=== PATIENT | male | born 1970 | race Caucasian/White ===

== ENCOUNTER → 2020-06-20 09:23 | Outpatient (BNVA) | payer OTHER, SELFPAY | PROVIDERS: PCP Nurse Practitioner Family; Referring Provider Nurse Practitioner Family; Visit Provider Nurse Practitioner Family | DX: G47.33 Obstructive sleep apnea (adult) (pediatric) (principal); Z79.899 Other long term (current) drug therapy ==

== ENCOUNTER 2023-12-15 12:22 | Outpatient (AMB) | payer OTHER, SELFPAY ==
--- NOTE | 2023-12-15 12:31 | MHC.PC.OV ---
Vital Signs 12/15/23 12:32 12/15/23 12:50 12/15/23 12:51 Height 5 ft 10 in Weight 271 lb 8 oz BMI 39.0 BP 202/110 H 160/90 H 160/90 H Blood Pressure Location Lt brachial Rt brachial Position Sitting Sitting Pulse 73 Pulse Source Pulse Oximeter Pulse Oximetry (%) 95 Oxygen Delivery Method Room Air Intake Visit Reasons: New pt, htn Allergies lisinopril Allergy (Unknown, Verified 12/15/23 12:53) Cough Medication List - Last Reconciled 12/15/23 by FLAKITO Winkler amlodipine 10 mg PO DAILY Tobacco use date assessed: 12/15/23 Dental Screening Dental Screen Date: 12/15/23 Did you have a dental visit in the last 12 months?: Yes Did you have a dental problem in the last 6 months where you did not have access to dental care?: No Was dental information given to patient?: Patient has dentist HPI HPI Comments History of Present Illness Details Patient is a 53-year-old male who I am meeting for the 1st time. Patient has a past medical history significant for hypertension, obstructive sleep apnea, hyperlipidemia. Patient had sleep study 4 years prior which demonstrated obstructive sleep apnea, patient had opted not to utilize CPAP machine at that time. Patient states that he has reconsidered and would now like to utilize CPAP machine, likely need new sleep study. Will refer to Sleep Medicine. Patient recently restarted amlodipine 10 mg p.o. daily for hypertension, will also start patient on losartan 50 mg p.o. daily. Patient will have follow-up in office in 2 weeks. He denies chest pain, dizziness, headache, shortness of breath, nausea, vomiting, diarrhea. Will obtain EKG in office today. Patient is due for colonoscopy will refer. Patient has surgical history of LASIK eye surgery and states he has developed floaters in his field of vision, will refer to Ophthalmology. He also states that he gets up to urinate 4 times per night. Has history of the same. Not taking any medication for this issue will draw fasting labs including PSA. Will refer to Urology. [facility] Surgical History Carpal tunnel syndrome, bilateral Family History Father HTN (hypertension) Mother No problems noted. Brother No problems noted. Brother No problems noted. Social History Housing: House Patient Tobacco Use Status: Never used Tobacco e-Cigarette/Vaping Use: Never Used service: No Current occupational status: employed Cognitive needs: No Hearing needs: No Vision needs: No Questionnaire PHQ-9 Over the last 2 weeks, how often have you been bothered by any of the following problems? 1. Little interest or pleasure in doing things: not at all 2. Feeling down, depressed, or hopeless: not at all 3. Trouble falling or staying asleep, or sleeping too much: not at all 4. Feeling tired or having little energy: not at all 5. Poor appetite or overeating: not at all 6. Feeling bad about yourself - or that you are a failure or have let yourself or your family down: not at all 7. Trouble concentrating on things, such as reading the newspaper or watching television: not at all 8. Moving or speaking so slowly that other people could have noticed. Or the opposite - being so fidgety or restless that you have been moving around a lot more than usual: not at all 9. Thoughts that you would be better off or of hurting yourself in some way: not at all Total score: 0 Depression Screening Interpretation: Negative Depression Screening Done: Yes 41901 - PHQ-9 Billing: Yes Source: Developed by Drs. Fletcher Bang, Katarina Hubbard, Pedrito Ryo and colleagues, with an educational juan pablo from [employer]. Thrive Questionnaire Date Thrive assessed: 12/15/23 I am a: Patient What is your living situation today?: I have a steady place to live Within the past 12 months, did the food you bought not last and you didn't have the money to get more?: Never true Within the past 12 months, did you worry whether your food would run out before you got money to buy more?: Never true Do you have trouble paying for medicines?: No Do you have trouble getting transportation to medical appointments?: No Do you have trouble paying your heating and electricity bill?: No Do you have trouble taking care of your child, family member or friend?: No Do you have trouble with day-to-day activities such as bathing, preparing meals, shopping, managing finances, etc.?: No Are you currently unemployed and looking for a job?: No Are you interested in more education?: No Please select the resources that you would like help with: None Currently or been in a relationship where the following occur: no concerns reported THRIVE Score: 0 AUDIT C Alcohol Use Questionnaire (AUDIT-C) 1. How often do you have a drink containing alcohol?: Monthly or less 2. How many drinks containing alcohol do you have on a typical day when you are drinking?: 1 or 2 3. How often do you have six or more drinks on one occasion?: Never Total Score: 1 Score Reviewed/Action Taken: Yes KARLA-7 AMB Questionnaire KARLA-7 Date KARLA - 7 assessed: 01/07/24 Feeling nervous, anxious, or on edge: 0 = Not at all Not being able to stop or control worryin = Not at all Worrying too much about different things: 0 = Not at all Trouble relaxin = Not at all Being so restless that it is hard to sit still: 0 = Not at all Becoming easily annoyed or irritable: 0 = Not at all Feeling afraid as if something awful might happen: 0 = Not at all Total KARLA-7 score (0-4 normal; 5-9 mild; 10-14 moderate; 15-21 severe): 0 Source: Developed by Drs. Fletcher Bang, Katarina Hubbard, Pedrito Roy and colleagues, with an educational juan pablo from [employer]. KARLA-7 Assessment Billing KARLA-7 Assessment Tool: KARLA-7 Assessment 57992 Review of Systems Const Details: Constitutional : No Weight loss, No Fever, No Chills, No Fatigue, No Malaise ENT/Mouth : Admits sore throat in morning, No Rhinorrhea. Eyes: No Eye Pain, No Swelling, No Redness, Admits some itchiness and occasional floaters. Cardiovascular : No Chest Pain, No SOB, Admits some Dyspnea on Exertion, No Orthopnea, No Edema, No Palpitations Respiratory : No Cough, Admits Sputum, No Wheezing Gastrointestinal : No Nausea, No Vomiting, No Diarrhea, No Constipation, No abdominal Pain, No Hematochezia, No Melena Genitourinary : No Dysuria, Admits nocturia, No Hematuria, Musculoskeletal : No joint pain, No Myalgias, No Joint Swelling Skin : No Skin Lesions, No rash, Admits some redness in skin fold behind knee. Neuro : No Weakness, No Numbness, No Dizziness, No Headache Psych : No Anxiety/Panic, No Depression Heme/Lymph: No Bruising, No Bleeding,No Lymphadenopathy Endocrine : No Polyuria, No Polydipsia All other systems reviewed and are negative Physical exam (Primary Care) Vital Signs: Last Vital Signs Pulse 73 12/15/23 12:32 BP 202/110 H 12/15/23 12:32 Pulse Ox 95 12/15/23 12:32 Oxygen Delivery Method Room Air 12/15/23 12:32 BMI result Body Mass Index 39.0 Tobacco/Smoking Status: Tobacco use Status Tobacco use date assessed 12/15/23 12/15/23 12:36 Patient Tobacco Use Status Never used Tobacco 12/15/23 12:36 e-Cigarette/Vaping Use Never Used 12/15/23 12:36 Depression Screening Interpretation: Negative Currently or been in a relationship where the following occur: no concerns reported Const Other: Appearance: Alert.? Oriented X3.? No acute distress.? Head: Normocephalic, atraumatic, no step-offs or deformities Eyes: Pupils equal, round and reactive to light.? ENT: Pharynx normal.?Tonsils +2. +post nasal drip. Neck: Normal inspection.? Neck supple.?Full ROM. CVS: Normal heart rate and rhythm.? Pulses normal.?+ systolic murmur. Respiratory: No respiratory distress.? Breath sounds normal.? Abdomen: Distended and nontender.? Skin: Scant erythema to left inguinal fold. ? Extremities: +2 pitting edema.? No calf ttp. 5/5 strength to bilateral upper and lower extremities Back: No midline tenderness, no C-spine tenderness, full range of motion, no CVA tenderness bilaterally Neuro: Oriented X 3.? No motor deficit.? No sensory deficit. CN 2-12 intact Assessment and Plan Assessment & Plan (1) Nocturia: Comment: Patient getting up to go the bathroom 4-5 times per night. Will draw PSA. Will draw A1c. Will refer patient to Urology Code(s): R35.1 - Nocturia (2) Floaters in visual field: Comment: Patient describes floaters and visual field, intermittent. Denies change in vision. Patient has history of LASIK surgery. Will refer to Ophthalmology Code(s): H43.399 - Other vitreous opacities, unspecified eye Qualifiers: Laterality: bilateral Qualified Code(s): H43.393 - Other vitreous opacities, bilateral (3) Essential hypertension: Comment: Patient recently started on 10 mg amlodipine. Will also start patient on losartan 50 mg/HCT 12.5 mg p.o. daily. Patient been instructed to take blood pressure measurements at home. Patient will follow-up in 2 weeks Code(s): I10 - Essential (primary) hypertension Plan: Take your medications as prescribed. If you were prescribed antibiotics today, it is important that you take your medication to their entirety, do not skip any doses, do not finish them early. Follow-up with your primary care provider this week. Return to the emergency department with new or worsening symptoms. Such as fevers, chills, chest pain, shortness of breath, nausea, vomiting, dizziness, headache, vision changes, lethargy In case of emergency call 911 (4) Obstructive sleep apnea hypopnea, severe: Comment: History of obstructive sleep apnea. Patient will need re-evaluation, will refer to Sleep Medicine. Code(s): G47.33 - Obstructive sleep apnea (adult) (pediatric) (5) Swelling of lower extremity: Comment: Plus two pitting edema. Will draw fasting labs including BNP. In office EKG obtained. Will order echocardiogram, will refer to Cardiology. Code(s): M79.89 - Other specified soft tissue disorders (6) Tinea cruris: Comment: Will give patient ketoconazole topical cream. Patient instructed to keep area clean and dry. Code(s): B35.6 - Tinea cruris (7) GERD with apnea: Comment: Patient will be started on pantoprazole sodium 20 mg p.o. daily. Patient has been advised on foods he should avoid that exacerbate gastric reflux. Patient has been instructed not to have food 2-3 hours prior to bedtime. Patient instructed to sleep with the help bed at a elevated as tolerated. Code(s): K21.9 - Gastro-esophageal reflux disease without esophagitis; R06.81 - Apnea, not elsewhere classified Plan Patient will follow-up in 2 weeks. Orders: Orders Vitamin B6 Today Z13.21 - Encounter for screening for nutritional disorder Vitamin B12 Today Z13.21 - Encounter for screening for nutritional disorder UA CC w/rflx Micro + Cult Today Z13.89 - Encounter for screening for other disorder Complete Blood Count Auto Diff Today Z13.0 - Encounter for screening for diseases of the blood and blood-forming organs and certain disorders involving the immune mechanism Lipid Panel Today Z13.220 - Encounter for screening for lipoid disorders B Type Natriuretic Peptide Today M79.89 - Other specified soft tissue disorders PSA,Total (Free>4and<10) Today Z12.5 - Encounter for screening for malignant neoplasm of prostate Vitamin D 25-OH (D2 and D3) Today Z13.21 - Encounter for screening for nutritional disorder TSH reflex Free T4 Today Z13.29 - Encounter for screening for other suspected endocrine disorder Comprehensive Met. Panel Today Z91.89 - Other specified personal risk factors, not elsewhere classified AMB EKG-In Office Today Z13.6 - Encounter for screening for cardiovascular disorders Hemoglobin A1c Today Z13.1 - Encounter for screening for diabetes mellitus Referrals Sleep Medicine Referral G47.33 - Obstructive sleep apnea (adult) (pediatric) Gastroenterology Referral Z12.11 - Encounter for screening for malignant neoplasm of colon Urology Referral R35.1 - Nocturia Ophthalmology Referral H43.399 - Other vitreous opacities, unspecified eye Medications: New fluticasone propionate 50 mcg/actuation (Allergy Relief (fluticasone)) administer into each nostril 2 sprays intranasal DAILY 16 grams 0RF ketoconazole 2% 1 appl topical DAILY 15 grams 0RF albuterol sulfate 90 mcg/actuation 2 puffs inhalation Q6H PRN 8.5 grams 0RF shortness of breath or wheezing olopatadine 0.1% separate doses by at least 6-8 hours 1 drp ophthalmic (eye) BID 5 mL 0RF pantoprazole 20 mg PO DAILY 30 tabs 0RF losartan-hydrochlorothiazide 50-12.5 mg 1 tab PO DAILY 90 tabs 0RF Coding Level of Care Code Est Pt Level 4 (24081) Diagnoses Nocturia R35.1 Vitreous floaters of both eyes H43.393 Laterality: bilateral Essential hypertension I10 Obstructive sleep apnea hypopnea, severe G47.33 Swelling of lower extremity M79.89 Tinea cruris B35.6 GERD with apnea K21.9; R06.81 Additional Codes KARLA-7 Assessment Billing - KARLA-7 Assessment Tool: KARLA-7 Assessment 51644 ([id number]) Time Spent (min) 38
[2023-12-15 12:32] VITALS: BP 202/110; PULSE 73; O2SAT 95; BMI 39.0
[2023-12-15 12:50] VITALS: BP 160/90
[2023-12-15 12:51] VITALS: BP 160/90
== END 2023-12-15 14:22 | disposition home or self-care (01) ==
PROVIDERS: PCP Nurse Practitioner Family; Visit Provider Nurse Practitioner Primary Care
DX: R35.1 Nocturia (principal); H43.393 Other vitreous opacities, bilateral; I10 Essential (primary) hypertension; G47.33 Obstructive sleep apnea (adult) (pediatric); M79.89 Other specified soft tissue disorders; B35.6 Tinea cruris; K21.9 Gastro-esophageal reflux disease without esophagitis; R06.81 Apnea, not elsewhere classified
CPT/HCPCS: 99214

== ENCOUNTER 2023-12-15 13:47 | Outpatient (REF) | payer OTHER, SELFPAY ==
[2023-12-15 15:50] LABS: MANUAL DIFF FLAG NO
[2023-12-15 15:53] LABS: Basophils Absolute Auto 0.1 X10*3/uL (0.0-0.2); Basophils Percent Auto 0.6 % (0-2); Eosinophils Absolute Auto 0.4 X10*3/uL (0.0-0.4); Eosinophils Percent Auto 4.6 % (0-4); Hematocrit 47.2 % (42.0-52.0); Hemoglobin 15.9 g/dl (14.0-18.0); Imm Gran Abs Auto 0.04 X10*3/uL (0.00-0.03); Imm Gran Pct Auto 0.5 % (0.0-0.4); Lymphocytes Absolute Auto 1.4 X10*3/uL (1.2-4.9); Lymphocytes Percent Auto 18.3 % (20-40); Mean Corpuscular HGB Conc 33.7 g/dl (31.0-36.0); Mean Corpuscular Hemoglobin 30.1 pg (27.0-33.0); Mean Corpuscular Volume 89.2 fL (80.0-98.0); Mean Platelet Volume 10.3 fL (9.4-12.4); Monocytes Absolute Auto 0.8 X10*3/uL (0.1-1.2); Monocytes Percent Auto 10.6 % (2-11); Neutrophils Absolute Auto 5.1 x10*3/uL (2.0-8.3); Neutrophils Percent Auto 65.4 % (45-73); Platelet Count 260 X10*3/uL (160-400); Red Blood Count 5.29 X10*6/uL (4.60-5.80); Red Cell Distribution Width 13.4 % (11.0-16.0); White Blood Count 7.8 X10*3/uL (4.8-10.8)
[2023-12-15 16:00] LABS: Appearance Urine Clear; Color Urine Yellow; Glucose Urine UA Negative (Negative); Leukocyte Esterase Urine Negative (Negative); Nitrite Urine Negative (Negative); Urine Blood Negative (Negative); Urine Ketones Negative (Negative); Urine Protein Negative (Neg-Trace)
[2023-12-15 16:27] LABS: B Type Natriuretic Peptide 11 pg/mL (<100)
[2023-12-15 17:52] LABS: Estimated Average Glucose 117 mg/dL; Hemoglobin A1C 148.3723 umol/L; Hemoglobin A1c % 5.7 % (<6.0)
[2023-12-15 17:56] LABS: Alanine Aminotransferase 27 U/L (0-40); Albumin Level 4.1 g/dL (3.5-5.0); Alkaline Phosphatase 72 U/L (39-117); Anion Gap 12 (12-20); Aspartate Amino Transferase 21 U/L (5-37); Bilirubin Total 0.9 mg/dL (0.0-1.0); Blood Urea Nitrogen 18 mg/dL (9-16); Calcium 9.8 mg/dL (8.4-10.2); Carbon Dioxide 28 mmol/L (22-29); Chloride 103 mmol/L (96-108); Estimated Glomerular Filt Rate > 60; Glucose Random 90 mg/dL (60-115); Potassium 3.6 mmol/L (3.3-5.1); Sodium 139 mmol/L (135-145); Total Protein 7.7 g/dL (6.5-8.0)
[2023-12-16 00:54] LABS: Vitamin B12 479 pg/mL (200-900)
[2023-12-18 14:18] LABS: Vitamin D 25-OH, D2 <4 ng/mL; Vitamin D 25-OH, D3 18 ng/mL; Vitamin D 25-OH, Total 18 ng/mL (30-100)
[2023-12-19 17:59] LABS: Vitamin B6 9.1 ng/mL (2.1-21.7)
== END 2023-12-15 13:48 | disposition home or self-care (01) ==
LOC: HO.HMGCLDS 13:47
PROVIDERS: PCP Nurse Practitioner Primary Care; Visit Provider Nurse Practitioner Primary Care
DX: Z13.21 Encounter for screening for nutritional disorder (principal); Z13.89 Encounter for screening for other disorder; Z13.0 Encounter for screening for diseases of the blood and blood-forming organs and certain disorders involving the immune mechanism; Z12.5 Encounter for screening for malignant neoplasm of prostate; Z13.29 Encounter for screening for other suspected endocrine disorder; Z13.1 Encounter for screening for diabetes mellitus; M79.89 Other specified soft tissue disorders; Z91.89 Other specified personal risk factors, not elsewhere classified
CPT/HCPCS: 36415; 80053; 81003; 82306; 82607; 83036; 83880; 84153; 84207; 84443; 85025

== ENCOUNTER 2023-12-18 11:49 | Outpatient (REF) | payer OTHER, SELFPAY ==
[2023-12-18 13:48] LABS: Cholesterol 192 mg/dL (<200); HDL Cholesterol 44 mg/dL (>40); LDL Cholesterol Calculated 113 mg/dL (<100); Triglycerides 178 mg/dL (<150)
== END 2023-12-18 11:50 | disposition home or self-care (01) ==
LOC: HO.HMGCLDS 11:49
PROVIDERS: PCP Nurse Practitioner Primary Care; Visit Provider Nurse Practitioner Primary Care
DX: Z13.220 Encounter for screening for lipoid disorders (principal); Z13.6 Encounter for screening for cardiovascular disorders
CPT/HCPCS: 36415; 80061

== ENCOUNTER 2023-12-29 11:22 | Outpatient (AMB) | payer OTHER, SELFPAY ==
[2023-12-29 11:27] VITALS: BP 140/80; PULSE 75; O2SAT 96
--- NOTE | 2023-12-29 11:27 | A.OFFPC_ITS ---
Vital Signs 12/29/23 11:27 12/29/23 12:27 Height 5 ft 10 in BP 140/80 H 136/80 Blood Pressure Location Rt brachial Rt brachial Position Sitting Pulse 75 Pulse Source Pulse Oximeter Pulse Oximetry (%) 96 Oxygen Delivery Method Room Air Intake Visit Reasons: 2WK F/U BP Check Allergies lisinopril Allergy (Unknown, Verified 12/29/23 11:56) Cough Medication List - Last Reconciled 12/29/23 by FLAKITO Winkler albuterol sulfate 90 mcg/actuation 2 puffs inhalation Q6H PRN amlodipine 10 mg PO DAILY atorvastatin 20 mg PO DAILY fluticasone propionate 50 mcg/actuation (Allergy Relief (fluticasone)) 2 sprays intranasal DAILY ketoconazole 2% 1 appl topical DAILY losartan-hydrochlorothiazide 50-12.5 mg 1 tab PO DAILY olopatadine 0.1% 1 drp ophthalmic (eye) BID pantoprazole 20 mg PO DAILY Tobacco use date assessed: 12/15/23 Dental Screening Dental Screen Date: 12/15/23 HPI HPI Comments History of Present Illness Details Patient is a 53-year-old male in today for a blood pressure recheck. Patient's blood pressure previous appointment 2 weeks ago was 160/90. He was started on Losartan 50mg- HCT 12.5 and asked to record blood pressure measurements at home. Patient denies dizziness, numbness, headache, vision changes, chest pain, shortness a breath, nausea, vomiting, diarrhea PFSH Surgical History Carpal tunnel syndrome, bilateral Family History Father HTN (hypertension) Mother No problems noted. Brother No problems noted. Brother No problems noted. Social History Housing: House Patient Tobacco Use Status: Never used Tobacco e-Cigarette/Vaping Use: Never Used service: No Current occupational status: employed Cognitive needs: No Hearing needs: No Vision needs: No Questionnaire Thrive Questionnaire Date Thrive assessed: 12/15/23 KARLA-7 AMB Questionnaire KARLA-7 Date KARLA - 7 assessed: 01/07/24 Source: Developed by Drs. Fletcher Bang, Katarina Hubbard, Pedrito Roy and colleagues, with an educational juan pablo from [employer]. Review of Systems Const All systems reviewed & are unremarkable except as noted in HPI and below Denies headache(s) ENT Denies dizziness and Denies headache(s) Card Denies chest pain and Denies dyspnea Resp Denies dyspnea GI Denies diarrhea, Denies nausea and Denies vomiting Musc Reports back pain (Left side), Reports arthralgias (right elbow) and Reports o ther Neuro Denies dizziness and Denies headache(s) Physical exam (Primary Care) Vital Signs: Last Vital Signs Pulse 75 12/29/23 11:27 BP 140/80 H 12/29/23 11:27 Pulse Ox 96 12/29/23 11:27 Oxygen Delivery Method Room Air 12/29/23 11:27 Care Plan Goal for BP management: Patient will continue take blood pressure measurements at home. Next steps: Patient will record measurements to get back to the office of the values in 2 weeks. Tobacco/Smoking Status: Tobacco use Status Tobacco use date assessed 12/15/23 12/29/23 11:41 Patient Tobacco Use Status Never used Tobacco 12/29/23 11:41 e-Cigarette/Vaping Use Never Used 12/29/23 11:41 Thrive Assessment: Date of Thrive Assessment Date Thrive assessed 12/15/23 12/29/23 11:41 Const Other: Appearance: Alert.? Oriented X3.? No acute distress.? Head: Normocephalic, atraumatic, no step-offs or deformities Eyes: Pupils equal, round and reactive to light.? ENT: Pharynx normal.?Tonsils +2. Neck: Normal inspection.? Neck supple.? CVS: Normal heart rate and rhythm.? Pulses normal.? Respiratory: No respiratory distress.? Breath sounds normal.? Skin: Skin warm and dry.? Normal skin color.? Normal skin turgor.? Extremities: +1 lower extremity edema.? +tenderness to left medial epicondyle. Back: No midline tenderness, no C-spine tenderness, full range of motion, Left CVA tenderness. Neuro: Oriented X 3.? No motor deficit.? No sensory deficit. CN 2-12 intact Assessment and Plan Assessment & Plan (1) Obstructive sleep apnea hypopnea, severe: Comment: History of obstructive sleep apnea. Patient will need re-evaluation, will refer to Sleep Medicine. Code(s): G47.33 - Obstructive sleep apnea (adult) (pediatric) (2) Costovertebral angle pain: Comment: will order renal US. Code(s): M54.9 - Dorsalgia, unspecified (3) Hypertension: Comment: Patient will continue to take BP measurements at home and take BP medications as prescribed. Code(s): I10 - Essential (primary) hypertension Qualifiers: Hypertension type: primary hypertension Qualified Code(s): I10 - Essential (primary) hypertension (4) Right elbow pain: Comment: Will order X-ray/. Code(s): M25.521 - Pain in right elbow Plan: Take your medications as prescribed. If you were prescribed antibiotics today, it is important that you take your medication to their entirety, do not skip any doses, do not finish them early. Follow-up with your primary care provider this week. Return to the emergency department with new or worsening symptoms. Such as fevers, chills, chest pain, shortness of breath, nausea, vomiting, dizziness, headache, vision changes, lethargy In case of emergency call 911 Plan Follow-up in 2 months Orders: Orders US renal BI Today N20.0 - Calculus of kidney XR elbow RT min 3V Today M25.529 - Pain in unspecified elbow Referrals Ear/Nose/Throat Referral G47.33 - Obstructive sleep apnea (adult) (pediatric) Coding Level of Care Code Est Pt Level 4 (41435) Diagnoses Obstructive sleep apnea hypopnea, severe G47.33 Costovertebral angle pain M54.9 Primary hypertension I10 Hypertension type: primary hypertension Right elbow pain M25.521 Time Spent (min) 38
[2023-12-29 12:27] VITALS: BP 136/80
== END 2023-12-29 13:34 | disposition home or self-care (01) ==
PROVIDERS: PCP Nurse Practitioner Primary Care; Visit Provider Nurse Practitioner Primary Care
DX: G47.33 Obstructive sleep apnea (adult) (pediatric) (principal); M54.9 Dorsalgia, unspecified; I10 Essential (primary) hypertension; M25.521 Pain in right elbow
CPT/HCPCS: 99214

== ENCOUNTER 2023-12-29 13:14 | Outpatient (REF) | payer OTHER, SELFPAY ==
--- NOTE | ~2023-12-29 | XR_ITS ---
EXAMINATION: XR ELBOW, RIGHT CLINICAL INFORMATION: Pain in the right elbow COMPARISON: None available. TECHNIQUE: AP, lateral, and oblique views of the right elbow. FINDINGS: The bones and soft tissues are normal. No fracture or joint effusion. Alignment is anatomic. Joint spaces are maintained. XR/XR elbow RT min 3V IMPRESSION: Normal right elbow.
== END 2023-12-29 13:15 | disposition home or self-care (01) ==
LOC: HO.HMGCX 13:14
PROVIDERS: PCP Nurse Practitioner Primary Care; Visit Provider Nurse Practitioner Primary Care
DX: M25.521 Pain in right elbow (principal)
CPT/HCPCS: 73080

== ENCOUNTER → 2024-01-02 13:51 | Outpatient (REF) | payer OTHER, SELFPAY ==
--- NOTE | 2024-01-02 14:02 | CA_ITS ---
Transthoracic Echocardiogram Patient (Last, First, Middle): Regan Lama, Gender: Male Date of : 1970 Age: 53 Procedure Date: 01/02/2024 Procedure Type: Transthoracic Echocardiogram Location: OP Height: 177.8 cm Weight: 120.2 kg BSA: 2.35 m2 Heart Rate: 60 bpm BP: 145 / 75 mmHg Employee Development Manager: CHANEL Referring MD: Aki FRAGA Symptoms: M79.89 - Other specified soft tissue disorders Study Quality: Fair ECG Rhythm: Sinus Conclusions: - The left ventricular systolic function is normal. The calculated ejection fraction is 66% by biplane method. - There is moderately increased left ventricular wall thickness. - No obvious valvular pathology seen on this study. - There is mild dilatation of the sinuses of Valsalva measuring 4.00 cm, mild dilatation of the ascending aorta measuring 4.30 cm, and mild dilatation of the aortic arch measuring 4.40 cm. Findings Left Ventricle Normal left ventricular cavity size. There is moderately increased left ventricular wall thickness. The left ventricular systolic function is normal. The calculated ejection fraction is 66% by biplane method. There is no evidence of regional wall motion abnormalities. Evidence suggests grade I (mild) diastolic dysfunction. LV peak GLS -15.6% (diminished). Right Ventricle Mildly increased right ventricular cavity size. There is normal right ventricular systolic function. Atria The left atrium is mildly dilated. The right atrium is normal in size. Aortic Valve There is a normal trileaflet aortic valve. There is mild calcification of the aortic valve. There is no aortic valve stenosis. There is no aortic valve regurgitation. Mitral Valve The mitral valve appears normal. There is no mitral valve regurgitation. There is no mitral valve stenosis. Pulmonic Valve The pulmonic valve is likely normal. Tricuspid Valve There is trace tricuspid valve regurgitation. There is no evidence of pulmonary hypertension. Great Vessels There is mild dilatation of the sinuses of Valsalva measuring 4.00 cm, mild dilatation of the ascending aorta measuring 4.30 cm, and mild dilatation of the aortic arch measuring 4.40 cm. Venous The inferior vena cava is normal in size and collapses greater than 50% with inspiration. Pericardium/Pleural There is no evidence of pericardial effusion. Prior Study Comparison No prior study available for comparison. Recommendations, Care & Conclusions No obvious valvular pathology seen on this study. Measurements 2D Linear Measurements IVSd: 1.35 0.6-0.9/0.6-1.0 cm LVIDd: 3.56 3.9-5.3/4.2-5.9 cm LVIDd Index: 1.51 2.4-3.2/2.2-3.1 cm/m2 LVIDs: 2.13 2.0-3.6 cm LVPWd: 1.47 0.7-1.1 cm LA Diam: 3.90 2.7-3.8/3.0-4.0 cm LAIDs Index: 1.66 1.5-2.3 cm/m2 LV Mass: 223.16 67-162/88-224 g LV Mass Index: 94.96 43-95/49-115 g/m2 LVOT Diam: 2.50 3.0+(-)1.3 cm 2D Systolic Function EF 4C: 61.00 >55% EF 2C: 70.70 >55% EF BiP: 65.90 >55% Mitral Valve MV Pk E: 0.62 MV PK A: 0.73 MV Decel Time: 331.00 E/A: 0.80 E'Lateral: 8.49 E'Medial: 6.53 E/E' Med: 9.40 E/E' Lat: 7.30 PHT: 97.00 MVA PHT: 2.27 Decel Carroll: 1.86 Aortic Valve AoV Pk Berry: 1.68 AoV Mn Berry: 1.18 AoV VTI: 0.34 AoV Pk Grad: 11.00 Aov Mn Grad: 6.00 KAILEE Cont.VTI: 3.93 LVOT LVOT Pk Berry: 1.32 LVOT Mn Berry: 0.90 LVOT VTI: 0.27 LVOT Pk Grad: 7.00 LVOT Mn Grad: 4.00 LVOT Diam: 2.50 LVOT Area: 4.91 Diastolic Function MV Pk E: 0.62 MV Pk A: 0.73 E/A: 0.80 E'Medial: 6.53 E/E' Med: 9.40 E' Laterial: 8.49 E/E' Lat: 7.30 Right Ventricle TAPSE (mm): 33.60 TVS' Berry: 16.90 Tricuspid Valve TR Pk Berry: 2.30 TR Pk Grad: 21.00 RA Press: 3.00 RVSP: 24.00 Great Vessels Aorta Sinus of Valsalva: 4.00 2.0-3.5 cm Ao Asc: 4.30 2.1-3.4 cm Ao Arch: 4.40 Pulmonary Valve PV Pk Berry: 1.07 Peak PV Grad: 5.00 Updated in Other Vendor System with Status of Final Joshua Manzanares MD electronically signed on 01/04/2024 11:01:49 AM with status of Final
== END ==
LOC: HO.CARD 13:51
PROVIDERS: PCP Nurse Practitioner Primary Care; Visit Provider Nurse Practitioner Primary Care
DX: R60.0 Localized edema (principal); I10 Essential (primary) hypertension
CPT/HCPCS: 93306; 93356

== ENCOUNTER → 2024-01-02 14:02 | Outpatient (BNV) | payer OTHER, SELFPAY | PROVIDERS: PCP Nurse Practitioner Primary Care; Visit Provider Internal Medicine | DX: I35.8 Other nonrheumatic aortic valve disorders (principal); I71.22 Aneurysm of the aortic arch, without rupture | CPT/HCPCS: 93306; 93356 ==

== ENCOUNTER 2024-01-05 08:26 | Outpatient (REF) | payer OTHER, SELFPAY ==
--- NOTE | ~2024-01-05 | US_ITS ---
EXAMINATION: US RETROPERITONEAL LIMITED (RENAL ONLY) CLINICAL INFORMATION: Calculus of kidney. COMPARISON: Renal ultrasound 09/14/2015 and 08/12/2014. TECHNIQUE: Real-time imaging of the kidneys. FINDINGS: RIGHT KIDNEY: 12.6 x 6.5 x 6.6 cm (SAG x AP x TRV). The kidney is normal in size, contour, and echogenicity. Renal cortical thickness is normal. No calculi or focal parenchymal lesions. No hydronephrosis. LEFT KIDNEY: 13.7 x 5.8 x 5.4 cm (SAG x AP x TRV). The kidney is normal in size, contour, and echogenicity. Renal cortical thickness is normal. No calculi or focal parenchymal lesions. No hydronephrosis. US/US renal BI IMPRESSION: Normal renal ultrasound. No visible nephrolithiasis.
== END 2024-01-05 08:27 | disposition home or self-care (01) ==
LOC: HO.HMGCX 08:26
PROVIDERS: PCP Nurse Practitioner Primary Care; Visit Provider Nurse Practitioner Primary Care
DX: N20.0 Calculus of kidney (principal)
CPT/HCPCS: 76775

== ENCOUNTER 2024-01-16 14:43 | Outpatient (AMB) | payer OTHER, SELFPAY ==
--- NOTE | 2024-01-16 15:25 | MHC.OFFVIS ---
Intake Visit Reasons: nocturia Intake Note: NEW Patient presents today to established treatment for Nocturia: Meds- None Allergies to Antibiotic- No Known Allergies Blood Thinner- None Post Void Residual: 69 mL Stereo Compiler Required: No Accompanied by: Self / Same As Patient Allergies lisinopril Allergy (Unknown, Verified 02/23/24 08:41) Cough HPI Comments Details: Regan is a pleasant male. He is a patient of Dr. Quiroz. He has seen for the following urologic conditions. - lower urinary tract symptoms - primarily nocturia Lower urinary tract symptoms Primarily developing nocturia Waking 2-3 times at night Has not tried medications Trial of medications with bladder ultrasound and 2 month follow-up [facility] Surgical History Carpal tunnel syndrome, bilateral Family History Father HTN (hypertension) Mother No problems noted. Brother No problems noted. Brother No problems noted. Social History Housing: House Patient Tobacco Use Status: Never used Tobacco e-Cigarette/Vaping Use: Never Used service: No Current occupational status: employed Cognitive needs: No Hearing needs: No Vision needs: No Review of Systems Const Denies chills and Denies fever(s) Card Reports no additional complaints and Denies syncope Resp Denies cough GI Denies abdominal pain and Denies heartburn Reports as per HPI and Denies change in libido Neuro Denies syncope Psych Denies change in libido Endo Denies change in libido Physical Exam Const General: cooperative, healthy appearing, comfortable and no acute distress Orientation/consciousness: patient oriented x3 HEENT Face and sinus: Yes normal facial exam Mouth: moist mucous membranes Neck Neck: Yes normal visual inspection, Yes full ROM and Yes trachea midline Chest Chest palpation & inspection: normal inspection of the chest Resp Effort & Inspection: normal respiratory effort, able to speak in complete sentences and no respiratory distress GI Inspection: Yes normal to inspection Back/Spine/Pelvis Cervical Spine: normal cervical lordosis Thoracic/Lumbar Spine: thoracic and lumbar spine normal to inspection Skin General skin exam: no rashes or lesions noted Neuro General: patient oriented x3, gait normal, tone normal and moves all extremities Extrem General: Yes normal to inspection and Yes capillary refill normal Results AMB Urinalysis, Automated UA Leukoctes 0 Marcella/uL Last Edit by Milton Serra Linda on 01/16/24 15:35 UA Nitrite Negative Last Edit by Milton Serra, [facility] on 01/16/24 15:35 UA Urobilinogen 0.2 mg/dL Last Edit by Milton Serra [facility] on 01/16/24 15:35 UA Protein 0 mg/dL Last Edit by Milton Serra A on 01/16/24 15:35 UA pH 6.0 Last Edit by Milton Serra A on 01/16/24 15:35 UA Blood 0 Marquise/uL Last Edit by Milton Serra [facility] on 01/16/24 15:35 UA Specific Gardners 1.015 Last Edit by Milton Serra [facility] on 01/16/24 15:35 UA Ketone Negative Last Edit by Milton Serra [facility] on 01/16/24 15:35 UA Bilirubin 5 mg/dL Last Edit by Milton Serra [facility] on 01/16/24 15:35 UA Glucose 0 mg/dL Last Edit by Milton Serra [facility] on 01/16/24 15:35 Results Reviewed Results Reviewed: Laboratory Last Values Urine pH (Auto) 6.0 01/16/24 15:34 Specific Gardners (Auto) 1.015 01/16/24 15:34 Urine Protein (Auto) 0 mg/dL 01/16/24 15:34 Glucose (UA)(Auto) 0 mg/dL 01/16/24 15:34 Urine Ketones (Auto) Negative 01/16/24 15:34 Urine Blood (Auto) 0 Marquise/uL 01/16/24 15:34 Urine Nitrite (Auto) Negative 01/16/24 15:34 Urine Bilirubin (Auto) 5 mg/dL 01/16/24 15:34 Urine Urobilinogen (Auto) 0.2 mg/dL 01/16/24 15:34 Leukocyte Esterase (Auto) 0 Marcella/uL 01/16/24 15:34 Assessment & Plan Assessment & Plan (1) Bladder outlet obstruction: Code(s): N32.0 - Bladder-neck obstruction Category: Medical Plan Trial tamsulosin Orders: Orders US bladder 01/23/24 R39.12 - Poor urinary stream, N32.0 - Bladder-neck obstruction AMB Urinalysis Automated 01/16/24 Z13.9 - Encounter for screening, unspecified AMB Post Void Residual by ultrasound 01/16/24 N39.8 - Other specified disorders of urinary system Medications: New tamsulosin 0.4 mg PO BEDTIME 30 caps 1RF 30 days N32.0 - Bladder-neck obstruction, R35.1 - Nocturia, N40.1 - Benign prostatic hyperplasia with lower urinary tract symptoms Patient Instructions: Imaging studies, laboratory and physical exam results were discussed and reviewed in detail. No major barriers to patient understanding were identified. An opportunity to ask questions regarding the treatment plan was provided. All questions were answered. The patient expressed understanding and agreement with the above treatment plan. The patient is aware they should contact our office by phone for worsening of their current condition or the appearance of new urologic symptoms. Compliance is encouraged with any medications and followup testing that is ordered. It is a privilege to participate in the urologic care of your patient. If you have any questions or concerns regarding treatment for the above conditions, or other urologic issues, please do not hesitate to contact me. The office telephone contact is [phone]. This note is constructed using voice recognition software. While every effort has been made to ensure accuracy medical microbiologist errors may have been included. Yours sincerely, Dr Tyrell Morataya MD, [facility] - Urology Providers of Expert, Compassionate Care for the Genitourinary System Coding Level of Care Code New Pt Level 4 (11312) Diagnoses Bladder outlet obstruction N32.0
== END 2024-01-16 15:42 | disposition home or self-care (01) ==
PROVIDERS: PCP Nurse Practitioner Primary Care; Visit Provider Urology
DX: N32.0 Bladder-neck obstruction (principal)
CPT/HCPCS: 99203

== ENCOUNTER → 2024-01-16 14:43 | Outpatient (BNVA) | payer OTHER, SELFPAY | PROVIDERS: PCP Nurse Practitioner Primary Care; Visit Provider Urology | DX: N40.1 Benign prostatic hyperplasia with lower urinary tract symptoms (principal); N13.8 Other obstructive and reflux uropathy; R35.1 Nocturia | CPT/HCPCS: 81003 ==

== ENCOUNTER 2024-01-20 15:47 | Outpatient (AMB) | payer OTHER, SELFPAY ==
[2024-01-20 15:50] VITALS: BP 142/82; PULSE 78; O2SAT 98
--- NOTE | 2024-01-20 15:50 | AM.OFFWIN_ITS ---
Intake Vital Signs 01/20/24 15:50 Height 5 ft 10 in BP 142/82 H Blood Pressure Location Rt brachial Position Sitting Pulse 78 Pulse Source Pulse Oximeter Pulse Oximetry (%) 98 Intake Visit Reasons: EST/left side upper theigh numb (lobby) Intake Note: pt is here for left side upper thigh feels numb Patient Tobacco Use Status: Never used Tobacco Allergies lisinopril Allergy (Unknown, Verified 01/20/24 16:11) Cough Medication List - Last Reconciled 01/20/24 by FLAKITO Winkler albuterol sulfate 90 mcg/actuation 2 puffs inhalation Q6H PRN amlodipine 10 mg PO DAILY atorvastatin 20 mg PO DAILY fluticasone propionate 50 mcg/actuation 2 sprays intranasal DAILY ketoconazole 2% 1 appl topical DAILY losartan-hydrochlorothiazide 50-12.5 mg 1 tab PO DAILY olopatadine 0.1% 1 drp ophthalmic (eye) BID pantoprazole 20 mg PO DAILY tamsulosin 0.4 mg PO BEDTIME 30 days Do you need a note to return to daycare/school/sports/work: No HPI HPI Comments History of Present Illness Details Patient is a 53-year-old male in today for a sick visit. He states that for the past week he has developed symptoms of intermittent numbness and then burning sensation on the outside of his left leg. He states that the pain starts at his left hip and radiates down to the knee. Also reports lower back discomfort. Patient works standing on his feet all day, often having to bend and squat for several minutes. Patient states that the symptoms have gotten progressively worse over the past month, with a past week being the worst. Has not utilized any medications for relief. Denies any saddle numbness or urinary incontinence. [facility] Surgical History Carpal tunnel syndrome, bilateral Family History Father HTN (hypertension) Mother No problems noted. Brother No problems noted. Brother No problems noted. Social History Housing: House Patient Tobacco Use Status: Never used Tobacco e-Cigarette/Vaping Use: Never Used service: No Current occupational status: employed Cognitive needs: No Hearing needs: No Vision needs: No Review of Systems Const All systems reviewed & are unremarkable except as noted in HPI and below Denies chills and Denies fever(s) Card Denies chest pain and Denies dyspnea Resp Denies dyspnea GI Denies diarrhea, Denies nausea and Denies vomiting Denies urinary incontinence Musc Reports radiating pain into limb (Left lower extremity) and Denies tingling Skin/Breast Denies lesions and Denies erythema Neuro Denies Sensory deficit (Neuro), Denies tingling and Denies paresthesias Physical Exam Const Other: Appearance: Alert.? Oriented X3.? No acute distress.? Head: Normocephalic, atraumatic, no step-offs or deformities Respiratory: No respiratory distress.? Back: No midline tenderness, no C-spine tenderness, full range of motion, no CVA tenderness bilaterally, + Left SI joint tenderness. Neuro: Oriented X 3.? No motor deficit.? No sensory deficit. CN 2-12 intact Neuro Sensory Exam: No Sensory deficit (Neuro) Assessment & Plan Assessment & Plan (1) Sciatica: Comment: Will order lumbar and SI joint x-ray. Will give prednisone and meloxicam. Patient will follow-up in 1 week if not better. Patient has been educated on si gns of worsening symptoms when to report to the walk-in or when to present to the ED. Code(s): M54.30 - Sciatica, unspecified side Qualifiers: Laterality: left Qualified Code(s): M54.32 - Sciatica, left side Plan: Take your medications as prescribed. If you were prescribed antibiotics today, it is important that you take your medication to their entirety, do not skip any doses, do not finish them early. Follow-up with your primary care provider this week. Return to the emergency department with new or worsening symptoms. Such as fevers, chills, chest pain, shortness of breath, nausea, vomiting, dizziness, headache, vision changes, lethargy In case of emergency call 911 Plan Follow up with pcp. Orders: Orders XR lumbar spine 2-3V Today M54.30 - Sciatica, unspecified side XR sacroiliac joint 1-2V Today M54.30 - Sciatica, unspecified side Medications: New losartan 25 mg PO DAILY 30 tabs 0RF prednisone 40 mg (2 x 20 mg) PO DAILY 10 tabs 0RF meloxicam 15 mg PO DAILY 14 tabs 0RF Coding Level of Care Code Est Pt Level 3 (27460) Diagnoses Sciatica of left side M54.32 Laterality: left
== END 2024-01-20 16:31 | disposition home or self-care (01) ==
PROVIDERS: PCP Nurse Practitioner Primary Care; Visit Provider Nurse Practitioner Primary Care
DX: M54.32 Sciatica, left side (principal)
CPT/HCPCS: 99213

== ENCOUNTER 2024-01-20 16:04 | Outpatient (REF) | payer OTHER, SELFPAY ==
--- NOTE | ~2024-01-20 | XR_ITS ---
EXAMINATION: XR LUMBOSACRAL SPINE CLINICAL INFORMATION: Sciatica COMPARISON: None available. TECHNIQUE: Three views of the lumbosacral spine. FINDINGS: There is disc space narrowing at the lumbosacral junction. No fracture or destructive process. There is sclerotic change overlying the left SI joint. XR/XR lumbar spine 2-3V IMPRESSION: Degenerative change noted.
--- NOTE | ~2024-01-20 | XR_ITS ---
EXAMINATION: XR SACROILIAC JOINTS CLINICAL INFORMATION: Pain COMPARISON: None available. TECHNIQUE: 3 views of the sacroiliac joints FINDINGS: Right and left SI joint appears symmetric. No erosive change. The pelvis and hips appear intact. No fracture or destructive process. XR/XR sacroiliac joint 1-2V IMPRESSION: Unremarkable study.
== END 2024-01-20 16:05 | disposition home or self-care (01) ==
LOC: HO.HMGCX 16:04
PROVIDERS: PCP Nurse Practitioner Primary Care; Visit Provider Nurse Practitioner Primary Care
DX: M54.30 Sciatica, unspecified side (principal)
CPT/HCPCS: 72100; 72200

== ENCOUNTER 2024-01-23 11:22 | Outpatient (REF) | payer OTHER, SELFPAY ==
--- NOTE | ~2024-01-23 | US_ITS ---
EXAMINATION: US PELVIS LIMITED (BLADDER) CLINICAL INFORMATION: Poor urinary stream. COMPARISON: Renal ultrasound 01/05/2024 and 09/14/2015. CT abdomen and pelvis 09/19/2014. TECHNIQUE: Real-time imaging of the bladder. FINDINGS: BLADDER: Well-distended. Mild diffuse thickening of the bladder wall with possible mild irregularity. Bilateral ureteral jets are demonstrated. Prevoid bladder volume is 305 mL. Postvoid bladder volume is 70 mL. ADDITIONAL FINDINGS: Enlarged prostate with volume 46 mL. US/US bladder IMPRESSION: 1. Mild diffuse thickening of the bladder wall with possible mild irregularity. 2. Enlarged prostate with volume 46 mL.
== END 2024-01-23 11:23 | disposition home or self-care (01) ==
LOC: HO.HMGCX 11:22
PROVIDERS: PCP Nurse Practitioner Primary Care; Visit Provider Urology
DX: R39.12 Poor urinary stream (principal); N32.0 Bladder-neck obstruction
CPT/HCPCS: 76857

== ENCOUNTER 2024-01-27 08:44 | Outpatient (AMB) | payer OTHER, SELFPAY ==
[2024-01-27 09:20] VITALS: BP 130/90; PULSE 65; TEMP 36.1; O2SAT 97; BMI 36.9
--- NOTE | 2024-01-27 09:20 | MHC.OFFWIV ---
Intake Vital Signs 01/27/24 09:20 Height 5 ft 10 in Weight 257 lb BMI 36.9 BP 130/90 H Blood Pressure Location Lt brachial Position Sitting Pulse 65 Pulse Source Pulse Oximeter Temp 97.0 F Temp Source Temporal Artery Scan Pulse Oximetry (%) 97 Oxygen Delivery Method Room Air Intake Visit Reasons: EP ?Fluid in llung Intake Note: pt is here today for fluid in lungs started friday Patient Tobacco Use Status: Never used Tobacco Allergies lisinopril Allergy (Unknown, Verified 01/27/24 10:05) Cough Medication List - Last Reconciled 01/27/24 by FLAKITO Winkler albuterol sulfate 90 mcg/actuation 2 puffs inhalation Q6H PRN amlodipine 10 mg PO DAILY atorvastatin 20 mg PO DAILY fluticasone propionate 50 mcg/actuation 2 sprays intranasal DAILY ketoconazole 2% 1 appl topical DAILY losartan 25 mg PO DAILY losartan-hydrochlorothiazide 50-12.5 mg 1 tab PO DAILY meloxicam 15 mg PO DAILY olopatadine 0.1% 1 drp ophthalmic (eye) BID pantoprazole 20 mg PO DAILY tamsulosin 0.4 mg PO BEDTIME 30 days Do you need a note to return to daycare/school/sports/work: No HPI HPI Comments History of Present Illness Details Patient is a 53-year-old male in today for sick visit. He reports for the past 2 days he has developed symptoms of excessive mucus production, chills, headache, cough. Has not taken any medication for relief. States that the cough is bothering him the most particularly at night. Denies chest pain or shortness of breath. Denies fever. Denies nausea vomiting or diarrhea. Reports sick contacts. On physical exam patient has bilateral wheeze of upper lobes. + rhonchi. No crackles. Will obtain chest x-ray. Will obtain URI swab. [facility] Surgical History Carpal tunnel syndrome, bilateral Family History Father HTN (hypertension) Mother No problems noted. Brother No problems noted. Brother No problems noted. Social History Housing: House Patient Tobacco Use Status: Never used Tobacco e-Cigarette/Vaping Use: Never Used service: No Current occupational status: employed Cognitive needs: No Hearing needs: No Vision needs: No Review of Systems Const All systems reviewed & are unremarkable except as noted in HPI and below Physical Exam Vital Signs: Last Vital Signs Temp 97.0 F 01/27/24 09:20 Pulse 65 01/27/24 09:20 BP 130/90 H 01/27/24 09:20 Pulse Ox 97 01/27/24 09:20 Oxygen Delivery Method Room Air 01/27/24 09:20 BMI result Body Mass Index 36.9 Const Other: Appearance: Alert.? Oriented X3.? No acute distress.? Head: Normocephalic, atraumatic, Eyes: Pupils equal, round and reactive to light.? ENT: Pharynx normal.?TM intact and pearly villa. Neck: Normal inspection.? Neck supple.? CVS: Normal heart rate and rhythm.? Pulses normal.? Respiratory: No respiratory distress.? Bilateral wheeze upper lobes. Abdomen: Soft and nontender.? Skin: Skin warm and dry.? Normal skin color.? Normal skin turgor.? Extremities: No lower extremity edema.? No calf ttp. 5/5 strength to bilateral upper and lower extremities Back: No midline tenderness, no C-spine tenderness, full range of motion, no CVA tenderness bilaterally Neuro: Oriented X 3.? No motor deficit.? No sensory deficit. CN 2-12 intact Assessment & Plan Assessment & Plan (1) Upper respiratory infection: Comment: Will give prednisone. Will also send albuterol inhaler. Patient has been educated on signs of worsening symptoms when to report to the walk-in or when to present to the ED Code(s): J06.9 - Acute upper respiratory infection, unspecified Qualifiers: URI type: unspecified URI Qualified Code(s): J06.9 - Acute upper respiratory infection, unspecified Plan: Take your medications as prescribed. If you were prescribed antibiotics today, it is important that you take your medication to their entirety, do not skip any doses, do not finish them early. Follow-up with your primary care provider this week. Return to the emergency department with new or worsening symptoms. Such as fevers, chills, chest pain, shortness of breath, nausea, vomiting, dizziness, headache, vision changes, lethargy In case of emergency call 911 Plan Will also provide Sildenafil refill. Orders: Orders SARS-CoV2/FLU/RSV 01/27/24 J06.9 - Acute upper respiratory infection, unspecified XR chest 2V 01/27/24 R07.89 - Other chest pain Medications: New sildenafil administer 30 minutes to 4 hours before activity 50 mg PO DAILY PRN 10 tabs 0RF sexual activity prednisone 10 mg orally Take 4 tablets for three days, take 3 tablets for two days, take 2 tablets for two days, take 1 tablet for two days; see taper instructions 24 tabs 0RF Coding Level of Care Code Est Pt Level 3 (57232) Diagnoses Upper respiratory tract infection, unspecified type J06.9 URI type: unspecified URI Time Spent (min) 27
== END 2024-01-27 10:56 | disposition home or self-care (01) ==
PROVIDERS: PCP Nurse Practitioner Primary Care; Visit Provider Nurse Practitioner Primary Care
DX: J06.9 Acute upper respiratory infection, unspecified (principal)
CPT/HCPCS: 99213

== ENCOUNTER 2024-01-27 09:53 | Outpatient (REF) | payer OTHER, SELFPAY ==
--- NOTE | ~2024-01-27 | XR_ITS ---
EXAMINATION: XR CHEST CLINICAL INFORMATION: Chest pain COMPARISON: None available. TECHNIQUE: 2 views of the chest were obtained. FINDINGS: Lungs grossly are clear. No pneumothorax. Heart and pulmonary vessels normal. No pleural effusion. XR/XR chest 2V IMPRESSION: No active disease.
[2024-01-27 14:53] LABS: Influenza A PCR NEGATIVE (Negative); Influenza B PCR NEGATIVE (Negative); Resp Syncy Virus RNA Qual PCR NEGATIVE (Negative); SARS COV2 PCR INHOUSE NEGATIVE (Negative)
== END 2024-01-27 09:54 | disposition home or self-care (01) ==
LOC: HO.HMGCX 09:53
PROVIDERS: PCP Nurse Practitioner Primary Care; Visit Provider Nurse Practitioner Primary Care
DX: R07.89 Other chest pain (principal); J06.9 Acute upper respiratory infection, unspecified
CPT/HCPCS: 0241U; 71046

== ENCOUNTER 2024-02-23 08:26 | Outpatient (AMB) | payer OTHER, SELFPAY ==
--- NOTE | 2024-02-23 08:27 | A.OFFPC_ITS ---
Vital Signs 02/23/24 08:29 Height 5 ft 10 in Weight 255 lb BMI 36.6 BP 136/88 Blood Pressure Location Lt brachial Position Sitting Pulse 61 Pulse Source Pulse Oximeter Pulse Oximetry (%) 97 Oxygen Delivery Method Room Air Intake Visit Reasons: 2 month follow up Intake Note: pt is here for 2 mo f/u for hypertension Allergies lisinopril Allergy (Unknown, Verified 02/23/24 08:41) Cough Medication List - Last Reconciled 02/23/24 by FLAKITO Winkler albuterol sulfate 90 mcg/actuation 2 puffs inhalation Q6H PRN amlodipine 10 mg PO DAILY atorvastatin 20 mg PO DAILY fluticasone propionate 50 mcg/actuation 2 sprays intranasal DAILY ketoconazole 2% 1 appl topical DAILY losartan-hydrochlorothiazide 100-12.5 mg 1 tab PO DAILY meloxicam 15 mg PO DAILY olopatadine 0.1% 1 drp ophthalmic (eye) BID sildenafil 50 mg PO DAILY PRN tamsulosin 0.4 mg PO BEDTIME 30 days Tobacco use date assessed: 02/23/24 Dental Screening Dental Screen Date: 12/15/23 HPI HPI Comments History of Present Illness Details This is a 53-year-old male in today for a hypertension follow-up. He is currently taking 75 mg losartan, 12.5 mg hydrochlorothiazide, and 10 mg amlodipine. Patient's blood pressure today slightly elevated at 136/88. Patient will be titrated up to 100 mg losartan/12.5 mg hydrochlorothiazide, in the morning, with 10 mg of amlodipine at night. Patient denies any symptoms of dizziness, headache, blurred vision, chest pain, shortness a breath, nausea, vomiting, diarrhea. Patient will be instructed to take blood pressure measurement over the next 2 week in reports the office what his values have been. Patient also reports that he has continued to have lumbar pain with bilateral radiculopathy. Has been seeing chiropractor with mild affect. Has utilized [id number] NSAIDs with mild effect. Has also utilize prednisone in the past with mild affect. Will try to order MRI of the lumbar spine today. Patient will be given meloxicam p.r.n. patient denies saddle numbness, or tingling. [facility] Surgical History Carpal tunnel syndrome, bilateral Family History Father HTN (hypertension) Mother No problems noted. Brother No problems noted. Brother No problems noted. Social History Housing: House Patient Tobacco Use Status: Never used Tobacco e-Cigarette/Vaping Use: Never Used service: No Current occupational status: employed Cognitive needs: No Hearing needs: No Vision needs: No Questionnaire Thrive Questionnaire Date Thrive assessed: 12/15/23 AUDIT C Alcohol Use Questionnaire (AUDIT-C) 1. How often do you have a drink containing alcohol?: Monthly or less 2. How many drinks containing alcohol do you have on a typical day when you are drinking?: 1 or 2 3. How often do you have six or more drinks on one occasion?: Never Total Score: 1 KARLA-7 AMB Questionnaire KARLA-7 Date KARLA - 7 assessed: 01/07/24 Source: Developed by Drs. Fletcher Bang, Katarina Hubbard, Pedrito Roy and colleagues, with an educational juan pablo from [employer]. Review of Systems Const All systems reviewed & are unremarkable except as noted in HPI and below Physical exam (Primary Care) Vital Signs: Last Vital Signs Pulse 61 02/23/24 08:29 BP 136/88 02/23/24 08:29 Pulse Ox 97 02/23/24 08:29 Oxygen Delivery Method Room Air 02/23/24 08:29 Care Plan Goal for BP management: Patient losartan increased to 100 mg with 12.5 mg hydrochlorothiazide Next steps: Patient will take blood pressure measurements at home and call office with records. BMI result Body Mass Index 36.6 Tobacco/Smoking Status: Tobacco use Status Tobacco use date assessed 12/15/23 02/23/24 08:27 Patient Tobacco Use Status Never used Tobacco 02/23/24 08:27 e-Cigarette/Vaping Use Never Used 02/23/24 08:27 Thrive Assessment: Date of Thrive Assessment Date Thrive assessed 12/15/23 02/23/24 08:27 Const Other: Appearance: Alert.? Oriented X3.? No acute distress.? Head: Normocephalic, atraumatic, no step-offs or deformities Eyes: Pupils equal, round and reactive to light.? Neck: Normal inspection.? Neck supple.? CVS: Normal heart rate and rhythm.? Pulses normal.? Respiratory: No respiratory distress.? Breath sounds normal.? Abdomen: Soft and nontender.? Skin: Skin warm and dry.? Normal skin color.? Normal skin turgor.? Extremities: No lower extremity edema.? No calf ttp. 5/5 strength to bilateral upper and lower extremities Back: No midline tenderness, no C-spine tenderness, full range of motion, no CVA tenderness bilaterally, +straight leg test bilaterall.y Neuro: Oriented X 3.? No motor deficit.? No sensory deficit. CN 2-12 intact Assessment and Plan Assessment & Plan (1) Lumbar back pain with radiculopathy affecting lower extremity: Comment: Will order MRI without contrast. Patient given meloxicam. Has been educated on side effects of these medications to not combine them with other NSAIDs. Code(s): M54.16 - Radiculopathy, lumbar region (2) Hypertension: Comment: Patient will continue to take BP measurements at home and take BP medications as prescribed. Patient is new medication regimen is 100 mg losartan/12.5 mg hydrochlorothiazide in the more with 10 mg amlodipine at night. Code(s): I10 - Essential (primary) hypertension Qualifiers: Hypertension type: primary hypertension Qualified Code(s): I10 - Essential (primary) hypertension Plan draw labs Orders: Orders Comprehensive Met. Panel Today Z91.89 - Other specified personal risk factors, not elsewhere classified Lipid Panel Today Z13.220 - Encounter for screening for lipoid disorders MR lumbar spine wo con Today M54.16 - Radiculopathy, lumbar region Vitamin D 25-OH (D2 and D3) Today Z13.21 - Encounter for screening for nutritional disorder Complete Blood Count Auto Diff Today Z13.0 - Encounter for screening for diseases of the blood and blood-forming organs and certain disorders involving the immune mechanism Medications: New losartan-hydrochlorothiazide 100-12.5 mg 1 tab PO DAILY 90 tabs 0RF Refilled meloxicam 15 mg PO DAILY 14 tabs 0RF ketoconazole 2% 1 appl topical DAILY 30 grams 0RF Discontinued prednisone Discontinued Reason: Doctor's Order 10 mg orally Take 4 tablets for three days, take 3 tablets for two days, take 2 tablets for two days, take 1 tablet for two days; see taper instructions 24 tabs 0RF Coding Level of Care Code Est Pt Level 3 (01588) Diagnoses Lumbar back pain with radiculopathy affecting lower extremity M54.16 Primary hypertension I10 Hypertension type: primary hypertension Time Spent (min) 25
[2024-02-23 08:29] VITALS: BP 136/88; PULSE 61; O2SAT 97; BMI 36.6
== END 2024-02-23 12:51 | disposition home or self-care (01) ==
PROVIDERS: PCP Nurse Practitioner Primary Care; Visit Provider Nurse Practitioner Primary Care
DX: M54.16 Radiculopathy, lumbar region (principal); I10 Essential (primary) hypertension
CPT/HCPCS: 99213

== ENCOUNTER 2024-02-23 08:58 | Outpatient (REF) | payer OTHER, SELFPAY ==
[2024-02-23 12:09] LABS: MANUAL DIFF FLAG NO
[2024-02-23 12:12] LABS: Basophils Percent Auto 0.7 % (0-2); Eosinophils Absolute Auto 0.5 X10*3/uL (0.0-0.4); Eosinophils Percent Auto 8.8 % (0-4); Hematocrit 44.8 % (42.0-52.0); Hemoglobin 14.8 g/dl (14.0-18.0); Imm Gran Abs Auto 0.05 X10*3/uL (0.00-0.03); Imm Gran Pct Auto 0.9 % (0.0-0.4); Lymphocytes Absolute Auto 1.2 X10*3/uL (1.2-4.9); Lymphocytes Percent Auto 21.1 % (20-40); Mean Corpuscular Hemoglobin 29.7 pg (27.0-33.0); Mean Corpuscular Volume 89.8 fL (80.0-98.0); Mean Platelet Volume 10.6 fL (9.4-12.4); Monocytes Absolute Auto 0.7 X10*3/uL (0.1-1.2); Monocytes Percent Auto 11.2 % (2-11); Neutrophils Absolute Auto 3.4 x10*3/uL (2.0-8.3); Neutrophils Percent Auto 57.3 % (45-73); Platelet Count 301 X10*3/uL (160-400); Red Blood Count 4.99 X10*6/uL (4.60-5.80); Red Cell Distribution Width 13.2 % (11.0-16.0); White Blood Count 5.9 X10*3/uL (4.8-10.8)
[2024-02-23 12:32] LABS: Alanine Aminotransferase 27 U/L (0-40); Albumin Level 4.1 g/dL (3.5-5.0); Alkaline Phosphatase 85 U/L (39-117); Anion Gap 14 (12-20); Aspartate Amino Transferase 24 U/L (5-37); Bilirubin Total 0.6 mg/dL (0.0-1.0); Blood Urea Nitrogen 16 mg/dL (9-16); Calcium 9.4 mg/dL (8.4-10.2); Carbon Dioxide 28 mmol/L (22-29); Chloride 105 mmol/L (96-108); Cholesterol 113 mg/dL (<200); Estimated Glomerular Filt Rate > 60; Glucose Random 108 mg/dL (60-115); HDL Cholesterol 42 mg/dL (>40); LDL Cholesterol Calculated 55 mg/dL (<100); Potassium 3.8 mmol/L (3.3-5.1); Sodium 143 mmol/L (135-145); Total Protein 7.4 g/dL (6.5-8.0); Triglycerides 81 mg/dL (<150)
[2024-02-26 16:48] LABS: Vitamin D 25-OH, D2 <4 ng/mL; Vitamin D 25-OH, D3 39 ng/mL; Vitamin D 25-OH, Total 39 ng/mL (30-100)
== END 2024-02-23 08:59 | disposition home or self-care (01) ==
LOC: HO.HMGCLDS 08:58
PROVIDERS: PCP Nurse Practitioner Primary Care; Visit Provider Nurse Practitioner Primary Care
DX: Z13.220 Encounter for screening for lipoid disorders (principal); Z91.89 Other specified personal risk factors, not elsewhere classified; Z13.21 Encounter for screening for nutritional disorder; Z13.0 Encounter for screening for diseases of the blood and blood-forming organs and certain disorders involving the immune mechanism
CPT/HCPCS: 36415; 80053; 80061; 82306; 85025

== ENCOUNTER 2024-03-18 11:34 | Outpatient (AMB) | payer OTHER, SELFPAY ==
--- NOTE | 2024-03-18 11:50 | MHC.OFFVIS ---
Intake Visit Reasons: 2m/US Intake Note: NEW Patient presents today for 2m f/u: Meds-tamsulosin Allergies to Antibiotic- No Known Allergies Blood Thinner- None Headrig Sawyer Required: No Accompanied by: Self / Same As Patient Allergies lisinopril Allergy (Unknown, Verified 03/18/24 11:52) Cough HPI Comments Details: Regan is a pleasant male. He is a patient of Dr. Quiroz. He has seen for the following urologic conditions. - lower urinary tract symptoms - primarily nocturia Lower urinary tract symptoms Primarily developing nocturia Waking 2-3 times at night Has not tried medications Trial of medications with bladder ultrasound and 2 month follow-up [facility] Surgical History Carpal tunnel syndrome, bilateral Family History Father HTN (hypertension) Mother No problems noted. Brother No problems noted. Brother No problems noted. Social History Housing: House Patient Tobacco Use Status: Never used Tobacco e-Cigarette/Vaping Use: Never Used service: No Current occupational status: employed Cognitive needs: No Hearing needs: No Vision needs: No Review of Systems Const Denies chills and Denies fever(s) Card Reports no additional complaints and Denies syncope Resp Denies cough GI Denies abdominal pain and Denies heartburn Reports as per HPI and Denies change in libido Neuro Denies syncope Psych Denies change in libido Endo Denies change in libido Physical Exam Const General: cooperative, healthy appearing, comfortable and no acute distress Orientation/consciousness: patient oriented x3 HEENT Face and sinus: Yes normal facial exam Mouth: moist mucous membranes Neck Neck: Yes normal visual inspection, Yes full ROM and Yes trachea midline Chest Chest palpation & inspection: normal inspection of the chest Resp Effort & Inspection: normal respiratory effort, able to speak in complete sentences and no respiratory distress GI Inspection: Yes normal to inspection Back/Spine/Pelvis Cervical Spine: normal cervical lordosis Thoracic/Lumbar Spine: thoracic and lumbar spine normal to inspection Skin General skin exam: no rashes or lesions noted Neuro General: patient oriented x3, gait normal, tone normal and moves all extremities Extrem General: Yes normal to inspection and Yes capillary refill normal Results AMB Urinalysis, Automated UA Leukoctes 0 Marcella/uL Last Edit by JOSÉ Arias on 03/18/24 12:05 UA Nitrite Negative Last Edit [facility] on 03/18/24 12:05 UA Urobilinogen 0.2 mg/dL Last Edit by Jane Leslie [facility] on 03/18/24 12:05 UA Protein 0 mg/dL Last Edit by Jane Leslie [facility] on 03/18/24 12:05 UA pH 6.0 Last Edit by Jane Leslie [facility] on 03/18/24 12:05 UA Blood 0 Marquise/uL Last Edit by Jane Leslie [facility] on 03/18/24 12:05 UA Specific [place] 1.010 Last Edit by Jane Leslie [facility] on 03/18/24 12:05 UA Ketone Negative Last Edit by Jane Leslie [facility] on 03/18/24 12:05 UA Bilirubin 0 mg/dL Last Edit by Jane Leslie [facility] on 03/18/24 12:05 UA Glucose 0 mg/dL Last Edit by Jane Leslie [facility] on 03/18/24 12:05 Results Reviewed Results Reviewed: Laboratory Last Values Urine pH (Auto) 6.0 03/18/24 12:05 Specific [place] (Auto) 1.010 03/18/24 12:05 Urine Protein (Auto) 0 mg/dL 03/18/24 12:05 Glucose (UA)(Auto) 0 mg/dL 03/18/24 12:05 Urine Ketones (Auto) Negative 03/18/24 12:05 Urine Blood (Auto) 0 Marquise/uL 03/18/24 12:05 Urine Nitrite (Auto) Negative 03/18/24 12:05 Urine Bilirubin (Auto) 0 mg/dL 03/18/24 12:05 Urine Urobilinogen (Auto) 0.2 mg/dL 03/18/24 12:05 Leukocyte Esterase (Auto) 0 Marcella/uL 03/18/24 12:05 Assessment & Plan Assessment & Plan (1) Bladder outlet obstruction: Code(s): N32.0 - Bladder-neck obstruction Category: Medical (2) Nocturia: Comment: Patient getting up to go the bathroom 4-5 times per night. Will draw PSA. Will draw A1c. Will refer patient to Urology Code(s): R35.1 - Nocturia Category: Medical Plan Trial medications Two month follow-up Orders: Orders AMB Urinalysis Automated 03/18/24 Z13.9 - Encounter for screening, unspecified Medications: New terazosin 5 mg PO BEDTIME 30 caps 1RF 30 days N32.0 - Bladder-neck obstruction, N40.1 - Benign prostatic hyperplasia with lower urinary tract symptoms, R35.0 - Frequency of micturition Discontinued tamsulosin Discontinued Reason: Patient Completed Course 0.4 mg PO BEDTIME 30 days 30 caps 1RF N32.0 - Bladder-neck obstruction, N40.1 - Benign prostatic hyperplasia with lower urinary tract symptoms, R35.1 - Nocturia Patient Instructions: Imaging studies, laboratory and physical exam results were discussed and reviewed in detail. No major barriers to patient understanding were identified. An opportunity to ask questions regarding the treatment plan was provided. All questions were answered. The patient expressed understanding and agreement with the above treatment plan. The patient is aware they should contact our office by phone for worsening of their current condition or the appearance of new urologic symptoms. Compliance is encouraged with any medications and followup testing that is ordered. It is a privilege to participate in the urologic care of your patient. If you have any questions or concerns regarding treatment for the above conditions, or other urologic issues, please do not hesitate to contact me. The office telephone contact is [phone]. This note is constructed using voice recognition software. While every effort has been made to ensure accuracy chief supply chain officer errors may have been included. Yours sincerely, Dr Tyrell Morataya MD, [facility] - Urology Providers of Expert, Compassionate Care for the Genitourinary System Coding Level of Care Code New Pt Level 4 (39243) Diagnoses Bladder outlet obstruction N32.0 Nocturia R35.1
== END 2024-03-18 12:28 | disposition home or self-care (01) ==
PROVIDERS: PCP Nurse Practitioner Primary Care; Visit Provider Urology
DX: N32.0 Bladder-neck obstruction (principal); R35.1 Nocturia
CPT/HCPCS: 99214

== ENCOUNTER → 2024-03-18 11:34 | Outpatient (BNVA) | payer OTHER, SELFPAY | PROVIDERS: PCP Nurse Practitioner Primary Care; Visit Provider Urology | DX: N40.1 Benign prostatic hyperplasia with lower urinary tract symptoms (principal); N13.8 Other obstructive and reflux uropathy; R35.1 Nocturia; R35.0 Frequency of micturition | CPT/HCPCS: 81003 ==

== ENCOUNTER 2024-04-01 12:05 | Outpatient (REF) | payer OTHER, SELFPAY ==
--- NOTE | ~2024-04-01 | XR_ITS ---
EXAMINATION: XR ORBITS CLINICAL INFORMATION: Pre-MRI screening. COMPARISON: 10/01/2018 TECHNIQUE: 3 views of the orbits were obtained. FINDINGS: There is no retained radiopaque foreign body projecting over the orbits. Imaged paranasal sinuses and mastoid air cells are well aerated. XR/XR pre mri screening IMPRESSION: No radiopaque foreign body detected.
== END 2024-04-01 12:06 | disposition home or self-care (01) ==
LOC: HO.XRAY 12:05
PROVIDERS: PCP Nurse Practitioner Primary Care; Visit Provider Internal Medicine
DX: Z13.89 Encounter for screening for other disorder (principal)

== ENCOUNTER 2024-04-02 19:27 | Outpatient (REF) | payer OTHER, SELFPAY ==
--- NOTE | ~2024-04-02 | MR_ITS ---
EXAMINATION: MR LUMBAR SPINE WITHOUT CONTRAST CLINICAL INFORMATION: Lumbar radiculopathy. COMPARISON: Lumbar spine radiograph from 01/20/2024. TECHNIQUE: MRI of the lumbar spine was obtained using routine sequences without contrast. FINDINGS: Moderate degenerative retrolistheses of L2 on L3 and L5 on S1. Otherwise, normal anatomic alignment. Advanced degenerative disc disease at L5-S1. Moderate degenerative disc disease from L1-L5. Associated mixed discogenic endplate changes including mild Modic type I discogenic edema at L1-L2 and from L4-S1. Mild marrow edema at the posterior elements of L3-S1 consistent with degenerative stress reaction. No additional suspicious marrow edema. The vertebral body heights are well-maintained. The conus medullaris terminates at the level of L1-L2. The distal spinal cord is normal in appearance. Moderate subcutaneous edema within the posterior soft tissues of the back from L1-S2. No additional significant abnormalities of the paraspinal musculature. Limited evaluation of the intra-abdominal structures without significant abnormalities. The abdominal aorta is of normal contour and caliber. AXIAL SPINAL LEVELS: T12-L1: Mild diffuse disc bulge. There is mild bilateral facet joint arthropathy. There is no neural foraminal stenosis. There is no spinal canal stenosis. L1-L2: Moderate diffuse disc bulge and superimposed central/right subarticular disc protrusion. There is moderate bilateral facet joint arthropathy. There is mild left to right neural foraminal stenosis. There is narrowing of the subarticular zones with ajvj-fi-nabwdgpz spinal canal stenosis centrally. L2-L3: Moderate diffuse disc bulge with posterior osseous ridging and superimposed central/left subarticular disc protrusion. There is mild bilateral facet joint arthropathy. There is moderate left and mild right neural foraminal stenosis. There is stenosis of the subarticular zones with moderate to severe spinal canal stenosis centrally exacerbated by prominent dorsal epidural lipomatous tissue. L3-L4: Mild diffuse disc bulge. There is mild bilateral facet joint arthropathy. There is mild to moderate bilateral neural foraminal stenosis. There is narrowing of the subarticular zones with no overt spinal canal stenosis centrally. L4-L5: Mild diffuse disc bulge. There is moderate bilateral facet joint arthropathy. There is moderate bilateral neural foraminal stenosis. There is narrowing of the subarticular zones with no overt spinal canal stenosis centrally. L5-S1: Moderate diffuse disc bulge with posterior osseous ridging. There is moderate bilateral facet joint arthropathy. There is severe bilateral neural foraminal stenosis. There is narrowing of the right worse than left subarticular zones with no overt spinal canal stenosis centrally. MR/MR lumbar spine wo con IMPRESSION: Moderate 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 Most notably, there is moderate to severe spinal canal stenosis at L2-L3. Istz-hl-xuecfviv spinal canal stenosis at L1-L2. Narrowing/stenoses of the subarticular zones from L1-S1. Moderate to severe neural foraminal stenoses from L2-S1 (worst at L5-S1). Electronically signed by: Darryl Corcoran DO 04/27/2024 03:53 PM EDT
== END 2024-04-02 19:28 | disposition home or self-care (01) ==
LOC: HO.MRI 19:27
PROVIDERS: PCP Nurse Practitioner Primary Care; Visit Provider Nurse Practitioner Primary Care
DX: M54.16 Radiculopathy, lumbar region (principal)
CPT/HCPCS: 72148

== ENCOUNTER → 2024-05-17 06:51 | Outpatient (BNVA) | payer OTHER, SELFPAY | PROVIDERS: PCP Nurse Practitioner Primary Care; Visit Provider Nurse Practitioner Family ==

== ENCOUNTER 2024-05-18 10:18 | Outpatient (AMB) | payer OTHER, SELFPAY ==
--- NOTE | 2024-05-18 10:20 | A.OFFVIS_ITS ---
Intake Visit Reasons: 2M Med Review(Terazosin) Intake Note: Patient is Present for Telephone Follow Up Med Review- Terazosin Urology Med: Terazosin Antibiotic Allergy: None Blood Thinner: None Patient states that Terazosin is ineffective for him states he discussed another option with Dr Morataya would like to discuss Greenlight Procedure Patient has failed Terazosin and Tamsulosin Recent PSA: 12/2023- 1.30 Resent A1C: 12/2023 5.7 Merchandise Worker Required: No Accompanied by: Self / Same As Patient Allergies lisinopril Allergy (Unknown, Verified 05/18/24 10:22) Cough Medication List - Last Reconciled 05/18/24 by Tyrell Morataya MD albuterol sulfate 90 mcg/actuation 2 puffs inhalation Q6H PRN amlodipine 10 mg PO DAILY atorvastatin 20 mg PO DAILY finasteride 5 mg PO DAILY 90 days fluticasone propionate 50 mcg/actuation 2 sprays intranasal DAILY ketoconazole 2% 1 appl topical DAILY losartan-hydrochlorothiazide 100-12.5 mg 1 tab PO DAILY meloxicam 15 mg PO DAILY olopatadine 0.1% 1 drp ophthalmic (eye) BID sildenafil 50 mg PO DAILY PRN HPI Comments Details: Regan is a pleasant male. He is a patient of Dr. Quiroz. He has seen for the following urologic conditions. 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 Brother No problems noted. Brother No problems noted. Social History Housing: House Patient Tobacco Use Status: Never used Tobacco e-Cigarette/Vaping Use: Never Used service: No Current occupational status: employed Cognitive needs: No Hearing needs: No Vision needs: No Review of Systems Const All systems reviewed & are unremarkable except as noted in HPI and below Reports no additional complaints Resp Reports no additional complaints GI Reports no additional complaints Reports as per HPI Musc Reports no additional complaints Physical Exam Telemedicine evaluation Appropriate responses Regular breathing rate and rhythm HEENT Head: Yes normal to inspection Ears: hearing grossly normal bilaterally Eyes General: appearance normal, both eyes and all related structures Neck Neck: Yes normal visual inspection Chest Chest palpation & inspection: normal inspection of the chest Resp Effort & Inspection: normal respiratory effort and able to speak in complete sentences Telehealth Telehealth Telehealth Platform: [employer] Location of provider rendering services: practice address Location of patient: address on file Patient Identification confirmed using: Name, : Yes Telehealth method: video Patient verbally consented to treatment: Yes Patient verbally consented to billing insurance company: Yes Patient informed of any privacy concerns related to visit: Yes Minutes spent on Phone/Video with Pt.: 15 Assessment & Plan Assessment & Plan (1) Bladder outlet obstruction: Code(s): N32.0 - Bladder-neck obstruction Category: Medical Plan We discussed the nature of the decision and reasonable options for performing a prostate intervention. Interventions include TURP, GreenLight laser enucleation of the prostate, GreenLight laser ablation of the prostate, transurethral incision of the prosta te, and I-Tend prostate procedure. Options such as medical therapy were discussed. The relative uncertainties and benefits related to each alternate procedure were adequately discussed. General surgical risks including, but not limited to, pain, bleeding, infection, myocardial infarction, pulmonary embolus, deep vein thrombosis and cerebrovascular accident which may result in further hospitaliza tion were discussed. Full disclosure of the procedure as well as all major risks, benefits and complications were discussed including but not limited to damage to the urethra or bladder neck, recurrent BPH, retrograde ejaculation, bladder infection, urge, de mike frequency, incomplete emptying, dysuria, remote chance of erectile dysfunction, epididymitis, and meatal stenosis. The success rate of the procedure was discussed. Success of the procedure in the short-term does not necessarily guarantee that long-term success will be maintained. Suitable follow up will need to be maintained. The patient showed understanding of discussion. An opportunity was provided for questions to be answered and wishes to proceed with the following procedure. - greenlight laser - prostate incision Medications: New finasteride 5 mg PO DAILY 90 days 90 tabs 1RF N13.8 - Other obstructive and reflux uropathy, N32.0 - Bladder-neck obstruction, N40.1 - Benign prostatic hyperplasia with lower urinary tract symptoms, R33.9 - Retention of urine, unspecified Patient Instructions: Imaging studies, laboratory and physical exam results were discussed and reviewed in detail. No major barriers to patient understanding were identified. An opportunity to ask questions regarding the treatment plan was provided. All questions were answered. The patient expressed understanding and agreement with the above treatment plan. The patient is aware they should contact our office by phone for worsening of their current condition or the appearance of new urologic symptoms. Compliance is encouraged with any medications and followup testing that is ordered. It is a privilege to participate in the urologic care of your patient. If you have any questions or concerns regarding treatment for the above conditions, or other urologic issues, please do not hesitate to contact me. The office telephone contact is [phone]. This note is constructed using voice recognition software. While every effort has been made to ensure accuracy organ recovery coordinator errors may have been included. Yours sincerely, Dr Tyrell Morataya MD, [facility] - Urology Providers of Expert, Compassionate Care for the Genitourinary System Coding Level of Care Code Tele Est Pt Level 4 (77430) Diagnoses Bladder outlet obstruction N32.0
== END 2024-05-18 10:47 | disposition home or self-care (01) ==
LOC: HO.HUSH 10:18
PROVIDERS: PCP Nurse Practitioner Primary Care; Visit Provider Urology
DX: N32.0 Bladder-neck obstruction (principal)
CPT/HCPCS: 99214

== ENCOUNTER → 2024-05-18 10:18 | Outpatient (BNVA) | payer OTHER, SELFPAY | PROVIDERS: PCP Nurse Practitioner Primary Care; Visit Provider Urology ==

== ENCOUNTER 2024-06-08 13:54 | Outpatient (AMB) | payer OTHER, SELFPAY ==
[2024-06-08 13:57] VITALS: BP 132/82; PULSE 62; O2SAT 98; BMI 34.9
--- NOTE | 2024-06-08 13:57 | MHC.PC.OV ---
Vital Signs 06/08/24 13:57 Height 5 ft 10 in Weight 243 lb BMI 34.9 BP 132/82 Blood Pressure Location Lt brachial Position Sitting Pulse 62 Pulse Source Pulse Oximeter Pulse Oximetry (%) 98 Intake Visit Reasons: pre op - eye surgery Intake Note: pt is here for pre op for eye surgery at [facility], no ekg or labs needed. just note faxed to office with clearance. Traffic Control Officer Required: No Accompanied by: Self / Same As Patient Allergies lisinopril Allergy (Unknown, Verified 06/08/24 13:57) Cough Tobacco use date assessed: 02/23/24 Dental Screening Dental Screen Date: 12/15/23 HPI pre op - eye surgery HPI Details Pre-op: pt is going for a eye muscle Recession/resection on . Pt denies any CP, SOB, N/V, fevers, chills. PFSH Medical History Sleep apnea Ascending aorta dilatation HTN (hypertension) GERD (gastroesophageal reflux disease) Back pain Surgical History H/O colonoscopy Hx of lithotripsy Carpal tunnel syndrome, bilateral Family History Father HTN (hypertension) Mother No problems noted. Brother No problems noted. Brother No problems noted. Social History Housing: House Patient Tobacco Use Status: Never used Tobacco e-Cigarette/Vaping Use: Never Used service: No Current occupational status: employed Cognitive needs: No Hearing needs: No Vision needs: No Questionnaire PHQ-9 Over the last 2 weeks, how often have you been bothered by any of the following problems? 76827 - PHQ-9 Billing: Patient declined-do not bill Source: Developed by Drs. Fletcher Bang, Katarina Hubbard, Pedrito Roy and colleagues, with an educational juan pablo from [employer]. Thrive Questionnaire Date Thrive assessed: 06/01/24 I am a: Patient What is your living situation today?: I choose not to answer this question Within the past 12 months, did the food you bought not last and you didn't have the money to get more?: I choose not to answer this question Within the past 12 months, did you worry whether your food would run out before you got money to buy more?: I choose not to answer this question Do you have trouble paying for medicines?: I choose not to answer this question Do you have trouble getting transportation to medical appointments?: I choose not to answer this question Do you have trouble paying your heating and electricity bill?: I choose not to answer this question Do you have trouble taking care of your child, family member or friend?: I choose not to answer this question Do you have trouble with day-to-day activities such as bathing, preparing meals, shopping, managing finances, etc.?: I choose not to answer this question Are you interested in more education?: I choose not to answer this question Please select the resources that you would like help with: None Currently or been in a relationship where the following occur: I choose not to answer THRIVE Score: 0 AUDIT C Alcohol Use Questionnaire (AUDIT-C) 1. How often do you have a drink containing alcohol?: 2-3 times a week 2. How many drinks containing alcohol do you have on a typical day when you are drinking?: 1 or 2 3. How often do you have six or more drinks on one occasion?: Never Total Score: 3 KARLA-7 AMB Questionnaire KARLA-7 Date KARLA - 7 assessed: 01/07/24 Feeling nervous, anxious, or on edge: 0 = Not at all Not being able to stop or control worryin = Not at all Worrying too much about different things: 0 = Not at all Trouble relaxin = Not at all Being so restless that it is hard to sit still: 0 = Not at all Becoming easily annoyed or irritable: 0 = Not at all Feeling afraid as if something awful might happen: 0 = Not at all Total KARLA-7 score (0-4 normal; 5-9 mild; 10-14 moderate; 15-21 severe): 0 Source: Developed by Drs. Fletcher Bang, Katarina Hubbard, Pedrito Roy and colleagues, with an educational juan pablo from [employer]. KARLA-7 Assessment Billing KARLA-7 Assessment Tool: KARLA-7 Assessment 95796 Physical exam (Primary Care) Vital Signs: Last Vital Signs Pulse 62 06/08/24 13:57 BP 132/82 06/08/24 13:57 Pulse Ox 98 06/08/24 13:57 BMI result Body Mass Index 34.9 Tobacco/Smoking Status: Tobacco use Status Tobacco use date assessed 02/23/24 06/08/24 13:58 Patient Tobacco Use Status Never used Tobacco 06/08/24 13:58 e-Cigarette/Vaping Use Never Used 06/08/24 13:58 Thrive Assessment: Date of Thrive Assessment Date Thrive assessed 06/01/24 06/08/24 13:58 Currently or been in a relationship where the following occur: I choose not to answer Const General: cooperative and healthy appearing HENMT Throat: Yes posterior oropharynx normal Neck Neck: Yes no lymphadenopathy Resp Effort & Inspection: normal respiratory effort Auscultation: clear to auscultation bilaterally Cardio Rate: regular rate Rhythm: regular rhythm Heart sounds: S1 normal heart sound present, S2 normal heart sound present and no murmurs Psych Appearance: grossly normal Mental Status: mental status grossly normal Speech and movement: Normal speech and movement present Affect: normal affect Attitude: cooperative Thought process: Normal thought process present Thought content: Normal thought content present Insight: Good insight present (Psych) Judgement: Good judgement present (Psych) Coding Level of Care Code Est Pt Prev Care 40-64y(42269) Diagnoses Pre-op evaluation Z. Additional Codes KARLA-7 Assessment Billing - KARLA-7 Assessment Tool: KARLA-7 Assessment 21824 ([id number]) Assessment & Plan Assessment & Plan (1) Pre-op evaluation: Code(s): Z.81 - Encounter for other preprocedural examination Category: Medical Plan: awaiting labs Orders: Orders Complete Blood Count Auto Diff Today Z81 - Encounter for other preprocedural examination TSH reflex Free T4 Today Z818 - Encounter for other preprocedural examination Prothrombin Time INR Today Z818 - Encounter for other preprocedural examination Partial Thromboplastin Time Today Z81 - Encounter for other preprocedural examination Comprehensive Met. Panel Today - Encounter for other preprocedural examination UA CC w/rflx Micro + Cult Today Z - Encounter for other preprocedural examination
== END 2024-06-08 15:22 | disposition home or self-care (01) ==
PROVIDERS: PCP Nurse Practitioner Primary Care; Visit Provider Nurse Practitioner Family
DX: Z01.818 Encounter for other preprocedural examination (principal)

== ENCOUNTER → 2024-06-08 13:54 | Outpatient (BNVA) | payer OTHER, SELFPAY | PROVIDERS: PCP Nurse Practitioner Primary Care; Visit Provider Nurse Practitioner Family ==

== ENCOUNTER 2024-06-08 14:43 | Outpatient (REF) | payer OTHER, SELFPAY ==
[2024-06-08 16:13] LABS: MANUAL DIFF FLAG NO
[2024-06-08 16:25] LABS: Appearance Urine Clear; Color Urine Dark Yellow; Glucose Urine UA Negative (Negative); Leukocyte Esterase Urine Negative (Negative); Nitrite Urine Negative (Negative); Specific Gravity - Urine 1.025 (1.005-1.025); Urine Blood Negative (Negative); Urine Ketones 15 mg/dL (Negative); Urine Protein Trace mg/dL (Neg-Trace)
[2024-06-08 16:32] LABS: Basophils Percent Auto 0.5 % (0-2); Eosinophils Absolute Auto 0.1 X10*3/uL (0.0-0.4); Eosinophils Percent Auto 1.3 % (0-4); Hematocrit 45.1 % (42.0-52.0); Hemoglobin 14.8 g/dl (14.0-18.0); Imm Gran Abs Auto 0.02 X10*3/uL (0.00-0.03); Imm Gran Pct Auto 0.3 % (0.0-0.4); Lymphocytes Absolute Auto 1.2 X10*3/uL (1.2-4.9); Lymphocytes Percent Auto 15.9 % (20-40); Mean Corpuscular HGB Conc 32.8 g/dl (31.0-36.0); Mean Corpuscular Hemoglobin 29.8 pg (27.0-33.0); Mean Corpuscular Volume 90.9 fL (80.0-98.0); Mean Platelet Volume 10.8 fL (9.4-12.4); Monocytes Absolute Auto 0.7 X10*3/uL (0.1-1.2); Monocytes Percent Auto 8.8 % (2-11); Neutrophils Absolute Auto 5.5 x10*3/uL (2.0-8.3); Neutrophils Percent Auto 73.2 % (45-73); Platelet Count 304 X10*3/uL (160-400); Red Blood Count 4.96 X10*6/uL (4.60-5.80); Red Cell Distribution Width 12.8 % (11.0-16.0); White Blood Count 7.5 X10*3/uL (4.8-10.8)
[2024-06-08 16:35] LABS: Prothrombin Time 11.6 SEC (10.9-12.4)
[2024-06-08 16:38] LABS: Partial Thromboplastin Time 32.7 SEC (26.0-36.8)
[2024-06-08 17:06] LABS: Alanine Aminotransferase 19 U/L (0-40); Albumin Level 4.3 g/dL (3.5-5.0); Alkaline Phosphatase 53 U/L (39-117); Anion Gap 11 (12-20); Aspartate Amino Transferase 16 U/L (5-37); Blood Urea Nitrogen 16 mg/dL (9-16); Calcium 10.2 mg/dL (8.4-10.2); Carbon Dioxide 29 mmol/L (22-29); Chloride 106 mmol/L (96-108); Estimated Glomerular Filt Rate > 60; Glucose Random 94 mg/dL (60-115); Potassium 4.2 mmol/L (3.3-5.1); Sodium 142 mmol/L (135-145); Total Protein 7.5 g/dL (6.5-8.0)
[2024-06-08 17:22] LABS: TSH reflex Free T4 1.03 uIU/mL (0.32-4.0)
== END 2024-06-08 14:44 | disposition home or self-care (01) ==
LOC: HO.HMGCLDS 14:43
PROVIDERS: PCP Nurse Practitioner Family; Visit Provider Nurse Practitioner Family
DX: Z01.812 Encounter for preprocedural laboratory examination (principal)
CPT/HCPCS: 36415; 80053; 81003; 84443; 85025; 85610; 85730

== ENCOUNTER 2024-06-16 08:45 | Day surgery (SDC) | payer OTHER, SELFPAY ==
[2024-06-08 13:38] VITALS: BMI 36.6
[2024-06-09 08:25] VITALS: BMI 34.9
[2024-06-16] VITALS (7 sets, daily range): BP systolic 110–141; BP diastolic 66–84; PULSE 54–67; RESP 14–18; TEMP 36.2–36.4; O2SAT 97–99; BMI 35.2
[2024-06-16] MEDS: Lactated Ringers 1,000 ML 100 ML IVCONT (09:22)
--- NOTE | 2024-06-16 11:10 | HO.ANESPROP2 ---
Documented by User: Reina Tamayo NP 06/11/24 14:42 HPI - Anesthesia Eval Consult details Narrative: 54yo M for Right Lateral Rectus Eye Muscle Recession/Resection PMFSH Active Problems Active Problems: All Active Problems Pre-op evaluation (Acute) Lumbar back pain with radiculopathy affecting lower extremity (Acute) Ascending aorta dilatation (Acute) Upper respiratory infection (Acute) Sciatica (Acute) Bladder outlet obstruction (Acute) Right elbow pain (Acute) Hypertension (Acute) Costovertebral angle pain (Acute) GERD with apnea (Acute) Tinea cruris (Acute) Swelling of lower extremity (Acute) Nocturia (Acute) Floaters in visual field (Acute) Essential hypertension (Acute) Cellulitis (Acute) Obstructive sleep apnea hypopnea, severe (Acute) Past Medical History Medical History Sleep apnea Ascending aorta dilatation HTN (hypertension) GERD (gastroesophageal reflux disease) Back pain Family History Family History Father HTN (hypertension) Mother No problems noted. Brother No problems noted. Brother No problems noted. Surgical History Surgical History H/O colonoscopy Hx of lithotripsy Carpal tunnel syndrome, bilateral Social History Social History Housing: House Patient Tobacco Use Status: Never used Tobacco e-Cigarette/Vaping Use: Never Used Have you been hit, kicked, punched, or otherwise hurt by someone within the past year? If so, by whom?: No Are you DNR?: No Advance Directives: No Advance Directives Information Provided: Yes service: No Current occupational status: employed Cognitive needs: No Hearing needs: No Vision needs: No Meds Allergies Allergy/AdvReac Type Severity Reaction Status Date / Time lisinopril Allergy Unknown Cough Verified 06/08/24 13:57 Home Medications ?Medication ?Instructions ?Recorded ?Confirmed ?Last Taken ?Type tamsulosin 0.4 mg capsule 0.4 mg PO BEDTIME 06/08/24 06/08/24 Unknown History Exam Height,Weight and Vital Signs: Height 5 ft 10 in Weight 110.223 kg Narrative Narrative: ECHO 12/2023 Conclusions: - The left ventricular systolic function is normal. The calculated ejection fraction is 66% by biplane method. - There is moderately increased left ventricular wall thickness. - No obvious valvular pathology seen on this study. - There is mild dilatation of the sinuses of Valsalva measuring 4.00 cm, mild dilatation of the ascending aorta measuring 4.30 cm, and mild dilatation of the aortic arch measuring 4.40 cm. Assessment and Plan Assessment Anesthesia Assessment: Chart Reviewed Documented by User: Megan Jacobsen DO 06/16/24 11:32 [facility] Past Medical History Medical History Sleep apnea Ascending aorta dilatation HTN (hypertension) GERD (gastroesophageal reflux disease) Back pain Family History Family History Father HTN (hypertension) Mother No problems noted. Brother No problems noted. Brother No problems noted. Family history of problems with anesthesia: No Surgical History Surgical History H/O colonoscopy Hx of lithotripsy Carpal tunnel syndrome, bilateral History of Problems with Anesthesia: No Social History Social History Housing: House Patient Tobacco Use Status: Never used Tobacco e-Cigarette/Vaping Use: Never Used Have you been hit, kicked, punched, or otherwise hurt by someone within the past year? If so, by whom?: No Are you DNR?: No Advance Directives: No Advance Directives Information Provided: Yes service: No Current occupational status: employed Cognitive needs: No Hearing needs: No Vision needs: No Meds Allergies Allergy/AdvReac Type Severity Reaction Status Date / Time lisinopril Allergy Unknown Cough Verified 06/08/24 13:57 Home Medications ?Medication ?Instructions ?Recorded ?Confirmed ?Last Taken ?Type tamsulosin 0.4 mg capsule 0.4 mg PO BEDTIME 06/08/24 06/08/24 Unknown History Exam Exam Date and Time: 06/16/24 1110 Height,Weight and Vital Signs: Height 5 ft 10 in Weight 110.223 kg Vital Signs Temperature 97.5 F 06/16/24 09:03 Pulse Rate 67 06/16/24 09:03 Respiratory Rate 18 06/16/24 09:03 Blood Pressure 141/84 H 06/16/24 09:03 Pulse Oximetry 97 06/16/24 09:03 Oxygen Delivery Method Room Air 06/16/24 09:03 Temperature 97.5 F 06/16/24 09:03 Pulse Rate 67 06/16/24 09:03 Respiratory Rate 18 06/16/24 09:03 Blood Pressure 141/84 H 06/16/24 09:03 Pulse Oximetry 97 06/16/24 09:03 Oxygen Delivery Method Room Air 06/16/24 09:03 Airway Mallampati Class: III TM Dist: >3cm Neck ROM: Full Loose/Missing/Broken Teeth: No (patient denies any loose or broken teeth) Heart: S1S2 Lungs: CTAB Assessment and Plan Assessment Anesthesia Assessment: Anesthesia Plan Discussed and Chart Reviewed Final Anesthetic Review Family History of Problems with Anesthesia: No History of Problems with Anesthesia: No NPO: Yes ASA Class: II Final Preanesthetic Review: No Changes in Pt Med Stat, Meds/Allgs Chart Reviewed, Consent Obtained/Reviewed and Anes Risks/Benef Reviewed Patient Risk: Low Procedure Risk: Low Anesthetic Plan Anesthetic Plan: GA and Agree w/ Assess. and Plan Disposition: Standard PACU
[2024-06-16] MEDS: Acetaminophen 325 MG TABLET 650 MG PO (12:28)
[2024-06-16] MEDS: oxyCODONE HCl Immed Release 5 MG TABLET PO (12:29)
--- NOTE | 2024-06-16 12:58 | HO.OPHTHAL ---
Ophthalmology Operative Note Date of Service: 06/16/24 Narrative: Diagnosis exotropia. Procedure recession of right lateral rectus [address] Reed. Anesthesia general. Complications none. The patient was brought to the operative room placed under general anesthesia. The right eye was prepped and draped in the usual sterile ophthalmic fashion. A peritomy was created around the lateral rectus muscle which was hooked and secured with a double-armed Vicryl suture. It was disinserted from the globe and reattached to a position 6 mm behind the original insertion. Conjunctiva was closed with interrupted Vicryl sutures. The patient was then awoken from general anesthesia and discharged to postoperative recovery in good condition.
== END 2024-06-16 13:33 | disposition home or self-care (01) ==
PROVIDERS: PCP Nurse Practitioner Primary Care; Visit Provider Ophthalmology
PROC: (CPT 67311; principal; 2024-06-16 10:30)
DX: H50.15 Alternating exotropia (principal); I10 Essential (primary) hypertension; I77.819 Aortic ectasia, unspecified site; G47.33 Obstructive sleep apnea (adult) (pediatric); K21.9 Gastro-esophageal reflux disease without esophagitis; M54.9 Dorsalgia, unspecified; Z79.899 Other long term (current) drug therapy; Z87.442 Personal history of urinary calculi; Z88.8 Allergy status to other drugs, medicaments and biological substances
CPT/HCPCS: 67311; J1100; J1596; J1885; J2003; J2250; J2405; J2704; J3010

== ENCOUNTER 2024-07-05 08:53 | Day surgery (SDC) | payer OTHER, SELFPAY ==
[2024-07-01 11:19] VITALS: BMI 34.9
[2024-07-05 09:11] VITALS: BMI 33.6
[2024-07-05 09:23] VITALS: BP 123/78; PULSE 59; RESP 16; TEMP 37.1; O2SAT 98
[2024-07-05] MEDS: Lactated Ringers 1,000 ML 80 ML IVCONT (09:29)
--- NOTE | 2024-07-05 09:53 | MHC.SHP ---
Pre-Procedural Eval Section A - 24 Hr Update-Section A only Date of Service: 07/05/24 The patient is an INPATIENT: No Changes since office visit: No Cold of Flu in the past 2 weeks, No New Medical Problems, No Changes in Medication and No Patient answered all questions The patient has been examined within 24 hours of the surgical procedure. The History & Physical has been completed within 30 days and I have reviewed it.: Yes Section B - Complete if H&P > 30 days Chief Complaint: Bladder-neck obstruction Details of Present Illness: Light laser prostate Allergies: Allergies Allergy/AdvReac Type Severity Reaction Status Date / Time lisinopril Allergy Unknown Cough Verified 06/08/24 13:57 Review of Systems Sugical H&P ROS: Negative: Constitution, Cardiovascular, Respiratory, Neurological, Psychiatric, Hem-Onc, Allergic/Immunologic, Gastrointestinal, Genitourinary, Musculoskeletal, Integumentary, Endocrine and Eyes/Ears/Nose/Throat Exam Surgical H&P Exam: Normal: HEENT, Normal: Heart, Normal: Lungs, Normal: Extremities, Normal: Abdomen, Normal: Skin and Normal: Neurological Plan Diagnosis/Plan: Unchanged I have reviewed the history and physical and performed a pertinent physical examination on my patient. No changes have occurred unless specified. Time Spent With Patient Time: Total time managing care of this patient today ____ minutes.
--- NOTE | 2024-07-05 10:48 | P.CONAN_ITS ---
[facility] Active Problems Active Problems: All Active Problems Pre-op evaluation (Acute) Lumbar back pain with radiculopathy affecting lower extremity (Acute) Ascending aorta dilatation (Acute) Upper respiratory infection (Acute) Sciatica (Acute) Bladder outlet obstruction (Acute) Right elbow pain (Acute) Hypertension (Acute) Costovertebral angle pain (Acute) GERD with apnea (Acute) Tinea cruris (Acute) Swelling of lower extremity (Acute) Nocturia (Acute) Floaters in visual field (Acute) Essential hypertension (Acute) Cellulitis (Acute) Obstructive sleep apnea hypopnea, severe (Acute) Past Medical History Medical History (Updated 06/08/24 @ 14:28 by Matthew Soriano [facility]) Sleep apnea Ascending aorta dilatation HTN (hypertension) GERD (gastroesophageal reflux disease) Back pain Family History Family History Father HTN (hypertension) Mother No problems noted. Brother No problems noted. Brother No problems noted. Family history of problems with anesthesia: No Surgical History Surgical History (Updated 07/01/24 @ 11:18 by Yuliya Benson RN) Hx of eye surgery (06/16/24) H/O colonoscopy Hx of lithotripsy Carpal tunnel syndrome, bilateral History of Problems with Anesthesia: No Social History Social History Housing: House Patient Tobacco Use Status: Never used Tobacco e-Cigarette/Vaping Use: Never Used Second Hand Smoke Exposure: No Use of substances other than those prescribed or required for medical reasons: No Have you been hit, kicked, punched, or otherwise hurt by someone within the past year? If so, by whom?: No Are you DNR?: No Advance Directives: No Advance Directives Information Provided: Yes Advance Directives on File: No service: No Current occupational status: employed Cognitive needs: No Hearing needs: No Vision needs: No Meds Allergies Allergy/AdvReac Type Severity Reaction Status Date / Time lisinopril Allergy Unknown Cough Verified 06/08/24 13:57 Active Medications: Current Medications Lactated Ringer's (Lr) 1,000 mls @ 80 mls/hr IVCONT .[id number] MITRA Last Admin: 07/05/24 09:29 Dose: 80 mls/hr Home Medications ?Medication ?Instructions ?Recorded ?Confirmed ?Last Taken ?Type tamsulosin 0.4 mg capsule 0.4 mg PO BEDTIME 06/08/24 06/08/24 Unknown History Exam Height,Weight and Vital Signs: Height 5 ft 10 in Weight 106.254 kg Last Vital Signs Temp 98.8 F 07/05/24 09:23 Pulse 59 07/05/24 09:23 Resp 16 07/05/24 09:23 BP 123/78 07/05/24 09:23 Pulse Ox 98 07/05/24 09:23 O2 Del Method Room Air 07/05/24 09:23 Airway Mallampati Class: III TM Dist: >3cm Neck ROM: Full Assessment and Plan Assessment Anesthesia Assessment: Anesthesia Plan Discussed and Chart Reviewed Final Anesthetic Review Family History of Problems with Anesthesia: No History of Problems with Anesthesia: No NPO: Yes ASA Class: III Final Preanesthetic Review: No Changes in Pt Med Stat, Meds/Allgs Chart Reviewed, Consent Obtained/Reviewed and Anes Risks/Benef Reviewed Patient Risk: Intermediate Procedure Risk: Intermediate Anesthetic Plan Anesthetic Plan: GA Disposition: Standard PACU
--- NOTE | 2024-07-05 11:02 | W.PM.OPN ---
Operative Note Operative Note Date of Service: 07/05/24 Narrative: PreOperative Diagnosis: Bladder outlet obstruction Post Operative Diagnosis: Bladder outlet obstruction Procedure: GreenLight Laser Enucleation of the prostate CPT 50943 Surgeon: Dr Tyrell Morataya Anesthesia: General History of bladder outlet obstruction. Treated with alpha-nida and other medications. Still with symptoms. On cystoscopy in office has tight bladder neck. Recommendation for prostate procedure with laser enucleation of prostate. Risks and benefits have been discussed. Focus was placed on development of retrograde ejaculation which is a normal part of this procedure. Procedure: After informed consent was verified the patient was brought to the operating room and placed in a supine position. Anesthesia was administered per protocol. Patient was placed in modified dorsal lithotomy position and prepped and draped in a sterile fashion. Safety pause time-out was confirmed. Antibiotics have been given. A Twenty-four Bangladeshi laser cystoscope was inserted per urethra. No abnormalities were found of the anterior and bulbar urethra. The prostatic urethra shows tight bladder neck. The bladder was examined and both ureteric orifices were seen in their normal positions away from the area of interest. Bladder trabeculation Grade 1. Using a GreenLight laser with settings of 80 ansari incisions were made at the 5 and 7 o'clock position. The incisions were taken down from the bladder neck down to the level of the veru. These were gradually deepened in order to define the lateral aspects of the median lobe area. Once clearly defined they will also extended in the lateral directions in order to create a deep groove. There was a surprising amount of median area tissue given he primarily had a tight bladder neck The median lobe was then ablated and enucleated tissue released into the bladder with the laser power increased to 120 W. Once the median lobe area had been cleared attention was directed to the lateral lobes. Starting with the patient's left lateral lobe. First the 05:00 o'clock groove was further developed. This was moved in the lateral direction to undermine the tissue on the lateral side running from the bladder neck to the prostate apex. The ureteric orifice was used to guide incisions. Focus was then placed on the laser at the 1 o'clock position to developing a secondary groove down to the level of bladder fibers. The creation of a second deep groove defined a segment of intervening tissue similar to a slice of orange. At the apex of the prostate the 2 grooves were linked the us releasing the intervening tissue. This tissue was then removed with a combination of enucleation and ablation working from the apex toward the bladder neck. A similar procedure was repeated on the patient's right-hand side. The only differences being the position of the lateral groove at he 7 o'clock position and the secondary groove at the 11 o'clock position, Otherwise the procedure was developed in a mirror fashion. After the majority of tissue had been debulked remnant tissue was ablated with the side fire laser and the curve of the prostate followed up each side wall clearly defining the anterior remnant strip that remained between the 11 and 1 o'clock positions. When this was had been completed debris and pieces of prostate were removed from the bladder with irrigation. Both ureteric orifices were reviewed again in shown to be patent in away from any areas of energy damage. The apical area was reviewed in any stray ooze was controlled. A 22 Bangladeshi 30 cc balloon Veloz catheter was placed over a stylet into the bladder. Clear efflux was obtained upon irrigation with a Ludwig piston syringe. 30 cc was placed in the balloon and gentle traction was placed. A snap was used to hold tension on the catheter to control bleeding during patient moved and transported. A drainage bag was placed. Once transportation is complete to the PACU the snap will be removed. The patient tolerated the procedure well, he was extubated in the operating and transferred in a stable condition to the recovery area. Total Power 78 kW Lasing time 12:21 Pathology: Prostate tissue Drains: Veloz catheter
[2024-07-05 11:13] VITALS: BP 140/85; PULSE 60; RESP 15; TEMP 36.8; O2SAT 99
[2024-07-05 11:15] VITALS: BP 143/88; PULSE 56; RESP 16; O2SAT 99
[2024-07-05 11:20] VITALS: BP 132/81; PULSE 53; RESP 16; O2SAT 99
[2024-07-05 11:25] VITALS: BP 138/82; PULSE 55; RESP 16; O2SAT 99
[2024-07-05 11:40] VITALS: BP 138/84; PULSE 53; RESP 16; TEMP 36.6; O2SAT 99
== END 2024-07-05 12:07 | disposition home or self-care (01) ==
PROVIDERS: PCP Nurse Practitioner Family; Visit Provider Urology
PROC: (CPT 52648; principal; 2024-07-05 10:30)
DX: N32.0 Bladder-neck obstruction (principal); N40.1 Benign prostatic hyperplasia with lower urinary tract symptoms; N13.8 Other obstructive and reflux uropathy; R33.8 Other retention of urine; R35.1 Nocturia; I10 Essential (primary) hypertension; G47.33 Obstructive sleep apnea (adult) (pediatric); K21.9 Gastro-esophageal reflux disease without esophagitis; Z79.899 Other long term (current) drug therapy; Z88.8 Allergy status to other drugs, medicaments and biological substances; Z87.442 Personal history of urinary calculi; Z98.890 Other specified postprocedural states
CPT/HCPCS: 52649; 88305; J1100; J1956; J2003; J2250; J2405; J2704; J3010

== ENCOUNTER → 2024-07-05 08:53 | Outpatient (BNV) | payer OTHER, SELFPAY | PROVIDERS: PCP Nurse Practitioner Family; Visit Provider Urology | DX: N32.0 Bladder-neck obstruction (principal) | CPT/HCPCS: 52649 ==

== ENCOUNTER → 2024-07-08 09:33 | Outpatient (BNVA) | payer OTHER, SELFPAY | PROVIDERS: PCP Nurse Practitioner Primary Care; Visit Provider Urology | DX: G47.33 Obstructive sleep apnea (adult) (pediatric) (principal); J31.0 Chronic rhinitis; J34.2 Deviated nasal septum; G47.19 Other hypersomnia | CPT/HCPCS: 51700; 51798 ==

== ENCOUNTER 2024-07-08 15:23 | Outpatient (AMB) | payer OTHER, SELFPAY ==
--- NOTE | 2024-07-08 15:45 | A.OFFVIS_ITS ---
Vital Signs 07/08/24 15:49 Height 5 ft 10 in BP 150/100 H Blood Pressure Location Lt brachial Position Sitting Pulse 68 Pulse Source Pulse Oximeter Pulse Oximetry (%) 97 Oxygen Delivery Method Room Air Intake Visit Reasons: INP- Obstructive sleep apnea Sap Portal Consultant Required: No Accompanied by: Self / Same As Patient Allergies lisinopril Allergy (Unknown, Verified 07/13/24 09:17) Cough Do you need a note to return to daycare/school/sports/work: No HPI Comments Details: 54 year old male presents for a sleep study consultation per his PCP to re- establish care w/ sleep medicine. In 2019, pt underwent HST which revelaed severe obstructive sleep apnea wirh AHI 45/hr and O2 cr of 75%. Ot then underwent, in-lab PAP titration study howver he did not tolerate CPAP- felt that he could not breathe while using PAP tx. At that time, pt was referred to ENT to eval for alternate tx options. Pt reports he stops breathing at night and wakes up multiple times in the night gasping for air and choking. His girlfriend says he snores very loudly and wakes up several times in the nigh t.. He notices he is dozing in front of the computer, doesn't feel well rested. He reports some swallowing and speech, mumbling issues, will f/u with ENT for allergies, he uses Azelastine and an inhaler PRN. He recently lost about 60 pounds and continues to work out and eat a healthy diet. Denies headaches, nausea, vomiting. He does have double vision just had a surgical procedure to improve his vision had a juaquindering RSteph eye, Dr. Reed at [facility] [place]. He is not a smoker and drinks socially. He has had burning, shooting pain bilateral in legs but now working with his Chiropractor and recent weight loss has helped him to manage the edema in legs and improved his back pain. [facility] Medical History Sleep apnea Ascending aorta dilatation HTN (hypertension) GERD (gastroesophageal reflux disease) Back pain Surgical History Hx of eye surgery (06/16/24) H/O colonoscopy Hx of lithotripsy Carpal tunnel syndrome, bilateral Family History Father HTN (hypertension) Mother No problems noted. Brother No problems noted. Brother No problems noted. Social History Housing: House Patient Tobacco Use Status: Never used Tobacco e-Cigarette/Vaping Use: Never Used Second Hand Smoke Exposure: No service: No Current occupational status: employed Cognitive needs: No Hearing needs: No Vision needs: No Review of Systems Const Reports as per HPI, Reports daytime sleepiness, Reports fatigue and Reports snoring Resp Reports snoring Musc Reports numbness and Reports tingling Neuro Reports numbness, Reports restless legs and Reports tingling Endo Reports fatigue Physical Exam Vital Signs: Last Vital Signs Pulse 68 07/08/24 15:49 BP 150/100 H 07/08/24 15:49 Pulse Ox 97 07/08/24 15:49 Oxygen Delivery Method Room Air 07/08/24 15:49 Const General: cooperative, comfortable and no acute distress Nutritional Appearance: obese (BMI 34) Orientation/consciousness: patient oriented x3 HEENT Other: Mallampati grade III Large tongue Face and sinus: Yes normal facial exam and Yes face symmetric Mouth: muffled voice Throat: Yes uvula midline Eyes Pupils: Equal, round and reactive pupils present, Pupils normal by confrontation and Pupil accommodation reflex normal Neck Neck: Yes full ROM and Yes supple Resp Effort & Inspection: normal respiratory effort and able to speak in complete sentences Back/Spine/Pelvis Other: Wide neck Neuro General: patient oriented x3 Cranial nerves: Yes CN's II-XII intact bilaterally, Yes Equal, round and reactive pupils present, Yes Nystagmus not present, Yes Midline tongue present, Yes Ability to bilaterally rotate head present and Yes Ability to bilaterally elevate shoulders present Cognition (Neuro): normal cognition Motor exam (neuro): 5/5 motor strength present throughout Deep tendon reflexes (DTR's): Right triceps reflex intensity grade: 2+, Left triceps reflex intensity grade: 2+, Rt Biceps (C5, C6): 2+, Left biceps reflex intensity grade: 2+, Right brachioradialis reflex intensity grade: 2+, Left brachioradialis reflex intensity grade: 2+, Right patellar reflex intensity grade: 2+ and Left patellar reflex intensity grade: 2+ Coordination: [id number] test normal Psych Appearance: grossly normal Affect: normal affect Attitude: cooperative Insight: Good insight present (Psych) Judgement: Good judgement present (Psych) Assessment & Plan Assessment & Plan (1) Obstructive sleep apnea hypopnea, severe: Comment: History of obstructive sleep apnea. Code(s): G47.33 - Obstructive sleep apnea (adult) (pediatric) Category: Medical Plan: (2) Chronic rhinitis: Code(s): J31.0 - Chronic rhinitis Category: Medical (3) Deviated nasal septum: Code(s): J34.2 - Deviated nasal septum Category: Medical (4) Excessive daytime sleepiness: Comment: ESS 10 Code(s): G47.19 - Other hypersomnia Category: Medical Plan Pt advised to undergo HST to evaluate for sleep apnea. Continue with weight management. Continue Azelastine nasal spray as ordered by ENT, we discussed not swallowing the medication and tilting the head down and looking at the floor when administering it. Will follow-up upon review of above and patient to follow-up in clinic in 3-4 months or sooner prn. Orders: Orders RT home sleep study 07/08/24 I10 - Essential (primary) hypertension, J06.9 - Acute upper respiratory infection, unspecified, G47.33 - Obstructive sleep apnea (adult) (pediatric) Coding Level of Care Code New Pt Level 4 (07411) Complex EM visit Add On G2211 Diagnoses Obstructive sleep apnea hypopnea, severe G47.33 Chronic rhinitis J31.0 Deviated nasal septum J34.2 Excessive daytime sleepiness G47.19
[2024-07-08 15:49] VITALS: BP 150/100; PULSE 68; O2SAT 97
== END 2024-07-08 16:31 | disposition home or self-care (01) ==
LOC: HO.HSMS 15:23
PROVIDERS: PCP Nurse Practitioner Primary Care; Visit Provider Nurse Practitioner Family
DX: G47.33 Obstructive sleep apnea (adult) (pediatric) (principal); J31.0 Chronic rhinitis; J34.2 Deviated nasal septum; G47.19 Other hypersomnia
CPT/HCPCS: 99204

== ENCOUNTER 2024-07-13 08:11 | Outpatient (AMB) | payer OTHER, SELFPAY ==
[2024-07-13 08:17] VITALS: BP 130/80; PULSE 65; O2SAT 97; BMI 33.6
--- NOTE | 2024-07-13 08:17 | MHC.PC.OV ---
Vital Signs 07/13/24 08:17 Height 5 ft 10 in Weight 234 lb BMI 33.6 BP 130/80 Blood Pressure Location Rt brachial Position Sitting Pulse 65 Pulse Source Pulse Oximeter Pulse Oximetry (%) 97 Intake Visit Reasons: MRI/ongoing back pain follow up Intake Note: pt is here for ongoing back pain, had MRI done Confidential Secretary Required: No Allergies lisinopril Allergy (Unknown, Verified 07/13/24 09:17) Cough Medication List - Last Reconciled 07/13/24 by ANA August albuterol sulfate 90 mcg/actuation 2 puffs inhalation Q6H PRN amlodipine 10 mg PO DAILY atorvastatin 20 mg PO DAILY finasteride 5 mg PO DAILY 90 days fluticasone propionate 50 mcg/actuation 2 sprays intranasal DAILY ketoconazole 2% 1 appl topical DAILY losartan-hydrochlorothiazide 100-12.5 mg 1 tab PO DAILY sildenafil 50 mg PO DAILY PRN tamsulosin 0.4 mg PO BEDTIME Tobacco use date assessed: 02/23/24 Dental Screening Dental Screen Date: 12/15/23 HPI MRI/ongoing back pain follow up HPI Details Lower back pain: Pt had an MRI which showed moderate 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 Most notably, there is moderate to severe spinal canal stenosis at L2-L3. Dtox-yo-vijwyosn spinal canal stenosis at L1-L2. Narrowing/stenoses of the subarticular zones from L1-S1. Moderate to severe neural foraminal stenoses from L2-S1 (worst at L5-S1). Pt reports that his pain is improving. He is losing weight. Pt is seeing a chiropractor, which has helped. Encouraged wearing good shoes, stretching, use of heat PRN. Denies any signs of cauda equina. [facility], [facility]ER [facility] Medical History Sleep apnea Ascending aorta dilatation HTN (hypertension) GERD (gastroesophageal reflux disease) Back pain Surgical History Hx of eye surgery (06/16/24) H/O colonoscopy Hx of lithotripsy Carpal tunnel syndrome, bilateral Family History Father HTN (hypertension) Mother No problems noted. Brother No problems noted. Brother No problems noted. Social History (Reviewed 07/13/24 @ 09:16 by Matthew Soriano [facility] Housing: House Patient Tobacco Use Status: Never used Tobacco e-Cigarette/Vaping Use: Never Used Second Hand Smoke Exposure: No service: No Current occupational status: employed Cognitive needs: No Hearing needs: No Vision needs: No Questionnaire Thrive Questionnaire Date Thrive assessed: 07/13/24 I am a: Patient What is your living situation today?: I choose not to answer this question Within the past 12 months, did the food you bought not last and you didn't have the money to get more?: I choose not to answer this question Within the past 12 months, did you worry whether your food would run out before you got money to buy more?: I choose not to answer this question Do you have trouble paying for medicines?: I choose not to answer this question Do you have trouble getting transportation to medical appointments?: I choose not to answer this question Do you have trouble paying your heating and electricity bill?: I choose not to answer this question Do you have trouble taking care of your child, family member or friend?: I choose not to answer this question Do you have trouble with day-to-day activities such as bathing, preparing meals, shopping, managing finances, etc.?: I choose not to answer this question Are you currently unemployed and looking for a job?: No Are you interested in more education?: I choose not to answer this question Please select the resources that you would like help with: None Currently or been in a relationship where the following occur: I choose not to answer THRIVE Score: 0 KARLA-7 AMB Questionnaire KARLA-7 Date KALRA - 7 assessed: 01/07/24 Source: Developed by Drs. Fletcher Bang, Katarina Hubbard, Pedrito Roy and colleagues, with an educational juan pablo from [employer]. Review of Systems Const Reports as per HPI Physical exam (Primary Care) Vital Signs: Last Vital Signs Pulse 65 07/13/24 08:17 BP 130/80 07/13/24 08:17 Pulse Ox 97 07/13/24 08:17 BMI result Body Mass Index 33.6 Tobacco/Smoking Status: Tobacco use Status Tobacco use date assessed 02/23/24 07/13/24 08:21 Patient Tobacco Use Status Never used Tobacco 07/13/24 08:21 e-Cigarette/Vaping Use Never Used 07/13/24 08:21 Thrive Assessment: Date of Thrive Assessment Date Thrive assessed 07/13/24 07/13/24 08:21 Currently or been in a relationship where the following occur: I choose not to answer Const General: cooperative Nutritional Appearance: obese Orientation/consciousness: patient oriented x3 Resp Effort & Inspection: normal respiratory effort Auscultation: clear to auscultation bilaterally Cardio Rate: regular rate Rhythm: regular rhythm Heart sounds: S1 normal heart sound present and S2 normal heart sound present Back/Spine/Pelvis Other: no radicular symptoms with BLE straight leg raises, able to heel and toe walk without difficulty Neuro General: patient oriented x3 Psych Appearance: grossly normal Mental Status: mental status grossly normal Speech and movement: Normal speech and movement present Affect: normal affect Attitude: cooperative Thought process: Normal thought process present Thought content: Normal thought content present Insight: Good insight present (Psych) Judgement: Good judgement present (Psych) Coding Level of Care Code Est Pt Level 3 (61650) Diagnoses Lumbar back pain with radiculopathy affecting lower extremity M54.16 Assessment & Plan Assessment & Plan (1) Lumbar back pain with radiculopathy affecting lower extremity: Comment: stable currently Code(s): M54.16 - Radiculopathy, lumbar region Category: Medical Plan: Doing well currently Plan The patient agreed to the use of a medical or surgical instrument maker for this encounter. Scribed for ANA Vega by Elizabeth Metz medical or surgical instrument maker, on 07/13/2024 at 08:25 EST.
== END 2024-07-13 09:22 | disposition home or self-care (01) ==
PROVIDERS: PCP Nurse Practitioner Primary Care; Visit Provider Nurse Practitioner Family
DX: M54.16 Radiculopathy, lumbar region (principal)

== ENCOUNTER → 2024-07-13 08:11 | Outpatient (BNVA) | payer OTHER, SELFPAY | PROVIDERS: PCP Nurse Practitioner Primary Care; Visit Provider Nurse Practitioner Family ==

== ENCOUNTER 2024-08-11 10:07 | Outpatient (AMB) | payer OTHER, SELFPAY ==
--- NOTE | 2024-08-11 10:16 | MHC.OFFVIS ---
Intake Visit Reasons: Greenlight laser- follow up Intake Note: Patient is present for Post Op Greenlight 07/05 Urology Med: Sildenafil Antibiotic Allergy: None Blood Thinner: None PVR: 34ml's Attendant Coin Operated Laundry Required: No Allergies lisinopril Allergy (Unknown, Verified 08/11/24 10:32) Cough HPI Comments Details: Regan is a pleasant male. He is a patient of Dr. Quiroz. He has seen for the following urologic conditions. - lower urinary tract symptoms - primarily nocturia - erectile dysfunction Six week follow-up Check PSA in 6 months Off finasteride Continues with sildenafil as required Lower urinary tract symptoms Primarily developing nocturia Waking 2-3 times at night Prior medications include tamsulosin and terazosin Bladder ultrasound 45 g prostate with bladder wall thickening 07/25 GreenLight laser PFSH Medical History Sleep apnea Ascending aorta dilatation HTN (hypertension) GERD (gastroesophageal reflux disease) Back pain Surgical History Hx of eye surgery (06/16/24) H/O colonoscopy Hx of lithotripsy Carpal tunnel syndrome, bilateral Family History Father HTN (hypertension) Mother No problems noted. Brother No problems noted. Brother No problems noted. Social History Housing: House Patient Tobacco Use Status: Never used Tobacco e-Cigarette/Vaping Use: Never Used Second Hand Smoke Exposure: No service: No Current occupational status: employed Cognitive needs: No Hearing needs: No Vision needs: No Office Procedures Post Void Residual Post Residual Void Post Void Residual (PVR): 34 [id number] Void Residual by ultrasound Results AMB Urinalysis, Automated UA Leukoctes 70 Marcella/uL Last Edit by Isabela Saunders CMA on 08/11/24 10:36 UA Nitrite Negative Last Edit by Isabela Saunders CMA on 08/11/24 10:36 UA Urobilinogen 0.2 mg/dL Last Edit by Isabela Saunders CMA on 08/11/24 10:36 UA Protein 15 mg/dL Last Edit by Isabela Saunders CMA on 08/11/24 10:36 UA pH 6.5 Last Edit by Isabela Saunders CMA on 08/11/24 10:36 UA Blood 80 Marquise/uL Last Edit by Isabela Saunders CMA on 08/11/24 10:36 UA Specific [place] 1.015 Last Edit by Isabela Saunders CMA on 08/11/24 10:36 UA Ketone Negative Last Edit by Isabela Saunders CMA on 08/11/24 10:36 UA Bilirubin 0 mg/dL Last Edit by Isabela Saunders CMA on 08/11/24 10:36 UA Glucose 0 mg/dL Last Edit by Isabela Saunders CMA on 08/11/24 10:36 Assessment & Plan Assessment & Plan (1) Nocturia: Comment: Patient getting up to go the bathroom 4-5 times per night. Will draw PSA. Will draw A1c. Will refer patient to Urology Code(s): R35.1 - Nocturia Category: Medical (2) Bladder outlet obstruction: Code(s): N32.0 - Bladder-neck obstruction Category: Medical Plan Six-month follow-up PSA office PVR Orders: Orders AMB Urinalysis Automated Today Z13.9 - Encounter for screening, unspecified AMB Post Void Residual by ultrasound Today N32.0 - Bladder-neck obstruction Prostate Specific Antigen 6 Months N32.0 - Bladder-neck obstruction Patient Instructions: Imaging studies, laboratory and physical exam results were discussed and reviewed in detail. No major barriers to patient understanding were identified. An opportunity to ask questions regarding the treatment plan was provided. All questions were answered. The patient expressed understanding and agreement with the above treatment plan. The patient is aware they should contact our office by phone for worsening of their current condition or the appearance of new urologic symptoms. Compliance is encouraged with any medications and followup testing that is ordered. It is a privilege to participate in the urologic care of your patient. If you have any questions or concerns regarding treatment for the above conditions, or other urologic issues, please do not hesitate to contact me. The office telephone contact is [phone]. This note is constructed using voice recognition software. While every effort has been made to ensure accuracy language pathologist errors may have been included. Yours sincerely, Dr Tyrell Morataya MD, [facility] - Urology Providers of Expert, Compassionate Care for the Genitourinary System Coding Level of Care Code Est Pt Level 3 (32326) Diagnoses Nocturia R35.1 Bladder outlet obstruction N32.0 CPT Codes Post Residual Void - PVR CPT Code: 52671-Wrxd Void Residual by ultrasound ([id number])
--- OUTSIDE RECORDS SUMMARY | 2024-08-12 00:08 | XMS_ITS | Continuity of Care Document ---
Author Organization [place] - [facility], [facility] Address [address] [place] [address] Care Team Providers Care Mold Release Worker Name Role Phone ROSS COBOS Primary Care Provider Assessment Encounter Date Assessment Date Assessment LastModified by Organization Details LastModified Time 06/29/2024 06/29/2024 Patient with history of snoring, possible sleep apnea and chronic nasal congestion with postnasal drip and sensation of something sticking in his throat. Examination shows a twisted septum with moderate turb hypertrophy and PND. Transnasal fiberoptic examination did not show any polyps or masses. There was no pooling of secretions but there was evidence of nasal discharge. I have suggested a trial of Astelin nasal spray as he has already been on fluticasone and Atrovent without relief. Will arrange for allergy skin testing and consider a CT of the sinuses if that is not revealing. He will also forward me a copy of his sleep study after it is performed. I do not think surgical intervention would be helpful as he has small tonsils and a large tongue bernard Not available 06/29/2024 09:55:53 Plan of Treatment Reminders Order Date Submit Date Provider Last Modified By Organization Details Last Modified Time Details Appointments Test Results 15 2024 08:30A M JOSE MIGUEL CLAIRE MD Not available Not available Not available Lab None recorded. Referral None recorded. Procedures allergy testing, skin prick (PROC) 2023 024 [email or web address] Not available 07/23/2024 12:56:22 intraderm al allergy skin testing (PROC) 2023 024 [email or web address] Not available 07/23/2024 12:56:28 pulmonary function test procedure (PROC) 2023 [email or web address] Not available 07/23/2024 12:56:34 pulse oximetry (PROC) 2023 [email or web address] Not available 07/23/2024 12:56:38 Surgeries None recorded. Imaging None recorded. Medication Orders azelastin e 137 mcg (0.1 %) nasal spray 2023 [id number], [address], [place], [address], 06/29/2024 09:56:19 Patient TargetsNo targets recorded. Patient InstructionsNo instructions recorded. Reason for Referral None Reported. Results Created Date Observation Date Name Description Value Unit Range Abnormal Flag Note LastModifiedBy Organization Detail LastModifiedTime 07/23/20 24 violet metry testi ng* No observ ation record ed. [email or web address] Not Available 13:27:19 Result Notes None recorded. Problems Name Problem SNOMED Code Status Onset Date Resolution Date Notes Provider Name and Address Organization Details Recorded Time Obstructi ve sleep apnea syndrome 07085094 Active 2019 Obstructiv e sleep apnea (adult) (pediatric ); Note: Date Diagnosed: 07/03/2020 11:19 AM (G47.33) Not Available [facility] 4 02:54:36 Posterior rhinorrhe a 18172956 Active 2019 Postnasal drip; Note: Date Diagnosed: 07/03/2020 11:19 AM (R09.82) Not Available [facility] 4 02:54:35 Snoring 47960076 Active 2023 JOSE MIGUEL SOTOMAYOR MD [address] [facility] [address], [place], [address] , [facility] - [facility] 4 09:47:17 Chronic rhinitis 56025861 Active 2023 JOSE MIGUEL SOTOMAYOR MD [address] [facility] [address], [address] , [facility] - [facility] 4 09:47:22 Deviated nasal septum 373013787 Active 2023 JOSE MIGUEL SOTOMAYOR MD [address] [facility] [place] [address], [place], [address] , [facility] - [facility] 4 09:47:26 Feeling of lump in throat 320804095 Active 2023 JOSE MIGUEL SOTOMAYOR MD [address] [facility] [place] [address], [place], [place], [address] , [facility] - [facility] 4 09:47:30 Allergic rhinitis 07872602 Active 2023 JOSE MIGUEL SOTOMAYOR MD [address] [facility] [place] [address], [place], [place], [address] , [facility] - [facility] 4 09:56:43 Problem Notes None recorded. Procedures Surgical History Date Name Laterality Status Provider Name and Address Organization Details Recorded Time 07/23/20 Allergy Testing-Full completed RADHA CASTRO Linda [address] [facility] [place] [address], [place], [address], [facility] 07/23/2024 15:31:38 06/29/20 24 Fiberoptic Laryngoscopy (Comprehensive) completed JOSE MIGUEL SCHMIDT MD [address] [facility] [place] [address], [place], [address], [facility] 06/29/2024 09:54:45 06/16/20 24 Revise eye muscle completed JOSE MIGUEL SCHMIDT MD [address] [facility] [place] [address], [place], [address], [facility] 06/29/2024 09:42:26 Imaging Results None recorded. Procedure Notes None recorded. Medical Equipment None Reported. Allergies No known drug allergies Medications Name Sig Start Date Stop Date Status Note LastModified by Organization Details LastModified Time terazosin 5 mg capsule TAKE 1 TABLET ORALLY BEDTIME FOR 30 DAYS 07/23 completed Not Available Not Available Not Available prednison e 10 mg tablet TAKE 4 TABS FOR 3 DAYS 3 TABS FOR 2 DAYS 2 TABS FOR 2 DAYS 1 TAB FOR 2 DAYS SEE TAPER INSTRUCT ION 06/29 completed Not Available Not Available Not Available atorvasta tin 20 mg tablet TAKE 1 TABLET BY MOUTH EVERY DAY active Not Available Not Available No t Available sildenafi l 50 mg tablet TAKE 1 TABLET DAILY NEEDED FOR SEXUAL ACTIVITY TAKE 30 MINUTES TO 4 HOURS BEFORE ACTIVITY 07/23 completed Not Available Not Available Not Available ibuprofen 800 mg tablet TAKE 1 TABLET (ORAL) 2 TIMES PER DAY ( NEEDED FOR PAIN) FOR 3 DAYS 06/29 completed Not Available Not Available Not Available meloxicam 15 mg tablet TAKE 1 TABLET BY MOUTH EVERY DAY 07/23 completed Not Available Not Available Not Available prednison e 20 mg tablet TAKE 2 TABS (40MG) ORALLY DAILY 06/29 completed Not Available Not Available Not Available pantopraz ole 20 mg tablet,de layed release TAKE 1 TABLET BY MOUTH EVERY DAY active Not Available Not Available No t Available tamsulosi n 0.4 mg capsule TAKE 1 CAPSULE BY MOUTH EVERYDAY AT BEDTIME 07/23 completed Not Available Not Available Not Available amlodipin e 10 mg tablet TAKE 1 TABLET BY MOUTH EVERY DAY active Not Available Not Available No t Available losartan 25 mg tablet TAKE 1 TABLET BY MOUTH DAILY 06/29 completed Not Available Not Available Not Available metoprolo l succinate ER 25 mg tablet,ex tended release 24 hr 06/29 completed Medicati on ID: [id number] rand Name: metoprol ol succinat e Send Method: E-Prescr ibed Sub s Allowed: subs OK Speci al Instruct ion: TAKE 1 TABLET BY MOUTH EVERY DAY Medi cationGe nericNam e: metoprol ol succinat e Not Available Not Available Not Available azelastin e 137 mcg (0.1 %) nasal spray SPRAY 2 SPRAYS BY INTRANAS AL ROUTE TWICE A DAY FOR 30 DAYS active Not Available Not Available No t Available albuterol sulfate HFA 90 mcg/actua tion aerosol inhaler INHALE 2 PUFFS EVERY 6 HOURS NEEDED FOR SHORTNES S OF BREATH OR WHEEZING 06/29 completed Not Available Not Available Not Available losartan 50 mg-hydroc hlorothia zide 12.5 mg tablet TAKE 1 TABLET BY MOUTH EVERY DAY 06/29 completed Not Available Not Available Not Available ketoconaz ole 2 % topical cream APPLY TO AFFECTED AREA ONCE DAILY active Not Available Not Available No t Available fluticaso ne propionat e 50 mcg/actua tion nasal spray,melissa pension INSTILL 2 SPRAYS INTO EACH NOSTRIL ONCE DAILY active Not Available Not Available No t Available ipratropi um bromide 21 mcg (0.03 %) nasal spray Inhale 2 spray three times a day as directed 06/29 completed Medicati on ID: [id number] [place] By Name: Kim Da Silva nd Name: ipratrop ium bromide Send Method: E-Prescr ibed Sub s Allowed: subs OK Medic ationGen ericName : ipratrop ium bromide Not Available Not Available Not Available finasteri de 5 mg tablet TAKE 1 TABLET BY MOUTH EVERY DAY 07/23 completed Not Available Not Available Not Available amoxicill in 875 mg-potass ium clavulana te 125 mg tablet TAKE 1 TABLET BY MOUTH TWICE A DAY FOR 10 DAYS 06/29 completed Not Available Not Available Not Available losartan 100 mg-hydroc hlorothia zide 12.5 mg tablet TAKE 1 TABLET BY MOUTH EVERY DAY active Not Available Not Available No t Available Vitals Date Recorded Body height Body mass index (BMI) Body weight Provider Name and Address Organization Details Last Updated DateTime 06/29/2024 177.8 cm 33 kg/m2 001433.25 g Queta Hicks [facility] 06/29/2024 09:34:11 Date Recorded Systolic blood pressure Diastolic blood pressure Provider Name and Address Organization Details Last Updated DateTime 06/29/2024 122 mm[Hg] 80 mm[Hg] JOSE MIGUEL SCHMIDT MD [address] [place] [address], [phone], [place] - [facility] 06/29/2024 09:52:01 Social History None recorded. Functional Status None recorded. Mental Status None recorded. Family History Nothing Reported. Medical History Condition Response Hyperlipidemia Y Hypertension Y Sleep Disorder Y GERD/Reflux Y Past Encounters Encounter ID Performer Location Encounter Start Date Encounter Closed Date Diagnosis/Indication Diagnosis SNOMED-CT Code Diagnosis ICD10 Code [id number] JOSE MIGUEL SOTOMAYOR MD [facility] [address] [place] [address] 06/29/2024 09:21:20 06/29/2024 10:00:34 Snoring 59147619 R06.83 Chronic rhinitis 0579886 6 J31.0 Deviated nasal septum 12 9540944 J34.2 Feeling of lump in throat 290838049 R09.89 Allergic rhinitis 959464 04 J30.9 Health Concerns Section Related Observation LastModified by Organization Detai ls LastModified Time None Recorded Concern Status LastModified by Organization Details LastModified Time None Recorded Payers Encounter Date Sequence Insurance Name Policy Number Policy Dacosta Covered Member ID Dacosta Member ID Guarantor Name 06/29/[address] [place] [address] [id number] Regan Lama [id number] Regan Daina Notes Date Note Type Note Provider Name and Address Organization Details Recorded Time 06/29/2024 text/html Patient seen for an opinion regarding snoring, possible apnea and chronic nasal obstruction. He was last seen in 2019 and was supposed to obtain old records for our review. He kind of stopped getting care during the pandemic. He is scheduled for a sleep study next month. Has PND and phlegm in throat. Tried Atrovent and FP in the past. Nothing recentlyAlways feels something in throat. Some fatigueLost 30 pounds and that may have helped his snoringNOSE=40SNOT-2 2=20 JOSE MIGUEL SCHMIDT MD [address] [place] [address], [phone], [place] - [facility] 06/29/2024 09:58:30
--- OUTSIDE RECORDS SUMMARY | 2024-08-12 00:08 | XMS_ITS | Continuity of Care Document ---
Author Organization [place] - [facility], Allergy Address [address] [place] [address] Care Team Providers Care Neon Pumper Name Role Phone ROSS COBOS Primary Care Provider Assessment No assessment recorded. Plan of Treatment Reminders Order Date Submit Date Provider Last Modified By Organization Details Last Modified Time Details Appointments Test Results 15 2024 08:30A M JOSE MIGUEL CLAIRE MD Not available Not available Not available Lab None recorded . Referral None recorded . Procedures None recorded . Surgeries None recorded . Imaging None recorded . Medication Orders None recorded . Patient TargetsNo targets recorded. Patient Instructions Encounter Date Encounter Id Patient Instructions Last Modified By Organization Details Last Modified Time 07/23/2024 [id number] Nursing Documentation for Allergy Testing: Ordering Provider {{Dr. Jacqueline Schmidt*}} Weight:225lbs:??kg : ?? PFT {{Yes* no}} With Bronchodilator {{Yes no*}} Dr. edouard needed to proceed with allergy testing? {{Yes No*}} {{Dr. Jacqueline Schmidt}} ok'd testing {{Yes No Pulmonary Clearance PCP Clearance RAST}}Hi story of Asthma:{{Yes No*}} Asthma Meds: ??Last used:?? Asthma exacerbated by: ?? Chance that : {{Yes No Not Sure N/A*}} Fear of needles: {{Yes No*}} Regular medications reviewed in Computer: {{Yes* No}} Medication allergies: {{Reviewed NKDA*}} Antihistamine use: {{Yes* No}} Medications used:azelastine ?? Food Allergies: azelastine ?? Any foods make your mouth feeling itchy: {{Yes No*}} If yes: ?? History of severe reaction where had to go to ER? {{Yes No*}} If yes details: ?? Type of heat in home: {{Baseboard Forced Air* Radiator othe r}} Pets: {{Yes* No}} If yes:cat Smoker: {{Yes Current Never* For chin}} If former smoker-how much ?? / day for how long ?? When quit ?? years ago Smoking now-how much ?? /day for how long ?? 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 Frequency {{Seasonally Year Round*}} Spirometry Contraindications: Heart attack in the last 3 months: {{Yes No*}} Major surgery in last 3 months: {{Yes No*}} Detached retina(serious eye issues) in last 2 months: {{Yes No*}} Hospitilization in last month: {{Yes No*}} Proceed with PFT {{Yes* No}} . approval needed: {{Yes No*}} Nursing Notes: Pt tolerated test well {{Yes* No}} Benadryl cream to test sites {{Yes No*}} Patient became syncopal-placed in supine position {{Yes No*}} Large reactions to MQT, reschedule IDT for a different date {{Yes No*}} Other: ?? Written by: {{RACH Mancini, RMLinda* Erica Connell}} jon Not available 07/23/2024 15:36:30 Reason for Referral None Reported. Results Created [...] Recorded Time Obstructi ve sleep apnea syndrome 97649915 Active 2019 Obstructiv e sleep apnea (adult) (pediatric ); Note: Date Diagnosed: 07/03/2020 11:19 AM (G47.33) Not Available [facility] 4 02:54:36 Posterior rhinorrhe a 10714101 Active 2019 Postnasal drip; Note: Date Diagnosed: 07/03/2020 11:19 AM (R09.82) Not Available [facility] 4 02:54:35 Snoring 05240224 Active 2023 JOSE MIGUEL SOTOMAYOR MD [address] [facility],[place] [address], [place], [address] , [facility] 4 09:47:17 Chronic rhinitis 21762817 Active 2023 JOSE MIGUEL SOTOMAYOR MD [address] [place] [address],[place] [address], [place], [address] , [facility] 4 09:47:22 Deviated nasal septum 073225951 Active 2023 JOSE MIGUEL SOTOMAYOR MD [address] [place] [address],[place] [address], [place], [address] , [facility] 4 09:47:26 Feeling of lump in throat 642385492 Active 2023 JOSE MIGUEL SOTOMAYOR MD [address] [place] [address],[place] [address], [place], [address] , [facility] 4 09:47:30 Allergic rhinitis 80608677 Active 2023 JOSE MIGUEL SOTOMAYOR MD [address] [place] [address],[place] [address], [place], [address] , [facility] 4 09:56:43 Problem Notes None recorded. Procedures Surgical History Date Name Laterality Status Provider Name and Address Organization Details Recorded Time 07/23/20 24 Allergy Testing-Full completed MICHAEL SANCHEZ [address] [facility],[place] [address], [place], [address], [facility] - [facility] 07/23/2024 15:31:38 06/29/20 24 Fiberoptic Laryngoscopy (Comprehensive) completed JOSE MIGUEL SCHMIDT MD [address] [facility],[place] [address], [place], [address], [facility] - [facility] 06/29/2024 09:54:45 06/16/20 24 Revise eye muscle completed JOSE MIGUEL SCHMIDT MD [address] [facility],[address], [address], [facility] - [facility] 06/29/2024 09:42:26 Imaging Results None recorded. [...] 24 hr 06/29 completed Medicati on ID: [id number] Osbaldo tirado Name: metoprol ol succinat e Send Method: [...] as directed 06/29 completed Medicati on ID: [id number] [place] By Name: Kim Da Silva nd [...] height Body mass index (BMI) Body weight Oxygen saturation Oxygen saturation in Arterial blood by Pulse oximetry Heart rate Systolic blood pressure Diastolic blood pressure Provider Name and Address Organization Details Last Updated DateTime 4 177.8 cm 32.3 kg/m2 616624. 28 g 98 % 98 % 61 /min 136 mm[Hg] 86 mm[Hg] [facility] DEVIN, A [address] [facility], [address] [place], [place] [address], [phone], [place] - [facility] 4 12:59:44 Social History None recorded. Functional Status None recorded. Mental Status None recorded. Family History Nothing Reported. Medical History Condition Response Hyperlipidemia Y Sleep Disorder Y GERD/Reflux Y Hypertension Y Past Encounters Encounter ID Performer Location Encounter Start Date Encounter Closed Date Diagnosis/Indication Diagnosis SNOMED-CT Code Diagnosis ICD10 Code [id number] JOSE MIGUEL SOTOMAYOR MD [facility] [address] [place] [id number] 06/29/2024 09:21:20 06/29/2024 10:00:34 Snoring 35742598 R06.83 Chronic rhinitis 7533529 6 J31.0 Deviated nasal septum 12 1621617 J34.2 Feeling of lump in throat 832775777 R09.89 Allergic rhinitis 904146 04 J30.9 [id number] RADHA BELTRAN, A Allergy [address] [facility],[place] [address] [place] [id number] 07/23/2024 12:39:42 07/23/2024 15:37:35 Allergic rhinitis 50576048 J30.9 Health Concerns Section Related Observation LastModified by Organization Detai ls LastModified Time None Recorded Concern Status LastModified by Organization Details LastModified Time None Recorded Payers Encounter Date Sequence Insurance Name Policy Number Policy Dacosta Covered Member ID Dacosta Member ID Guarantor Name 07/23/2024 1 [facility] [id number] Regan Lama [id number] eRgan Lama
--- OUTSIDE RECORDS SUMMARY | 2024-08-12 00:08 | XMS_ITS | Data Portability ---
Author Organization [place] - [facility], Allergy Address [address] [place] [address] Care Team Providers Care Manufacturing Supervisor Name Role Phone ROSS COBOS Primary Care [...] 12:56:28 pulmonary function test procedure (PROC) 2023 024 [email or web address] Not available 07/23/2024 12:56:34 pulse oximetry (PROC) 2023 024 [email or web address] Not available 07/23/2024 12:56:38 Surgeries None recorded. Imaging None recorded. Medication Orders azelastin e 137 mcg (0.1 %) nasal spray 2023 [id number], [address] [facility], [place], [address], 06/29/2024 09:56:19 Patient TargetsNo targets recorded. Patient Instructions Encounter Date Encounter Id Patient Instructions Last Modified By Organization Details Last Modified Time 07/23/2024 [id number] Nursing Documentation for Allergy Testing: Ordering Provider [...] /day for how long ?? 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 Frequency {{Seasonally Year Round*}} Spirometry Contraindications: Heart attack in the last 3 months: {{Yes No*}} Major surgery in last 3 months: {{Yes No*}} Detached retina(serious eye issues) in last 2 months: {{Yes No*}} Hospitilization in last month: {{Yes No*}} Proceed with PFT {{Yes* No}} approval needed: {{Yes No*}} Nursing Notes: Pt tolerated test well {{Yes* No}} Benadryl cream to test sites {{Yes No*}} Patient became syncopal-placed in supine position {{Yes No*}} Large reactions to MQT, reschedule IDT for a different date {{Yes No*}} Other: ?? Written by: {{RACH Mancini, Linda* Erica Connell}} jon Not available 07/23/2024 15:36:30 [...] Recorded Time Obstructi ve sleep apnea syndrome 01232338 Active 2019 Obstructiv e sleep apnea (adult) (pediatric ); Note: Date Diagnosed: 07/03/2020 11:19 AM (G47.33) Not Available [facility] 4 02:54:36 Posterior rhinorrhe a 95478068 Active 2019 Postnasal drip; Note: Date Diagnosed: 07/03/2020 11:19 AM (R09.82) Not Available [facility] 4 02:54:35 Snoring 95082315 Active 2023 JOSE MIGUEL SOTOMAYOR MD [address], [place], [place], [address] , [facility] - [facility] 4 09:47:17 Chronic rhinitis 30763235 Active 2023 JOSE MIGUEL SOTOMAYOR MD [address], [place], [place], [address] , [facility] - [facility] 4 09:47:22 Deviated nasal septum 159372676 Active 2023 JOSE MIGUEL SOTOMAYOR MD [address], [place], [place], [address] , [facility] - [facility] 4 09:47:26 Feeling of lump in throat 527356189 Active 2023 JOSE MIGUEL SOTOMAYOR MD [address] [facility] [place],[address], [place], [place], [address] , [facility] - [facility] 4 09:47:30 Allergic rhinitis 84599012 Active 2023 JOSE MIGUEL SOTOMAYOR MD [address] [facility] [place],[address], [place], [place], [address] , [facility] - [facility] 4 09:56:43 Problem Notes None recorded. Procedures Surgical History Date Name Laterality Status Provider Name and Address Organization Details Recorded Time 07/23/20 Allergy Testing-Full completed MICHAEL SANCHEZ [address], [place], [address], [facility] - [facility] 07/23/2024 15:31:38 06/29/20 Fiberoptic Laryngoscopy (Comprehensive) completed JOSE MIGUEL SCHMIDT MD [address], [place], [address], [facility] - [facility] 06/29/2024 09:54:45 06/16/20 24 Revise eye muscle completed JOSE MIGUEL SCHMIDT MD [address] [facility],[place] [address], [place], [address], [facility] - [facility] 06/29/2024 09:42:26 Imaging Results Imaging Date Name Status LastModified by Organiz [facility] Details LastModified Time 07/23/2024 spirometry testing* completed bernard Information not available 07/23/2024 13:27:19 Procedure Notes None recorded. Medical Equipment None [...] 24 hr 06/29 completed Medicati on ID: [id number] B rand Name: metoprol ol succinat e [...] as directed 06/29 completed Medicati on ID: [id number] [place] By Name: Kim Da Silva [...] Updated DateTime 06/29/2024 177.8 cm 33 kg/m2 543056.25 g Queta Hicks [place] - [facility] 06/29/2024 09:34:11 Date Recorded Systolic blood pressure Diastolic blood pressure Provider Name and Address Organization Details Last Updated DateTime 06/29/2024 122 mm[Hg] 80 mm[Hg] JOSE MIGUEL SCHMIDT MD [address] [place] [address], [address], [facility] 06/29/2024 09:52:01 Date Recorded Body height Body mass index (BMI) Body weight Oxygen saturation Oxygen saturation in Arterial blood by Pulse oximetry Heart rate Systolic blood pressure Diastolic blood pressure Provider Name and Address Organization Details Last Updated DateTime 177.8 cm 32.3 kg/m2 425849. 28 g 98 % 98 % 61 /min 136 mm[Hg] 86 mm[Hg] RADHA CASTRO [address], [address], [facility] 12:59:44 Social History None recorded. Functional Status None recorded. Mental Status None recorded. Family History Nothing Reported. Medical History Condition Response Hyperlipidemia Y Hypertension Y Sleep Disorder Y GERD/Reflux Y Past Encounters Encounter ID Performer Location Encounter Start Date Encounter Closed Date Diagnosis/Indication Diagnosis SNOMED-CT Code Diagnosis ICD10 Code [id number] JOSE MIGUEL SOTOMAYOR MD [facility] [address] [id number] 06/29/2024 09:21:20 06/29/2024 10:00:34 Snoring 58311435 R06.83 Chronic rhinitis 9531045 6 J31.0 Deviated nasal septum 12 9049197 J34.2 Feeling of lump in throat 693932303 R09.89 Allergic rhinitis 211897 04 J30.9 [id number] RADHA BELTRAN [facility] Allergy [address] [place] [id number] 07/23/2024 12:39:42 07/23/2024 15:37:35 Allergic rhinitis 69127250 J30.9 Health Concerns Section Related Observation LastModified by Organization Detai ls LastModified Time None Recorded Concern Status LastModified by Organization Details LastModified Time None Recorded Advance Directives Directive None Recorded Payers Encounter Date Sequence Insurance Name Policy Number Policy Dacosta Covered Member ID Dacosta Member ID Guarantor Name 06/29/2024 1 [facility] [id number] Regan Lama [id number] Regan Lama 07/23/2024 1 [facility] [id number] eRgan Lama [id number] Regan Lama Notes Date Note Type Note Provider Name [...] his snoringNOSE=40SNOT-2 2=20 JOSE MIGUEL SCHMIDT MD [address] [place] [address], [place], [address], [facility] - [facility] 06/29/2024 09:58:30
== END 2024-08-11 10:44 | disposition home or self-care (01) ==
PROVIDERS: PCP Nurse Practitioner Primary Care; Visit Provider Urology
DX: R35.1 Nocturia (principal); N32.0 Bladder-neck obstruction; Z13.9 Encounter for screening, unspecified
CPT/HCPCS: 99024

== ENCOUNTER → 2024-08-11 10:07 | Outpatient (BNVA) | payer OTHER, SELFPAY | PROVIDERS: PCP Nurse Practitioner Primary Care; Visit Provider Urology | DX: R35.1 Nocturia (principal); N32.0 Bladder-neck obstruction; N52.9 Male erectile dysfunction, unspecified | CPT/HCPCS: 51798; 81003 ==

== ENCOUNTER → 2024-08-23 10:51 | Outpatient (REF) | payer OTHER, SELFPAY ==
--- OUTSIDE RECORDS SUMMARY | 2024-08-23 10:53 | XMS_ITS | Continuity of Care Document ---
Author Organization [place] - [facility], Allergy Address [address] [place] [address] Care Team Providers Care Residential Property Consultant Name Role Phone ROSS COBOS Primary Care [...] By Organization Details Last Modified Time 07/23/2024 [id number] Nursing Documentation for Allergy Testing: Ordering Provider [...] /day for how long ?? 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: {{Congestion Post Nasal Drip* [...] Recorded Time Obstructi ve sleep apnea syndrome 05548402 Active 2019 Obstructiv e sleep apnea (adult) (pediatric ); Note: Date Diagnosed: 07/03/2020 11:19 AM (G47.33) Not Available [facility] 4 02:54:36 Posterior rhinorrhe a 37463711 Active 2019 Postnasal drip; Note: Date Diagnosed: 07/03/2020 11:19 AM (R09.82) Not Available [facility] 4 02:54:35 Snoring 53396417 Active 2023 JOSE MIGUEL SOTOMAYOR MD [address] [facility],[place] [address], [place], [address] , [facility] 4 09:47:17 Chronic rhinitis 31786203 Active 2023 JOSE MIGUEL SOTOMAYOR MD [address] [place] [address],[place] [address], [place], [address] , [facility] 4 09:47:22 Deviated nasal septum 782121377 Active 2023 JOSE MIGUEL SOTOMAYOR MD [address] [place] [address],[place] [address], [place], [address] , [facility] 4 09:47:26 Feeling of lump in throat 304823066 Active 2023 JOSE MIGUEL SOTOMAYOR MD [address] [place] [address],[place] [address], [place], [address] , [facility] 4 09:47:30 Allergic rhinitis 28802116 Active 2023 JOSE MIGUEL SOTOMAYOR MD [address] [place] [address],[place] [address], [place], [address] , [facility] 4 09:56:43 Problem Notes None recorded. Procedures Surgical History Date Name Laterality Status Provider Name and Address Organization Details Recorded Time 07/23/20 24 Allergy Testing-Full completed MICHAEL SANCHEZ [address] [facility],[place] [address], [place], [address], [facility] - [facility] 07/23/2024 15:31:38 06/29/20 24 Fiberoptic Laryngoscopy (Comprehensive) completed JOSE MIGUEL SCHMIDT MD [address] [facility],[place] [address], [place], [address], [facility] - [facility] 06/29/2024 09:54:45 06/16/20 24 Revise eye muscle completed JOSE MIGUEL SCHMIDT MD [address] [facility],[address], [address], [facility] - [facility] 06/29/2024 09:42:26 Imaging Results None recorded. Procedure [...] 24 hr 06/29 completed Medicati on ID: [id number] Osbaldo tirado Name: metoprol ol succinat e [...] as directed 06/29 completed Medicati on ID: [id number] [place] By Name: Kim Da Silva [...] Updated DateTime 4 177.8 cm 32.3 kg/m2 005104. 28 g 98 % 98 % 61 /min 136 mm[Hg] 86 mm[Hg] [facility] DEVIN, A [address] [facility], [address] [place], [place] [address], [id number], [place] - [facility] 4 12:59:44 Social History None recorded. Functional Status None recorded. Mental Status None recorded. Family History Nothing Reported. Medical History Condition Response Hyperlipidemia Y Sleep Disorder Y GERD/Reflux Y Hypertension Y Past Encounters Encounter ID Performer Location Encounter Start Date Encounter Closed Date Diagnosis/Indication Diagnosis SNOMED-CT Code Diagnosis ICD10 Code [id number] JOSE MIGUEL SOTOMAYOR MD [facility] [address] [place] [id number] 06/29/2024 09:21:20 06/29/2024 10:00:34 Snoring 31220897 R06.83 Chronic rhinitis 3333036 6 J31.0 Deviated nasal septum 12 5995783 J34.2 Feeling of lump in throat 581032970 R09.89 Allergic rhinitis 202908 04 J30.9 [id number] RADHA BELTRAN, A Allergy [address] [facility],[place] [address] [place] [id number] 07/23/2024 12:39:42 07/23/2024 15:37:35 Allergic rhinitis 35319740 J30.9 Health Concerns Section Related Observation LastModified by Organization Detai ls LastModified Time None Recorded Concern Status LastModified by Organization Details LastModified Time None Recorded Payers Encounter Date Sequence Insurance Name Policy Number Policy Dacosta Covered Member ID Dacosta Member ID Guarantor Name 07/23/2024 1 [facility] [id number] Regan Lama [id number] Regan Lama
--- OUTSIDE RECORDS SUMMARY | 2024-08-23 10:53 | XMS_ITS | Continuity of Care Document ---
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 Patient [...] Recorded Time Obstructi ve sleep apnea syndrome 47140312 Active 2019 Obstructiv e sleep apnea (adult) (pediatric ); Note: Date Diagnosed: 07/03/2020 11:19 AM (G47.33) Not Available [facility] 4 02:54:36 Posterior rhinorrhe a 60558227 Active 2019 Postnasal drip; Note: Date Diagnosed: 07/03/2020 11:19 AM (R09.82) Not Available [facility] 4 02:54:35 Snoring 60768422 Active 2023 JOSE MIGUEL SOTOMAYOR MD [address] [facility] [address], [place], [address] , [facility] - [facility] 4 09:47:17 Chronic rhinitis 53502540 Active 2023 JOSE MIGUEL SOTOMAYOR MD [address] [facility] [address], [address] , [facility] - [facility] 4 09:47:22 Deviated nasal septum 081409413 Active 2023 JOSE MIGUEL SOTOMAYOR MD [address] [facility] [address] [address], [place], [address] , [facility] - [facility] 4 09:47:26 Feeling of lump in throat 345955702 Active 2023 JOSE MIGUEL SOTOMAYOR MD [address] [facility] [address] [address], [place], [place], [address] , [facility] - [facility] 4 09:47:30 Allergic rhinitis 75556538 Active 2023 JOSE MIGUEL SOTOMAYOR MD [address] [facility] [address] [address], [place], [place], [address] , [facility] - [facility] 4 09:56:43 Problem Notes None recorded. Procedures Surgical History Date Name Laterality Status Provider Name and Address Organization Details Recorded Time 07/23/20 Allergy Testing-Full completed RADHA CASTRO Linda [address] [facility] [address] [address], [place], [address], [facility] 07/23/2024 15:31:38 06/29/20 24 Fiberoptic Laryngoscopy (Comprehensive) completed JOSE MIGUEL SCHMIDT MD [address] [facility] [address] [address], [place], [address], [facility] 06/29/2024 09:54:45 06/16/20 24 Revise eye muscle completed JOSE MIGUEL SCHMIDT MD [address] [facility] [address] [address], [place], [address], [facility] 06/29/2024 09:42:26 Imaging Results None recorded. [...] 24 hr 06/29 completed Medicati on ID: [id number] B rand Name: metoprol ol succinat e [...] as directed 06/29 completed Medicati on ID: [id number] [place] By Name: Kim Da [...] Updated DateTime 06/29/2024 177.8 cm 33 kg/m2 247528.25 g Queta Hicks [facility] 06/29/2024 09:34:11 Date Recorded Systolic blood pressure Diastolic blood pressure Provider Name and Address Organization Details Last Updated DateTime 06/29/2024 122 mm[Hg] 80 mm[Hg] JOSE MIGUEL SCHMIDT MD [address] [place] [address], [address], [place] - [facility] 06/29/2024 09:52:01 Social History None recorded. Functional Status None recorded. Mental Status None recorded. Family History Nothing Reported. Medical History Condition Response Sleep Disorder Y GERD/Reflux Y Hyperlipidemia Y Hypertension Y Past Encounters Encounter ID Performer Location Encounter Start Date Encounter Closed Date Diagnosis/Indication Diagnosis SNOMED-CT Code Diagnosis ICD10 Code [id number] JOSE MIGUEL SOTOMAYOR MD [facility] [address] [place] [address] 06/29/2024 09:21:20 06/29/2024 10:00:34 Snoring 27584838 R06.83 Chronic rhinitis 2404692 6 J31.0 Deviated nasal septum 12 3592793 J34.2 Feeling of lump in throat 334318967 R09.89 Allergic rhinitis 472998 04 J30.9 Health Concerns Section Related Observation LastModified by Organization Detai ls LastModified Time None Recorded Concern Status LastModified by Organization Details LastModified Time None Recorded Payers Encounter Date Sequence Insurance Name Policy Number Policy Dacosta Covered Member ID Dacosta Member ID Guarantor Name 06/29/[address] [place] [address] [id number] Regan Lama [id number] Regan Daina Notes Date Note Type Note [...] snoringNOSE=40SNOT-2 2=20 JOSE MIGUEL SCHMIDT MD [address] [place] [address], [address], [place] - [facility] 06/29/2024 09:58:30
--- OUTSIDE RECORDS SUMMARY | 2024-08-23 10:53 | XMS_ITS | Data Portability ---
Author Organization [place] - [facility], Allergy Address [address] [place] [address] Care Team Providers Care Rn Correctional Name Role Phone RSOS COBOS Primary Care Provider [phone] Assessment Encounter Date Assessment Date Assessment LastModified [...] 137 mcg (0.1 %) nasal spray 2023 [facility]/Pharmacy #[id number], [address] [facility], [place], [address], 06/29/2024 09:56:19 Patient TargetsNo targets recorded. Patient Instructions Encounter Date Encounter Id Patient Instructions Last Modified By Organization Details Last Modified Time 07/23/2024 [id number] Nursing Documentation for Allergy Testing: Ordering Provider [...] /day for how long ?? 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: {{Congestion Post Nasal Drip* Headache [...] Recorded Time Obstructi ve sleep apnea syndrome 64889320 Active 2019 Obstructiv e sleep apnea (adult) (pediatric ); Note: Date Diagnosed: 07/03/2020 11:19 AM (G47.33) Not Available [facility] 4 02:54:36 Posterior rhinorrhe a 42188670 Active 2019 Postnasal drip; Note: Date Diagnosed: 07/03/2020 11:19 AM (R09.82) Not Available [facility] 4 02:54:35 Snoring 77173634 Active 2023 JOSE MIGUEL SOTOMAYOR MD [address], [place], [place], [address] , [facility] - [facility] 4 09:47:17 Chronic rhinitis 73552762 Active 2023 JOSE MIGUEL SOTOMAYOR MD [address], [place], [place], [address] , [facility] - [facility] 4 09:47:22 Deviated nasal septum 975518498 Active 2023 JOSE MIGUEL SOTOMAYOR MD [address], [place], [place], [address] , [facility] - [facility] 4 09:47:26 Feeling of lump in throat 610073782 Active 2023 JOSE MIGUEL SOTOMAYOR MD [address] [facility] [place], [place], [address] , [facility] - [facility] 4 09:47:30 Allergic rhinitis 54441219 Active 2023 JOSE MIGUEL SOTOMAYOR MD [address] [facility] [place], [place], [place], [address] , [facility] - [facility] 4 09:56:43 Problem Notes None recorded. Procedures Surgical History Date Name Laterality Status Provider Name and Address Organization Details Recorded Time 07/23/20 Allergy Testing-Full completed MICHAEL SANCHEZ [address], [place], [address], [facility] - [facility] 07/23/2024 15:31:38 06/29/20 Fiberoptic Laryngoscopy (Comprehensive) completed JOSE MIGUEL SCHMIDT MD [address], [place], [address], [facility] - [facility] 06/29/2024 09:54:45 06/16/20 24 Revise eye muscle completed JOSE MIGUEL SCHMIDT MD [address] [facility],[place] [address], [place], [address], [facility] - [facility] 06/29/2024 09:42:26 Imaging Results Imaging Date Name Status LastModified by Organiz [facility] Details LastModified Time 07/23/2024 spirometry testing* completed [...] 24 hr 06/29 completed Medicati on ID: [id number] B rand Name: metoprol ol succinat e [...] as directed 06/29 completed Medicati on ID: [id number] [place] By Name: Kim Da Silva [...] Updated DateTime 06/29/2024 177.8 cm 33 kg/m2 992566.25 g Queta Hicks [place] - [facility] 06/29/2024 09:34:11 Date Recorded Systolic blood pressure Diastolic blood pressure Provider Name and Address Organization Details Last Updated DateTime 06/29/2024 122 mm[Hg] 80 mm[Hg] JOSE MIGUEL SCHMIDT MD [address] [place] [address], [address], [facility] 06/29/2024 09:52:01 Date Recorded Body height Body mass index (BMI) Body weight Oxygen saturation Oxygen saturation in Arterial blood by Pulse oximetry Heart rate Systolic blood pressure Diastolic blood pressure Provider Name and Address Organization Details Last Updated DateTime 177.8 cm 32.3 kg/m2 440735. 28 g 98 % 98 % 61 /min 136 mm[Hg] 86 mm[Hg] RADHA CASTRO [address], [address], [facility] 12:59:44 Social History None recorded. Functional Status None recorded. Mental Status None recorded. Family History Nothing Reported. Medical History Condition Response Hyperlipidemia Y Hypertension Y Sleep Disorder Y GERD/Reflux Y Past Encounters Encounter ID Performer Location Encounter Start Date Encounter Closed Date Diagnosis/Indication Diagnosis SNOMED-CT Code Diagnosis ICD10 Code [id number] JOSE MIGUEL SOTOMAYOR MD [facility] [address] [address] 06/29/2024 09:21:20 06/29/2024 10:00:34 Snoring 25709695 R06.83 Chronic rhinitis 8018285 6 J31.0 Deviated nasal septum 12 1339420 J34.2 Feeling of lump in throat 959876411 R09.89 Allergic rhinitis 053699 04 J30.9 [id number] RADHA BELTRAN [facility] Allergy [address] [place] [address] 07/23/2024 12:39:42 07/23/2024 15:37:35 Allergic rhinitis 99051672 J30.9 Health Concerns Section Related Observation LastModified by Organization Detai ls LastModified Time None Recorded Concern Status LastModified by Organization Details LastModified Time None Recorded Advance Directives Directive None Recorded Payers Encounter Date Sequence Insurance Name Policy Number Policy Dacosta Covered Member ID Dacosta Member ID Guarantor Name 06/29/2024 1 [facility] [id number] Regan Lama [id number] Regan Lama 07/23/2024 1 [facility] [id number] Regan Lama [id number] Regan Lama Notes Date Note Type Note [...] snoringNOSE=40SNOT-2 2=20 JOSE MIGUEL SCHMIDT MD [address] [place] [address], [place], [address], [facility] - [facility] 06/29/2024 09:58:30
== END ==
LOC: HO.SL 10:51
PROVIDERS: PCP Nurse Practitioner Family; Visit Provider Physician Assistant Medical
DX: I10 Essential (primary) hypertension (principal); G47.33 Obstructive sleep apnea (adult) (pediatric); G47.19 Other hypersomnia
CPT/HCPCS: 95806

== ENCOUNTER → 2024-08-23 11:02 | Outpatient (BNV) | payer OTHER, SELFPAY | PROVIDERS: PCP Nurse Practitioner Family; Visit Provider Internal Medicine | DX: G47.33 Obstructive sleep apnea (adult) (pediatric) (principal) | CPT/HCPCS: 95806 ==

== ENCOUNTER 2024-10-19 12:50 | Outpatient (AMB) | payer OTHER, SELFPAY ==
--- NOTE | 2024-10-19 13:04 | A.OFFVIS_ITS ---
Vital Signs 10/19/24 13:05 Height 5 ft 10 in Weight 231 lb 7.766 oz BMI 33.2 BP 164/98 H Blood Pressure Location Lt brachial Position Sitting Pulse 54 Intake Visit Reasons: colo screening Intake Note: Regan presents in the office as a colonoscopy screening. CC: States that he is just here due for a colonoscopy - no GI concerns. 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 male with past medical history of RAF, recently diagnosed, lumbar back pain, ascending aorta dilatation, sciatica, hypertension, hyperlipidemia, GERD is here today for pre colonoscopy screening.? Patient was sent to us by his PCP.? Last colonoscopy with Dr. Douglas in 2002, normal. Patient just diagnosed with sleep apnea no CPAP yet. Patient denies any gastrointestinal symptoms in the past or at present.? However patient does report occasional acid reflux. Several times a week that sometimes Tums does not even help. Patient reports dyspepsia without dysphagia or odynophagia. Currently not on any PPI or H2 nida. Denies any personal or family history of gastrointestinal disease, colon polyps, or CRC.? Denies history of difficulty with sedation or anesthesia in the past.?? Denies any history of cardiac, renal, pulmonary, or hepatic disease.?? No history of infectious? diseases like hepatitis A, B, C, HIV or tuberculosis.? Patient is not on any anticoagulation [facility] Medical History (Updated 10/19/24 @ 13:41 by Marissa Ruelas, [facility]) GERD with apnea Sleep apnea Ascending aorta dilatation HTN (hypertension) GERD (gastroesophageal reflux disease) Back pain Surgical History Hx of eye surgery (06/16/24) H/O colonoscopy Hx of lithotripsy Carpal tunnel syndrome, bilateral Family History Father HTN (hypertension) Mother No problems noted. Brother No problems noted. Brother No problems noted. Social History Housing: House Patient Tobacco Use Status: Never used Tobacco e-Cigarette/Vaping Use: Never Used Second Hand Smoke Exposure: No service: No Current occupational status: employed Cognitive needs: No Hearing needs: No Vision needs: No Review of Systems Const Denies weight gain and Denies weight loss ENT Reports no additional complaints, Denies dysphagia and Denies odynophagia Card Reports no additional complaints Resp Reports no additional complaints GI Denies abdominal pain, Denies belching, Denies melena, Denies bloating, Denies change in bowel habits, Denies dysphagia, Denies excessive flatus, Denies dyspepsia, Denies heartburn, Denies diarrhea, Denies loose stools, Denies nausea, Denies odynophagia and Denies vomiting Reports no additional complaints Musc Reports no additional complaints Neuro Reports no additional complaints Psych Reports no additional complaints Endo Reports no additional complaints Physical Exam Vital Signs: BMI result Body Mass Index 33.2 Const General: healthy appearing and no acute distress Nutritional Appearance: obese Orientation/consciousness: patient oriented x3 Resp Effort & Inspection: normal respiratory effort, able to speak in complete sentences, no tracheal deviation and symmetric chest movement Auscultation: clear to auscultation bilaterally Cardio Rate: regular rate GI Inspection: Yes normal to inspection, No distended and Yes obesity Palpation (GI): Soft to palpation, not firm, nontender and No hepatosplenomegaly present Auscultation: normal bowel sounds General: Yes no CVA tenderness Back/Spine/Pelvis Back: no CVA tenderness Skin General skin exam: elasticity normal and turgor normal Neuro General: patient oriented x3 Psych Appearance: grossly normal Mental Status: mental status grossly normal Assessment & Plan Assessment & Plan (1) Screen for colon cancer: Code(s): Z12.11 - Encounter for screening for malignant neoplasm of colon (2) GERD (gastroesophageal reflux disease): Code(s): K21.9 - Gastro-esophageal reflux disease without esophagitis Qualifiers: Esophagitis presence: esophagitis presence not specified Qualified Code(s): K21.9 - Gastro-esophageal reflux disease without esophagitis Plan Patient denies any GI, cardiac or respiratory symptoms.? However patient does report acid reflux. He has been dealing with this for very long time. Was given PPI in the past, however he is not taking anything at this point. Will send him for upper endoscopy to rule out esophagitis, duodenitis, gastritis, Barretts, gastric or peptic ulcers, H pylori. Denies any issues with anesthesia in the past.? Patient had 2 surgeries last year and did well with anesthesia. Just recently diagnosed with sleep apnea, does not have CPAP machine yet. No history infectious diseases in the past or present.? Not on any anticoagulation therapy.? No family or personal history of colon cancer or polyps.? Patient denies melena, hematochezia, unintentional weight loss or ribbon like stools.? Discussed at length the pre-procedure,? prep, diet & medications as well as what to expect prior, during and after the procedure.?? Stressed the importance of good bowel prep.? Recommended the use of Vaseline or Calmoseptine OTC & baby wipes with bowel movements to promote comfort.? ?Patient verbalizes understanding and agrees to plan of care.? He was given the opportunity to ask questions and all questions answered.? We will see him after the procedure.? Medications: New bisacodyl (Dulcolax (bisacodyl)) take 4 tabs at noon the day before your colonoscopy 20 mg (4 x 5 mg) PO ONCE 1 day 4 tabs 0RF Z12.11 - Encounter for screening for malignant neoplasm of colon polyethylene glycol 3350 (Miralax) As directed by gastro[facility]ology department at [facility] 238 grams PO ONCE 238 grams 0RF Z12.11 - Encounter for screening for malignant neoplasm of colon pantoprazole take one tablet half an hour before breakfast 40 mg PO DAILY 30 tabs 2RF K21.9 - Gastro-esophageal reflux disease without esophagitis Coding Level of Care Code New Pt Level 3 (68453) Diagnoses Screen for colon cancer Z12.11 Gastroesophageal reflux disease, unspecified whether esophagitis present K21.9 Esophagitis presence: esophagitis presence not specified Time Spent (min) 40 Comment 30 minutes spent with patient and additional 10 minutes spent reviewing his records
[2024-10-19 13:05] VITALS: BP 164/98; PULSE 54; BMI 33.2
--- OUTSIDE RECORDS SUMMARY | 2024-10-19 13:43 | XMS_ITS | Continuity of Care Document ---
Author Organization [place] - [facility], Allergy Address [address] [address] Care Team Providers Care Apparel Sales Associate Name Role Phone ROSS COBOS Primary Care Provider Assessment Encounter Date Assessment Date Assessment LastModified by Organization Details LastModified Time 10/15/2024 10/15/2024 Visit With: Erica Connell Use of Antihistamine s: No If yes: Vial Test Change in medications: No If yes ? ? ? Increase in asthma symptoms If yes, inhaler use: Reaction to last injections: No If yes: ? ? ? Allergy Symptoms: Other: ? ? ? Missed: Dose Aware of Vial Test Notes:? ? ? [email or web address] Not available 10/15/2024 12:53:10 Plan of Treatment Reminders Order Date Submit Date Provider Last Modified By Organization Details Last Modified Time Details Appointments Establish ed- Allergy f-up 6mon 2024 03:30P M JOSE MIGUEL CLAIRE MD Not available Not available Not available Establish ed 30 2024 09:00A M JOSE MIGUEL CLAIRE MD Not available Not available Not available Lab None recorded. Referral None recorded. Procedures None recorded. Surgeries None recorded. Imaging None recorded. Medication Orders None recorded. Patient TargetsNo targets recorded. Patient InstructionsNo instructions recorded. Reason for Referral None Reported. Results Created Date Observation Date Name Description Value Unit Range Abnormal Flag Note LastModifiedBy Organization Detail LastModifiedTime 09/14/19 25 09/08/2024 CT, sinus es, w/o contr ast No observ ation record ed. [facility], [place], [address], 09/14/2024 11:54:08 Result Notes None recorded. Problems Name Problem SNOMED Code Status Onset Date Resolution Date Notes Provider Name and Address Organization Details Recorded Time Obstructi ve sleep apnea syndrome 59627348 Active 2019 Obstructiv e sleep apnea (adult) (pediatric ); Note: Date Diagnosed: 07/03/2020 11:19 AM (G47.33) Not Available [facility] 4 02:54:36 Posterior rhinorrhe a 76241812 Active 2019 Postnasal drip; Note: Date Diagnosed: 07/03/2020 11:19 AM (R09.82) Not Available [facility], [facility] 4 02:54:35 Snoring 88889495 Active 2023 JOSE MIGUEL SOTOMAYOR MD [address] [place] [address],[place] [address], [place], [address] , [facility] - [facility] 4 09:47:17 Chronic rhinitis 57880344 Active 2023 JOSE MIGUEL SOTOMAYOR MD [address] [place] [address],[place] [address], [place], [address] , [facility] - [facility] 4 09:47:22 Deviated nasal septum 377618793 Active 2023 JOSE MIGUEL SOTOMAYOR MD [address] [place] [address],[place] [address], [place], [address] , [facility] - [facility] 4 09:47:26 Feeling of lump in throat 311508537 Active 2023 JOSE MIGUEL SOTOMAYOR MD 100 [facility],[place] [address], [place], [address] , [facility] - [facility] 4 09:47:30 Allergic rhinitis 40192483 Active 2023 JOSE MIGUEL SOTOMAYOR MD [address] [place] [address],[place] [address], [place], [address] , [facility] - [facility] 4 09:56:43 Nasal congestio n 02541950 Active 2024 JOSE MIGUEL SOTOMAYOR MD [address],[place] [facility], [facility] [place], [address] , [facility] - [facility] [place] 5 09:10:23 Chronic sinusitis 19900291 Active 2024 JOSE MIGUEL SOTOMAYOR MD [address],[place] [facility], [place], [address] , [facility] - [facility] [place] 5 09:10:35 Perennial allergic rhinitis 317478826 Active 2024 KATHY TORREZ RN [address] [facility] [place] [address], [facility] [place], [address] , [facility] - [facility] [place] 5 09:24:16 Problem Notes None recorded. Procedures Surgical History Date Name Laterality Status Provider Name and Address Organization Details Recorded Time 10/15/19 25 Allergy Immunotherapy Injections completed MICHAEL ROMO [address] [facility] [place] [facility], [place], [address], [facility] - [facility] [place] 10/15/2024 12:52:52 10/08/19 25 Allergy Immunotherapy Injections completed MICHAEL SANCHEZ [address],[place] [facility], [place], [address], [facility] - [facility] [place] 10/08/2024 12:06:57 10/01/19 25 Allergy Immunotherapy Injections completed MICHAEL ROMO [address] [facility] [place] [address], [place], [address], [facility] - [facility] [place] 10/01/2024 11:50:19 09/20/19 25 Allergy Immunotherapy Injections completed KATHY TORREZ RN [address] [facility] [place] [address] [place] [address], [address], [facility] - [facility] [place] 09/20/2024 10:01:22 07/23/20 24 Allergy Testing-Full completed MICHAEL SANCHEZ [address],[place] [facility], [place], [address], [facility] - [facility] [place] 07/23/2024 15:31:38 06/29/20 24 Fiberoptic Laryngoscopy (Comprehensive) completed JOSE MIGUEL SCHMIDT MD 100 [facility] 100, [place], [address], [facility] 06/29/2024 09:54:45 06/16/20 Revise eye muscle completed JOSE MIGUEL SCHMIDT MD [address],[place] [address], [place], [address], [facility] 06/29/2024 09:42:26 Imaging Results None recorded. [...] 24 hr 06/29 completed Medicati on ID: [id number] B rand Name: metoprol ol succinat e [...] Not Available Not Available No t Available epinephri ne 0.3 mg/0.3 mL injection , auto-inje ctor Take 1 auto by injectio n route for 180 days, for anaphyla xis. 2024 active Not Available Not Available Not Avai lable albuterol sulfate HFA 90 mcg/actua tion aerosol [...] Not Available Not Available No t Available doxycycli ne hyclate 100 mg tablet Take 1 tablet twice a day by oral route for 10 days. 09/20 completed Not Available Not Available Not Available ipratropi um bromide 21 mcg (0.03 %) nasal spray Inhale 2 spray three times a day as directed 06/29 completed Medicati on ID: [id number] [place] By Name: Kim Da Silva [...] Available Not Available No t Available Vitals None Recorded Social History None recorded. Functional Status None recorded. Mental Status None recorded. Family History Nothing Reported. Medical History Condition Response Hyperlipidemia Y Hypertension Y Sleep Disorder Y GERD/Reflux Y Past Encounters Encounter ID Performer Location Encounter Start Date Encounter Closed Date Diagnosis/Indication Diagnosis SNOMED-CT Code Diagnosis ICD10 Code Diagnosis Note [id number] KATHY TORREZ RN Allergy [address] [place] [address] [address] [place] [address] 09/20/2024 09:20:22 09/20/2024 10:13:08 Perennial allergic rhinitis 620848115 J30.89 [id number] ERICA CONNELL [facility] Allergy [address] [place] [address] 10/01/2024 11:20:43 10/01/2024 11:50:36 Perennial allergic rhinitis 110391861 J30.89 [id number] [facility] Allergy [address] [place] [address] 10/08/2024 11:30:58 10/08/2024 12:07:20 Perennial allergic rhinitis [id number] J30.89 [id number] ERICA CONNELL [facility] Allergy [address] [place] [address] 100 [place] [address] 10/15/2024 11:31:35 10/15/2024 12:54:02 Perennial allergic rhinitis 048541786 J30.89 Health Concerns Section Related Observation LastModified by Organization Detai ls LastModified Time None Recorded Concern Status LastModified by Organization Details LastModified Time None Recorded Payers Encounter Date Sequence Insurance Name Policy Number Policy Dacosta Covered Member ID Dacosta Member ID Guarantor Name 10/15/2024 1 [facility] [id number] Regan Lama [id number] eRgan Lama
--- OUTSIDE RECORDS SUMMARY | 2024-10-19 13:43 | XMS_ITS | Continuity of Care Document ---
Author Organization [place] - [facility], Allergy Address [address] [place] [address] Care Team Providers Care Hand Tire Trimmer Name Role Phone ROSS COBOS Primary Care Provider Assessment Encounter Date Assessment Date Assessment LastModified by Organization Details LastModified Time 10/08/2024 10/08/2024 Visit With: MICHAEL Byrnes Use of Antihistamine s: No If yes: Vial Test Change in medications: No If yes ? ? ? Increase in asthma symptoms If yes, inhaler use: Reaction to last injections: No If yes: ? ? ? Allergy Symptoms: Other: ? ? ? Missed: Dose Aware of Vial Test Notes:? ? ? jon Not available 10/08/2024 12:07:02 Plan of Treatment Reminders Order Date Submit [...] Abnormal Flag Note LastModifiedBy Organization Detail LastModifiedTime 09/08/[address], sinus es, w/o contr ast No observ ation record ed. bernard Ents [address], [address], 09/08/2024 09:12:13 09/14/19 25 09/08/2024 CT, sinus es, w/o contr ast No observ ation [email or web address] [address], [place], [address], 09/14/2024 11:54:08 Result Notes None recorded. Problems Name Problem SNOMED Code Status Onset Date Resolution Date Notes Provider Name and Address Organization Details Recorded Time Obstructi ve sleep apnea syndrome 30093417 Active 2019 Obstructiv e sleep apnea (adult) (pediatric ); Note: Date Diagnosed: 07/03/2020 11:19 AM (G47.33) Not Available [facility] 4 02:54:36 Posterior rhinorrhe a 82670600 Active 2019 Postnasal drip; Note: Date Diagnosed: 07/03/2020 11:19 AM (R09.82) Not Available [facility] 4 02:54:35 Snoring 25680710 Active 2023 JOSE MIGUEL SOTOMAYOR MD [address] [place] [address],[place] [address], [place], [address] , [facility] - [facility] 4 09:47:17 Chronic rhinitis 25560274 Active 2023 JOSE MIGUEL SOTOMAYOR MD [address] [place] [address],[place] [address], [place], [address] , [facility] - [facility] [place] 4 09:47:22 Deviated nasal septum 001946999 Active 2023 JOSE MIGUEL SOTOMAYOR MD 100 [facility],[place] [address], [place], [address] , [place] - [facility] [place] [facility] 4 09:47:26 Feeling of lump in throat 747196078 Active 2023 JOSE MIGUEL SOTOMAYOR MD 100 [facility],[place] [address], [place], [address] , [facility] - [facility] [place] 4 09:47:30 Allergic rhinitis 49052124 Active 2023 JOSE MIGUEL SOTOMAYOR MD [address] [facility] [place] [address], [place], [address] , [facility] - [facility] [place] [facility] 4 09:56:43 Nasal congestio n 42705259 Active 2024 JOSE MIGUEL SOTOMAYOR MD [address] [facility] [place] [address], [place], [address] , [facility] - [facility] 5 09:10:23 Chronic sinusitis 01857830 Active 2024 JOSE MIGUEL SOTOMAYOR MD [address] [facility] [place] [address], [place], [address] , [facility] - [facility] [place] [facility] 5 09:10:35 Perennial allergic rhinitis 305131138 Active 2024 KATHY TORREZ RN 100 [facility],[place] [address], [place], [address] , [facility] - [facility] [place] 5 09:24:16 Problem Notes None recorded. Procedures Surgical History Date Name Laterality Status Provider Name and Address Organization Details Recorded Time 10/15/19 25 Allergy Immunotherapy Injections completed MICHAEL ROMO [facility] [place],[address], [address], [facility] - [facility] [place] 10/15/2024 12:52:52 10/08/19 25 Allergy Immunotherapy Injections completed RADHA CASTRO Linda [address], [address], [facility] - [facility] [place] [facility] 10/08/2024 12:06:57 10/01/19 25 Allergy Immunotherapy Injections completed MICHAEL ROMO [address] [place], [place] [address]on [place],[address], [address], [facility] - [facility] [place] [facility] 10/01/2024 11:50:19 09/20/19 25 Allergy Immunotherapy Injections completed KATHY TORREZ RN 100 [facility],[address], [address], [facility] - [facility] [place] [facility] 09/20/2024 10:01:22 07/23/20 24 Allergy Testing-Full completed RADHA CASTRO LOGANLinda 100 [facility],DAMIAN [facility], [place], [address], [facility] - [facility] 07/23/2024 15:31:38 06/29/20 24 Fiberoptic Laryngoscopy (Comprehensive) completed JOSE MIGUEL SCHMIDT MD [address] [facility] [place] [address], [place], [address], [facility] - [facility] 06/29/2024 09:54:45 06/16/20 24 Revise eye muscle completed JOSE MIGUEL SCHMIDT MD [address] [facility] [place],[facility] 100, [place], [address], [facility] 06/29/2024 09:42:26 Imaging Results None recorded. [...] 24 hr 06/29 completed Medicati on ID: [id number] rand Name: metoprol ol succinat e [...] as directed 06/29 completed Medicati on ID: [id number] [place] By Name: Kim Da Silva nd Name: ipratrop ium bromide Send Method: E-Prescr ibed Sub s Allowed: subs OK Medic atjuanGen ericName : ipratrop ium bromide Not Available [...] SNOMED-CT Code Diagnosis ICD10 Code Diagnosis Note [id number] JOSE MIGUEL SOTOMAYOR MD [facility] [address] [address] 09/08/2024 08:35:14 09/08/2024 10:43:33 Allergic rhinitis 74300648 J30.9 We reviewed testing results and medical management of allergy. We discussed options of allergy immunother apy including sublingual and injections . We also discussed the role of immunother apy. I explained that this is instituted for the most significan t of allergies and involves the introducti on of increasing ly graduated dosages of the appropriat e allergens by subcutaneo us injection to facilitate tolerance. I explained about the likelihood of some improvemen t usually within a three to six month time period provided that the patient is compliant with therapy. It may take substantia lly longer for patients with severe allergy. We spoke about the duration of therapy, which typically lasts from three to five years though at times can be indefinite . We also discussed the risk of anaphylaxi s with therapy. Use of an Epipen discussed. We discussed the role of immunother apy. I explained that this involves the introducti on of increasing ly graduated dosages of the appropriat e allergens by sublingual immunother apy to facilitate tolerance. I explained about the likelihood of improvemen t usually within a three to six month time period provided that the patient is compliant with therapy. We spoke about the duration of therapy, which typically lasts from three to five years though at times can be indefinite . We also discussed the risk of anaphylaxi s, throat tightness, stomach upset and eosinophil ic esophagiti s with sublingual immunother apy. Epipen use discussed Deviated nasal septum 12 6698284 J34.2 Chronic sinusitis 773626 00 J32.9 There is evidence of diffuse maxillary and ethmoid sinus thickening predominan tly on the right side. Septal deviation to the right and turbinate hypertroph y. Suggest adding fluticason e to his Astelin, a course of doxycyclin e and proceeding with immunother apy [id number] KATHY TORREZ RN Allergy 100 [facility] 100 [place] [address] 09/20/2024 09:20:22 09/20/2024 10:13:08 Perennial allergic rhinitis 183775969 J30.89 [id number] [place] JENSEN, [facility] Allergy [address] [place] [address],[facility] 100 [place] [address] 10/01/2024 11:20:43 10/01/2024 11:50:36 Perennial allergic rhinitis 581321554 J30.89 [id number] RADHA CASTRO, [facility] Allergy [address] [place] [address],[facility] 100 [place] [address] 10/08/2024 11:30:58 10/08/2024 12:07:20 Perennial allergic rhinitis 168311069 J30.89 Health Concerns Section Related Observation LastModified by Organization Detai ls LastModified Time None Recorded Concern Status LastModified by Organization Details LastModified Time None Recorded Payers Encounter Date Sequence Insurance Name Policy Number Policy Dacosta Covered Member ID Dacosta Member ID Guarantor Name 10/08/2024 1 [facility] [id number] Regan Lama [id number] Regan Lama
--- OUTSIDE RECORDS SUMMARY | 2024-10-19 13:43 | XMS_ITS | Data Portability ---
Author Organization [place] - [facility], Allergy Address [address] [place] [address] Care Team Providers Care Bonbon Dipper Name Role Phone EVAROSS BARKLEY Primary Care Provider Assessment Encounter Date Assessment Date Assessment LastModified by Organization Details LastModified Time 09/20/2024 09/20/2024 Visit With: Kathy Torrez RN Use of Antihistamine s: No If yes: Vial Test Yes Change in medications: No If yes ?? Increase in asthma symptoms No Asthma Hx If yes, inhaler use: Reaction to last injections: If yes: ?? Allergy Symptoms: Congestion Other: ??PND Missed: Dose Aware of Vial Test Notes:?? jada Not available 09/20/2024 10:01:49 10/01/2024 10/01/2024 Visit With: Erica Connell Use of Antihistamine s: No If yes: Vial Test Change in medications: No If yes ?? Increase in asthma symptoms If yes, inhaler use: Reaction to last injections: No If yes: ?? Allergy Symptoms: Other: ?? Missed: Dose Aware of Vial Test Notes:?? [email or web address] Not available 10/01/2024 11:50:24 10/08/2024 10/08/2024 Visit With: MICHAEL Byrnes Use of Antihistamine s: No If yes: Vial Test Change in medications: No If yes ?? Increase in asthma symptoms If yes, inhaler use: Reaction to last injections: No If yes: ?? Allergy Symptoms: Other: ?? Missed: Dose Aware of Vial Test Notes:?? jon Not available 10/08/2024 12:07:02 10/15/2024 10/15/2024 Visit With: Erica Connell Use of Antihistamine s: No If yes: Vial Test Change in medications: No If yes ?? Increase in asthma symptoms If yes, inhaler use: Reaction to last injections: No If yes: ?? Allergy Symptoms: Other: ?? Missed: Dose Aware of Vial Test Notes:?? [email or web address] Not available 10/15/2024 12:53:10 Plan of Treatment Reminders Order Date Submit Date Provider Last Modified By Organization Details Last Modified Time Details [facility]ments [facility] 6mon 2024 03:30P M JOSE MIGUEL CLAIRE MD Not available Not available Not available Establi shed 30 2024 09:00A M JOSE MIGUEL CLAIRE MD Not available Not available Not available Lab None recorde d. Referral None recorde d. Procedures allerge n immunot herapy; multipl e injecti ons (PROC) 2024 025 [email or web address] Not available 09/21/2024 09:37:41 Surgeries None recorde d. Imaging CT, sinuses , w/o contras t 2024 025 [facility], [address] [place] [address], [address], 09/08/2024 10:43:33 Medication Orders epineph rine 0.3 mg/0.3 mL injecti on, auto-in jector 2024 025 [facility][id number], [address] [place] [address], [address], 09/08/2024 09:12:09 doxycyc line hyclate 100 mg tablet 2024 025 [facility][id number], [address] [place], [address], 09/20/2024 09:34:22 Patient TargetsNo targets recorded. Patient Instructions Encounter Date Encounter Id Patient Instructions Last Modified By Organization Details Last Modified Time 09/20/2024 [id number] allergy shots: care instructions [email or web address] Not available 09/20/2024 10:02:45 Reason for Referral None Reported. Results Created Date Observation Date Name Description Value Unit Range Abnormal Flag Note LastModifiedBy Organization Detail LastModifiedTime 09/08/19 CT, sinus es, w/o contr ast No observ ation record ed. [facility]ts [address], [address], 09/08/2024 09:12:13 09/14/19 25 09/08/2024 CT, sinus es, w/o contr ast No observ ation record ed. [facility] [address], [address], 09/14/2024 11:54:08 Result Notes None recorded. Problems Name Problem SNOMED Code Status Onset Date Resolution Date Notes Provider Name and Address Organization Details Recorded Time Obstructi ve sleep apnea syndrome 52544220 Active 2019 Obstructiv e sleep apnea (adult) (pediatric ); Note: Date Diagnosed: 07/03/2020 11:19 AM (G47.33) Not Available [facility] 4 02:54:36 Posterior rhinorrhe a 35933791 Active 2019 Postnasal drip; Note: Date Diagnosed: 07/03/2020 11:19 AM (R09.82) Not Available [facility] 4 02:54:35 Snoring 24777161 Active 2023 JOSE MIGUEL SOTOMAYOR MD [address] [place] [address], [place], [address] , [facility] - [facility] 4 09:47:17 Chronic rhinitis 27693971 Active 2023 JOSE MIGUEL SOTOMAYOR MD [address] [place] [address],[place] [address], [place], [address] , [facility] - [facility] 4 09:47:22 Deviated nasal septum 457170541 Active 2023 JOSE MIGUEL SOTOMAYOR MD [address], [place], [address] , [place] - [facility] 4 09:47:26 Feeling of lump in throat 140024830 Active 2023 JOSE MIGUEL SOTOMAYOR MD [address], [place], [address] , [place] [facility] 4 09:47:30 Allergic rhinitis 15994899 Active 2023 JOSE MIGUEL SOTOMAYOR MD [address] [facility] [place],[address], [place], [address] , [place] [facility] 4 09:56:43 Nasal congestio n 63783484 Active 2024 JOSE MIGUEL SOTOMAYOR MD [address] [facility] [place],[address], [place], [place], [address] , [place] - [facility] 5 09:10:23 Chronic sinusitis 40738242 Active 2024 JOSE MIGUEL SOTOMAYOR MD [address] [facility] [place],[facility], [place], [place], [address] , [place] [facility] 5 09:10:35 Perennial allergic rhinitis 223427329 Active 2024 KATHY TORREZ RN [address] [facility] [place],[facility], [place], [place], [address] , [facility] - [facility] 5 09:24:16 Problem Notes None recorded. Procedures Surgical History Date Name Laterality Status Provider Name and Address Organization Details Recorded Time 10/15/19 25 Allergy Immunotherapy Injections completed ERICA CONNELL [facility] [address] [facility] [place], [place], [address], [facility] - [facility] 10/15/2024 12:52:52 10/08/19 25 Allergy Immunotherapy Injections completed RADHA CASTRO Linda [address], [place], [address], [facility] - [facility] 10/08/2024 12:06:57 10/01/19 25 Allergy Immunotherapy Injections completed ERICA CONNELL, A 100 [facility],[address], [address], [facility] - [facility] 10/01/2024 11:50:19 09/20/19 25 Allergy Immunotherapy Injections completed KATHY TORREZ RN 100 [facility],[address], [address], [facility] - [facility] 09/20/2024 10:01:22 07/23/20 24 Allergy Testing-Full completed RADHA CASTRO, [facility] 100 [facility],[address], [address], [facility] - [facility] 07/23/2024 15:31:38 06/29/20 24 Fiberoptic Laryngoscopy (Comprehensive) completed JOSE MIGUEL SCHMIDT MD 100 [facility],[address], [address], [facility] - [facility] 06/29/2024 09:54:45 06/16/20 24 Revise eye muscle completed JOSE MIGUEL SCHMIDT MD 100 [facility],[address], [address], [facility] - [facility] 06/29/2024 09:42:26 Imaging Results Imaging Date Name Status LastModified by Organiz ation Details LastModified Time 09/08/2024 CT, sinuses, w/o contrast completed [facility] [address], [address], 09/08/2024 09:12:13 09/08/2024 CT, sinuses, w/o contrast completed [facility] [address] [facility], [address], 09/14/2024 11:54:08 Procedure Notes None recorded. Medical Equipment None [...] 24 hr 06/29 completed Medicati on ID: [id number] B rand Name: metoprol ol succinat e [...] as directed 06/29 completed Medicati on ID: [id number] [place] By Name: Kim Da Silva [...] Available Vitals Date Recorded Body height Body weight Provider Name and Address Organization Details Last Updated DateTime 09/08/2024 177.8 cm 119563.28 g Jaqcue Willis [place] - [facility] 09/08/2024 08:37:32 Date Recorded Body height Body mass index (BMI) Body weight Heart rate Heart rate Systolic blood pressure Diastolic blood pressure Systolic blood pressure Diastolic blood pressure Provider Name and Address Organization Details Last Updated DateTime 177.8 cm 33 kg/m2 000734. 25 g 63 /min 60 /min 176 mm[Hg] 98 mm[Hg] 157 mm[Hg] 92 mm[Hg] KATHY TORREZ RN 100 [address] [place], [address], [place] [facility] 09:37:37 Social History None recorded. Functional Status None recorded. Mental Status None recorded. Family History Nothing Reported. Medical History Condition Response Hyperlipidemia Y Hypertension Y Sleep Disorder Y GERD/Reflux Y Past Encounters Encounter ID Performer Location Encounter Start Date Encounter Closed Date Diagnosis/Indication Diagnosis SNOMED-CT Code Diagnosis ICD10 Code Diagnosis Note [id number] JOSE MIGUEL SOTOMAYOR MD [facility] [address] [address] 06/29/2024 09:21:20 06/29/2024 10:00:34 Snoring 72753133 R06.83 Chronic rhinitis 7226228 6 J31.0 Deviated nasal septum 12 6784985 J34.2 Feeling of lump in throat 296675610 R09.89 Allergic rhinitis 395066 04 J30.9 [id number] 100 [facility] [address] [place] [address] 07/23/2024 12:39:42 07/23/2024 15:37:35 Allergic rhinitis 04418586 J30.9 [id number] JOSE MIGUEL SOTOMAYOR MD [facility] [address] [address] 09/08/2024 08:35:14 09/08/2024 10:43:33 Allergic rhinitis 40392943 J30.9 We reviewed testing results and medical [...] Epipen use discussed Deviated nasal septum 12 8861567 J34.2 Chronic sinusitis 138277 00 J32.9 There is evidence of diffuse maxillary and ethmoid sinus thickening predominan tly on the right side. Septal deviation to the right and turbinate hypertroph y. Suggest adding fluticason e to his Astelin, a course of doxycyclin e and proceeding with immunother apy [id number] KATHY TORREZ RN Allergy [address] [place] [address] [place] [address] 09/20/2024 09:20:22 09/20/2024 10:13:08 Perennial allergic rhinitis 029697543 J30.89 [id number] ERICA CONNELL [facility] Allergy [address] [place] [address] [place] [address] 10/01/2024 11:20:43 10/01/2024 11:50:36 Perennial allergic rhinitis 447525414 J30.89 [id number] RADHA CASTRO [facility] Allergy [address] [place] [address] 100 [place] [address] 10/08/2024 11:30:58 10/08/2024 12:07:20 Perennial allergic rhinitis 058002722 J30.89 [id number] ERICA CONNELL [facility] Allergy [address] [place] [address] 100 [place] [address] 10/15/2024 11:31:35 10/15/2024 12:54:02 Perennial allergic rhinitis 900852002 J30.89 Health Concerns Section Related Observation LastModified by Organization Detai ls LastModified Time None Recorded Concern Status LastModified by Organization Details LastModified Time None Recorded Advance Directives Directive None Recorded Payers Encounter Date Sequence Insurance Name Policy Number Policy Dacosta Covered Member ID Dacosta Member ID Guarantor Name 09/08/2024 1 [facility] [id number] Regan Cervonayco [id number] Regan Cervonayco 09/20/2024 1 [facility] [id number] Regan Cervonayco [id number] Regan Cervonayco 10/01/2024 1 [facility] [id number] Regan Cervonayco [id number] Regan Cervonayco 10/08/2024 1 [facility] [id number] Regan Cervonayco [id number] Regan Cervonayco 10/15/2024 1 [facility] [id number] Regan Cervonayco [id number] Regan Cervonayco Notes Date Note Type Note Provider Name and Address Organization Details Recorded Time 09/08/2024 text/html Allergy to dust, mold, cockroach, cat and weeds. Has 6 cats at home. Feels more congested in winter despite Astelin. No using with FP nasal. Still having a little bit double vision especially when driving at night following his eye muscle surgery JOSE MIGUEL SCHMIDT MD [address] [place] [address], [address], [place] - [facility] 09/08/2024 09:12:32
== END 2024-10-19 14:12 | disposition home or self-care (01) ==
PROVIDERS: PCP Nurse Practitioner Family; Visit Provider Nurse Practitioner Family
DX: Z01.818 Encounter for other preprocedural examination (principal); Z12.11 Encounter for screening for malignant neoplasm of colon; K21.9 Gastro-esophageal reflux disease without esophagitis
CPT/HCPCS: 99202

== ENCOUNTER → 2024-10-19 12:50 | Outpatient (BNVA) | payer OTHER, SELFPAY | PROVIDERS: PCP Nurse Practitioner Family; Visit Provider Nurse Practitioner Family ==

== ENCOUNTER 2024-12-02 07:37 | Outpatient (AMB) | payer OTHER, SELFPAY ==
--- OUTSIDE RECORDS SUMMARY | 2024-12-02 07:40 | XMS_ITS | Data Portability ---
Author Organization [place] - [facility], Allergy Address [address] [place] [address] Care Team Providers Care Therapeutic Consultant Name Role Phone ROSS COBOS Primary Care Provider [phone] Assessment Encounter Date Assessment Date Assessment LastModified [...] ? ? jon Not available 10/08/2024 12:07:02 10/15/2024 10/15/2024 Visit With: Erica Connell Use of Antihistamine s: No If yes: Vial Test Change in medications: No If yes ? ? ? Increase in asthma symptoms If yes, inhaler use: Reaction to last injections: No If yes: ? ? ? Allergy Symptoms: Other: ? ? ? Missed: Dose Aware of Vial Test Notes:? ? ? [email or web address] Not available 10/15/2024 12:53:10 11/05/2024 11/05/2024 Visit With: MICHAEL Byrnes Use of Antihistamine s: No If yes: Vial Test Change in medications: No If yes ? ? ? Increase in asthma symptoms If yes, inhaler use: Reaction to last injections: No If yes: ? ? ? Allergy Symptoms: Other: ? ? ? Missed: 2 weeks Dose Aware of Vial Test Notes:? ? ? Not available 11/05/2024 12:11:37 11/19/2024 11/19/2024 Visit With: MICHAEL Byrnes Use of Antihistamine s: No If yes: Vial Test Change in medications: No If yes ? ? ? Increase in asthma symptoms If yes, inhaler use: Reaction to last injections: No If yes: ? ? ? Allergy Symptoms: Other: ? ? ? Missed: 1 week Dose Repeated Aware of Vial Test Notes:? ? ? jon Not available 11/19/2024 11:28:25 11/26/2024 11/26/2024 Visit With: Erica Connell Use of Antihistamine s: No If yes: Vial Test Change in medications: No If yes ? ? ? Increase in asthma symptoms If yes, inhaler use: Reaction to last injections: No If yes: ? ? ? Allergy Symptoms: Other: ? ? ? Missed: Dose Aware of Vial Test Notes:? ? ? [email or web address] Not available 11/26/2024 11:41:13 Plan of Treatment Reminders Order Date Submit [...] contr ast No observ ation record ed. [email or web address] Ents Of [address], [address], 09/08/2024 09:12:13 09/14/19 25 09/08/2024 CT, sinus es, w/o contr ast No observ ation [facility] [place] [facility] Of [address], [address], 09/14/2024 11:54:08 Result Notes None recorded. Problems Name Problem SNOMED Code Status Onset Date Resolution Date Notes Provider Name and Address Organization Details Recorded Time Obstructi ve sleep apnea syndrome 95751845 Active 2019 Obstructiv e sleep apnea (adult) (pediatric ); Note: Date Diagnosed: 07/03/2020 11:19 AM (G47.33) Not Available [facility] 4 02:54:36 Posterior rhinorrhe a 38594658 Active 2019 Postnasal drip; Note: Date Diagnosed: 07/03/2020 11:19 AM (R09.82) Not Available [facility] 4 02:54:35 Snoring 89053340 Active 2023 JOSE MIGUEL SOTOMAYOR MD [address] [place] [address],[place] [address], [place], [address] , [facility] - [facility] 4 09:47:17 Chronic rhinitis 71903441 Active 2023 JOSE MIGUEL SOTOMAYOR MD [address] [place] [address],[place] [address], [place], [address] , [facility] - [facility] 4 09:47:22 Deviated nasal septum 831324272 Active 2023 JOSE MIGUEL SOTOMAYOR MD [address] [place] [address],[place] [address], [place], [address] , [facility] - [facility] 4 09:47:26 Feeling of lump in throat 030111138 Active 2023 JOSE MIGUEL SOTOMAYOR MD [address] [place] [address],[place] [address], [place], [address] , [facility] - [facility] 4 09:47:30 Allergic rhinitis 90252723 Active 2023 JOSE MIGUEL SOTOMAYOR MD [address] [facility],[place] [address], [place], [address] , [facility] - [facility] 4 09:56:43 Nasal congestio n 65630205 Active 2024 JOSE MIGUEL SOTOMAYOR MD [address], [place], [address] , [place] [facility] [place] 5 09:10:23 Chronic sinusitis 67381121 Active 2024 JOSE MIGUEL SOTOMAYOR MD [address], [place], [address] , [place] [facility] [place] 5 09:10:35 Perennial allergic rhinitis 804389648 Active 2024 KATHY TORREZ RN [address], [place], [address] , [place] [facility] [place] 09:24:16 Problem Notes None recorded. Procedures Surgical History Date Name Laterality Status Provider Name and Address Organization Details Recorded Time 11/27/19 25 Allergy Immunotherapy Injections completed MICHAEL ROMO [address],[place] [facility], [place], [address], [facility] - [facility] [place] 11/26/2024 11:41:01 11/20/19 25 Allergy Immunotherapy Injections completed RADHA CASTRO RMLinda [address],[place] [address] [place] [address], [address], [facility] - [facility] [place] 11/19/2024 11:28:16 11/06/19 25 Allergy Immunotherapy Injections completed MICHAEL ROMO [address],[place] [facility], [place], [address], [facility] - [facility] [place] 11/05/2024 12:11:25 10/15/19 25 Allergy Immunotherapy Injections completed MICHAEL ROMO [address],[place] [address] [place] [address], [address], [place] [facility] [place] 10/15/2024 12:52:52 10/08/19 25 Allergy Immunotherapy Injections completed MICHAEL BYRNES [address], [place], [address], [place] [facility] [place] 10/08/2024 12:06:57 10/01/19 25 Allergy Immunotherapy Injections completed ERICA CONNELL [facility] [address] [facility],[address], [address], [facility] - [facility] 10/01/2024 11:50:19 09/20/19 25 Allergy Immunotherapy Injections completed KATHY TORREZ RN [address] [facility],[address], [address], [facility] - [facility] 09/20/2024 10:01:22 07/23/20 24 Allergy Testing-Full completed RADHA CASTRO, [facility] [address] [facility],[address], [address], [facility] - [facility] 07/23/2024 15:31:38 06/29/20 24 Fiberoptic Laryngoscopy (Comprehensive) completed JOSE MIGUEL SCHMIDT MD [address] [place] [address],[address], [address], [facility] - [facility] 06/29/2024 09:54:45 06/16/20 24 Revise eye muscle completed JOSE MIGUEL SCHMIDT MD [address] [facility],[address], [address], [facility] 06/29/2024 09:42:26 Imaging Results Imaging Date Name Status LastModified by Organiz ation Details LastModified Time 09/08/2024 CT, sinuses, w/o contrast completed bernard Ents [address], [address], 09/08/2024 09:12:13 09/08/2024 CT, sinuses, w/o contrast completed bernard [facility] [address], [address], 09/14/2024 11:54:08 Procedure Notes None recorded. Medical [...] 24 hr 06/29 completed Medicati on ID: [id number] B rand Name: metoprol ol succinat e [...] as directed 06/29 completed Medicati on ID: [id number] P last d By Name: Kim Da Silva nd Name: [...] SNOMED-CT Code Diagnosis ICD10 Code Diagnosis Note [id number] JOSE MIGUEL SOTOMAYOR MD [facility] [address] [place] [address] 06/29/2024 09:21:20 06/29/2024 10:00:34 Snoring 30281414 R06.83 Chronic rhinitis 5605139 6 J31.0 Deviated nasal septum 12 0637257 J34.2 Feeling of lump in throat 845103038 R09.89 Allergic rhinitis 460431 04 J30.9 [id number] RADHA BELTRAN, [facility] Allergy [address] [facility], [address] [facility] [address] 07/23/2024 12:39:42 07/23/2024 15:37:35 Allergic rhinitis 11927394 J30.9 [id number] JOSE MIGUEL SOTOMAYOR MD [facility] [address] [place] [address] 09/08/2024 08:35:14 09/08/2024 10:43:33 Allergic rhinitis 03947679 J30.9 We reviewed testing results and medical [...] Epipen use discussed Deviated nasal septum 12 0128118 J34.2 Chronic sinusitis 223404 00 J32.9 There is evidence of diffuse maxillary and ethmoid sinus thickening predominan tly on the right side. Septal deviation to the right and turbinate hypertroph y. Suggest adding fluticason e to his Astelin, a course of doxycyclin e and proceeding with immunother apy [id number] KATHY TORREZ RN Allergy [address] [facility],[place] [address] [place] [address] 09/20/2024 09:20:22 09/20/2024 10:13:08 Perennial allergic rhinitis 670616828 J30.89 [id number] ERICA CONNELL [facility] Allergy [address] [place] [address],[place] [address] [place] [address] 10/01/2024 11:20:43 10/01/2024 11:50:36 Perennial allergic rhinitis 626370168 J30.89 18468 [facility] Allergy [address] [place] [address],[place] [address] [facility] [address] 10/08/2024 11:30:58 10/08/2024 12:07:20 Perennial allergic rhinitis 515354393 J30.89 22149 ERICA CONNELL [facility] Allergy [address] [place] [address],[place] [address] [facility] [place] [address] 10/15/2024 11:31:35 10/15/2024 12:54:02 Perennial allergic rhinitis 135020218 J30.89 87103 [facility] Allergy [address] [place] [address],[place] [address] [place] [address] 11/05/2024 11:22:09 11/05/2024 12:12:21 Perennial allergic rhinitis 309139100 J30.89 48883 [facility], [facility] Allergy [address] [facility],[place] [address] [facility] [place] [address] 11/19/2024 11:24:02 11/19/2024 11:28:42 Perennial allergic rhinitis 031123998 J30.89 13994 ERICA CONNELL [facility] Allergy [address] [place] [address],[place] [address] [place] [address] 11/26/2024 11:14:13 11/26/2024 11:41:34 Perennial allergic rhinitis 453377785 J30.89 Health Concerns Section Related Observation LastModified by Organization Detai ls LastModified Time None Recorded Concern Status LastModified by Organization Details LastModified Time None Recorded Advance Directives Directive None Recorded Payers Encounter Date Sequence Insurance Name Policy Number Policy Dacosta Covered Member ID Dacosta Member ID Guarantor Name 10/08/2024 1 [facility] [id number] Regan Cervonayco [id number] Regan C[employer]onayco 10/15/2024 1 [facility] [id number] Regan Cervonayco [id number] Regan Cervonayco 11/05/2024 1 [facility] [id number] Regan Cervonayco [id number] Regan Cervonayco 11/19/2024 1 [facility] [id number] Regan Cervonayco [id number] Regan Cervonayco 11/26/2024 1 [facility] [id number] Regan Cervonayco [id number] Regan Cervonayco
--- NOTE | 2024-12-02 07:48 | MHC.PC.OV ---
Intake Visit Reasons: Eye muscle surgery/12/08/24 Allergies lisinopril Allergy (Unknown, Verified 12/02/24 07:48) Cough Medication List - Last Reconciled 12/02/24 by SIMON AugustP- albuterol sulfate 90 mcg/actuation 2 puffs inhalation Q6H PRN amlodipine 10 mg PO DAILY atorvastatin 20 mg PO DAILY bisacodyl (Dulcolax (bisacodyl)) 20 mg (4 x 5 mg) PO ONCE 1 day finasteride 5 mg PO DAILY 90 days fluticasone propionate 50 mcg/actuation 2 sprays intranasal DAILY ketoconazole 2% 1 appl topical DAILY losartan-hydrochlorothiazide 100-12.5 mg 1 tab PO DAILY pantoprazole 40 mg PO DAILY polyethylene glycol 3350 (Miralax) 238 grams PO ONCE sildenafil 50 mg PO DAILY PRN tamsulosin 0.4 mg PO BEDTIME Tobacco use date assessed: 02/23/24 Dental Screening Dental Screen Date: 12/15/23 HPI Eye muscle surgery/12/08/24 HPI Details History of Present Illness The patient is a 54-year-old male presenting with the need for a preoperative assessment for eye surgery (eye muscle surg). He reports blurred vision as an indication for a repeat surgical procedure, following an initial eye surgery conducted in the fall of 2023. During the previous preoperative evaluation, no EKG or laboratory tests were deemed necessary. He currently experiences recurrent blurred vision without any associated systemic symptoms such as fever, chills, or lymphadenopathy. The patient denies recent infections and presents no cardiovascular complaints like chest pain or shortness of breath. Review of Systems - General: Denies fevers, chills - Lymphatic: Denies lymphadenopathy - Cardiovascular: Denies chest pain, shortness of breath - Infectious: Denies recent infections Plan The emphasis is on providing preoperative clearance for the patient?s eye surgery to address blurred vision. No EKG or additional lab work is warranted based on his history and current symptomatology, given his denial of new systemic symptoms. I advised the patient to continue monitoring for any new symptoms in the days leading to the surgery. Discussion Notes During our discussion, I provided the patient with reassurance regarding the upcoming eye surgery, with expectations based on his stable clinical presentation. I emphasized the importance of surveillance for any new symptoms, highlighting that his denial of systemic symptoms supports proceeding with the preoperative clearance. We reviewed the absence of necessity for an EKG or laboratory tests, echoing the approach taken during his previous eye surgical procedure. The patient expressed an understanding of the need to remain vigilant of new symptoms prior to surgery. Patient Instructions - Monitor for any new symptoms and report them promptly. - Attend the scheduled eye surgery on the . - Follow all preoperative guidelines provided by the surgical team. - Seek immediate care if experiencing sudden changes like chest pain or difficulty breathing. [facility] Medical History (Updated 10/19/24 @ 13:41 by Marissa Ruelas [facility]) GERD with apnea Sleep apnea Ascending aorta dilatation HTN (hypertension) GERD (gastroesophageal reflux disease) Back pain Surgical History Hx of eye surgery (06/16/24) H/O colonoscopy Hx of lithotripsy Carpal tunnel syndrome, bilateral Family History Father HTN (hypertension) Mother No problems noted. Brother No problems noted. Brother No problems noted. Social History Housing: House Patient Tobacco Use Status: Never used Tobacco e-Cigarette/Vaping Use: Never Used Second Hand Smoke Exposure: No service: No Current occupational status: employed Cognitive needs: No Hearing needs: No Vision needs: No Questionnaire Thrive Questionnaire Date Thrive assessed: 06/01/24 I am a: Patient What is your living situation today?: I choose not to answer this question Within the past 12 months, did the food you bought not last and you didn't have the money to get more?: I choose not to answer this question Within the past 12 months, did you worry whether your food would run out before you got money to buy more?: I choose not to answer this question Do you have trouble paying for medicines?: I choose not to answer this question Do you have trouble getting transportation to medical appointments?: I choose not to answer this question Do you have trouble paying your heating and electricity bill?: I choose not to answer this question Do you have trouble taking care of your child, family member or friend?: I choose not to answer this question Do you have trouble with day-to-day activities such as bathing, preparing meals, shopping, managing finances, etc.?: I choose not to answer this question Are you currently unemployed and looking for a job?: No Are you interested in more education?: I choose not to answer this question Please select the resources that you would like help with: None Currently or been in a relationship where the following occur: I choose not to answer THRIVE Score: 0 AUDIT C Alcohol Use Questionnaire (AUDIT-C) 2. How many drinks containing alcohol do you have on a typical day when you are drinking?: 1 or 2 3. How often do you have six or more drinks on one occasion?: Monthly Total Score: 2 KARLA-7 AMB Questionnaire KARLA-7 Date KARLA - 7 assessed: 01/07/24 Source: Developed by Drs. Fletcher Bang, Katarina Hubbard, Pedrito Roy and colleagues, with an educational juan pablo from [employer]. Physical exam (Primary Care) Tobacco/Smoking Status: Tobacco use Status Tobacco use date assessed 02/23/24 07/13/24 08:21 Patient Tobacco Use Status Never used Tobacco 07/13/24 08:21 e-Cigarette/Vaping Use Never Used 07/13/24 08:21 Thrive Assessment: Date of Thrive Assessment Date Thrive assessed 06/01/24 08/04/24 11:42 Currently or been in a relationship where the following occur: I choose not to answer Telehealth Telehealth Telehealth Platform: [facility] Location of provider rendering services: practice address Location of patient: address on file Patient Identification confirmed using: Name, : Yes Telehealth method: video Patient verbally consented to treatment: Yes Patient verbally consented to billing insurance company: Yes Patient informed of any privacy concerns related to visit: Yes Minutes spent on Phone/Video with Pt.: 10 Coding Level of Care Code Tele Est Pt Level 3 (07673) Diagnoses Pre-op evaluation Z01.818 Assessment & Plan Assessment & Plan (1) Pre-op evaluation: Code(s): Z01.818 - Encounter for other preprocedural examination Category: Medical Plan .
== END 2024-12-02 08:24 | disposition home or self-care (01) ==
LOC: HO.HMCC 07:37
PROVIDERS: PCP Nurse Practitioner Family; Visit Provider Nurse Practitioner Family
DX: Z01.818 Encounter for other preprocedural examination (principal)

== ENCOUNTER 2024-12-08 10:04 | Day surgery (SDC) | payer OTHER, SELFPAY ==
--- OUTSIDE RECORDS SUMMARY | 2024-11-09 15:56 | XMS_ITS | Continuity of Care Document ---
Author Organization [place] - [facility], Allergy Address [address] [place] [address] Care Team Providers Care Weaving Loom Operator Name Role Phone ROSS COBOS Primary Care Provider Assessment Encounter Date Assessment Date Assessment LastModified by Organization Details LastModified Time 11/05/2024 11/05/2024 Visit With: MICHAEL Byrnes Use of Antihistamine s: No If yes: Vial Test Change in medications: No If yes ?? Increase in asthma symptoms If yes, inhaler use: Reaction to last injections: No If yes: ?? Allergy Symptoms: Other: ?? Missed: 2 weeks Dose Aware of Vial Test Notes:?? [email or web address] Not available 11/05/2024 12:11:37 Plan of Treatment Reminders Order Date Submit [...] instructions recorded. Reason for Referral None Reported. Problems Name Problem SNOMED Code Status Onset Date Resolution Date Notes Provider Name and Address Organization Details Recorded Time Obstructi ve sleep apnea syndrome 52645777 Active 2019 Obstructiv e sleep apnea (adult) (pediatric ); Note: Date Diagnosed: 07/03/2020 11:19 AM (G47.33) Not Available [facility] 4 02:54:36 Posterior rhinorrhe a 61131772 Active 2019 Postnasal drip; Note: Date Diagnosed: 07/03/2020 11:19 AM (R09.82) Not Available [facility] 4 02:54:35 Snoring 25537955 Active 2023 JOSE MIGUEL SOTOMAYOR MD 100 [facility],[place] [address], [place], [address] , [facility] - [facility] 4 09:47:17 Chronic rhinitis 93760579 Active 2023 JOSE MIGUEL SOTOMAYOR MD 100 [facility],[place] [address], [place], [address] , [facility] - [facility] 4 09:47:22 Deviated nasal septum 143207386 Active 2023 JOSE MIGUEL SOTOMAYOR MD [address] [place] [address],[place] [address], [place], [address] , [facility] - [facility] [place] 4 09:47:26 Feeling of lump in throat 886253525 Active 2023 JOSE MIGUEL SOTOMAYOR MD [address] [place] [address],[place] [address], [place], [address] , [facility] - [facility] [place] 4 09:47:30 Allergic rhinitis 09798621 Active 2023 MD Tai IZQUIERDO [facility],[place] [address], [place], [address] , [facility] - [facility] [place] 4 09:56:43 Nasal congestio n 81546421 Active 2024 MD Tai IZQUIERDO [facility],[place] [address] [place], [address] , [facility] - [facility] [place] 5 09:10:23 Chronic sinusitis 94166311 Active 2024 MD Tai IZQUIERDO [facility],[place] [address] [place], [address] , [facility] - [facility] [place] 09:10:35 Perennial allergic rhinitis 778281875 Active 2024 KATHY TORREZ RN [facility] [place] [address], [place], [address] , [facility] - [facility] 09:24:16 Problem Notes None recorded. Procedures Surgical History Date Name Laterality Status Provider Name and Address Organization Details Recorded Time 11/06/19 25 Allergy Immunotherapy Injections completed MICHAEL ROMO [facility] [place],[address], [address], [facility] - [facility] [place] 11/05/2024 12:11:25 10/15/19 25 Allergy Immunotherapy Injections completed MICHAEL ROMO [facility] [place],[address], [address], [facility] - [facility] 10/15/2024 12:52:52 10/08/19 25 Allergy Immunotherapy Injections completed MICHAEL BYRNES [address] [facility], [place], [address], [facility] - [facility] 10/08/2024 12:06:57 10/01/19 25 Allergy Immunotherapy Injections completed MICHAEL ROMO [facility] [place],[address], [address], [facility] - [facility] [place] 10/01/2024 11:50:19 09/20/19 25 Allergy Immunotherapy Injections completed KATHY TORREZ RN 100 [facility],[address], [address], [facility] - [facility] [place] 09/20/2024 10:01:22 07/23/20 24 Allergy Testing-Full completed RADHA CASTRO RMA [address] [facility] [place],[address] [place] [address], [address], [facility] - [facility] 07/23/2024 15:31:38 06/29/20 24 Fiberoptic Laryngoscopy (Comprehensive) completed JOSE MIGUEL SCHMIDT MD [address] [facility] [place],[address], [address], [facility] - [facility] 06/29/2024 09:54:45 06/16/20 24 Revise eye muscle completed JOSE MIGUEL SCHMIDT MD 100 [facility],[place] [address], [place], [address], [place] [facility] 06/29/2024 09:42:26 Imaging Results None recorded. [...] 24 hr 06/29 completed Medicati on ID: [id number] B rand Name: metoprol ol succinat e [...] as directed 06/29 completed Medicati on ID: [id number] [place] By Name: Kim Da Silva [...] SNOMED-CT Code Diagnosis ICD10 Code Diagnosis Note [id number] RADHA CASTRO COUNT INCLUDES THE [facility] Allergy 100 [facility] 100 [place] [address] 10/08/2024 11:30:58 10/08/2024 12:07:20 Perennial allergic rhinitis 302222826 J30.89 [id number] SALVADOR JENSEN COUNT INCLUDES THE [facility] Allergy [address] [place] [address], ite 100 [place] [address] 10/15/2024 11:31:35 10/15/2024 12:54:02 Perennial allergic rhinitis 125292716 J30.89 [id number] RADHA CASTRO COUNT INCLUDES THE [facility] Allergy [address] [place] [address], it [address] [place] [address] 11/05/2024 11:22:09 11/05/2024 12:12:21 Perennial allergic rhinitis 097701212 J30.89 Health Concerns Section Related Observation LastModified by Organization Detai ls LastModified Time None Recorded Concern Status LastModified by Organization Details LastModified Time None Recorded Payers Encounter Date Sequence Insurance Name Policy Number Policy Dacosta Covered Member ID Dacosta Member ID Guarantor Name 11/05/2024 1 [facility] [id number] Regan Lama [id number] Regan Lama
[2024-12-08 11:01] VITALS: BMI 34.1
[2024-12-08 11:14] VITALS: BP 139/84; PULSE 58; RESP 15; TEMP 36.8; O2SAT 98
[2024-12-08] MEDS: Lactated Ringers 1,000 ML 100 ML IVCONT (11:23)
--- NOTE | 2024-12-08 13:00 | HO.ANESPROP2 ---
Documented by User: Reina Tamayo NP 12/07/24 11:43 HPI - Anesthesia Eval Consult details Narrative: 54yo M for Right Lateral Rectus Eye Muscle Recession PMFSH Active Problems Active Problems: All Active Problems Deviated nasal septum (Acute) Chronic rhinitis (Acute) Snoring (Acute) Excessive daytime sleepiness (Acute) Sleep apnea (Acute) Pre-op evaluation (Acute) Lumbar back pain with radiculopathy affecting lower extremity (Acute) Ascending aorta dilatation (Acute) Upper respiratory infection (Acute) Sciatica (Acute) Bladder outlet obstruction (Acute) Right elbow pain (Acute) Hypertension (Acute) Costovertebral angle pain (Acute) Tinea cruris (Acute) Swelling of lower extremity (Acute) Nocturia (Acute) Floaters in visual field (Acute) Essential hypertension (Acute) Cellulitis (Acute) Obstructive sleep apnea hypopnea, severe (Acute) Past Medical History Medical History Diverticulosis Sleep apnea Ascending aorta dilatation HTN (hypertension) GERD (gastroesophageal reflux disease) Back pain GERD with apnea Family History Family History Father HTN (hypertension) Mother No problems noted. Brother No problems noted. Brother No problems noted. Family history of problems with anesthesia: No Surgical History Surgical History History of prostate surgery Hx of eye surgery (06/16/24) H/O colonoscopy Hx of lithotripsy Carpal tunnel syndrome, bilateral History of Problems with Anesthesia: No Social History Social History Housing: House Patient Tobacco Use Status: Never used Tobacco e-Cigarette/Vaping Use: Never Used Second Hand Smoke Exposure: No Use of substances other than those prescribed or required for medical reasons: No Are you DNR?: No Advance Directives: No Advance Directives Information Provided: Yes service: No Current occupational status: employed Cognitive needs: No Hearing needs: No Vision needs: No Meds Allergies Allergy/AdvReac Type Severity Reaction Status Date / Time lisinopril Allergy Unknown Cough Verified 12/08/24 10:59 Exam Pertinent Lab Results Pertinent Lab Results: Laboratory Tests 06/08/24 14:47 WBC 7.5 Hgb 14.8 Hct 45.1 Plt Count 304 Sodium 142 Potassium 4.2 Chloride 106 Carbon Dioxide 29 BUN 16 Creatinine 1.04 Narrative Narrative: ECHO 2023 Conclusions: - The left ventricular systolic function is normal. The calculated ejection fraction is 66% by biplane method. - There is moderately increased left ventricular wall thickness. - No obvious valvular pathology seen on this study. - There is mild dilatation of the sinuses of Valsalva measuring 4.00 cm, mild dilatation of the ascending aorta measuring 4.30 cm, and mild dilatation of the aortic arch measuring 4.40 cm. Assessment and Plan Assessment Anesthesia Assessment: Chart Reviewed Final Anesthetic Review Family History of Problems with Anesthesia: No History of Problems with Anesthesia: No Documented by User: eMgan Jacobsen DO 12/08/24 13:29 [facility] Past Medical History Medical History Diverticulosis Sleep apnea Ascending aorta dilatation HTN (hypertension) GERD (gastroesophageal reflux disease) Back pain GERD with apnea Family History Family History Father HTN (hypertension) Mother No problems noted. Brother No problems noted. Brother No problems noted. Family history of problems with anesthesia: No Surgical History Surgical History History of prostate surgery Hx of eye surgery (06/16/24) H/O colonoscopy Hx of lithotripsy Carpal tunnel syndrome, bilateral History of Problems with Anesthesia: No Social History Social History Housing: House Patient Tobacco Use Status: Never used Tobacco e-Cigarette/Vaping Use: Never Used Second Hand Smoke Exposure: No Use of substances other than those prescribed or required for medical reasons: No Are you DNR?: No Advance Directives: No Advance Directives Information Provided: Yes service: No Current occupational status: employed Cognitive needs: No Hearing needs: No Vision needs: No Meds Allergies Allergy/AdvReac Type Severity Reaction Status Date / Time lisinopril Allergy Unknown Cough Verified 12/08/24 10:59 Exam Exam Date and Time: 09/09/24 1300 Height,Weight and Vital Signs: Height 5 ft 10 in Weight 107.955 kg Vital Signs Temperature 98.2 F 12/08/24 11:14 Pulse Rate 58 12/08/24 11:14 Respiratory Rate 15 12/08/24 11:14 Blood Pressure 139/84 12/08/24 11:14 Pulse Oximetry 98 12/08/24 11:14 Oxygen Delivery Method Room Air 12/08/24 11:14 Temperature 98.2 F 12/08/24 11:14 Pulse Rate 58 12/08/24 11:14 Respiratory Rate 15 12/08/24 11:14 Blood Pressure 139/84 12/08/24 11:14 Pulse Oximetry 98 12/08/24 11:14 Oxygen Delivery Method Room Air 12/08/24 11:14 Airway Mallampati Class: III TM Dist: >3cm Neck ROM: Full Loose/Missing/Broken Teeth: No (patient denies any loose or broken teeth) Heart: S1S2 Lungs: CTAB Assessment and Plan Assessment Anesthesia Assessment: Anesthesia Plan Discussed and Chart Reviewed Final Anesthetic Review Family History of Problems with Anesthesia: No History of Problems with Anesthesia: No NPO: Yes ASA Class: II Final Preanesthetic Review: No Changes in Pt Med Stat, Meds/Allgs Chart Reviewed, Consent Obtained/Reviewed and Anes Risks/Benef Reviewed Patient Risk: Low Procedure Risk: Low Anesthetic Plan Anesthetic Plan: GA and Agree w/ Assess. and Plan Disposition: Standard PACU
[2024-12-08 13:57] VITALS: BP 121/72; PULSE 58; RESP 16; TEMP 36.3; O2SAT 99
[2024-12-08 14:02] VITALS: BP 125/76; PULSE 56; RESP 16; O2SAT 99
[2024-12-08 14:07] VITALS: BP 118/76; PULSE 56; RESP 16; O2SAT 99
--- NOTE | 2024-12-08 14:07 | P.OPHTHAL_ITS ---
Ophthalmology Operative Note Date of Service: 12/08/24 Narrative: Diagnosis esotropia. Postoperative diagnosis same. Procedure advancement of right lateral rectus from a position 14 to a position 11 mm behind the surgical limbus. Surgeon Dr. Reed. Anesthesia general. Complications none. The patient was brought the operating room placed under general anesthesia. The right eye was prepped and draped in the usual sterile ophthalmic fashion. A lid speculum was placed in the eye and an incision made at bare sclera in the inferotemporal fornix. The lateral rectus was hooked and dissected free of its surrounding scar tissue. It was measured to be 14 mm behind the surgical ricks bus. The muscle was then secured with a double-armed Vicryl suture and disinserted from the globe. It was reattached to a position 11 mm behind the surgical limbus. Conjunctiva was closed with interrupted Vicryl sutures. The patient was then awoken from general anesthesia and discharged to postoperative recovery in good condition.
[2024-12-08 14:12] VITALS: BP 131/84; PULSE 61; RESP 16; O2SAT 98
[2024-12-08] MEDS: Acetaminophen 325 MG TABLET 650 MG PO (14:20)
[2024-12-08 14:27] VITALS: BP 144/87; PULSE 69; RESP 16; TEMP 36.3; O2SAT 98
== END 2024-12-08 15:19 | disposition home or self-care (01) ==
PROVIDERS: PCP Nurse Practitioner Family; Visit Provider Ophthalmology
PROC: (CPT 67311; principal; 2024-12-08 13:40)
DX: H50.00 Unspecified esotropia (principal); H53.2 Diplopia; K21.9 Gastro-esophageal reflux disease without esophagitis; G47.30 Sleep apnea, unspecified; I10 Essential (primary) hypertension; I71.21 Aneurysm of the ascending aorta, without rupture; Z88.8 Allergy status to other drugs, medicaments and biological substances; Z79.899 Other long term (current) drug therapy; Z98.890 Other specified postprocedural states
CPT/HCPCS: 67311; J1100; J1596; J1885; J2003; J2250; J2405; J2704; J3010

== ENCOUNTER 2025-02-08 11:56 | Outpatient (REF) | payer OTHER, SELFPAY ==
[2025-02-08 14:10] LABS: Prostate Specific Antigen 1.49 ng/mL (<0.05-4.0)
--- OUTSIDE RECORDS SUMMARY | 2025-02-08 14:14 | XMS_ITS | Data Portability ---
Author Organization [place] - [facility], Allergy Address [address] [address] Care Team Providers Care Bench Chemist Name Role Phone ROSS COBOS Primary Care Provider Assessment Encounter Date Assessment Date Assessment LastModified by Organization Details LastModified Time 12/03/2024 12/03/2024 Visit With: MICHAEL Byrnes Use of Antihistamine s: No If yes: Vial Test Change in medications: No If yes Increase in asthma symptoms If yes, inhaler use: Reaction to last injections: No If yes: Allergy Symptoms: Other: Missed: Dose Aware of Vial Test Notes: jon Not available 12/03/2024 11:47:26 12/17/2024 12/17/2024 Visit With: Erica Connell Use of Antihistamine s: No If yes: Vial Test Change in medications: No If yes Increase in asthma symptoms No Asthma Hx If yes, inhaler use: Reaction to last injections: No If yes: Allergy Symptoms: Other: Missed: Dose Aware of Vial Test Yes Notes: [email or web address] Not available 12/17/2024 09:52:40 12/31/2024 12/31/2024 Visit With: Kathy Torrez RN Use of Antihistamine s: No If yes: Vial Test Yes Change in medications: No If yes Increase in asthma symptoms No Asthma Hx If yes, inhaler use: Reaction to last injections: No If yes: Allergy Symptoms: Other: Missed: Dose Aware of Vial Test Notes: [email or web address] Not available 12/31/2024 12:13:04 01/07/2025 01/07/2025 Visit With: Erica Connell Use of Antihistamine s: No If yes: Vial Test Change in medications: No If yes Increase in asthma symptoms If yes, inhaler use: Reaction to last injections: No If yes: Allergy Symptoms: Other: Missed: Dose Aware of Vial Test Notes: jon Not available 01/07/2025 11:40:15 01/28/2025 01/28/2025 Visit With: MICHAEL Byrnes Use of Antihistamine s: No If yes: Vial Test Change in medications: No If yes Increase in asthma symptoms No Asthma Hx If yes, inhaler use: Reaction to last injections: No If yes: Allergy Symptoms: Other: Missed: 2 weeks Dose Decreased Aware of Vial Test Notes: [email or web address] Not available 01/28/2025 10:37:21 Plan of Treatment Reminders Order Date Submit [...] Recorded Time Obstructi ve sleep apnea syndrome 62376491 Active 2019 Obstructiv e sleep apnea (adult) (pediatric ); Note: Date Diagnosed: 07/03/2020 11:19 AM (G47.33) Not Available [facility] 4 02:54:36 Posterior rhinorrhe a 75904339 Active 2019 Postnasal drip; Note: Date Diagnosed: 07/03/2020 11:19 AM (R09.82) Not Available [facility] 4 02:54:35 Snoring 30302745 Active 2023 JOSE MIGUEL SOTOMAYOR MD [address] [place] [address], [place], [address] , [facility] - [facility] 4 09:47:17 Chronic rhinitis 05586103 Active 2023 JOSE MIGUEL SOTOMAYOR MD 100 [facility],[place] [address], [place], [address] , [facility] - [facility] 4 09:47:22 Deviated nasal septum 088477122 Active 2023 JOSE MIGUEL SOTOMAYOR MD 100 [facility],[place] [address], [place], [address] , [facility] - [facility] 4 09:47:26 Feeling of lump in throat 205197259 Active 2023 MD Tai IZQUIERDO [facility],[place] [address], [place], [address] , [facility] - [facility] 4 09:47:30 Allergic rhinitis 62996494 Active 2023 JOSE MIGUEL SOTOMAYOR MD [address] [place] [address],[place] [address], [place], [address] , [facility] - [facility] 4 09:56:43 Nasal congestio n 62513306 Active 2024 JOSE MIGUEL SOTOMAYOR MD [address] [place] [address],[place] [address], [place], [address] , [facility] - [facility] 5 09:10:23 Chronic sinusitis 23171389 Active 2024 JOSE MIGUEL SOTOMAYOR MD 100 [facility],[place] [address], [place], [address] , [facility] - [facility] 5 09:10:35 Perennial allergic rhinitis 314345775 Active 2024 KATHY TORREZ RN [address] [place] [address],[place] [address], [place], [address] , [facility] - [facility] 5 09:24:16 Problem Notes None recorded. Procedures Surgical History Date Name Laterality Status Provider Name and Address Organization Details Recorded Time 01/29/20 25 Allergy Immunotherapy Injections completed KATHY TORREZ RN [address],[place] [address], [place], [address], [place] [facility] 01/28/2025 10:37:12 01/08/20 25 Allergy Immunotherapy Injections completed RADHA CASTRO, RMA [address], [place], [address], [place] [facility] 01/07/2025 11:39:55 01/01/20 25 Allergy Immunotherapy Injections completed KATHY TORREZ RN [address],[place] [address], [place], [address], [place] [facility] 12/31/2024 12:12:52 12/18/19 25 Allergy Immunotherapy Injections completed KATHY TORREZ RN [address],[place] [address], [place], [address], [place] [facility] 12/17/2024 09:51:57 12/04/19 25 Allergy Immunotherapy Injections completed RADHA CASTRO RMA [address],[place] [address] [place] [address], [address], [place] [facility] 12/03/2024 11:47:21 11/27/19 25 Allergy Immunotherapy Injections completed MICHAEL ROMO [address],[place] [address], [place], [address], [place] [facility] 11/26/2024 11:41:01 11/20/19 25 Allergy Immunotherapy Injections completed RADHA CASTRO RMA [address],[place] [address], [place], [address], [place] [facility] 11/19/2024 11:28:16 11/06/19 25 Allergy Immunotherapy Injections completed MICHAEL ROMO [address],[place] [address], [place], [address], [place] [facility] 11/05/2024 12:11:25 10/15/19 25 Allergy Immunotherapy Injections completed ERICA CONNELL RMA [address],[place] [address], [place], [address], [place] [facility] 10/15/2024 12:52:52 10/08/19 25 Allergy Immunotherapy Injections completed RADHA CASTRO, RMA [address], [place], [address], [facility] - [facility] 10/08/2024 12:06:57 10/01/19 25 Allergy Immunotherapy Injections completed ERICA CONNELL, [facility] [address] [place],[address], [address], [facility] - [facility] 10/01/2024 11:50:19 09/20/19 25 Allergy Immunotherapy Injections completed KATHY TORREZ RN 100 [facility],[address], [address], [facility] - [facility] 09/20/2024 10:01:22 07/23/20 24 Allergy Testing-Full completed RADHA CASTRO, [facility] 100 [facility],[address], [address], [facility] - [facility] 07/23/2024 15:31:38 06/29/20 24 Fiberoptic Laryngoscopy (Comprehensive) completed JOSE MIGUEL SCHMIDT MD 100 [facility],[address], [address], [facility] 06/29/2024 09:54:45 06/16/20 24 Revise eye muscle completed JOSE MIGUEL SCHMIDT MD 100 [facility],[address], [address], [facility] 06/29/2024 09:42:26 Imaging Results None recorded. Procedure [...] 24 hr 06/29 completed Medicati on ID: [id number] B rand Name: metoprol ol succinat e [...] as directed 06/29 completed Medicati on ID: [id number] P ryanribe d By Name: Kim Da [...] SNOMED-CT Code Diagnosis ICD10 Code Diagnosis Note [id number] JOSE MIGUEL SOTOMAYOR MD [facility] [address] [address] 06/29/2024 09:21:20 06/29/2024 10:00:34 Snoring 73034677 R06.83 Chronic rhinitis 4707010 6 J31.0 Deviated nasal septum 12 9273353 J34.2 Feeling of lump in throat 935194977 R09.89 Allergic rhinitis 972030 04 J30.9 [id number] [facility], [facility] Allergy [address] [place] [address] [place] [address] 07/23/2024 12:39:42 07/23/2024 15:37:35 Allergic rhinitis 90514090 J30.9 [id number] JOSE MIGUEL SOTOMAYOR MD [facility] 100 [facility], [place] [address] 09/08/2024 08:35:14 09/08/2024 10:43:33 Allergic rhinitis 31621048 J30.9 We reviewed testing results and medical [...] Epipen use discussed Deviated nasal septum 12 8919747 J34.2 Chronic sinusitis 320451 00 J32.9 There is evidence of diffuse maxillary and ethmoid sinus thickening predominan tly on the right side. Septal deviation to the right and turbinate hypertroph y. Suggest adding fluticason e to his Astelin, a course of doxycyclin e and proceeding with immunother apy [id number] KATHY TORREZ RN Allergy [address] [place] [address] it[address] [place] [address] 09/20/2024 09:20:22 09/20/2024 10:13:08 Perennial allergic rhinitis 670380050 J30.89 [id number] ERICA CONNELL, A Allergy 100 [facility],[place] [address] [place] [address] 10/01/2024 11:20:43 10/01/2024 11:50:36 Perennial allergic rhinitis 659710139 J30.89 [id number] [facility], RMA Allergy 100 [facility],[place] [address] [place] [address] 10/08/2024 11:30:58 10/08/2024 12:07:20 Perennial allergic rhinitis 510190050 J30.89 [id number] ERICA CONNELL, A Allergy [address] [place] [address],[place] [address] [place] [address] 10/15/2024 11:31:35 10/15/2024 12:54:02 Perennial allergic rhinitis 232877048 J30.89 [id number] [facility], A Allergy [address] [place] [address],[place] [address] [place] [address] 11/05/2024 11:22:09 11/05/2024 12:12:21 Perennial allergic rhinitis 753787848 J30.89 [id number] [facility], A Allergy [address] [place] [address],[place] [address] [place] [address] 11/19/2024 11:24:02 11/19/2024 11:28:42 Perennial allergic rhinitis 585554181 J30.89 [id number] ERICA CONNELL A Allergy [address] [place] [address],[place] [address] [place] [address] 11/26/2024 11:14:13 11/26/2024 11:41:34 Perennial allergic rhinitis 561667522 J30.89 [id number] [facility], R[facility] Allergy 100 [facility],[place] [address] [address] [place] [address] 12/03/2024 11:05:14 12/03/2024 11:47:44 Perennial allergic rhinitis 264562865 J30.89 [id number] ERICA CONNELL A Allergy [address] [place] [address],[place] [address] [address] [place] [address] 12/17/2024 09:37:24 12/17/2024 09:52:55 Perennial allergic rhinitis 295069176 J30.89 [id number] KATHY TORREZ RN Allergy [address] [place] [address],[facility] 100 [place] [address] 12/31/2024 11:14:56 12/31/2024 12:13:39 Perennial allergic rhinitis 896466036 J30.89 [id number] ERICA CONNELL, [facility] Allergy [address] [place] [address],[facility] 100 [place] [address] 01/07/2025 11:21:24 01/07/2025 11:40:28 Perennial allergic rhinitis 041807189 J30.89 [id number] RADHA CASTRO, [facility] Allergy [address] [place] [address],[facility] 100 [place] [address] 01/28/2025 10:36:04 01/28/2025 10:37:35 Perennial allergic rhinitis 297435919 J30.89 Health Concerns Section Related Observation LastModified by Organization Detai ls LastModified Time None Recorded Concern Status LastModified by Organization Details LastModified Time None Recorded Advance Directives Directive None Recorded Payers Insurance Date Sequence Insurance Name Policy Number Policy Dacosta Covered Member ID Dacosta Member ID Guarantor Name 01/28/2025 1 [facility] [id number] Regan Lama [id number] Regan Lama
== END 2025-02-08 11:57 | disposition home or self-care (01) ==
LOC: HO.HMGCLDS 11:56
PROVIDERS: PCP Nurse Practitioner Family; Visit Provider Urology
DX: N32.0 Bladder-neck obstruction (principal); Z12.5 Encounter for screening for malignant neoplasm of prostate
CPT/HCPCS: 36415; 84153

== ENCOUNTER 2025-02-10 09:20 | Outpatient (AMB) | payer OTHER, SELFPAY ==
--- NOTE | 2025-02-10 09:27 | A.OFFVIS_ITS ---
Intake Visit Reasons: 6m/PSA(psa?) Intake Note: Patient is present for 6M/PSA Urology Medication:SILDENAFIL Antibiotic Allergy:NONE Blood Thinner:NONE Head Swamper Required: No Allergies lisinopril Allergy (Unknown, Verified 02/10/25 09:32) Cough HPI Comments Details: Regan is a pleasant male. He is a patient of Dr. Quiroz. He has seen for the following urologic conditions. - lower urinary tract symptoms - primarily nocturia - erectile dysfunction Six-month follow-up Off finasteride PSA low Effective urination does have some nocturia and a little instability We will trial daily tadalafil Lower urinary tract symptoms Primarily developing nocturia Waking 2-3 times at night Prior medications include tamsulosin and terazosin Bladder ultrasound 45 g prostate with bladder wall thickening 07/25 [facility] laser PSA 02/23 1.5 PFSH Medical History Diverticulosis Sleep apnea Ascending aorta dilatation HTN (hypertension) GERD (gastroesophageal reflux disease) Back pain GERD with apnea Surgical History History of prostate surgery Hx of eye surgery (06/16/24) H/O colonoscopy Hx of lithotripsy Carpal tunnel syndrome, bilateral Family History Father HTN (hypertension) Mother No problems noted. Brother No problems noted. Brother No problems noted. Social History Housing: House Patient Tobacco Use Status: Never used Tobacco e-Cigarette/Vaping Use: Never Used Second Hand Smoke Exposure: No service: No Current occupational status: employed Cognitive needs: No Hearing needs: No Vision needs: No Review of Systems Const Denies chills and Denies fever(s) Card Reports no additional complaints and Denies syncope Resp Denies cough GI Denies abdominal pain and Denies heartburn Reports as per HPI and Denies change in libido Neuro Denies syncope Psych Denies change in libido Endo Denies change in libido Physical Exam Const General: cooperative, healthy appearing, comfortable and no acute distress Orientation/consciousness: patient oriented x3 HEENT Face and sinus: Yes normal facial exam Mouth: moist mucous membranes Neck Neck: Yes normal visual inspection, Yes full ROM and Yes trachea midline Chest Chest palpation & inspection: normal inspection of the chest Resp Effort & Inspection: normal respiratory effort, able to speak in complete sentences and no respiratory distress GI Inspection: Yes normal to inspection Back/Spine/Pelvis Cervical Spine: normal cervical lordosis Thoracic/Lumbar Spine: thoracic and lumbar spine normal to inspection Skin General skin exam: no rashes or lesions noted Neuro General: patient oriented x3, gait normal, tone normal and moves all extremities Extrem General: Yes normal to inspection and Yes capillary refill normal Assessment & Plan Assessment & Plan (1) Bladder outlet obstruction: Code(s): N32.0 - Bladder-neck obstruction Category: Medical (2) Nocturia: Comment: Patient getting up to go the bathroom 4-5 times per night. Will draw PSA. Will draw A1c. Will refer patient to Urology Code(s): R35.1 - Nocturia Category: Medical Plan Three-month follow-up tele Trial tadalafil Orders: Orders AMB Urinalysis Automated Today Z13.9 - Encounter for screening, unspecified Medications: New tadalafil [id number] [facility] [id number] Member [id number] 5 mg PO DAILY 90 days 90 tabs 0RF Bladder stability N32.0 - Bladder-neck obstruction Patient Instructions: This note is constructed using voice recognition software. While every effort has been made to ensure accuracy heater room helper errors may have been included. Imaging studies, laboratory and physical exam results were discussed and reviewed in detail. No major barriers to patient understanding were identified. An opportunity to ask questions regarding the treatment plan was provided. All questions were answered. The patient expressed understanding and agreement with the above treatment plan. The patient is aware they should contact our office by phone for worsening of their current condition or the appearance of new urologic symptoms. Compliance is encouraged with any medications and followup testing that is ordered. It is a privilege to participate in the urologic care of your patient. If you have any questions or concerns regarding treatment for the above conditions, or other urologic issues, please do not hesitate to contact me. The office telephone contact is [phone]. Sincerely, Dr Tyrell Morataya MD, [facility] - Urology Compassionate Specialist Care for the Genitourinary System Coding Level of Care Code Est Pt Level 4 (83389) Diagnoses Bladder outlet obstruction N32.0 Nocturia R35.1
--- OUTSIDE RECORDS SUMMARY | 2025-02-10 10:08 | XMS_ITS | Data Portability ---
Author Organization [place] - [facility], Allergy Address [address] [address] Care Team Providers Care Button Breaker Operator Name Role Phone ROSS COBOS Primary [...] 01/07/2025 11:40:15 01/28/2025 01/28/2025 Visit With: MICHAEL Brynes Use of Antihistamine s: No If yes: [...] Recorded Time Obstructi ve sleep apnea syndrome 59095115 Active 2019 Obstructiv e sleep apnea (adult) (pediatric ); Note: Date Diagnosed: 07/03/2020 11:19 AM (G47.33) Not Available Formerly [facility] 4 02:54:36 Posterior rhinorrhe a 55772683 Active 2019 Postnasal drip; Note: Date Diagnosed: 07/03/2020 11:19 AM (R09.82) Not Available Former[facility] 4 02:54:35 Snoring 57005803 Active 2023 JOSE MIGUEL SOTOMAYOR MD [address] [place] [address], [place], [address] , [facility] - [facility] 4 09:47:17 Chronic rhinitis 86573489 Active 2023 JOSE MIGUEL SOTOMAYOR MD [address] [facility],[place] [address], [place], [address] , [facility] 4 09:47:22 Deviated nasal septum 377509786 Active 2023 JOSE MIGUEL SOTOMAYOR MD [address] [facility],[place] [address], [place], [address] , [facility] - [facility] 4 09:47:26 Feeling of lump in throat 248469225 Active [address] [facility],[place] [address], [place], [address] , [facility] - [facility] 4 09:47:30 Allergic rhinitis 24119185 Active 2023 JOSE MIGUEL SOTOMAYOR MD [address] [place] [address],[place] [address], [place], [address] , [facility] - [facility] 4 09:56:43 Nasal congestio n 15144607 Active 2024 JOSE MIGUEL SOTOMAYOR MD [address] [place] [address],[place] [address], [place], [address] , [facility] - [facility] 5 09:10:23 Chronic sinusitis 96458965 Active 2024 JOSE MIGUEL SOTOMAYOR MD [address] [facility],[place] [address], [place], [address] , [facility] 5 09:10:35 Perennial allergic rhinitis 603027134 Active 2024 KATHY TORREZ RN [address] [place] [address],[place] [address], [place], [address] , [facility] - [facility] 5 09:24:16 Problem Notes None recorded. Procedures Surgical History Date Name Laterality Status Provider Name and Address Organization Details Recorded Time 01/29/20 25 Allergy Immunotherapy Injections completed KATHY TORREZ RN [address],[place] [address], [place], [address], [place] [facility] 01/28/2025 10:37:12 01/08/20 25 Allergy Immunotherapy Injections completed RADHA CASTRO, RMA [address], [place], [address], [place] [facility] 01/07/2025 11:39:55 01/01/20 25 Allergy Immunotherapy Injections completed KATHY TORREZ RN [address],[place] [address], [place], [address], [place] [facility] 12/31/2024 12:12:52 12/18/19 25 Allergy Immunotherapy Injections completed KATHY TORREZ RN [address] [facility] [address] [address],[place] [address], [place], [address], [place] [facility] 12/17/2024 09:51:57 12/04/19 25 Allergy Immunotherapy Injections completed RADHA CASTRO RMA [address],[place] [address] [place] [address], [address], [place] [facility] 12/03/2024 11:47:21 11/27/19 25 Allergy Immunotherapy Injections completed MICHAEL ROMO [address],[place] [address], [place], [address], [place] [facility] 11/26/2024 11:41:01 11/20/19 25 Allergy Immunotherapy Injections completed RADHA CASTRO RMA [address],[place] [address], [place], [address], [place] [facility] 11/19/2024 11:28:16 11/06/19 25 Allergy Immunotherapy Injections completed MICHAEL ROMO [address],[place] [address], [place], [address], [place] [facility] 11/05/2024 12:11:25 10/15/19 25 Allergy Immunotherapy Injections completed ERICA CONNELL RMA [address],[place] [address], [place], [address], [place] [facility] 10/15/2024 12:52:52 10/08/19 25 Allergy Immunotherapy Injections completed RADHA CASTRO, RMA [address], [place], [address], [facility] 10/08/2024 12:06:57 10/01/19 25 Allergy Immunotherapy Injections completed ERICA CONNELL, [facility], [facility] 100 [facility],[address], [address], [facility] - [facility] 10/01/2024 11:50:19 09/20/19 25 Allergy Immunotherapy Injections completed KATHY TORREZ RN 100 [facility],[address], [address], [facility] - [facility] 09/20/2024 10:01:22 07/23/20 24 Allergy Testing-Full completed RADHA CASTRO, [facility], [facility] [facility],[address], [address], [facility] 07/23/2024 15:31:38 06/29/20 24 Fiberoptic Laryngoscopy (Comprehensive) completed JOSE MIGUEL SCHMIDT MD 100 [facility],[address], [address], [facility] 06/29/2024 09:54:45 06/16/20 24 Revise eye muscle completed JOSE MIGUEL SCHMIDT MD 100 [facility],[address], [address], [facility] 06/29/2024 09:42:26 Imaging Results None recorded. [...] 24 hr 06/29 completed Medicati on ID: [id number] B rand Name: metoprol ol succinat e [...] as directed 06/29 completed Medicati on ID: [id number] P ryanribe d By Name: Kim Da [...] SNOMED-CT Code Diagnosis ICD10 Code Diagnosis Note [id number] JOSE MIGUEL SOTOMAYOR MD [facility] [address] [address] 06/29/2024 09:21:20 06/29/2024 10:00:34 Snoring 26971428 R06.83 Chronic rhinitis 0661419 6 J31.0 Deviated nasal septum 12 2026357 J34.2 Feeling of lump in throat 578837070 R09.89 Allergic rhinitis 789399 04 J30.9 [id number] [facility], [facility], [facility] [place] [address] [place] [address] 07/23/2024 12:39:42 07/23/2024 15:37:35 Allergic rhinitis 04629522 J30.9 [id number] JOSE MIGUEL SOTOMAYOR MD [facility] 100 [facility], [place] [address] 09/08/2024 08:35:14 09/08/2024 10:43:33 Allergic rhinitis 75180440 J30.9 We reviewed testing results and medical [...] Epipen use discussed Deviated nasal septum 12 9072859 J34.2 Chronic sinusitis 363363 00 J32.9 There is evidence of diffuse maxillary and ethmoid sinus thickening predominan tly on the right side. Septal deviation to the right and turbinate hypertroph y. Suggest adding fluticason e to his Astelin, a course of doxycyclin e and proceeding with immunother apy [id number] KATHY TORREZ RN Allergy [address] [place] [address] ite [address] [place] [address] 09/20/2024 09:20:22 09/20/2024 10:13:08 Perennial allergic rhinitis 873558259 J30.89 [id number] ERICA CONNELL, A Allergy 100 [facility],[place] [address] [place] [address] 10/01/2024 11:20:43 10/01/2024 11:50:36 Perennial allergic rhinitis 696856748 J30.89 [id number] [facility], RMA Allergy 100 [facility],[place] [address] [place] [address] 10/08/2024 11:30:58 10/08/2024 12:07:20 Perennial allergic rhinitis 383753553 J30.89 [id number] ERICA CONNELL, A Allergy [address] [place] [address],[place] [place] [address] 10/15/2024 11:31:35 10/15/2024 12:54:02 Perennial allergic rhinitis 420089689 J30.89 [id number] [facility], A Allergy [address] [place] [address],[place] [address] [place] [address] 11/05/2024 11:22:09 11/05/2024 12:12:21 Perennial allergic rhinitis 168598068 J30.89 [id number] [facility], A Allergy [address] [place] [address],[place] [address] [place] [address] 11/19/2024 11:24:02 11/19/2024 11:28:42 Perennial allergic rhinitis 562644194 J30.89 [id number] ERICA CONNELL A Allergy [address] [place] [address],[place] [address] [place] [address] 11/26/2024 11:14:13 11/26/2024 11:41:34 Perennial allergic rhinitis 412034553 J30.89 [id number] [facility], RMA Allergy 100 [facility],[place] [address] [address] [place] [address] 12/03/2024 11:05:14 12/03/2024 11:47:44 Perennial allergic rhinitis 669091106 J30.89 [id number] ERICA CONNELL A Allergy [address] [place] [address],[place] [address] [place] [address] 12/17/2024 09:37:24 12/17/2024 09:52:55 Perennial allergic rhinitis 638923539 J30.89 [id number] KATHY TORREZ RN Allergy [address] [place] [address],[facility] 100 [facility] [place] [address] 12/31/2024 11:14:56 12/31/2024 12:13:39 Perennial allergic rhinitis 139087602 J30.89 [id number] ERICA CONNELL, [facility]LY [facility], [facility] [place] [address],[facility] 100 [facility] [place] [address] 01/07/2025 11:21:24 01/07/2025 11:40:28 Perennial allergic rhinitis 154114991 J30.89 [id number] RADHA CASTRO, [facility]LY [facility], [facility] [place] [address],[facility] 100 [facility] [place] [address] 01/28/2025 10:36:04 01/28/2025 10:37:35 Perennial allergic rhinitis 941487873 J30.89 Health Concerns Section Related Observation LastModified by Organization Detai ls LastModified Time None Recorded Concern Status LastModified by Organization Details LastModified Time None Recorded Advance Directives Directive None Recorded Payers Insurance Date Sequence Insurance Name Policy Number Policy Dacosta Covered Member ID Dacosta Member ID Guarantor Name 01/28/2025 1 [facility] [id number] Regan Lama [id number] Regan Lama
== END 2025-02-10 09:49 | disposition home or self-care (01) ==
LOC: HO.HUSH 09:21
PROVIDERS: Visit Provider Urology
DX: N32.0 Bladder-neck obstruction (principal); R35.1 Nocturia; Z13.9 Encounter for screening, unspecified
CPT/HCPCS: 99214

== ENCOUNTER → 2025-02-10 09:20 | Outpatient (BNVA) | payer OTHER, SELFPAY | PROVIDERS: Visit Provider Urology | DX: N32.0 Bladder-neck obstruction (principal) | CPT/HCPCS: 81003 ==

== ENCOUNTER 2025-02-18 09:59 | Day surgery (SDC) | payer OTHER, SELFPAY ==
--- OUTSIDE RECORDS SUMMARY | 2025-01-03 07:50 | XMS_ITS | Data Portability ---
Author Organization [place] - [facility], Allergy Address [address] [place] [address] Care Team Providers Care Ip Counsel Name Role Phone ROSS COBOS Primary Care Provider Assessment Encounter Date Assessment Date Assessment LastModified by Organization Details LastModified Time 11/19/2024 11/19/2024 Visit With: MICHAEL Byrnes Use [...] Aware of Vial Test Notes:? ? ? [email or web address] Not available 11/26/2024 11:41:13 12/03/2024 12/03/2024 Visit With: MICHAEL Byrnes Use of Antihistamine s: No If yes: Vial Test Change in medications: No If yes ? ? ? Increase in asthma symptoms If yes, inhaler use: Reaction to last injections: No If yes: ? ? ? Allergy Symptoms: Other: ? ? ? Missed: Dose Aware of Vial Test Notes:? ? ? [email or web address] Not available 12/03/2024 11:47:26 12/17/2024 12/17/2024 Visit With: Erica Connell Use of Antihistamine s: No If yes: Vial Test Change in medications: No If yes ? ? ? Increase in asthma symptoms No Asthma Hx If yes, inhaler use: Reaction to last injections: No If yes: ? ? ? Allergy Symptoms: Other: ? ? ? Missed: Dose Aware of Vial Test Yes Notes:? ? ? [email or web address] Not available 12/17/2024 09:52:40 12/31/2024 12/31/2024 Visit With: Kathy Torrez RN Use of Antihistamine s: No If yes: Vial Test Yes Change in medications: No If yes ? ? ? Increase in asthma symptoms No Asthma Hx If yes, inhaler use: Reaction to last injections: No If yes: ? ? ? Allergy Symptoms: Other: ? ? ? Missed: Dose Aware of Vial Test Notes:? ? ? [email or web address] Not available 12/31/2024 12:13:04 Plan of Treatment Reminders Order Date Submit [...] Recorded Time Obstructi ve sleep apnea syndrome 42612819 Active 2019 Obstructiv e sleep apnea (adult) (pediatric ); Note: Date Diagnosed: 07/03/2020 11:19 AM (G47.33) Not Available [facility] 4 02:54:36 Posterior rhinorrhe a 72120538 Active 2019 Postnasal drip; Note: Date Diagnosed: 07/03/2020 11:19 AM (R09.82) Not Available [facility] 4 02:54:35 Snoring 56186884 Active 2023 JOSE MIGUEL SOTOMAYOR MD [address], [place], [address] , [facility] - [facility] 4 09:47:17 Chronic rhinitis 58312544 Active 2023 JOSE MIGUEL SOTOMAYOR MD [address] [facility], [place], [address] , [facility] [place] 4 09:47:22 Deviated nasal septum 498262096 Active 2023 JOSE MIGUEL SOTOMAYOR MD [address] [facility],[address], [place], [address] , [facility] - [facility] [place] 4 09:47:26 Feeling of lump in throat 006659907 Active 2023 JOSE MIGUEL SOTOMAYOR MD [address] [facility],[address], [place], [place], [address] , [facility] - [facility] [place] 4 09:47:30 Allergic rhinitis 92654563 Active 2023 JOSE MIGUEL SOTOMAYOR MD [address] [facility],[address], [place], [place], [address] , [facility] - [facility] 4 09:56:43 Nasal congestio n 07741729 Active 2024 JOSE MIGUEL SOTOMAYOR MD [address] [facility],[address], [place], [place], [address] , [facility] - [facility] 5 09:10:23 Chronic sinusitis 22127436 Active 2024 JOSE MIGUEL SOTOMAYOR MD [address] [facility],[address], [place], [address] , [facility] - [facility] [place] 5 09:10:35 Perennial allergic rhinitis 022905223 Active 2024 KATHY TORREZ RN [address] [facility],[address], [place], [address] , [facility] - [facility] [place] 09:24:16 Problem Notes None recorded. Procedures Surgical History Date Name Laterality Status Provider Name and Address Organization Details Recorded Time 01/01/20 25 Allergy Immunotherapy Injections completed KATHY TORREZ RN [address], [place], [address], [facility] - [facility] [place] 12/31/2024 12:12:52 12/18/19 25 Allergy Immunotherapy Injections completed KATHY TORREZ RN [address], [place], [address], [place] [facility] 12/17/2024 09:51:57 12/04/19 25 Allergy Immunotherapy Injections completed RADHA CASTRO RMA [address], [place], [address], [place] [facility] 12/03/2024 11:47:21 11/27/19 25 Allergy Immunotherapy Injections completed MICHAEL ROMO [address] [place] [address], [address], [place] [facility] 11/26/2024 11:41:01 11/20/19 25 Allergy Immunotherapy Injections completed RADHA CASTRO RMA [address], [place], [address], [place] [facility] 11/19/2024 11:28:16 11/06/19 25 Allergy Immunotherapy Injections completed ERICA CONNELL RMA [address], [place], [address], [place] [facility] 11/05/2024 12:11:25 10/15/19 25 Allergy Immunotherapy Injections completed MICHAEL ROMO [address], [place], [address], [place] [facility] 10/15/2024 12:52:52 10/08/19 25 Allergy Immunotherapy Injections completed RADHA CASTRO RMA [address], [place], [address], [place] [facility] 10/08/2024 12:06:57 10/01/19 25 Allergy Immunotherapy Injections completed ERICA CONNELL RMA [address], [place], [address], [facility] - [facility] 10/01/2024 11:50:19 09/20/19 25 Allergy Immunotherapy Injections completed KATHY TORREZ RN [address] [facility],[place] [address], [place], [address], [facility] - [facility] 09/20/2024 10:01:22 07/23/20 24 Allergy Testing-Full completed RADHA CASTRO, [facility] [address] [facility],[address], [place], [address], [facility] 07/23/2024 15:31:38 06/29/20 24 Fiberoptic Laryngoscopy (Comprehensive) completed JOSE MIGUEL SCHMIDT MD 100 [facility],[address], [address], [facility] - [facility] 06/29/2024 09:54:45 06/16/20 24 Revise eye muscle completed JOSE MIGUEL SCHMIDT MD 100 [facility],[place] [address], [place], [address], [facility] 06/29/2024 09:42:26 Imaging Results None recorded. Procedure [...] 24 hr 06/29 completed Medicati on ID: [id number] B rand Name: metoprol ol succinat e [...] as directed 06/29 completed Medicati on ID: [id number] P ryanribe d By Name: Kim Da Silva nd [...] SNOMED-CT Code Diagnosis ICD10 Code Diagnosis Note [id number] JOSE MIGUEL SOTOMAYOR MD [facility] [address] [place] [address] 06/29/2024 09:21:20 06/29/2024 10:00:34 Snoring 62900887 R06.83 Chronic rhinitis 5938652 6 J31.0 Deviated nasal septum 12 6242521 J34.2 Feeling of lump in throat 528536508 R09.89 Allergic rhinitis 542051 04 J30.9 [id number] RADHA BELTRAN [facility] [address] [place] [address] [place] [address] 07/23/2024 12:39:42 07/23/2024 15:37:35 Allergic rhinitis 77425713 J30.9 [id number] JOSE MIGUEL SOTOMAYOR MD [facility] [address] [place] [address] 09/08/2024 08:35:14 09/08/2024 10:43:33 Allergic rhinitis 12245363 J30.9 We reviewed testing results and medical [...] Epipen use discussed Deviated nasal septum 12 4818525 J34.2 Chronic sinusitis 976061 00 J32.9 There is evidence of diffuse maxillary and ethmoid sinus thickening predominan tly on the right side. Septal deviation to the right and turbinate hypertroph y. Suggest adding fluticason e to his Astelin, a course of doxycyclin e and proceeding with immunother apy [id number] KATHY TORREZ RN Allergy [address] [place] [address] 100 [place] [address] 09/20/2024 09:20:22 09/20/2024 10:13:08 Perennial allergic rhinitis 245937151 J30.89 [id number] MICHAEL ROMO All[facility] [address] [place] [address] 10/01/2024 11:20:43 10/01/2024 11:50:36 Perennial allergic rhinitis 233032628 J30.89 [id number] [facility], [facility] Allergy [address] [place] [address],[address] [place] [address] 10/08/2024 11:30:58 10/08/2024 12:07:20 Perennial allergic rhinitis 453196817 J30.89 [id number] ERICA CONNELL, [facility] Allergy [address] [place] [address],[address] [place] [address] 10/15/2024 11:31:35 10/15/2024 12:54:02 Perennial allergic rhinitis 224584929 J30.89 [id number] [facility] Allergy [address] [place] [address], [address] [place] [address] 11/05/2024 11:22:09 11/05/2024 12:12:21 Perennial allergic rhinitis 809642750 J30.89 [id number] [facility] Allergy [address] [place] [address],[address] [place] [address] 11/19/2024 11:24:02 11/19/2024 11:28:42 Perennial allergic rhinitis 159774847 J30.89 [id number] ERICA CONNELL, [facility] Allergy [address] [place] [address],[address] [place] [address] 11/26/2024 11:14:13 11/26/2024 11:41:34 Perennial allergic rhinitis 297806032 J30.89 [id number] [facility], [facility] Allergy [address] [place] [address],[address] [place] [address] 12/03/2024 11:05:14 12/03/2024 11:47:44 Perennial allergic rhinitis 627141793 J30.89 [id number] ERICA CONNELL, [facility] Allergy [address] [place] [address],[address] [place] [address] 12/17/2024 09:37:24 12/17/2024 09:52:55 Perennial allergic rhinitis 759973369 J30.89 [id number] KATHY TORREZ RN Allergy [address] [place] [address] 100 [facility] [place], [place] [address] 12/31/2024 11:14:56 12/31/2024 12:13:39 Perennial allergic rhinitis 351158898 J30.89 Health Concerns Section Related Observation LastModified by Organization Detai ls LastModified Time None Recorded Concern Status LastModified by Organization Details LastModified Time None Recorded Advance Directives Directive None Recorded Payers Encounter Date Sequence Insurance Name Policy Number Policy Dacosta Covered Member ID Dacosta Member ID Guarantor Name 11/19/2024 1 [facility] [id number] Regan Cervonayco [id number] Regan Cervonayco 11/26/2024 1 [facility] [id number] Regan Cervonayco [id number] Regan Cervonayco 12/03/2024 1 [facility] [id number] Regan Cervonayco [id number] Regan Cervonayco 12/17/2024 1 [facility] [id number] Regan Cervonayco [id number] Regan Cervonayco 12/31/2024 1 [facility] [id number] Regan Cervonayco [id number] Regan Cervonayco
--- OUTSIDE RECORDS SUMMARY | 2025-01-03 07:50 | XMS_ITS | Continuity of Care Document ---
Author Organization [place] - [facility], Allergy Address [address] [place] [address] Care Team Providers Care Performance Improvement Manager Name Role Phone ROSS COBOS Primary Care Provider [phone] Assessment Encounter Date Assessment Date Assessment LastModified by Organization Details LastModified Time 12/31/2024 12/31/2024 Visit With: Kathy Torrez RN [...] Recorded Time Obstructi ve sleep apnea syndrome 91563153 Active 2019 Obstructiv e sleep apnea (adult) (pediatric ); Note: Date Diagnosed: 07/03/2020 11:19 AM (G47.33) Not Available [facility] 4 02:54:36 Posterior rhinorrhe a 00886753 Active 2019 Postnasal drip; Note: Date Diagnosed: 07/03/2020 11:19 AM (R09.82) Not Available [facility] 4 02:54:35 Snoring 07861532 Active 2023 JOSE MIGUEL SOTOMAYOR MD 100 [facility],[place] [address], [place], [address] , [facility] - [facility] 4 09:47:17 Chronic rhinitis 50876163 Active 2023 JOSE MIGUEL SOTOMAYOR MD [address] [place] [address],[place] [address], [place], [address] , [facility] - [facility] 4 09:47:22 Deviated nasal septum 161676743 Active 2023 MD Tai IZQUIERDO [facility],[place] [address], [place], [address] , [facility] - [facility] [place] 4 09:47:26 Feeling of lump in throat 793969042 Active 2023 JOSE MIGUEL SOTOMAYOR MD 100 [facility],[place] [address], [place], [address] , [facility] - [facility] [place] 4 09:47:30 Allergic rhinitis 41207563 Active 2023 MD Tai IZQUIERDO [facility],[place] [address], [address] , [facility] - [facility] [place] 4 09:56:43 Nasal congestio n 44726314 Active 2024 MD Tai IZQUIERDO [facility],[address], [place], [address] , [facility] - [facility] [place] 5 09:10:23 Chronic sinusitis 49875810 Active 2024 MD Tai IZQUIERDO [facility],[place] [address], [place], [address] , [place] [facility] 09:10:35 Perennial allergic rhinitis 985633650 Active 2024 KATHY TORREZ RN [address] [facility], [place], [address] , [place] [facility] [place] 09:24:16 Problem Notes None recorded. Procedures Surgical History Date Name Laterality Status Provider Name and Address Organization Details Recorded Time 01/01/20 25 Allergy Immunotherapy Injections completed KATHY TORREZ RN [address] [facility],[address], [place], [address], [place] [facility] 12/31/2024 12:12:52 12/18/19 25 Allergy Immunotherapy Injections completed KATHY TORREZ RN [address] [facility],[address] [place] [address], [address], [place] [facility] 12/17/2024 09:51:57 12/04/19 25 Allergy Immunotherapy Injections completed MICHAEL SANCHEZ [address] [facility], [place], [address], [place] [facility] [place] 12/03/2024 11:47:21 11/27/19 25 Allergy Immunotherapy Injections completed MICHAEL ROMO [address] [facility] [place] [address], [address], [facility] - [facility] [place] 11/26/2024 11:41:01 11/20/19 25 Allergy Immunotherapy Injections completed MICHAEL SANCHEZ [address] [facility], [place], [address], [place] [facility] [place] 11/19/2024 11:28:16 11/06/19 25 Allergy Immunotherapy Injections completed MICHAEL ROMO [address] [place] [address], [address], [place] [facility] 11/05/2024 12:11:25 10/15/19 25 Allergy Immunotherapy Injections completed MICHAEL ROMO [address], [place], [address], [place] [facility] 10/15/2024 12:52:52 10/08/19 25 Allergy Immunotherapy Injections completed RADHA CASTRO, [facility] [address] [facility],[address] [place] [address], [address], [facility] - [facility] 10/08/2024 12:06:57 10/01/19 25 Allergy Immunotherapy Injections completed SALVADOR JENSEN, [facility] [address] [facility],[address], [address], [facility] - [facility] 10/01/2024 11:50:19 09/20/19 25 Allergy Immunotherapy Injections completed KATHY TORREZ RN [address] [facility],[place] [address], [place], [address], [facility] - [facility] 09/20/2024 10:01:22 07/23/20 24 Allergy Testing-Full completed RADHA CASTRO, [facility] [address] [facility],[place] [address], [place], [address], [facility] - [facility] 07/23/2024 15:31:38 06/29/20 24 Fiberoptic Laryngoscopy (Comprehensive) completed JOSE MIGUEL SCHMIDT MD 100 [facility],[address], [address], [facility] 06/29/2024 09:54:45 06/16/20 24 Revise eye muscle completed JOSE MIGUEL SCHMIDT MD [address] [facility],[address], [address], [facility] 06/29/2024 09:42:26 Imaging Results None recorded. [...] 24 hr 06/29 completed Medicati on ID: [id number] B rand Name: metoprol ol succinat e [...] as directed 06/29 completed Medicati on ID: [id number] P rescribe d By Name: Kim Da Silva nd [...] SNOMED-CT Code Diagnosis ICD10 Code Diagnosis Note [id number] RADHA CASTRO A Allergy 100 [facility] 100 [place] [address] 12/03/2024 11:05:14 12/03/2024 11:47:44 Perennial allergic rhinitis 248459220 J30.89 [id number] SALVADOR JENSEN A Allergy 100 [facility], [address] [place] [address] 12/17/2024 09:37:24 12/17/2024 09:52:55 Perennial allergic rhinitis 986100672 J30.89 [id number] KATHY TORREZ, [employer] [address] [place] [address] 100 [place] [address] 12/31/2024 11:14:56 12/31/2024 12:13:39 Perennial allergic rhinitis 410588688 J30.89 Health Concerns Section Related Observation LastModified by Organization Detai ls LastModified Time None Recorded Concern Status LastModified by Organization Details LastModified Time None Recorded Payers Encounter Date Sequence Insurance Name Policy Number Policy Dacosta Covered Member ID Dacosta Member ID Guarantor Name 12/31/[address] [place] [address] [id number] Regan Lama [id number] Regan Lama
--- NOTE | 2025-02-17 10:22 | P.CONAN_ITS ---
Documented by User: Reina Tamayo NP 02/17/25 10:25 HPI - Anesthesia Eval Consult details Narrative: 54yo M for Upper Endoscopy and Colonoscopy [facility] Active Problems Active Problems: All Active Problems Deviated nasal septum (Acute) Chronic rhinitis (Acute) Snoring (Acute) Excessive daytime sleepiness (Acute) Pre-op evaluation (Acute) Lumbar back pain with radiculopathy affecting lower extremity (Acute) Ascending aorta dilatation (Acute) Upper respiratory infection (Acute) Sciatica (Acute) Bladder outlet obstruction (Acute) Right elbow pain (Acute) Hypertension (Acute) Costovertebral angle pain (Acute) Tinea cruris (Acute) Swelling of lower extremity (Acute) Nocturia (Acute) Floaters in visual field (Acute) Essential hypertension (Acute) Cellulitis (Acute) Obstructive sleep apnea hypopnea, severe (Acute) Sleep apnea (Acute) Past Medical History Medical History (Updated 02/17/25 @ 10:23 by Reina Tamayo NP) Diverticulosis Sleep apnea Ascending aorta dilatation HTN (hypertension) GERD (gastroesophageal reflux disease) Back pain GERD with apnea Family History Family History Father HTN (hypertension) Mother No problems noted. Brother No problems noted. Brother No problems noted. Family history of problems with anesthesia: No Surgical History Surgical History History of prostate surgery Hx of eye surgery (06/16/24) H/O colonoscopy Hx of lithotripsy Carpal tunnel syndrome, bilateral History of Problems with Anesthesia: No Social History Social History Housing: House Patient Tobacco Use Status: Never used Tobacco e-Cigarette/Vaping Use: Never Used Second Hand Smoke Exposure: No Use of substances other than those prescribed or required for medical reasons: No Advance Directives: No Advance Directives Information Provided: Yes service: No Current occupational status: employed Cognitive needs: No Hearing needs: No Vision needs: No Meds Allergies Allergy/AdvReac Type Severity Reaction Status Date / Time lisinopril Allergy Unknown Cough Verified 02/10/25 09:32 Exam Narrative Narrative: ECHO 2023 Conclusions: - The left ventricular systolic function is normal. The calculated ejection fraction is 66% by biplane method. - There is moderately increased left ventricular wall thickness. - No obvious valvular pathology seen on this study. - There is mild dilatation of the sinuses of Valsalva measuring 4.00 cm, mild dilatation of the ascending aorta measuring 4.30 cm, and mild dilatation of the aortic arch measuring 4.40 cm. Assessment and Plan Assessment Anesthesia Assessment: Chart Reviewed Final Anesthetic Review Family History of Problems with Anesthesia: No History of Problems with Anesthesia: No Documented by User: Emily Odell MD 02/18/25 10:59 [facility] Past Medical History Medical History (Updated 02/17/25 @ 10:23 by Reina Tamayo NP) Diverticulosis Sleep apnea Ascending aorta dilatation HTN (hypertension) GERD (gastroesophageal reflux disease) Back pain GERD with apnea Family History Family History Father HTN (hypertension) Mother No problems noted. Brother No problems noted. Brother No problems noted. Surgical History Surgical History History of prostate surgery Hx of eye surgery (06/16/24) H/O colonoscopy Hx of lithotripsy Carpal tunnel syndrome, bilateral Social History Social History Housing: House Patient Tobacco Use Status: Never used Tobacco e-Cigarette/Vaping Use: Never Used Second Hand Smoke Exposure: No Use of substances other than those prescribed or required for medical reasons: No Advance Directives: No Advance Directives Information Provided: Yes service: No Current occupational status: employed Cognitive needs: No Hearing needs: No Vision needs: No Meds Allergies Allergy/AdvReac Type Severity Reaction Status Date / Time lisinopril Allergy Unknown Cough Verified 02/10/25 09:32 Exam Airway Mallampati Class: II TM Dist: >3cm Neck ROM: Full Heart: rrr Lungs: cta Assessment and Plan Assessment Anesthesia Assessment: Anesthesia Plan Discussed Final Anesthetic Review NPO: Yes ASA Class: III Final Preanesthetic Review: No Changes in Pt Med Stat, Meds/Allgs Chart Reviewed and Consent Obtained/Reviewed Patient Risk: Intermediate Procedure Risk: Intermediate Anesthetic Plan Anesthetic Plan: MAC: Disposition: Standard PACU
--- NOTE | 2025-02-18 09:29 | MHC.SHP ---
Pre-Procedural Eval Section A - 24 Hr Update-Section A only Date of Service: 02/18/25 The patient is an INPATIENT: No The patient has been examined within 24 hours of the surgical procedure. The History & Physical has been completed within 30 days and I have reviewed it.: No Section B - Complete if H&P > 30 days Chief Complaint: Colon cancer screening, GERD Relevant Family History (Specify if Yes): No Relevant Social History: None Present Medications: see Short Stay Collaborative assessment Medical History: Significant History (GERD with apnea Sleep apnea Ascending aorta dilatation HTN (hypertension) GERD (gastroesophageal reflux disease) Back pain) History of Previous Operations: Relevant previous surgery/procedure and date(s) (Hx of eye surgery (06/16/24) H/O colonoscopy Hx of lithotripsy Carpal tunnel syndrome, bilateral) Allergies: Allergies Allergy/AdvReac Type Severity Reaction Status Date / Time lisinopril Allergy Unknown Cough Verified 02/10/25 09:32 Review of Systems Sugical H&P ROS: Negative: Constitution, Cardiovascular, Respiratory and Gastrointestinal Exam Surgical H&P Exam: Normal: Heart, Normal: Lungs, Normal: Extremities and Normal: Abdomen Plan Diagnosis/Plan: Unchanged I have reviewed the history and physical and performed a pertinent physical examination on my patient. No changes have occurred unless specified. Time Spent With Patient Time: Total time managing care of this patient today ____ minutes.
[2025-02-18 10:07] VITALS: BMI 35.4
[2025-02-18 10:15] VITALS: BP 166/97; PULSE 60; RESP 16; TEMP 36.9; O2SAT 96
[2025-02-18] MEDS: Lactated Ringers 1,000 ML 100 ML IVCONT (10:18)
--- NOTE | 2025-02-18 11:21 | P.OPN-COLO_ITS ---
Colonoscopy Operative Note Operative Note Date of Service: 02/18/25 Narrative: FLEXIBLE TRANSORAL UPPER GASTROINTESTINAL ENDOSCOPY WITH BIOPSIES AND COLONOSCOPY TILL CECUM WITH BIOPSIES AND SNARE POLYPECTOMY Pre-op diagnosis: Colon cancer screening, GERD Post-op diagnosis: Esophagitis, Gastritis, gastric polyps, Colon Polyps, Diverticulosis, hemorrhoids Endoscopist:Estella Uribe MD Anesthesia:?MAC UPPER ENDOSCOPY Consent: Indications for the procedure and potential complications of bleeding, perforation, reaction to medications and missed diagnosis were discussed with the patient and informed consent was obtained. Instrument: Olympus GIF H 190 mid size upper endoscope Monitoring: Vital signs and clinical assessment, continuous EKG monitoring, Pulse oximetry, Carbon Dioxide monitoring and blood pressure monitoring were done throughout the procedure. Procedure: The patient was placed in the left lateral decubitis position and pre-procedure medications were administered and a bite block was placed. The endoscope was inserted into the mouth and advanced under direct vision to the third part of duodenum. A careful inspection was made as the upper endoscope was withdrawn including a retroflexed examination of the proximal stomach; Findings and interventions are described below. Findings: Larynx: Normal Esophagus: GE junction at 40 cms. Mild esophagitis with two 1 cms erosions at the GE junction. Irregular Z line - biopsied to check for Ray's. Stomach: Two 2-3 mm benign appearing polyps in the gastric fundus - one polyp was biopsied. Moderate diffuse gastric erythema with nodular appearing gastric mucosa- biopsies were obtained from the gastric body and antrum. Grade 2 flap valve on retroflexed examination of the cardia. Duodenum: Normal bulb and descending duodenum Intervention: Biopsies as noted above COLONOSCOPY PROCEDURE NOTE Instrument: Olympus CF H 190 L variable stiffness adult colonoscope Monitoring: Vital signs and clinical assessment, intermittent blood pressure monitoring, continuous EKG monitoring, Pulse oximetry and Carbon Dioxide monitoring were done throughout the procedure. Please see anesthesia flowsheet. Colon withdrawl time was 25 minutes. Procedure: The patient was placed in the left lateral decubitis position and pre-procedure medications were administered. After a digital rectal examination of the ano-rectum, the video colonoscope was inserted into the rectum and advanced through the colon to the cecum. The colonoscope was slowly withdrawn in a retrograde panoramic fashion and the colon mucosa was carefully examined including a retroflexed view of the rectum. Findings and interventions are described below. Procedure Difficulty: without difficulty Findings: Terminal Ileum: Not evaluated Cecum: Prominent ileocecal valve - biopsies were obtained Ascending Colon: A 10 - 12 mm sessile polyp in the prox AC - removed with a hot snare Transverse Colon: Normal Descending Colon: Moderate diverticulosis Sigmoid Colon: Moderate diverticulosis Rectum: A 3-4 mm sessile polyp - removed with a cold biopsy Ano-rectum: Moderate internal hemorrhoids and hypertrophied anal papilla Colon preparation: Good after 2 irrigation. [place] Bowel Preparation Scale Right colon; 2 Transverse colon: 2 Left colon; 2 (0 = Unprepared colon segment with mucosa not seen due to solid stool that cannot be cleared. 1 = Portion of mucosa of the colon segment seen, but other areas of the colon segment not well seen due to staining, residual stool and/or opaque liquid. 2 = Minor amount of residual staining, small fragments of stool and/or opaque liquid, but mucosa of colon segment seen well. 3 = Entire mucosa of colon segment seen well with no residual staining, small fragments of stool or opaque liquid) Impression and Post Procedure Diagnosis: Endoscopy Findings: ESOPHAGUS: Mild esophagitis with two 1 cms erosions at the GE junction. Irregular Z line - biopsied to check for Ray's. STOMACH: Gastritis and benign-appearing gastric polyps DUODENUM: Normal Colonoscopy Findings: Two small to medium polyps were removed Moderate diverticulosis seen in the left colon Moderate hemorrhoids on retroflexed exam. Plan: I will send a letter with biopsy results Repeat Colonoscopy in 3-5 years if polyps are adenomatous and 10 year if polyps are hyperplastic. A summary of above findings and relevant handouts were given to the patient. BIOPSIES SHOWED: A. Stomach, antrum, biopsy: Gastric antral mucosa with mild reactive gastropathy; negative for Helicobacter pylori, intestinal metaplasia and dysplasia. B. Stomach, body, biopsy: Gastric body mucosa within normal limits; negative for Helicobacter pylori, intestinal metaplasia and dysplasia. C. Stomach, polyp, biopsy: Fundic gland polyp. D. Esophagus, distal, biopsy: Squamocolumnar junctional mucosa with moderate chronic active inflammation; negative for intestinal metaplasia and dysplasia. E. Colon, ascending, polypectomy: Sessile serrated polyp/lesion without dysplasia. F. Ileocecal valve, biopsy: Mildly active ileocolitis (non-specific). G. Rectum, polypectomy: Polypoid colonic mucosa with lamina propria edema otherwise within normal limits; negative for dysplasia Letter sent with biopsy results. Patient placed on the recall list for repeat colonoscopy in 3 years
[2025-02-18 11:56] VITALS: BP 146/93; PULSE 75; RESP 16; TEMP 36.3; O2SAT 97
[2025-02-18 12:12] VITALS: BP 160/96; PULSE 61; RESP 18; TEMP 36.3; O2SAT 98
== END 2025-02-18 12:40 | disposition home or self-care (01) ==
PROVIDERS: PCP Nurse Practitioner Family; Visit Provider Internal Medicine Gastroenterology
PROC: (CPT 45385; principal; 2025-02-18 11:30)
DX: Z12.11 Encounter for screening for malignant neoplasm of colon (principal); D12.2 Benign neoplasm of ascending colon; K63.5 Polyp of colon; K57.30 Diverticulosis of large intestine without perforation or abscess without bleeding; K64.8 Other hemorrhoids; K52.9 Noninfective gastroenteritis and colitis, unspecified; K62.89 Other specified diseases of anus and rectum; K21.9 Gastro-esophageal reflux disease without esophagitis; K31.7 Polyp of stomach and duodenum; K22.10 Ulcer of esophagus without bleeding; K29.60 Other gastritis without bleeding; K22.9 Disease of esophagus, unspecified; K31.89 Other diseases of stomach and duodenum; I10 Essential (primary) hypertension; E78.5 Hyperlipidemia, unspecified; G47.33 Obstructive sleep apnea (adult) (pediatric); Z79.899 Other long term (current) drug therapy; Z79.02 Long term (current) use of antithrombotics/antiplatelets
CPT/HCPCS: 45385; 45380; 43239; 88305; 88313; 88342; J2003; J2704

== ENCOUNTER → 2025-02-18 09:59 | Outpatient (BNV) | payer OTHER, SELFPAY | PROVIDERS: PCP Nurse Practitioner Family; Visit Provider Internal Medicine Gastroenterology | DX: Z12.11 Encounter for screening for malignant neoplasm of colon (principal); D12.2 Benign neoplasm of ascending colon; D12.8 Benign neoplasm of rectum; K57.90 Diverticulosis of intestine, part unspecified, without perforation or abscess without bleeding; K64.8 Other hemorrhoids; K21.00 Gastro-esophageal reflux disease with esophagitis, without bleeding; K29.70 Gastritis, unspecified, without bleeding; K31.7 Polyp of stomach and duodenum | CPT/HCPCS: 43239; 45380; 45385 ==

== ENCOUNTER 2025-03-18 12:46 | Outpatient (AMB) | payer OTHER, SELFPAY ==
--- OUTSIDE RECORDS SUMMARY | 2025-03-18 12:50 | XMS_ITS | Patient Health Record ---
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 Primary Care Provider Yanet vailable Carmelo Douglas [phone] Reason For Referral No Information Medications Medication SIG (Take, Route, Frequency, Duration) Notes Start Date End Date Status Omeprazole 20 MG 1 capsule Orally Onc e a day Active amLODIPine Besylate 2.5 MG 1 tablet Oral ly Once a day Active hydroCHLOROthiazide 25 MG 1 tablet Orall y Once a day Active Prazosin HCl 1 MG 1 capsule Orally Twi ce a day Active Losartan Potassium 100 MG 1 Orally QD Active Problems Problem Type SNOMED Code ICD Code Onset Dates Problem Status W/U Status Risk Notes Problem [id number] Gastroesophageal reflux disease, esophagitis presence not specified (K21.9) Active confirmed Plan Of Treatment Pending Test Test Name Order Date CELIAC PANEL #10 01/11/2015 Future Test Test Name Order Date COLONOSCOPY 05/19/2013 Insurance Providers Payer Name Payer Address Payer Phone Subscriber Number Group Number Insured Name Patient Relationship to Insured Coverage Start Date Coverage End Date [facility] [address] [facility] [place] [phone] [id number] MELBA RINCON Self - patient is the insured Medical (General) History Medical History History ICD Code Denies [place],DM,CVA,Lung disease,renal dise ase Diverticulosis IBS HTN Colonoscopy in July was negative other than some mild sigmoid diverticulosis and internal hemorrhoids Surgical History Surgery Date(Month/Year) Carpal tunnel bilaterally
--- OUTSIDE RECORDS SUMMARY | 2025-03-18 12:50 | XMS_ITS | Data Portability ---
Author Organization [place] - [facility], Allergy Address [address] [place] [address] Care Team Providers Care Shopping Centre Manager Name Role Phone ROSS COBOS Primary Care Provider Assessment Encounter Date Assessment Date Assessment LastModified by Organization Details LastModified Time 01/28/2025 01/28/2025 Visit With: MICHAEL Byrnes Use of Antihistamines: No If yes: Vial Test Change in medications: No If yes Increase in asthma symptoms No Asthma Hx If yes, inhaler use: Reaction to last injections: No If yes: Allergy Symptoms: Other: Missed: 2 weeks Dose Decreased Aware of Vial Test Notes: [email or web address] Not available 01/28/2025 10:37:21 02/25/2025 02/25/2025 Visit With: MICHAEL Byrnes Use of Antihistamines: No If yes: Vial Test Change in medications: No If yes Increase in asthma symptoms If yes, inhaler use: Reaction to last injections: No If yes: Allergy Symptoms: Other: Missed: 3 weeks Dose Decreased Aware of Vial Test Aware: Notes: Not available 02/25/2025 12:08:45 03/09/2025 03/09/2025 1. Allergic Rhinitis The patient will continue with Astelin and Flonase nasal sprays, emphasizing consistent usage with an additional saline rinse before sleep to manage symptoms effectively. Regularity in allergy shot administration should be prioritized to improve therapeutic outcomes. 2. Sinusitis To mitigate sinusitis symptoms, a comprehensive nasal regimen with sprays and saline rinses should be adhered to. Monitoring for symptom changes will guide future management decisions. We can reassess the need for surgery at the next visit. 3. Sleep Apnea The dryness associated with CPAP use can potentially be managed with humidification. Further assessment of symptoms related to CPAP therapy is warranted to optimize device compliance and comfort. [email or web address] Not available 03/09/2025 15:57:46 03/09/2025 03/09/2025 Visit With: Erica Jensen Use of Antihistamines: No If yes: Vial Test Change in medications: No If yes Increase in asthma symptoms If yes, inhaler use: Reaction to last injections: No If yes: Allergy Symptoms: Other: Missed: 1 week Dose Repeated Aware of Vial Test Aware: Notes: [email or web address] Not available 03/09/2025 15:27:30 03/18/2025 03/18/2025 Visit With: Erica Jensen Use of Antihistamines: No If yes: Vial Test Change in medications: No If yes Increase in asthma symptoms If yes, inhaler use: Reaction to last injections: No If yes: Allergy Symptoms: Other: Missed: Dose Aware of Vial Test Yes Aware: Notes: Not available 03/18/2025 12:09:44 Plan of Treatment Reminders Order Date Submit Date Provider Last Modified By Organization Details Last Modified Time Details Appointments Allergy Shot 2024 10:40A M [facility] Not available Not available Not available Establish ed- Allergy f-up 6mon 2025 11:00A M JOSE MIGUEL CLAIRE MD Not available Not available Not available Lab None recorded. Referral None recorded. Procedures None recorded. Surgeries None recorded. Imaging None recorded. Medication Orders azelastin e 137 mcg (0.1 %) nasal spray 2024 025 [facility]acy #[id number], [address] [facility] [facility], [place], [address], 03/09/2025 15:58:34 [email or web address] ne propionat e 50 mcg/actua tion nasal spray,melissa pension 2024 025 [facility] #[id number], [address] [facility], [place], [address], 03/09/2025 15:58:35 Patient TargetsNo targets recorded. Patient Instructions Encounter Date Encounter Id Patient Instructions Last Modified By Organization Details Last Modified Time 03/09/2025 [id number] Please note: Parts of this encounter note have been generated by AI based on audio conversation. Patient consent was required prior to utilizing this technology. Content review was required prior to finalizing the note. [email or web address] Not available 03/09/2025 15:56:12 Reason for Referral None Reported. Problems Name Problem SNOMED Code Status Onset Date Resolution Date Notes Provider Name and Address Organization Details Recorded Time Obstructi ve sleep apnea syndrome 14693719 Active 2019 Obstructiv e sleep apnea (adult) (pediatric ); Note: Date Diagnosed: 07/03/2020 11:19 AM (G47.33) JOSE MIGUEL SOTOMAYOR MD [address] [place] [address], [place], [address] , [place] [facility] 5 15:57:50 Posterior rhinorrhe a 55378232 Active 2019 Postnasal drip; Note: Date Diagnosed: 07/03/2020 11:19 AM (R09.82) Not Available [facility] 4 02:54:35 Snoring 02529377 Active 2023 JOSE MIGUEL SOTOMAYOR MD [address] [place] [address], [place], [address] , [facility] - [facility] 4 09:47:17 Chronic rhinitis 79954789 Active 2023 JOSE MIGUEL SOTOMAYOR MD [address] [place] [address], [place], [address] , [facility] - [facility] 4 09:47:22 Deviated nasal septum 803923128 Active 2023 JOSE MIGUEL SOTOMAYOR MD [address] [place], [place] [address] [place], [address] , [facility] - [facility] 4 09:47:26 Feeling of lump in throat 996718497 Active 2023 JOSE MIGUEL SOTOMAYOR MD [address] [place], [place] [address] [place], [address] , [facility] - [facility] 4 09:47:30 Allergic rhinitis 18160245 Active 2023 JOSE MIGUEL SOTOMAYOR MD [address] [facility], [place], [address] , [place] [facility] 4 09:56:43 Nasal congestio n 11393827 Active 2024 JOSE MIGUEL SOTOMAYOR MD [address], [place], [address] , [facility] - [facility] 5 09:10:23 Chronic sinusitis 31533501 Active 2024 JOSE MIGUEL SOTOMAYOR MD [address] [facility],[place] [address], [place], [address] , [place] [facility] 5 15:55:02 Perennial allergic rhinitis 919439023 Active 2024 KATHY TORREZ RN [address] [facility],[place] [address], [place], [place], [address] , [facility] - [facility] 5 09:24:16 Seasonal allergic rhinitis 100828562 Active 2024 JOSE MIGUEL SOTOMAYOR MD [address] [facility] [address],[facility] [address], [place], [address] , [facility] - [facility] 5 15:54:25 Problem Notes None recorded. Procedures Surgical History Date Name Laterality Status Provider Name and Address Organization Details Recorded Time 03/18/20 25 Allergy Immunotherapy Injections completed MICHAEL ROMO [address] [facility],[place] [facility], [place], [address], [facility] - [facility] 03/18/2025 12:09:33 03/09/20 25 Allergy Immunotherapy Injections completed MICHAEL ROMO [address] [facility], [place], [address], [place] [facility] 03/09/2025 15:27:04 02/26/20 25 Allergy Immunotherapy Injections completed MICHAEL ROMO [address],[place] [address], [address], [place] [facility] 02/25/2025 12:08:34 01/29/20 25 Allergy Immunotherapy Injections completed KATHY TORREZ RN [address],[place] [address], [address], [place] [facility] 01/28/2025 10:37:12 01/08/20 25 Allergy Immunotherapy Injections completed MICHAEL BYRNES [address],[place] [address], [address], [place] [facility] 01/07/2025 11:39:55 01/01/20 25 Allergy Immunotherapy Injections completed KATHY TORREZ RN [address],[place] [address], [address], [place] [facility] 12/31/2024 12:12:52 12/18/19 25 Allergy Immunotherapy Injections completed KATHY TORREZ RN [address] [facility],[place] [address] [place] [address], [address], [place] [facility] 12/17/2024 09:51:57 12/04/19 25 Allergy Immunotherapy Injections completed MICHAEL BYRNES [address],[place] [address], [address], [place] [facility] 12/03/2024 11:47:21 11/27/19 25 Allergy Immunotherapy Injections completed MICHAEL ROMO [address],[place] [address] [place] [address], [address], [place] [facility] 11/26/2024 11:41:01 11/20/19 25 Allergy Immunotherapy Injections completed RADHA CASTRO RMLinda [address],[place] [address], [address], [place] [facility] 11/19/2024 11:28:16 11/06/19 25 Allergy Immunotherapy Injections completed MICHAEL ROMO [address],[place] [address], [address], [place] [facility] 11/05/2024 12:11:25 10/15/19 25 Allergy Immunotherapy Injections completed MICHAEL ROMO [facility],[place] [address] [place] [address], [address], [facility] - [facility] 10/15/2024 12:52:52 10/08/19 25 Allergy Immunotherapy Injections completed RADHA COWANZEKE, A [address] [facility],[place], [address], [facility] - [facility] 10/08/2024 12:06:57 10/01/19 25 Allergy Immunotherapy Injections completed ERICA JENSEN [facility] [address] [facility],[address], [address], [facility] - [facility] 10/01/2024 11:50:19 09/20/19 25 Allergy Immunotherapy Injections completed KATHY TORREZ RN [address] [facility],[address], [address], [facility] - [facility] 09/20/2024 10:01:22 07/23/20 24 Allergy Testing-Full completed RADHA BELTRAN, [facility] [address] [facility],[address], [address], [facility] 07/23/2024 15:31:38 06/29/20 24 Fiberoptic Laryngoscopy (Comprehensive) completed JOSE MIGUEL SCHMIDT MD [address] [facility],[address], [address], [facility] 06/29/2024 09:54:45 06/16/20 24 Revise eye muscle completed JOSE MIGUEL SCHMIDT MD [address] [facility],[address], [address], [facility] 06/29/2024 09:42:26 Imaging Results None recorded. [...] TAKE 1 TABLET BY MOUTH EVERY DAY 03/09 completed Not Available Not Available Not Available sildenafi l 50 mg tablet TAKE 1 TABLET ORALLY DAILY NEEDED 30 MINUTES TO 4 HOURS BEFORE SEXUAL ACTIVITY 03/09 completed Not Available Not Available Not Available [...] TAKE 1 TABLET BY MOUTH EVERY DAY 03/09 completed Not Available Not Available Not Available tamsulosi n 0.4 mg capsule TAKE 1 CAPSULE BY MOUTH EVERYDAY AT BEDTIME 07/23 completed Not Available Not Available Not Available amlodipin e 10 mg tablet TAKE 1 TABLET BY MOUTH DAILY active Not Available Not Available No t Available pantopraz ole 40 mg tablet,de layed release TAKE 1 TABLET BY MOUTH EVERY MORNING active Not Available Not Available No t Available losartan 25 mg tablet TAKE 1 TABLET BY MOUTH DAILY 06/29 completed Not Available Not Available Not Available metoprolo l succinate ER 25 mg tablet,ex tended release 24 hr 06/29 completed Medicati on ID: [id number] rand Name: metoprol ol succinat e Send Method: E-Prescr ibed Sub s Allowed: subs OK Speci al Instruct ion: TAKE 1 TABLET BY MOUTH EVERY DAY Medi cationGe nericNam e: metoprol ol succinat e Not Available Not Available Not Available azelastin e 137 mcg (0.1 %) nasal spray [place] 2 sprays twice a day by intranas al route. 2024 active Not Available Not Available Not Avai lable epinephri ne 0.3 mg/0.3 mL injection , [...] e 50 mcg/actua tion nasal spray,melissa pension [place] 1 spray every day by intranas al route. 2024 active Not Available Not Available Not Avai lable doxycycli ne hyclate 100 mg tablet Take 1 tablet twice a day by oral route for 10 days. 09/20 completed Not Available Not Available Not Available ipratropi um bromide 21 mcg (0.03 %) nasal spray Inhale 2 spray three times a day as directed 06/29 completed Medicati on ID: [id number] Venu [place] By Name: Kim Da [place] [...] completed Not Available Not Available Not Available Laxative (bisacody l) 5 mg tablet,de layed release TAKE 4 TABLETS AT NOON FOR THE DAY BEFORE YOUR COLONOSC OPY. 02/18 completed Not Available Not Available Not Available tadalafil 5 mg tablet TAKE 1 TABLET ORALLY DAILY FOR BLADDER STABILIT Y FOR 90 DAYS active Not Available Not Available No t Available losartan 100 mg-hydroc hlorothia zide 12.5 mg tablet TAKE 1 TABLET BY MOUTH EVERY DAY active Not Available Not Available No t Available Gavilax 17 gram/dose oral powder 238 G ORALLY ONCE DIRECTED BY GASTROEN TEROLOGY DEPARTME NT AT [facility] 02/18 completed Not Available Not Available Not Available Vitals None Recorded Social History Question Answer Notes LastModified by Organizat ion Details LastModified Time Tobacco Smoking Status Never Smoker Jacque escobar [place] - [facility] 03/09/2025 15:17:16 What Type Of Applications Programmer Analyst Do You Use? None [email or web address] Information not available 03/09/2025 Do You Have Any Pets? Yes Information not available 03/09/2025 Are You Passively Exposed To Smoke? No Information not available 03/09/2025 Are There Any Smokers In Your House? No [email or web address] Information not available 03/09/2025 Sex: Unknown Functional Status Question Answer Note LastModified by Organizat ion Details LastModified Time How many times per week do you consume alcohol? 1-2 times per week [email or web address] Information not available 03/09/2025 Do you use any illicit or recreational drugs? No [email or web address] Information not available 03/09/2025 Do you or have you ever used any other forms of tobacco or nicotine? No [email or web address] Information not available 03/09/2025 What is your level of alcohol consumption? Occasional [email or web address] Information not available 03/09/2025 What type of noise exposure are you exposed to? Industrial [email or web address] Information not available 03/09/2025 Mental Status None recorded. Family History Nothing Reported. Medical History Condition Response Hyperlipidemia Y Hypertension Y Sleep Disorder Y GERD/Reflux Y Past Encounters Encounter ID Performer Location Encounter Start Date Encounter Closed Date Diagnosis/Indication Diagnosis SNOMED-CT Code Diagnosis ICD10 Code Diagnosis Note [id number] JOSE MIGUEL SOTOMAYOR MD [facility] [address] [address] 06/29/2024 09:21:20 06/29/2024 10:00:34 Snoring 73412513 R06.83 Chronic rhinitis 3040616 6 J31.0 Deviated nasal septum 12 6063093 J34.2 Feeling of lump in throat 481983635 R09.89 Allergic rhinitis 040907 04 J30.9 [id number] RADHA CASTRO [facility] [address] [place] [address] [address] 07/23/2024 12:39:42 07/23/2024 15:37:35 Allergic rhinitis 79624626 J30.9 [id number] JOSE MIGUEL SOTOMAYOR MD [facility] [address] [place] [address] 09/08/2024 08:35:14 09/08/2024 10:43:33 Allergic rhinitis 96574034 J30.9 We reviewed testing results and medical [...] Epipen use discussed Deviated nasal septum 12 2223550 J34.2 Chronic sinusitis 767462 00 J32.9 There is evidence of diffuse maxillary and ethmoid sinus thickening predominan tly on the right side. Septal deviation to the right and turbinate hypertroph y. Suggest adding fluticason e to his Astelin, a course of doxycyclin e and proceeding with immunother apy [id number] KATHY TORREZ RN Allergy [address],[place] [address] [place] [address] 09/20/2024 09:20:22 09/20/2024 10:13:08 Perennial allergic rhinitis 546770958 J30.89 [id number] ERICA JENSEN A [facility] [address] [place] [address],[place] [address] [place] [address] 10/01/2024 11:20:43 10/01/2024 11:50:36 Perennial allergic rhinitis 121797986 J30.89 [id number] [facility] All[facility] [address] [place] [address],[place] [address] [place] [address] 10/08/2024 11:30:58 10/08/2024 12:07:20 Perennial allergic rhinitis 586656340 J30.89 [id number] ERICA JENSEN A All[facility] [address] [place] [address],[place] [address] [place] [address] 10/15/2024 11:31:35 10/15/2024 12:54:02 Perennial allergic rhinitis 024832605 J30.89 [id number] [facility], A Allergy [address] [place] [address],[place] [address] [place] [address] 11/05/2024 11:22:09 11/05/2024 12:12:21 Perennial allergic rhinitis 582429414 J30.89 [id number] [facility], A Allergy [address] [place] [address],[place] [address] [place] [address] 11/19/2024 11:24:02 11/19/2024 11:28:42 Perennial allergic rhinitis 324099304 J30.89 [id number] ERICA JENSEN A [facility] [address] [place] [address],[place] [address] [place] [address] 11/26/2024 11:14:13 11/26/2024 11:41:34 Perennial allergic rhinitis 292824221 J30.89 [id number] [facility], A Allergy [address] [facility],[place] [address] [place] [address] 12/03/2024 11:05:14 12/03/2024 11:47:44 Perennial allergic rhinitis 916403583 J30.89 [id number] ERICA JENSEN A [facility] [address] [place] [address] 100 [place] [address] 12/17/2024 09:37:24 12/17/2024 09:52:55 Perennial allergic rhinitis 928155227 J30.89 [id number] KATHY TORREZ RN Allergy [address] [place] [address], [place] [address] 12/31/2024 11:14:56 12/31/2024 12:13:39 Perennial allergic rhinitis 290061942 J30.89 [id number] ERICA JENSEN [facility] Allergy [address] [place] [address], [place] [address] 01/07/2025 11:21:24 01/07/2025 11:40:28 Perennial allergic rhinitis 804763405 J30.89 [id number] [facility] All[facility] [address] [place] [address], [place] [address] 01/28/2025 10:36:04 01/28/2025 10:37:35 Perennial allergic rhinitis 409968646 J30.89 [id number] [facility] Allergy [address] [place] [address], [place] [address] 02/25/2025 11:47:16 02/25/2025 12:09:24 Perennial allergic rhinitis 190747361 J30.89 [id number] JOSE MIGUEL SOTOMAYOR MD [facility] [address] [place] [address] 03/09/2025 15:12:54 03/09/2025 16:00:27 Deviated nasal septum 200141804 J34.2 Allergic rhinitis 628152 04 J30.9 Chronic sinusitis 754551 00 J32.8 Continue irrigation s and nasal sprays with allergy management before surgery Obstructiv e sleep apnea syndrome 20985444 G47.33 [id number] ERICA JENSEN [facility] Allergy [address] [place] [address] 100 [place] [address] 03/09/2025 15:15:06 03/09/2025 15:39:50 Perennial allergic rhinitis 117101295 J30.89 [id number] ERICA JENSEN [facility] Allergy [address] [place] [address] [address] [place] [address] 03/18/2025 12:08:22 03/18/2025 12:10:00 Perennial allergic rhinitis 362069774 J30.89 Health Concerns Section Related Observation LastModified by Organization Detai ls LastModified Time None Recorded Concern Status LastModified by Organization Details LastModified Time None Recorded Advance Directives Directive None Recorded Payers Insurance Date Sequence Insurance Name Policy Number Policy Dacosta Covered Member ID Dacosta Member ID Guarantor Name 03/15/[address] [place] [address] [id number] Regan Lama [id number] Regan Lama Notes Date Note Type Note Provider Name and Address Organization Details Recorded Time 03/09/2025 text/html The patient is a 54-year-old male presenting with allergies. Management initiated with allergy shots since September has been erratic. The use of Astelin and Flonase nasal sprays provides mild symptom relief. Sinus thickening was confirmed via CT, Reported sleep apnea raises nasal dryness concerns, possibly linked to CPAP usage. Symptoms disrupt sleep and cause airway constriction when lying down. Previous treatments include nasal sprays and inconsistent allergy shots JOSE MIGUEL SCHMIDT MD [address] [facility] [address], [place], [address], [facility] - [facility] 03/09/2025 15:58:33
--- OUTSIDE RECORDS SUMMARY | 2025-03-18 12:50 | XMS_ITS | Patient Health Record ---
Author Organization [facility] Sadieyenni antonio Mora Address [address] [facility] [address] Care Team Providers Care Heavy Equipment Sales Associate Name Role Phone Robert WHITING, [phone] [facility] Pro vider Unavailable Black, Lori Unavailable [phone] Reason For Referral No Information Medications Medication SIG (Take, Route, Frequency, Duration) Notes Start Date End Date Status Prazosin HCl 1 MG TAKE 1 CAPSULE BY MOUTH 2 TIMES A DAY Oral; Duration: 30 Active hydroCHLOROthiazide 25 MG 1 tablet Orall y Once a day Active Feldene 20 MG 1 capsule with food Orally Once a day; Duration: 30 day(s) 01/06/2014 Not-Taking Physical Therapy . . . 2-3x/week; Duration: 3-4 weeks 04/25/2014 Active Losartan Potassium 100 MG 1 tablet Orall y Once a day Active Night Splint AFO - L1930 as directed 01/10/2014 Active Problems Problem Type SNOMED Code ICD Code Onset Dates Problem Status W/U Status Risk Notes Problem Bursitis (38928069) Bursitis (727.3) Active confirmed Problem Achilles bursitis (240356473) Achilles Tendonitis Bursitis (726.71) Active confirmed Problem Myositis (57746683) Myositis (729.1) Active confirmed Problem Pain in limb (64909298) Pain in Limb (729.5) Active confirmed Problem Plantar fasciitis (851575206) Plantar Fasciitis (728.71) Active confirmed Problem Calcaneal spur (26168541) Calcaneal spur (726.73) Active confirmed Plan Of Treatment No Information Insurance Providers Payer Name Payer Address Payer Phone Subscriber Number Group Number Insured Name Patient Relationship to Insured Coverage Start Date Coverage End Date Blue Benefits [address] [address] [place] [id number] Rosa Pino Spouse - patient is the spouse of the insured Medical (General) History Medical History History ICD Code High blood pressure Surgical History Surgery Date(Month/Year) kidney stones 08/03/2014
--- NOTE | 2025-03-18 13:02 | A.OFFVIS_ITS ---
Vital Signs 03/18/25 13:03 Height 5 ft 10 in Weight 248 lb BMI 35.6 Pulse 70 Pulse Source Pulse Oximeter Pulse Oximetry (%) 95 Oxygen Delivery Method Room Air Intake Visit Reasons: 4mon follow up Intake Note: Patient presents follow up RAF. HST in chart(AHI-29, ROSEANNA 67%. APAP 6- 20cm)Compliance in chart(50/90days, >=4hrs-23%, average usages 2hr 11min, Med pressure- 11.0, Med leaks-15.2, AHI-11.7). Accompanied by: Self / Same As Patient Allergies lisinopril Allergy (Unknown, Verified 03/18/25 13:04) Cough HPI Comments Details: 54 year old male presents for a f/u of RAF and Lumbar back pain. HST 2019 c/w Raf AHI was 45/hr and O2 Roseanna to 75%. In lab titration was completed and could not tolerate cpap. ENT referral for surgical procedure and evaluation of alternative treatments (inspire therapy). PSG 09/2024 AHI was 29 and Oxygen Roseanna to 67%, titration was recommended, patient declines today, he had lost 25lbs. RAF Compliance Report 11/2024 to 03/2025 Total average use is 50/90 days and >4 hours use is 2 hours 11min Pressures are [id number] Leaks vary 11.7 to 79 AHI is 12/hr He reports he wakes up multiple times in the night because he can not get enough air into his mouth, the pressures are too strong for him and he starts to choke due to his constant rhinorrhea f/u with ENT for allergies, he uses Azelastine and an inhaler PRN. He has a consult with Dr Lui [facility] E[facility] Aug 2025. His girlfriend says he snores loudly and it diminishes when he uses his cpap but the machine is loud. He lost 25lbs and gained it all back. He is being followed by GI for diverticulitis and suspicious polyps. He does not notice a significan change with cpap use, however is not meeting the 4 hour criteria at the time and discussed improving compliance. He denies headaches. He has had burning, shooting pain bilateral in legs but now working with his Chiropractor who has helped him to manage pain. He is not a smoker and drinks socially. PFSH Medical History Diverticulosis Sleep apnea Ascending aorta dilatation HTN (hypertension) GERD (gastroesophageal reflux disease) Back pain GERD with apnea Surgical History History of prostate surgery Hx of eye surgery (06/16/24) H/O colonoscopy Hx of lithotripsy Carpal tunnel syndrome, bilateral Family History Father HTN (hypertension) Mother No problems noted. Brother No problems noted. Brother No problems noted. Social History Housing: House Patient Tobacco Use Status: Never used Tobacco e-Cigarette/Vaping Use: Never Used Second Hand Smoke Exposure: No service: No Current occupational status: employed Cognitive needs: No Hearing needs: No Vision needs: No Physical Exam Vital Signs: Last Vital Signs Pulse 70 03/18/25 13:03 Pulse Ox 95 03/18/25 13:03 Oxygen Delivery Method Room Air 03/18/25 13:03 BMI result Body Mass Index 35.6 Const General: cooperative, comfortable and no acute distress Nutritional Appearance: obese (BMI 34) Orientation/consciousness: patient oriented x3 HEENT Other: Mallampati grade III Large tongue Face and sinus: Yes normal facial exam and Yes face symmetric Mouth: muffled voice Throat: Yes uvula midline Eyes Pupils: Equal, round and reactive pupils present, Pupils normal by confrontation and Pupil accommodation reflex normal Neck Neck: Yes full ROM and Yes supple Resp Effort & Inspection: normal respiratory effort and able to speak in complete sentences Back/Spine/Pelvis Other: Wide neck Neuro General: patient oriented x3 Cranial nerves: Yes CN's II-XII intact bilaterally, Yes Equal, round and reactive pupils present, Yes Nystagmus not present, Yes Midline tongue present, Yes Ability to bilaterally rotate head present and Yes Ability to bilaterally elevate shoulders present Cognition (Neuro): normal cognition Motor exam (neuro): 5/5 motor strength present throughout Deep tendon reflexes (DTR's): Right triceps reflex intensity grade: 2+, Left triceps reflex intensity grade: 2+, Rt Biceps (C5, C6): 2+, Left biceps reflex intensity grade: 2+, Right brachioradialis reflex intensity grade: 2+, Left brachioradialis reflex intensity grade: 2+, Right patellar reflex intensity grade: 2+ and Left patellar reflex intensity grade: 2+ Coordination: [id number] test normal Psych Mental Status: mental status grossly normal Affect: normal affect Thought process: Normal thought process present Thought content: Normal thought content present Results Reviewed Results Reviewed: RAF Compliance report 11/2024 - 03/2025 total uses is 2 hours and 11min and avg > 4 hours is Press Median are [id number] Leaks 11 to 79 and AHI is 11.7 Labs reviewed with patient today. Assessment & Plan Assessment & Plan (1) Obstructive sleep apnea hypopnea, severe: Comment: History of obstructive sleep apnea. Code(s): G47.33 - Obstructive sleep apnea (adult) (pediatric) Category: Medical Plan: (2) Chronic rhinitis: Comment: ENT f/u for surgical reduction Code(s): J31.0 - Chronic rhinitis Category: Medical (3) Deviated nasal septum: Code(s): J34.2 - Deviated nasal septum Category: Medical (4) Excessive daytime sleepiness: Comment: ESS 10 Code(s): G47.19 - Other hypersomnia Category: Medical (5) Posterior rhinorrhea: Comment: azelastine per ent Code(s): J34.89 - Other specified disorders of nose and nasal sinuses Category: Medical Plan RAF cpap compliance reviewed today, >4 hours and every night. Mask fitting due to mask discomfort at night and pressures of cpap [id number] blowing on his face strongly. BMI is elevated discussed Mediterannean Diet and or Dash diet and continue to exercise 3-5 times per week as tolerable. Rhinorrhea ENT f/u for surgery, continue Azelastine nasal spray as ordered by ENT, we discussed not swallowing the medication and tilting the head down and looking at the floor when administering it. . Patient Instructions: Sleep Hygiene provided: set a scheduled bedtime and wake time to help regulate the circadian rhythm and balance the release of pituitary hormones. Sleep in a dark room, temperatures below 68 degrees, and no devices n bed. Limit caffeinated products 6 hours prior to bed, and limit fluids 2-4 hours prior to bed. Gentle night yoga, diffusing essential oils, and playing soft music can be relaxing. Coding Level of Care Code Est Pt Level 4 (28645) Diagnoses Obstructive sleep apnea hypopnea, severe G47.33 Chronic rhinitis J31.0 Deviated nasal septum J34.2 Excessive daytime sleepiness G47.19 Posterior rhinorrhea J34.89 Time Spent (min) 30 Comment compliance monitoring
[2025-03-18 13:03] VITALS: PULSE 70; O2SAT 95; BMI 35.6
== END 2025-03-18 14:00 | disposition home or self-care (01) ==
LOC: HO.HSMS 12:47
PROVIDERS: Visit Provider Physician Assistant Medical
DX: G47.33 Obstructive sleep apnea (adult) (pediatric) (principal); J31.0 Chronic rhinitis; J34.2 Deviated nasal septum; G47.19 Other hypersomnia; J34.89 Other specified disorders of nose and nasal sinuses
CPT/HCPCS: 99214

== ENCOUNTER 2025-05-13 09:02 | Outpatient (AMB) | payer OTHER, SELFPAY ==
--- NOTE | 2025-05-13 09:02 | A.OFFVIS_ITS ---
Intake Visit Reasons: 3m follow up Intake Note: Patient is present for 3M/Telehealth Urology Medication:SILDENAFIL, TADALAFIL Antibiotic Allergy:NONE Blood Thinner:NONE Aquatics Instructor Required: No Accompanied by: Self / Same As Patient Allergies lisinopril Allergy (Unknown, Verified 05/13/25 09:03) Cough HPI Comments Details: Regan is a pleasant male. He is a patient of Dr. Quiroz. He has seen for the following urologic conditions. - lower urinary tract symptoms - primarily nocturia - erectile dysfunction Telemedicine Evaluation 15 min Consultation Jaree Rik Video Three-month follow-up daily tadalafil Has reduced nocturia to 1-2 times Improved consistency with erections Refill provided Six-month follow-up Lower urinary tract symptoms Primarily developing nocturia - background obstructive sleep apnea Waking 2-3 times at night Prior medications include tamsulosin and terazosin Bladder ultrasound 45 g prostate with bladder wall thickening 07/25 GreenLight laser PSA 02/23 1.5 PFSH Medical History Diverticulosis Sleep apnea Ascending aorta dilatation HTN (hypertension) GERD (gastroesophageal reflux disease) Back pain GERD with apnea Surgical History History of prostate surgery Hx of eye surgery (06/16/24) H/O colonoscopy Hx of lithotripsy Carpal tunnel syndrome, bilateral Family History Father HTN (hypertension) Mother No problems noted. Brother No problems noted. Brother No problems noted. Social History Housing: House Patient Tobacco Use Status: Never used Tobacco e-Cigarette/Vaping Use: Never Used Second Hand Smoke Exposure: No service: No Current occupational status: employed Cognitive needs: No Hearing needs: No Vision needs: No Review of Systems Const All systems reviewed & are unremarkable except as noted in HPI and below Reports no additional complaints Resp Reports no additional complaints GI Reports no additional complaints Reports as per HPI Musc Reports no additional complaints Physical Exam Telemedicine evaluation Appropriate responses Regular breathing rate and rhythm HEENT Head: Yes normal to inspection Ears: hearing grossly normal bilaterally Eyes General: appearance normal, both eyes and all related structures Neck Neck: Yes normal visual inspection Chest Chest palpation & inspection: normal inspection of the chest Resp Effort & Inspection: normal respiratory effort and able to speak in complete sentences Telehealth Telehealth Telehealth Platform: Jaree Location of provider rendering services: practice address Location of patient: address on file Patient Identification confirmed using: Name, : Yes Telehealth method: video Patient verbally consented to treatment: Yes Patient verbally consented to billing insurance company: Yes Patient informed of any privacy concerns related to visit: Yes Assessment & Plan Assessment & Plan (1) Nocturia: Comment: Patient getting up to go the bathroom 4-5 times per night. Will draw PSA. Will draw A1c. Will refer patient to Urology Code(s): R35.1 - Nocturia Category: Medical (2) Bladder outlet obstruction: Code(s): N32.0 - Bladder-neck obstruction Category: Medical Plan Six-month follow-up office Patient Instructions: This note is constructed using voice recognition software. While every effort has been made to ensure accuracy food preparation supervisor errors may have been included. Imaging studies, laboratory and physical exam results were discussed and reviewed in detail. No major barriers to patient understanding were identified. An opportunity to ask questions regarding the treatment plan was provided. All questions were answered. The patient expressed understanding and agreement with the above treatment plan. The patient is aware they should contact our office by phone for worsening of their current condition or the appearance of new urologic symptoms. Compliance is encouraged with any medications and followup testing that is ordered. It is a privilege to participate in the urologic care of your patient. If you have any questions or concerns regarding treatment for the above conditions, or other urologic issues, please do not hesitate to contact me. The office telephone contact is [phone]. Sincerely, Dr Tyrell Morataya MD, [facility] - Urology Compassionate Specialist Care for the Genitourinary System Coding Level of Care Code Tele Est Pt Level 3 (23427) Diagnoses Nocturia R35.1 Bladder outlet obstruction N32.0
--- OUTSIDE RECORDS SUMMARY | 2025-05-13 09:52 | XMS_ITS | Patient Health Record ---
Author Organization [facility] Sadieyenni antonio [place] Address [address] [place] [address] Care Team Providers Care Manager Trade Name Role Phone Robert WHITING, [phone] [facility] Pro vider Unavailable Black, Lori Unavailable [phone] Reason For Referral No Information Medications Medication [...] Status W/U Status Risk Notes Problem Bursitis (08237636) Bursitis (727.3) Active confirmed Problem Achilles bursitis (862942651) Achilles Tendonitis Bursitis (726.71) Active confirmed Problem Myositis (24782029) Myositis (729.1) Active confirmed Problem Pain in limb (52781694) Pain in Limb (729.5) Active confirmed Problem Plantar fasciitis (620527045) Plantar Fasciitis (728.71) Active confirmed Problem Calcaneal spur (89754885) Calcaneal spur (726.73) Active confirmed Plan Of Treatment No Information Insurance Providers Payer Name Payer Address Payer Phone Subscriber Number Group Number Insured Name Patient Relationship to Insured Coverage Start Date Coverage End Date Blue Benefits [address] [address] [place] [id number] Rosa Pino Spouse - patient is the spouse of the insured Medical (General) History Medical History History ICD Code High blood pressure Surgical History Surgery Date(Month/Year) kidney stones 08/03/2014
--- OUTSIDE RECORDS SUMMARY | 2025-05-13 09:52 | XMS_ITS | Patient Health Record ---
Author Organization [facility] Address [address] [place] [address] Care Team Providers Care Basketball Commentator Name Role Phone Faisal Jones M.D. Primary Care Provider Yanet vailable Carmelo Douglas [phone] Reason For Referral No Information Medications Medication [...] Problem Status W/U Status Risk Notes Problem [id number] Gastroesophageal reflux disease, esophagitis presence not specified (K21.9) Active confirmed Plan Of Treatment Pending Test Test Name Order Date CELIAC PANEL #10 01/11/2015 Future Test Test Name Order Date COLONOSCOPY 05/19/2013 Insurance Providers Payer Name Payer Address Payer Phone Subscriber Number Group Number Insured Name Patient Relationship to Insured Coverage Start Date Coverage End Date [facility] [address] [facility] [place] [phone] [id number] MELBA RINCON Self - patient is the insured Medical (General) History Medical History History ICD Code Denies AK,DM,CVA,Lung disease,renal dise ase Diverticulosis IBS HTN Colonoscopy in July was negative other than some mild sigmoid diverticulosis and internal hemorrhoids Surgical History Surgery Date(Month/Year) Carpal tunnel bilaterally
== END 2025-05-13 09:30 | disposition home or self-care (01) ==
LOC: HO.HUSH 09:02
PROVIDERS: PCP Nurse Practitioner Family; Visit Provider Urology
DX: R35.1 Nocturia (principal); N32.0 Bladder-neck obstruction
CPT/HCPCS: 99213

== ENCOUNTER 2025-06-16 08:30 | Outpatient (AMB) | payer OTHER, SELFPAY ==
--- NOTE | 2025-06-16 08:34 | A.OFFVIS_ITS ---
Vital Signs 06/16/25 08:39 Height 5 ft 10 in Weight 250 lb BMI 35.9 BP 138/74 Blood Pressure Location Lt brachial Position Sitting Pulse 56 Pulse Oximetry (%) 96 Oxygen Delivery Method Room Air Intake Visit Reasons: follow up after colonoscopy and endoscopy Intake Note: Patient follow up for EGD/Colonoscopy results./Desiree pt he s/c his follow up on the patient portal ?? Patient denies any GI issues. Public Information Coordinator Required: No Accompanied by: Self / Same As Patient Allergies lisinopril Allergy (Unknown, Verified 06/16/25 08:34) Cough Medication List - Last Reconciled 06/16/25 by Abraham Uribe MD albuterol sulfate 90 mcg/actuation 2 puffs inhalation Q6H PRN amlodipine 10 mg PO DAILY atorvastatin 20 mg PO DAILY fluticasone propionate 50 mcg/actuation 2 sprays intranasal DAILY ketoconazole 2% 1 appl topical DAILY losartan-hydrochlorothiazide 100-12.5 mg 1 tab PO DAILY pantoprazole 40 mg PO QAM sildenafil 50 mg PO DAILY PRN tadalafil 5 mg PO DAILY 90 days HPI HPI follow up after colonoscopy and endoscopy: Details: GI clinic visit for this 55 YM with history of RAF, recently diagnosed, lumbar back pain, ascending aorta dilatation, sciatica, hypertension, hyperlipidemia, GERD is here today to discuss EGD and colonoscopy results.? TODAY'S VISIT: Note intermittent GERD symptoms - taking pantoprazole 40 mg daily. Patient complains of intermittent left lower quadrant pain specially after eating pizza and spicy food Pain improves after he has a BM. - advised to take a fiber supplement. PAST VISITS: Patient was sent to us by his PCP.? Last colonoscopy with Dr. Douglas in 2002, normal. Patient just diagnosed with sleep apnea no CPAP yet. Patient denies any gastrointestinal symptoms in the past or at present.? However patient does report occasional acid reflux. Several times a week that sometimes Tums does not even help. Patient reports dyspepsia without dysphagia or odynophagia. Cu rrently not on any PPI or H2 nida. Patient just diagnosed with sleep apnea no CPAP yet. Patient denies any gastrointestinal symptoms in the past or at present.? However patient does report occasional acid reflux. Several times a week that sometimes Tums does not even help. Patient reports dyspepsia without dysphagia or odynophagia. Currently not on any PPI or H2 nida. Patient denies symptoms of heartburn, dysphagia, nausea, vomiting, change in appetite or weight. Denies recent change in bowel habits, constipation, diarrhea, black stools or rectal bleeding. Patient denies major cardiac or pulmonary problems, loud snoring or sleep apnea Denies problems with anesthesia in the past. Denies being on chronic anticoagulation. SOCIAL HISTORY: - Alcohol/Tobacco/Drug Use: Denies history of smoking.? FAMILY HISTORY: Patient denies known family history of colon polyps, colon cancer or other GI malignancies. LABS IN Connected : Reviewed IMAGING STUDIES: Reviewed ENDOSCOPIC STUDIES: Colonoscopy with Dr. Douglas in 2002, normal. 02/18/25 EGD AND COLONOSCOPY SHOWED: Endoscopy Findings: ESOPHAGUS: Mild esophagitis with two 1 cms erosions at the GE junction. Irregular Z line - biopsied to check for Ray's. STOMACH: Gastritis and benign-appearing gastric polyps Colonoscopy Findings: Two small to medium polyps were removed Moderate diverticulosis seen in the left colon Moderate hemorrhoids on retroflexed exam. Plan: Repeat Colonoscopy in 3-5 years if polyps are adenomatous and 10 year if polyps are hyperplastic. A summary of above findings and relevant handouts were given to the patient. BIOPSIES SHOWED: A. Stomach, antrum, biopsy: Gastric antral mucosa with mild reactive gastropathy; negative for Helicobacter pylori, intestinal metaplasia and dysplasia. B. Stomach, body, biopsy: Gastric body mucosa within normal limits; negative for Helicobacter pylori, intestinal metaplasia and dysplasia. C. Stomach, polyp, biopsy: Fundic gland polyp. D. Esophagus, distal, biopsy: Squamocolumnar junctional mucosa with moderate chronic active inflammation; negative for intestinal metaplasia and dysplasia. E. Colon, ascending, polypectomy: Sessile serrated polyp/lesion without dysplasia. F. Ileocecal valve, biopsy: Mildly active ileocolitis (non-specific). G. Rectum, polypectomy: Polypoid colonic mucosa with lamina propria edema otherwise within normal limits; negative for dysplasia Letter sent with biopsy results. Patient placed on the recall list for repeat colonoscopy in 3 years [facility] Medical History (Updated 06/16/25 @ 09:26 by Abraham Uribe MD) Sleep apnea Ascending aorta dilatation HTN (hypertension) GERD (gastroesophageal reflux disease) Back pain GERD with apnea Surgical History History of esophagogastroduodenoscopy (EGD) History of prostate surgery Hx of eye surgery (06/16/24) H/O colonoscopy Hx of lithotripsy Carpal tunnel syndrome, bilateral Family History Father HTN (hypertension) Mother No problems noted. Brother No problems noted. Brother No problems noted. Social History Housing: House Patient Tobacco Use Status: Never used Tobacco e-Cigarette/Vaping Use: Never Used Second Hand Smoke Exposure: No service: No Current occupational status: employed Cognitive needs: No Hearing needs: No Vision needs: No Review of Systems Const All systems reviewed & are unremarkable except as noted in HPI and below Physical Exam Vital Signs: Last Vital Signs Pulse 56 06/16/25 08:39 BP 138/74 06/16/25 08:39 Pulse Ox 96 06/16/25 08:39 Oxygen Delivery Method Room Air 06/16/25 08:39 BMI result Body Mass Index 35.9 Const General: healthy appearing and no acute distress Nutritional Appearance: obese Orientation/consciousness: patient oriented x3 Limitations: no limitations HEENT Head: Yes normal to inspection Ears: hearing grossly normal bilaterally Eyes Sclerae: sclerae normal Pupils: Equal, round and reactive pupils present Neck Neck: Yes normal visual inspection Chest Chest palpation & inspection: normal inspection of the chest Resp Effort & Inspection: normal respiratory effort Auscultation: clear to auscultation bilaterally Cardio Palpation: normal PMI Rate: regular rate Rhythm: regular rhythm Heart sounds: S1 normal heart sound present, S2 normal heart sound present and no murmurs GI Palpation (GI): Soft to palpation, nontender and No hepatosplenomegaly present Auscultation: normal bowel sounds Rectal Exam - Male: Yes deferred Skin General skin exam: no rashes or lesions noted Neuro General: patient oriented x3, gait normal and moves all extremities Cranial nerves: Yes Equal, round and reactive pupils present Psych Appearance: grossly normal Mental Status: mental status grossly normal Assessment & Plan Assessment & Plan (1) Diverticulosis of colon: Code(s): K57.30 - Diverticulosis of large intestine without perforation or abscess without bleeding Category: Medical (2) History of colon polyps: Code(s): Z86.0100 - Personal history of colon polyps, unspecified Category: Medical Plan 55 YM with history of RAF, recently diagnosed, lumbar back pain, ascending aorta dilatation, sciatica, hypertension, hyperlipidemia, GERD is here today to discuss EGD and colonoscopy results.? EGD and colonoscopy results were reviewed. Note intermittent GERD symptoms - taking pantoprazole 40 mg daily. Patient complains of intermittent left lower quadrant pain specially after eating pizza and spicy food Pain improves after he has a BM. - Patient was advised to continue taking pantoprazole and take a fiber supplement daily and work on wt reduction FU in 6 months. Medications: New psyllium husk mix into at least 8 oz of water or juice before administering 1 tbsp PO DAILY 480 grams 3RF 60 days Coding Level of Care Code Est Pt Level 4 (29696) Diagnoses Diverticulosis of colon K57.30 History of colon polyps Z86.0100 Time Spent (min) 21
[2025-06-16 08:39] VITALS: BP 138/74; PULSE 56; O2SAT 96; BMI 35.9
--- OUTSIDE RECORDS SUMMARY | 2025-06-16 08:55 | XMS_ITS | Patient Health Record ---
Author Organization [facility] Sadeiyenni antonio [place] Address [address] [address] Care Team Providers Care Dehairing Machine Tender Name Role Phone Robert WHITING, [phone] [facility] Pro vider Unavailable Black, Lori Unavailable [phone] Reason For Referral No Information Medications Medication [...] Status W/U Status Risk Notes Problem Bursitis (73957848) Bursitis (727.3) Active confirmed Problem Achilles bursitis (013992542) Achilles Tendonitis Bursitis (726.71) Active confirmed Problem Myositis (27088785) Myositis (729.1) Active confirmed Problem Pain in limb (58632545) Pain in Limb (729.5) Active confirmed Problem Plantar fasciitis (949036470) Plantar Fasciitis (728.71) Active confirmed Problem Calcaneal spur (60112780) Calcaneal spur (726.73) Active confirmed Plan Of Treatment No Information Insurance Providers Payer Name Payer Address Payer Phone Subscriber Number Group Number Insured Name Patient Relationship to Insured Coverage Start Date Coverage End Date Blue Benefits [address] [address] [place] [id number] Rosa Pino Spouse - patient is the spouse of the insured Medical (General) History Medical History History ICD Code High blood pressure Surgical History Surgery Date(Month/Year) kidney stones 08/03/2014
--- OUTSIDE RECORDS SUMMARY | 2025-06-16 08:56 | XMS_ITS | Patient Health Record ---
Author Organization [facility] Address [address] [place] [address] Care Team Providers Care Hand Tire Trimmer Name Role Phone Faisal Jones M.D. Primary Care Provider Yanet vailable Carmelo Douglas [phone] Reason For Referral No Information Medications Medication [...] Problem Status W/U Status Risk Notes Problem Gastroesophageal reflux disease ([id number]) Gastroesophageal reflux disease, esophagitis presence not specified (K21.9) Active confirmed Plan Of Treatment Pending Test Test Name Order Date CELIAC PANEL #10 01/11/2015 Future Test Test Name Order Date COLONOSCOPY 05/19/2013 Insurance Providers Payer Name Payer Address Payer Phone Subscriber Number Group Number Insured Name Patient Relationship to Insured Coverage Start Date Coverage End Date [facility] [address] [facility] [place] [phone] [id number] MELBA RINCON Self - patient is the insured Medical (General) History Medical History History ICD Code Denies [place],DM,CVA,Lung disease,renal dise ase Diverticulosis IBS HTN Colonoscopy in July was negative other than some mild sigmoid diverticulosis and internal hemorrhoids Surgical History Surgery Date(Month/Year) Carpal tunnel bilaterally
== END 2025-06-16 09:15 | disposition home or self-care (01) ==
LOC: HO.HGI 08:31
PROVIDERS: PCP Nurse Practitioner Family; Visit Provider Internal Medicine Gastroenterology
DX: K57.30 Diverticulosis of large intestine without perforation or abscess without bleeding (principal); Z86.0100 Personal history of colon polyps, unspecified
CPT/HCPCS: 99214

== ENCOUNTER 2025-06-28 15:27 | Outpatient (AMB) | payer OTHER, SELFPAY ==
--- NOTE | 2025-06-28 15:29 | A.OFFVIS_ITS ---
Vital Signs 06/28/25 15:30 Height 5 ft 10 in Weight 256 lb 8 oz BMI 36.8 BP 148/92 H Blood Pressure Location Rt brachial Position Sitting Pulse 63 Pulse Source Pulse Oximeter Pulse Oximetry (%) 95 Oxygen Delivery Method Room Air Intake Visit Reasons: 3mnth Intake Note: Patient presents follow up RAF. Compliance in chart(50/90days, >=4hrs-44%, Average Usage-3hr 8min, Med Pressure-10.6, Med Leaks- 6.4, AHI-7.3) Accompanied by: Self / Same As Patient Allergies lisinopril Allergy (Unknown, Verified 06/28/25 15:35) Cough HPI Comments Details: 55 year old male with a h/o deviated septum presents for a f/u of severe RAF. RAF Compliance Report March 2025 to Jun 2025 reviewed rosa oliver. Total avg use is 50/90 days and 44%, daily avg use is 3 hours and 8min Press are 10.6cmH20 and Leaks 6.3cmH20 AHI is 7.3/hr He washes his mask, rinses hoses, changes filters and fills his machine with water. HST c/w severe RAF AHI was 45/hr and O2 Edil to 67%, and <88% for over 2min and nocturnal hypoxemia. ENT referral for surgical procedure and evaluation of alternative treatments (inspire therapy), [place] Dr. [place] He reports the nasal pillow mask is much nicer than the one he had previously and he is trying to get acclimated with his machine, however still has anxiety with multiple night time arousals because he can not get enough air into his mouth. The pressures are too strong for him and he starts to choke due to chronich rhinorrhea and post nasal drip. His blood pressure is once again elevated today 148/92 and pt education is provided re benefits of daily use of his cpap. His girlfriend says he snores loudly when he does not use his cpap machine. He says the machine makes continuous hissing noise and it upsets him we discussed using ear plugs or turning on the music to help him relax and fall asleep. He has GERD is on pantoprazole and being followed by GI for diverticulosis. He does not notice a significant change with cpap use, however we discussed the benefits may not be evident at this time since he is not consistent with use, and his labs would provide evidence of improvement along with in lab titration study to correct the nocturnal hypoxemia. He denies headaches. He has RLS symptoms with burning, shooting pain bilateral in legs and now he is working with his Chiropractor who has helped him to manage pain. He wakes up in the middle of the night due to the pain and paces back and forth. [facility] Medical History Sleep apnea Ascending aorta dilatation HTN (hypertension) GERD (gastroesophageal reflux disease) Back pain GERD with apnea Surgical History History of esophagogastroduodenoscopy (EGD) History of prostate surgery Hx of eye surgery (06/16/24) H/O colonoscopy Hx of lithotripsy Carpal tunnel syndrome, bilateral Family History Father HTN (hypertension) Mother No problems noted. Brother No problems noted. Brother No problems noted. Social History Housing: House Patient Tobacco Use Status: Never used Tobacco e-Cigarette/Vaping Use: Never Used Second Hand Smoke Exposure: No service: No Current occupational status: employed Cognitive needs: No Hearing needs: No Vision needs: No Physical Exam Vital Signs: Last Vital Signs Pulse 63 06/28/25 15:30 BP 148/92 H 06/28/25 15:30 Pulse Ox 95 06/28/25 15:30 Oxygen Delivery Method Room Air 06/28/25 15:30 BMI result Body Mass Index 36.8 Const General: cooperative, comfortable and no acute distress Nutritional Appearance: obese (BMI 34) Orientation/consciousness: patient oriented x3 HEENT Other: Mallampati grade III Large tongue Face and sinus: Yes normal facial exam and Yes face symmetric Mouth: muffled voice Throat: Yes uvula midline Eyes Pupils: Equal, round and reactive pupils present, Pupils normal by confrontation and Pupil accommodation reflex normal Neck Neck: Yes full ROM and Yes supple Resp Effort & Inspection: normal respiratory effort and able to speak in complete sentences Back/Spine/Pelvis Other: Wide neck Neuro General: patient oriented x3 Cranial nerves: Yes CN's II-XII intact bilaterally, Yes Equal, round and reactive pupils present, Yes Nystagmus not present, Yes Midline tongue present, Yes Ability to bilaterally rotate head present and Yes Ability to bilaterally elevate shoulders present Cognition (Neuro): normal cognition Motor exam (neuro): 5/5 motor strength present throughout Deep tendon reflexes (DTR's): Right triceps reflex intensity grade: 2+, Left triceps reflex intensity grade: 2+, Rt Biceps (C5, C6): 2+, Left biceps reflex intensity grade: 2+, Right brachioradialis reflex intensity grade: 2+, Left brachioradialis reflex intensity grade: 2+, Right patellar reflex intensity grade: 2+ and Left patellar reflex intensity grade: 2+ Coordination: [id number] test normal Psych Mental Status: mental status grossly normal Affect: normal affect Thought process: Normal thought process present Thought content: Normal thought content present Results Reviewed Results Reviewed: RAF Compliance Report March 2025 to Jun 2025 reviewed rosa oliver. Total avg use is 50/90 days and 44%, daily avg use is 3 hours and 8min Press are 10.6cmH20 and Leaks 6.3cmH20 AHI is 7.3/hr He washes his mask, rinses hoses, changes filters and fills his machine with water. HST c/w severe RAF AHI was 45/hr and O2 Edil to 67%, and <88% for over 2min. Nocturnal hypoxemia. Assessment & Plan Assessment & Plan (1) RAF on CPAP: Code(s): G47.33 - Obstructive sleep apnea (adult) (pediatric); Z99.89 - Dependence on other enabling machines and devices Category: Medical (2) Nocturnal hypoxemia: Code(s): G47.34 - Idiopathic sleep related nonobstructive alveolar hypoventilation Category: Medical (3) Deviated nasal septum: Code(s): J34.2 - Deviated nasal septum Category: Medical (4) Obstructive sleep apnea hypopnea, severe: Comment: History of obstructive sleep apnea. Code(s): G47.33 - Obstructive sleep apnea (adult) (pediatric) Category: Medical Plan: (5) Chronic rhinitis: Comment: ENT f/u for surgical reduction Code(s): J31.0 - Chronic rhinitis Category: Medical (6) Excessive daytime sleepiness: Comment: ESS 10 Code(s): G47.19 - Other hypersomnia Category: Medical (7) Posterior rhinorrhea: Comment: azelastine per ent Code(s): J34.89 - Other specified disorders of nose and nasal sinuses Category: Medical (8) Chronic fatigue: Code(s): R53.82 - Chronic fatigue, unspecified Category: Medical Plan RAF cpap compliance reviewed with pt today, and his AHI is still elevated, he has nocurnal hypoxemia on HST, will send him for a titrtaion study in lab. Mask fitting due to mask discomfort at night and pressures are cpap [id number] forcefully blow on his face, may need adjustment of his temperatures and pressures in lab PSG titration. ENT evaluation for Insp[facility] therapy [place]. Dr. Villa. Congestion and Rhinorrhea ENT f/u for surgery, continue Azelastine nasal spray as ordered by ENT, we discussed not swallowing the medication and tilting the head down and looking at the floor when administering it. Labs to r/o anemia and deficiencies. Pt reminded I will send him medications such as lorazepam or ambien for sleep onset during the inlab titration study if needed. F/U in 3 months . Orders: Orders Comprehensive Met. Panel Today G47.19 - Other hypersomnia, R53.82 - Chronic fatigue, unspecified Ferritin Today G47.19 - Other hypersomnia, R53.82 - Chronic fatigue, unspecified Hemoglobin A1c Today G47.19 - Other hypersomnia, R53.82 - Chronic fatigue, unspecified Methylmalonic Acid Today G47.19 - Other hypersomnia, G47.9 - Sleep disorder, unspecified, R53.82 - Chronic fatigue, unspecified, R53.83 - Other fatigue Homocysteine Today G47.19 - Other hypersomnia, G47.9 - Sleep disorder, unspecified, R53.82 - Chronic fatigue, unspecified, R53.83 - Other fatigue Vitamin B6 Today G47.19 - Other hypersomnia, R53.82 - Chronic fatigue, unspecified RT PSG in-lab sleep titration Today G47.33 - Obstructive sleep apnea (adult) (pediatric), G47.34 - Idiopathic sleep related nonobstructive alveolar hypoventilation Complete Blood Count no Diff Today G47.19 - Other hypersomnia, R53.82 - Chronic fatigue, unspecified IRON PROFILE Today G47.19 - Other hypersomnia, G47.9 - Sleep disorder, unspecified, R53.82 - Chronic fatigue, unspecified, R53.83 - Other fatigue Vitamin D 25-OH Total Today G47.19 - Other hypersomnia, R53.82 - Chronic fatigue, unspecified Vitamin B12 and Folate Today G47.19 - Other hypersomnia, R53.82 - Chronic fatigue, unspecified TSH reflex Free T4 Today G47.19 - Other hypersomnia, R53.82 - Chronic fatigue, unspecified Referrals Ear/Nose/Throat Referral G47.30 - Sleep apnea, unspecified, J34.2 - Deviated nasal septum Coding Level of Care Code Est Pt Level 4 (21368) Complex EM visit Add On G2211 Diagnoses RAF on CPAP G47.33; Z99.89 Nocturnal hypoxemia G47.34 Deviated nasal septum J34.2 Obstructive sleep apnea hypopnea, severe G47.33 Chronic rhinitis J31.0 Excessive daytime sleepiness G47.19 Posterior rhinorrhea J34.89 Chronic fatigue R53.82
[2025-06-28 15:30] VITALS: BP 148/92; PULSE 63; O2SAT 95; BMI 36.8
--- OUTSIDE RECORDS SUMMARY | 2025-06-28 19:51 | XMS_ITS | Data Portability ---
Author Organization [place] - [facility], Allergy Address [address] [place] [address] Care Team Providers Care Agricultural Research Technologist Name Role Phone ROSS COBOS Primary Care Provider Assessment Encounter Date Assessment Date Assessment LastModified by Organization Details LastModified Time 04/22/2025 04/22/2025 Visit With: Erica Jensen Use of Antihistamine s: No If yes: Vial Test Change in medications: No If yes Increase in asthma symptoms No Asthma Hx If yes, inhaler use: Reaction to last injections: No If yes: Allergy Symptoms: Other: Missed: 1 week Dose Repeated Aware of Vial Test Aware: Notes: [email or web address] Not available 04/22/2025 11:44:08 04/29/2025 04/29/2025 Visit With: Kathy Torrez RN Use of Antihistamine s: No If yes: Vial Test Change in medications: No If yes Increase in asthma symptoms If yes, inhaler use: Reaction to last injections: No If yes: Allergy Symptoms: Other: Missed: Dose Aware of Vial Test Aware: Notes: [email or web address] Not available 04/29/2025 12:10:15 05/13/2025 05/13/2025 Visit With: MICHAEL Byrnes Use of Antihistamine s: No If yes: Vial Test Change in medications: No If yes Increase in asthma symptoms If yes, inhaler use: Reaction to last injections: No If yes: Allergy Symptoms: Other: Missed: Dose Aware of Vial Test Aware: Notes: [email or web address] Not available 05/13/2025 10:16:58 05/27/2025 05/27/2025 Visit With: Verónica Nix [place] Use of Antihistamine s: No If yes: Vial Test Change in medications: No If yes Increase in asthma symptoms No Asthma Hx If yes, inhaler use: Reaction to last injections: No If yes: Allergy Symptoms: Other: Missed: Dose Aware of Vial Test Aware: Notes: [email or web address] Not available 05/27/2025 12:13:09 06/03/2025 06/03/2025 Visit With: Erica Jensen Use of Antihistamine s: No If yes: Vial Test Change in medications: No If yes Increase in asthma symptoms If yes, inhaler use: Reaction to last injections: No If yes: Allergy Symptoms: Other: Missed: Dose Aware of Vial Test Aware: Notes: [email or web address] Not available 06/03/2025 11:49:53 Plan of Treatment Reminders Order Date Submit Date Provider Last Modified By Organization Details Last Modified Time Details Appointments [facility]- Allergy f-up 6mon 2025 11:00A M JOSE MIGUEL CLAIRE MD Not available Not available Not available Lab None recorded . Referral None recorded . Procedures None recorded . Surgeries None recorded . Imaging None recorded . Medication Orders None recorded . Patient TargetsNo targets recorded. Patient InstructionsNo instructions recorded. Reason for Referral None Reported. Problems Name Problem SNOMED Code Status Onset Date Resolution Date Notes Provider Name and Address Organization Details Recorded Time Obstructi ve sleep apnea syndrome 15544554 Active 2019 Obstructiv e sleep apnea (adult) (pediatric ); Note: Date Diagnosed: 07/03/2020 11:19 AM (G47.33) JOSE MIGUEL SOTOMAYOR MD [address] [place] [address],[place] [address], [address] , [facility] - [facility] 5 15:57:50 Posterior rhinorrhe a 20177561 Active 2019 Postnasal drip; Note: Date Diagnosed: 07/03/2020 11:19 AM (R09.82) Not Available [facility] 4 02:54:35 Snoring 02619420 Active 2023 JOSE MIGUEL SOTOMAYOR MD [address] [place] [address],[place] [address], [place], [address] , [place] [facility] 4 09:47:17 Chronic rhinitis 51506177 Active 2023 JOSE MIGUEL SOTOMAYOR MD [address] [facility] [address], [place], [address] , [place] [facility] 4 09:47:22 Deviated nasal septum 155326472 Active 2023 JOSE MIGUEL SOTOMAYOR MD [address] [facility] [address], [place], [address] , [place] [facility] 4 09:47:26 Feeling of lump in throat 384781044 Active 2023 JOSE MIGUEL SOTOMAYOR MD [address] [facility] [address], [place], [address] , [place] [facility] 4 09:47:30 Allergic rhinitis 68750986 Active 2023 JOSE MIGUEL SOTOMAYOR MD [address] [facility] [address], [place], [address] , [place] [facility] 4 09:56:43 Nasal congestio n 69246531 Active 2024 JOSE MIGUEL SOTOMAYOR MD [address] [facility] [address], [place], [address] , [place] [facility] 5 09:10:23 Chronic sinusitis 77358976 Active 2024 JOSE MIGUEL SOTOMAYOR MD [address] [facility] [address], [place], [address] , [place] [facility] 5 15:55:02 Perennial allergic rhinitis 412664520 Active 2024 MICHAEL ROMO [address], [place], [address] , [place] [facility] 5 11:48:04 Seasonal allergic rhinitis 869385528 Active 2024 JOSE MIGUEL SOTOMAYOR MD [address], [place], [address] , [place] [facility] 15:54:25 Problem Notes None recorded. Procedures Surgical History Date Name Laterality Status Provider Name and Address Organization Details Recorded Time 06/03/20 25 Allergy Immunotherapy Injections completed MICHAEL ROMO [address], [place], [address], [place] [facility] 06/03/2025 11:49:46 05/27/20 25 Allergy Immunotherapy Injections completed Verónica Nix [address], [place], [address], [place] [facility] 05/27/2025 12:12:59 05/13/20 25 Allergy Immunotherapy Injections completed MICHAEL ROMO [address], [place], [address], [place] [facility] 05/13/2025 10:16:47 04/29/20 25 Allergy Immunotherapy Injections completed MICHAEL ROMO [address], [place], [address], [place] [facility] 04/29/2025 12:10:02 04/22/20 25 Allergy Immunotherapy Injections completed Verónica Nix [address], [place], [address], [place] [facility] 04/22/2025 11:43:53 04/08/20 25 Allergy Immunotherapy Injections completed MICHAEL BYRNES [address], [place], [address], [place] [facility] 04/08/2025 11:52:29 04/01/20 25 Allergy Immunotherapy Injections completed ERICA JENSEN RMA [address], [place], [address], [place] [facility] 04/01/2025 11:46:12 03/25/20 25 Allergy Immunotherapy Injections completed RADHA CASTRO RMA [address], [place], [address], [place] [facility] 03/25/2025 11:14:09 03/18/20 25 Allergy Immunotherapy Injections completed LOGAN ROMOA [address], [place], [address], [place] [facility] 03/18/2025 12:09:33 03/09/20 25 Allergy Immunotherapy Injections completed ERICA JENSEN RMA [address], [place], [address], [place] [facility] 03/09/2025 15:27:04 02/26/20 25 Allergy Immunotherapy Injections completed MICHAEL ROMO [address], [place], [address], [place] [facility] 02/25/2025 12:08:34 01/29/20 25 Allergy Immunotherapy Injections completed KATHY TORREZ RN [address] [place] [address], [address], [place] [facility] 01/28/2025 10:37:12 01/08/20 25 Allergy Immunotherapy Injections completed MICHAEL BYRNES [address], [place], [address], [place] [facility] 01/07/2025 11:39:55 01/01/20 25 Allergy Immunotherapy Injections completed KATHY TORREZ RN [address] [place] [address], [address], [place] [facility] 12/31/2024 12:12:52 12/18/19 25 Allergy Immunotherapy Injections completed KATHY TORREZ RN [address] [place] [address], [address], [place] [facility] 12/17/2024 09:51:57 12/04/19 25 Allergy Immunotherapy Injections completed MICHAEL BYRNES [address], [place], [address], [place] [facility] 12/03/2024 11:47:21 11/27/19 25 Allergy Immunotherapy Injections completed MICHAEL ROMO [address], [place], [address], [place] [facility] 11/26/2024 11:41:01 11/20/19 25 Allergy Immunotherapy Injections completed RADHA DEVIN, RMA [address] [facility], [place], [address], [facility] - [facility] 11/19/2024 11:28:16 11/06/19 25 Allergy Immunotherapy Injections completed ERICA JENSEN RMA [address], [place], [address], [facility] - [facility] 11/05/2024 12:11:25 10/15/19 25 Allergy Immunotherapy Injections completed ERICA JENSEN RMA [address] [facility] [address], [place], [address], [place] [facility] 10/15/2024 12:52:52 10/08/19 25 Allergy Immunotherapy Injections completed RADHA CASTRO, RMA [address] [place] [address], [address], [facility] - [facility] 10/08/2024 12:06:57 10/01/19 25 Allergy Immunotherapy Injections completed ERICA JENSEN A [address] [facility] [address] [place] [address], [address], [facility] - [facility] 10/01/2024 11:50:19 09/20/19 25 Allergy Immunotherapy Injections completed KATHY TORREZ RN [address] [facility] [address],[address], [address], [facility] - [facility] 09/20/2024 10:01:22 07/23/20 24 Allergy Testing-Full completed RADHA CASTRO, RMA [address] [facility] [address] [place] [address], [address], [facility] - [facility] 07/23/2024 15:31:38 06/29/20 24 Fiberoptic Laryngoscopy (Comprehensive) completed JOSE MIGUEL SCHMIDT MD [address] [facility] [address] [place] [address], [address], [facility] - [facility] 06/29/2024 09:54:45 06/16/20 24 Revise eye muscle completed JOSE MIGUEL SCHMIDT MD [address] [facility] [address] [place] [address], [phone], [facility] 06/29/2024 09:42:26 Imaging Results None recorded. [...] 24 hr 06/29 completed Medicati on ID: [id number] B rand Name: metoprol ol succinat e Send Method: E-Prescr ibed Sub s Allowed: subs OK Speci al Instruct ion: TAKE 1 TABLET BY MOUTH EVERY DAY Medi cationGe nericNam e: metoprol ol succinat e Not Available Not Available Not Available azelastin e 137 mcg (0.1 %) nasal spray SPRAY 2 SPRAYS BY INTRANAS AL ROUTE TWICE A DAY active Not Available Not Available No [...] e 50 mcg/actua tion nasal spray,melissa pension USE 1 SPRAY IN EACH NOSTRIL ONCE EVERY DAY active Not Available Not Available No t Available doxycycli ne hyclate 100 mg tablet Take 1 tablet twice a day by oral route for 10 days. 09/20 completed Not Available Not Available Not Available ipratropi um bromide 21 mcg (0.03 %) nasal spray Inhale 2 spray three times a day as directed 06/29 completed Medicati on ID: [id number] [place]enu [place] By Name: Kim Da Silva [...] DIRECTED BY GASTROEN TEROLOGY DEPARTME NT AT [facility] 02/18 completed Not Available Not Available Not Available Vitals None Recorded Social History Question Answer Notes LastModified by Organizat ion Details LastModified Time Tobacco Smoking Status Never Smoker Jacque escobar [place] - [facility] 03/09/2025 15:17:16 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 None [email or web address] Information not available 03/09/2025 Do You Have Any Pets? Yes [email or web address] Information not available 03/09/2025 Are You Passively Exposed To Smoke? No [email or web address] Information not available 03/09/2025 Are There Any Smokers In Your House? No [email or web address] Information not available 03/09/2025 Sex: Unknown Functional Status Question Answer Note LastModified by Organizat ion Details LastModified Time How many times per week do you consume alcohol? 1-2 times per week Information not available 03/09/2025 Do you use any illicit or recreational drugs? No [email or web address] Information not available 03/09/2025 Do you or have you ever used any other forms of tobacco or nicotine? No [email or web address] Information not available 03/09/2025 What is your level of alcohol consumption? Occasional [email or web address] Information not available 03/09/2025 What type of noise exposure are you exposed to? Industrial [email or web address] Information not available 03/09/2025 Mental Status None recorded. Family History Nothing Reported. Medical History Condition Response Hyperlipidemia Y Hypertension Y Sleep Disorder Y GERD/Reflux Y Past Encounters Encounter ID Performer Location Encounter Start Date Encounter Closed Date Diagnosis/Indication Diagnosis SNOMED-CT Code Diagnosis ICD10 Code Diagnosis IMO Codes Diagnosis Note [id number] JOSE MIGUEL SOTOMAYOR MD [facility] [address] [facility] [place] [address] 06/29/2024 09:21:20 06/29/2024 10:00:34 Snoring 45035802 R06.83 Chronic rhinitis 6725526 6 J31.0 Deviated nasal septum 12 0457339 J34.2 Feeling of lump in throat 191288601 R09.89 Allergic rhinitis 819118 04 J30.9 [id number] RADHA BELTRAN, [facility] Allergy [address] [facility] [address] [place] [address] [place], [place] [address] 07/23/2024 12:39:42 07/23/2024 15:37:35 Allergic rhinitis 67233976 J30.9 [id number] JOSE MIGUEL SOTOMAYOR MD [facility] of [facility] [address] [facility] [place] [address] 09/08/2024 08:35:14 09/08/2024 10:43:33 Allergic rhinitis 41430943 J30.9 We reviewed testing results and medical [...] Epipen use discussed Deviated nasal septum 12 8112179 J34.2 Chronic sinusitis 838835 00 J32.9 There is evidence of diffuse maxillary and ethmoid sinus thickening predominan tly on the right side. Septal deviation to the right and turbinate hypertroph y. Suggest adding fluticason e to his Astelin, a course of doxycyclin e and proceeding with immun[place] apy [id number] KATHY TORREZ RN Allergy [address] [place] [address],[place] [address] [place] [address] 09/20/2024 09:20:22 09/20/2024 10:13:08 Perennial allergic rhinitis 063284547 J30.89 [id number] ERICA JENSEN [facility] Allergy [address] [place] [address],[place] [address] [place] [address] 10/01/2024 11:20:43 10/01/2024 11:50:36 Perennial allergic rhinitis 402458343 J30.89 [id number] [facility] Allergy [address] [place] [address],[place] [address] [place] [address] 10/08/2024 11:30:58 10/08/2024 12:07:20 Perennial allergic rhinitis 654234119 J30.89 [id number] ERICA JENSEN [facility] Allergy [address] [place] [address],[place] [address] [place] [address] 10/15/2024 11:31:35 10/15/2024 12:54:02 Perennial allergic rhinitis 753536215 J30.89 [id number] [facility] Allergy [address] [place] [address],[place] [address] [place] [address] 11/05/2024 11:22:09 11/05/2024 12:12:21 Perennial allergic rhinitis 061977578 J30.89 [id number] [facility], [facility] Allergy [address] [place] [address],[place] [address] [place] [address] 11/19/2024 11:24:02 11/19/2024 11:28:42 Perennial allergic rhinitis 065742658 J30.89 [id number] ERICA JENSEN [facility] Allergy [address] [place] [address],[place] [address] [place] [address] 11/26/2024 11:14:13 11/26/2024 11:41:34 Perennial allergic rhinitis 282421300 J30.89 [id number] [facility], [facility] Allergy [address] [place] [address], [address] [place] [address] 12/03/2024 11:05:14 12/03/2024 11:47:44 Perennial allergic rhinitis 585059901 J30.89 [id number] ERICA JENSEN, [facility] Allergy [address] [place], [place] [address] [address] [place] [address] 12/17/2024 09:37:24 12/17/2024 09:52:55 Perennial allergic rhinitis 894177808 J30.89 [id number] KATHY TORREZ crop pest control specialist [address] [place], [place] [address] [address] [place] [address] 12/31/2024 11:14:56 12/31/2024 12:13:39 Perennial allergic rhinitis 156367430 J30.89 [id number] [facility] [address] [place], [place] [address] [address] [place] [address] 01/07/2025 11:21:24 01/07/2025 11:40:28 Perennial allergic rhinitis 320174376 J30.89 [id number] [facility], [facility] Allergy [address] [place] [address], [address] [place] [address] 01/28/2025 10:36:04 01/28/2025 10:37:35 Perennial allergic rhinitis 475901390 J30.89 [id number] [facility] All[facility] [address] [place] [address], [address] [place] [address] 02/25/2025 11:47:16 02/25/2025 12:09:24 Perennial allergic rhinitis 468735222 J30.89 [id number] JOSE MIGUEL SOTOMAYOR MD [facility] of [facility] [address] [facility] [place] [address] 03/09/2025 15:12:54 03/09/2025 16:00:27 Deviated nasal septum 995690231 J34.2 Allergic rhinitis 645460 04 J30.9 Chronic sinusitis 296029 00 J32.8 [id number] Continue irrigation s and nasal sprays with allergy management before surgery Obstructiv e sleep apnea syndrome 55176855 G47.33 1182350 [id number] ERICA JENSEN, [facility] Allergy [address] [facility],[place] [address] [place] [address] 03/09/2025 15:15:06 03/09/2025 15:39:50 Perennial allergic rhinitis 938630393 J30.89 [id number] ERICA JENSEN, [facility] Allergy [address] [place] [address],[place] [address] [place] [address] 03/18/2025 12:08:22 03/18/2025 12:10:00 Perennial allergic rhinitis 675330106 J30.89 [id number] ERICA JENSEN, [facility] Allergy [address] [place] [address], [address] [place] [address] 03/25/2025 09:21:54 03/25/2025 11:14:59 Perennial allergic rhinitis 616893403 J30.89 [id number] ERICA JENSEN [facility] Allergy [address] [place] [address],[place] [address] [place] [address] 04/01/2025 11:22:59 04/01/2025 11:46:39 Perennial allergic rhinitis 687309289 J30.89 [id number] [facility], [facility] Allergy [address] [facility],[place] [address] [place] [address] 04/08/2025 11:51:35 04/08/2025 11:52:50 Perennial allergic rhinitis 736910786 J30.89 [id number] ERICA JENSEN [facility] Allergy [address] [place] [address],[place] [address] [place] [address] 04/22/2025 11:34:46 04/22/2025 11:44:43 Perennial allergic rhinitis 097648965 J30.89 [id number] KATHY TORREZ crop pest control specialist [address] [place] [address],[place] [address] [place] [address] 04/29/2025 12:09:18 04/29/2025 12:10:28 Perennial allergic rhinitis 686915862 J30.89 [id number] ERICA JENSEN [facility] [address] [facility],[place] [address] [place] [address] 05/13/2025 10:16:00 05/13/2025 10:17:15 Perennial allergic rhinitis 032955317 J30.89 [id number] Verónica Nix Allergy [address] [facility],[place] [address] [place] [address] 05/27/2025 11:27:58 05/27/2025 12:13:23 Perennial allergic rhinitis 267356684 J30.89 [id number] MICHAEL ROMO Allergy [address] [facility], [address] [place] [address] 06/03/2025 11:24:50 06/03/2025 11:50:11 Perennial allergic rhinitis 034625282 J30.89 Health Concerns Section Related Observation LastModified by Organization Detai ls LastModified Time None Recorded Concern Status LastModified by Organization Details LastModified Time None Recorded Advance Directives Directive None Recorded Payers Insurance Date Sequence Insurance Name Policy Number Policy Dacosta Covered Member ID Dacosta Member ID Guarantor Name 06/03/2025 1 [facility] [id number] Regan Lama [id number] Regan Lama
--- OUTSIDE RECORDS SUMMARY | 2025-06-28 19:51 | XMS_ITS | Patient Health Record ---
Author Organization [facility] Sadieyenni antonio Burke Address [address] [place] [address] Care Team Providers Care Master Of Ceremonies Name Role Phone Robert WHITING, [phone] [facility] Pro vider Unavailable Black, Lori Unavailable [phone] Reason For Referral No Information Medications Medication [...] Status W/U Status Risk Notes Problem Bursitis (31217121) Bursitis (727.3) Active confirmed Problem Achilles bursitis (632691854) Achilles Tendonitis Bursitis (726.71) Active confirmed Problem Myositis (90119649) Myositis (729.1) Active confirmed Problem Pain in limb (49970653) Pain in Limb (729.5) Active confirmed Problem Plantar fasciitis (539093391) Plantar Fasciitis (728.71) Active confirmed Problem Calcaneal spur (75661337) Calcaneal spur (726.73) Active confirmed Plan Of Treatment No Information Insurance Providers Payer Name Payer Address Payer Phone Subscriber Number Group Number Insured Name Patient Relationship to Insured Coverage Start Date Coverage End Date [employer] Benefits [address] [address] [place] [id number] Rosa Pino Spouse - patient is the spouse of the insured Medical (General) History Medical History History ICD Code High blood pressure Surgical History Surgery Date(Month/Year) kidney stones 08/03/2014
--- OUTSIDE RECORDS SUMMARY | 2025-06-28 19:51 | XMS_ITS | Patient Health Record ---
Author Organization [facility] Address [address] [place] [address] Care Team Providers Care Consulting Services Project Manager Name Role Phone Faisal Jones M.D. Primary Care Provider Yanet vailable Carmelo Douglas [phone] Reason For Referral No Information Medications Medication [...] Status Risk Notes Problem Gastroesophageal reflux disease (105679469) Gastroesophageal reflux disease, esophagitis presence not specified (K21.9) Active confirmed Plan Of Treatment Pending Test Test Name Order Date CELIAC PANEL #10 01/11/2015 Future Test Test Name Order Date COLONOSCOPY 05/19/2013 Insurance Providers Payer Name Payer Address Payer Phone Subscriber Number Group Number Insured Name Patient Relationship to Insured Coverage Start Date Coverage End Date [facility] [address] [place] [address] [id number] MELBA RINCON Self - patient is the insured Medical (General) History Medical History History ICD Code Denies ID,DM,CVA,Lung disease,renal dise ase Diverticulosis IBS HTN Colonoscopy in July was negative other than some mild sigmoid diverticulosis and internal hemorrhoids Surgical History Surgery Date(Month/Year) Carpal tunnel bilaterally
== END 2025-06-28 16:13 | disposition home or self-care (01) ==
LOC: HO.HSMS 15:27
PROVIDERS: PCP Nurse Practitioner Family; Visit Provider Physician Assistant Medical
DX: G47.33 Obstructive sleep apnea (adult) (pediatric) (principal); Z99.89 Dependence on other enabling machines and devices; G47.34 Idiopathic sleep related nonobstructive alveolar hypoventilation; J34.2 Deviated nasal septum; J31.0 Chronic rhinitis; G47.19 Other hypersomnia; J34.89 Other specified disorders of nose and nasal sinuses; R53.82 Chronic fatigue, unspecified
CPT/HCPCS: 99214; G2211

== ENCOUNTER 2025-07-21 09:21 | Outpatient (REF) | payer OTHER, SELFPAY ==
[2025-07-21 10:15] LABS: MANUAL DIFF FLAG NO
[2025-07-21 10:26] LABS: Hematocrit 44.1 % (42.0-52.0); Hemoglobin 14.4 g/dl (14.0-18.0); Imm Gran Abs Auto 0.02 X10*3/uL (0.00-0.03); Imm Gran Pct Auto 0.3 % (0.0-0.4); Lymphocytes Absolute Auto 1.1 X10*3/uL (1.2-4.9); Mean Corpuscular HGB Conc 32.7 g/dl (31.0-36.0); Mean Corpuscular Hemoglobin 30.1 pg (27.0-33.0); Mean Corpuscular Volume 92.3 fL (80.0-98.0); NRBC Abs Auto 0.000 X10*3/uL (0.0-0.012); NRBC Pct Auto 0.0 /100WBC (0.0-0.2); Platelet Count 269 X10*3/uL (160-400); Red Blood Count 4.78 X10*6/uL (4.60-5.80); White Blood Count 5.7 X10*3/uL (4.8-10.8)
[2025-07-21 11:21] LABS: Alanine Aminotransferase 22 U/L (0-40); Albumin Level 4.4 g/dL (3.5-5.0); Alkaline Phosphatase 59 U/L (39-117); Anion Gap 12 (12-20); Aspartate Amino Transferase 26 U/L (5-37); Blood Urea Nitrogen 21 mg/dL (9-16); Calcium 9.2 mg/dL (8.4-10.2); Carbon Dioxide 28 mmol/L (22-29); Chloride 108 mmol/L (96-108); Cholesterol 164 mg/dL (<200); Estimated Glomerular Filt Rate > 60; HDL Cholesterol 47 mg/dL (>40); Potassium 3.5 mmol/L (3.3-5.1); Sodium 144 mmol/L (135-145); Total Protein 7.3 g/dL (6.5-8.0); Triglycerides 111 mg/dL (<150)
--- OUTSIDE RECORDS SUMMARY | 2025-07-21 12:09 | XMS_ITS | Continuity of Care Document ---
Author Organization [place] [facility], Allergy Address [address] [place] [address] Care Team Providers Care Leather Tacker Name Role Phone ROSS COBOS Primary Care Provider [phone] Assessment Encounter Date Assessment Date Assessment LastModified [...] Repeated Aware of Vial Test Aware: Notes: [email or web address] Not available 04/22/2025 11:44:08 Plan of Treatment Reminders Order Date Submit Date Provider Last Modified By Organization Details Last Modified Time Details Appointments None record ed. Lab None record ed. Referral None record ed. Procedures None record ed. Surgeries None record ed. Imaging None record ed. Medication Orders None record ed. Patient TargetsNo targets recorded. Patient InstructionsNo instructions recorded. Reason for Referral None Reported. Problems Name Problem SNOMED Code Status Onset Date Resolution Date Notes Provider Name and Address Organization Details Recorded Time Obstructi ve sleep apnea syndrome 04554886 Active 2019 Obstructiv e sleep apnea (adult) (pediatric ); Note: Date Diagnosed: 07/03/2020 11:19 AM (G47.33) JOSE MIGUEL SOTOMAYOR MD [address] [facility] 100, [place], [address] , [place] [facility] 5 15:57:50 Posterior rhinorrhe a 53469533 Active 2019 Postnasal drip; Note: Date Diagnosed: 07/03/2020 11:19 AM (R09.82) Not Available [facility] 4 02:54:35 Snoring 41046163 Active 2023 JOSE MIGUEL SOTOMAYOR MD [address], [place], [address] , [place] [facility] 4 09:47:17 Chronic rhinitis 91825126 Active 2023 JOSE MIGUEL SOTOMAYOR MD [address], [place], [address] , [place] [facility] 4 09:47:22 Deviated nasal septum 764273907 Active 2023 JOSE MIGUEL SOTOMAYOR MD [address] [facility], [place], [address] , [place] [facility] 4 09:47:26 Feeling of lump in throat 012628413 Active 2023 JOSE MIGUEL SOTOMAYOR MD [address] [facility], [place], [address] , [place] [facility] 4 09:47:30 Allergic rhinitis 48945941 Active 2023 JOSE MIGUEL SOTOMAYOR MD [address] [facility] [address], [place], [place], [address] , [place] [facility] 4 09:56:43 Nasal congestio n 54100483 Active 2024 JOSE MIGUEL SOTOMAYOR MD [address], [place], [address] , [place] [facility] 5 09:10:23 Chronic sinusitis 40244608 Active 2024 MD Tai IZQUIERDO [address], [place], [address] , [place] [facility] 15:55:02 Perennial allergic rhinitis 428672005 Active 2024 MICHAEL ROMO [address] [facility] [address] [facility], [place], [address] , [place] [facility] 11:48:04 Seasonal allergic rhinitis 805029683 Active 2024 JOSE MIGUEL SOTOMAYOR MD [address] [facility] [facility], [place], [address] , [place] [facility] 15:54:25 Problem Notes None recorded. Procedures Surgical History Date Name Laterality Status Provider Name and Address Organization Details Recorded Time 06/03/20 25 Allergy Immunotherapy Injections completed MICHAEL ROMO [address] [facility],[address] [facility], [place], [address], [facility] - [facility] 06/03/2025 11:49:46 05/27/20 25 Allergy Immunotherapy Injections completed Verónica Nix [address] [facility],[address], [address], [facility] - [facility] 05/27/2025 12:12:59 05/13/20 25 Allergy Immunotherapy Injections completed MICHAEL ROMO [address] [facility],[address] [facility], [place], [address], [facility] - [facility] 05/13/2025 10:16:47 04/29/20 25 Allergy Immunotherapy Injections completed MICHAEL ROMO [address] [facility],[address], [address], [place] [facility] 04/29/2025 12:10:02 04/22/20 25 Allergy Immunotherapy Injections completed Verónica Nix [address] [facility] [facility], [place], [address], [place] [facility] 04/22/2025 11:43:53 04/08/20 25 Allergy Immunotherapy Injections completed MICHAEL SANCHEZ [address], [place], [address], [place] [facility] 04/08/2025 11:52:29 04/01/20 25 Allergy Immunotherapy Injections completed MICHAEL ROMO [address], [place], [address], [place] [facility] 04/01/2025 11:46:12 03/25/20 25 Allergy Immunotherapy Injections completed RADHA CASTRO RMLinda [address], [place], [address], [place] [facility] 03/25/2025 11:14:09 03/18/20 25 Allergy Immunotherapy Injections completed MICHAEL ROMO [address], [place], [address], [place] [facility] 03/18/2025 12:09:33 03/09/20 25 Allergy Immunotherapy Injections completed MICHAEL ROMO [address], [place], [address], [place] [facility] 03/09/2025 15:27:04 02/26/20 25 Allergy Immunotherapy Injections completed MICHAEL ROMO [address], [place], [address], [place] [facility] 02/25/2025 12:08:34 01/29/20 25 Allergy Immunotherapy Injections completed KATHY TORREZ RN [address] [place] [address], [address], [place] [facility] 01/28/2025 10:37:12 01/08/20 25 Allergy Immunotherapy Injections completed MICHAEL SANCHEZ [address], [place], [address], [place] [facility] 01/07/2025 11:39:55 01/01/20 25 Allergy Immunotherapy Injections completed KATHY TORREZ RN [address] [address] [place] [address], [address], [place] [facility] 12/31/2024 12:12:52 12/18/19 25 Allergy Immunotherapy Injections completed KATHY TORREZ RN [address], [place], [address], [place] [facility] 12/17/2024 09:51:57 12/04/19 25 Allergy Immunotherapy Injections completed RADHA KORZEC, RMA [address], [place], [address], [place] [facility] 12/03/2024 11:47:21 11/27/19 25 Allergy Immunotherapy Injections completed LOGAN ROMOA [address], [place], [address], [place] [facility] 11/26/2024 11:41:01 11/20/19 25 Allergy Immunotherapy Injections completed RADHA CASTRO, RMA [address], [place], [address], [place] [facility] 11/19/2024 11:28:16 11/06/19 25 Allergy Immunotherapy Injections completed LOGAN ROMOA [address], [place], [address], [place] [facility] 11/05/2024 12:11:25 10/15/19 25 Allergy Immunotherapy Injections completed LOGAN ROMOA [address], [place], [address], [place] [facility] 10/15/2024 12:52:52 10/08/19 25 Allergy Immunotherapy Injections completed RADHA CASTRO RMA [address], [place], [address], [place] [facility] 10/08/2024 12:06:57 10/01/19 25 Allergy Immunotherapy Injections completed LOGAN ROMOA [address] [place] [address], [address], [facility] - [facility] 10/01/2024 11:50:19 09/20/19 25 Allergy Immunotherapy Injections completed KATHY TORREZ RN [address], [place], [address], [place] [facility] 09/20/2024 10:01:22 07/23/20 24 Allergy Testing-Full completed RADHA CASTRO, RMA [address], [place], [address], [place] [facility] 07/23/2024 15:31:38 06/29/20 24 Fiberoptic Laryngoscopy (Comprehensive) completed JOSE MIGUEL SCHMIDT MD [address] [facility] [address],[place] [address], [place], [address], [facility] 06/29/2024 09:54:45 06/16/20 24 Revise eye muscle completed JOSE MIGUEL SCHMIDT MD [address], [place], [address], [facility] 06/29/2024 09:42:26 Imaging Results None recorded. Procedure [...] 24 hr 06/29 completed Medicati on ID: [id number] Osbaldo tirado Name: metoprol ol succinat e [...] as directed 06/29 completed Medicati on ID: [id number] Venu [place] By Name: Kim Da Silva nd Name: ipratrop ium bromide Send Method: E-Prescr ibed Sub s Allowed: subs OK Medic ationGen ericName : ipratrop ium bromide Not Available Not Available Not Available mercy bustillo 5 mg tablet TAKE 1 TABLET BY [...] DIRECTED BY GASTROEN TEROLOGY DEPARTME NT AT [facility] 02/18 completed Not Available Not Available Not Available Vitals None Recorded Social History Question Answer Notes LastModified by Organizat ion Details LastModified Time Tobacco Smoking Status Never Smoker Jacque escobar [place] - [facility] 03/09/2025 15:17:16 What Type Of Electroencephalographic Technician Do You Use? None [email or web address] Information not available 03/09/2025 Do You Have Any Pets? Yes [email or web address] Information not available 03/09/2025 Are You Passively Exposed To Smoke? No [email or web address] Information not available 03/09/2025 Are There Any Smokers In Your House? No [email or web address] Information not available 03/09/2025 Sex: Unknown Functional Status Question Answer Note LastModified by Organizat ion Details LastModified Time How many times per week do you consume alcohol? 1-2 times per week [email or web address] Information not available 03/09/2025 Do you use any illicit or recreational drugs? No [email or web address] Information not available 03/09/2025 Do you or have you ever used any other forms of tobacco or nicotine? No Information not available 03/09/2025 What is your level of alcohol consumption? Occasional [email or web address] Information not available 03/09/2025 What type of noise exposure are you exposed to? Industrial [email or web address] Information not available 03/09/2025 Mental Status None recorded. Family History Nothing Reported. Medical History Condition Response Hyperlipidemia Y Hypertension Y Sleep Disorder Y GERD/Reflux Y Past Encounters Encounter ID Performer Location Encounter Start Date Encounter Closed Date Diagnosis/Indication Diagnosis SNOMED-CT Code Diagnosis ICD10 Code Diagnosis IMO Codes Diagnosis Note [id number] ERICA MIKYE A Allergy [address] [facility] [place] [address] 03/25/2025 09:21:54 03/25/2025 11:14:59 Perennial allergic rhinitis 566699598 J30.89 [id number] ERICA JENSEN A Allergy [address] [facility],[address] [place] [address] 04/01/2025 11:22:59 04/01/2025 11:46:39 Perennial allergic rhinitis 052380776 J30.89 [id number] RADHA DEVIN, A Allergy [address] [facility] [place] [address] 04/08/2025 11:51:35 04/08/2025 11:52:50 Perennial allergic rhinitis 155417398 J30.89 [id number] ERICA JENSEN [facility] Allergy [address] [facility] [place] [address] 04/22/2025 11:34:46 04/22/2025 11:44:43 Perennial allergic rhinitis 823415409 J30.89 Health Concerns Section Related Observation LastModified by Organization Detai ls LastModified Time None Recorded Concern Status LastModified by Organization Details LastModified Time None Recorded Payers Encounter Date Sequence Insurance Name Policy Number Policy Dacosta Covered Member ID Dacosta Member ID Guarantor Name 04/22/2025 1 [facility] [id number] Regan Lama [id number] Regan Lama
--- OUTSIDE RECORDS SUMMARY | 2025-07-21 12:09 | XMS_ITS | Patient Health Record ---
Author Organization [facility] Sadieyenni antonio [place] Address [address] [facility] [place] [address] Care Team Providers Care Time Study Engineer Name Role Phone Robert WHITING, [phone] [place] [facility] Pro vider Unavailable Black, Lori Unavailable [phone] Reason For Referral No Information Medications Medication [...] Status W/U Status Risk Notes Problem Bursitis (00131831) Bursitis (727.3) Active confirmed Problem Achilles bursitis (942715315) Achilles Tendonitis Bursitis (726.71) Active confirmed Problem Myositis (98883672) Myositis (729.1) Active confirmed Problem Pain in limb (67337802) Pain in Limb (729.5) Active confirmed Problem Plantar fasciitis (933844678) Plantar Fasciitis (728.71) Active confirmed Problem Calcaneal spur (25530093) Calcaneal spur (726.73) Active confirmed Plan Of Treatment No Information Insurance Providers Payer Name Payer Address Payer Phone Subscriber Number Group Number Insured Name Patient Relationship to Insured Coverage Start Date Coverage End Date [employer] Benefits [address] [address] [place] [phone] [id number] Rosa Pino Spouse - patient is the spouse of the insured Medical (General) History Medical History History ICD Code High blood pressure Surgical History Surgery Date(Month/Year) kidney stones 08/03/2014
--- OUTSIDE RECORDS SUMMARY | 2025-07-21 12:09 | XMS_ITS | Continuity of Care Document ---
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 Role Phone ROSS COBOS Primary Care Provider [phone] Assessment Encounter Date Assessment Date Assessment LastModified by Organization Details LastModified Time 05/27/2025 05/27/2025 Visit With: Verónica Nix [place] Use of Antihistamine s: No If yes: Vial Test Change in medications: No If yes Increase in asthma symptoms No Asthma Hx If yes, inhaler use: Reaction to last injections: No If yes: Allergy Symptoms: Other: Missed: Dose Aware of Vial Test Aware: Notes: [email or web address] Not available 05/27/2025 12:13:09 Plan of Treatment Reminders Order Date Submit [...] Recorded Time Obstructi ve sleep apnea syndrome 31883860 Active 2019 Obstructiv e sleep apnea (adult) (pediatric ); Note: Date Diagnosed: 07/03/2020 11:19 AM (G47.33) JOSE MIGUEL SOTOMAYOR MD 100 [facility] 100, [place], [address] , [place] [facility] 5 15:57:50 Posterior rhinorrhe a 30692001 Active 2019 Postnasal drip; Note: Date Diagnosed: 07/03/2020 11:19 AM (R09.82) Not Available [facility] 4 02:54:35 Snoring 61332782 Active 2023 JOSE MIGUEL SOTOMAYOR MD [address], [place], [address] , [place] [facility] 4 09:47:17 Chronic rhinitis 29686480 Active 2023 JOSE MIGUEL SOTOMAYOR MD [address], [place], [address] , [place] [facility] 4 09:47:22 Deviated nasal septum 049816604 Active 2023 JOSE MIGUEL SOTOMAYOR MD [address], [place], [address] , [place] [facility] 4 09:47:26 Feeling of lump in throat 611571851 Active 2023 JOSE MIGUEL SOTOMAYOR MD [address], [place], [address] , [place] [facility] 4 09:47:30 Allergic rhinitis 20426520 Active 2023 JOSE MIGUEL SOTOMAYOR MD [address] [facility] [place],[address], [place], [address] , [place] [facility] 4 09:56:43 Nasal congestio n 64618483 Active 2024 JOSE MIGUEL SOTOMAYOR MD [address], [place], [address] , [place] [facility] 5 09:10:23 Chronic sinusitis 85281232 Active 2024 JOSE MIGUEL SOTOMAYOR MD [address], [place], [address] , [place] [facility] 15:55:02 Perennial allergic rhinitis 307920603 Active 2024 MICHAEL ROMO [address] [facility] [place],[address] [facility], [place], [address] , [place] [facility] 11:48:04 Seasonal allergic rhinitis 457155801 Active 2024 JOSE MIGUEL SOTOMAYOR MD [address] [facility] [place] [facility], [place], [address] , [place] [facility] 15:54:25 Problem Notes None recorded. Procedures Surgical History Date Name Laterality Status Provider Name and Address Organization Details Recorded Time 06/03/20 25 Allergy Immunotherapy Injections completed MICHAEL ROMO 100 [facility],[place] [facility], [place], [address], [facility] - [facility] 06/03/2025 11:49:46 05/27/20 25 Allergy Immunotherapy Injections completed Verónica Nix 100 [facility],[address], [address], [facility] - [facility] 05/27/2025 12:12:59 05/13/20 25 Allergy Immunotherapy Injections completed MICHAEL ROMO 100 [facility],[place] [facility], [place], [address], [facility] - [facility] 05/13/2025 10:16:47 04/29/20 25 Allergy Immunotherapy Injections completed MICHAEL ROMO 100 [facility],[address], [address], [place] [facility] 04/29/2025 12:10:02 04/22/20 25 Allergy Immunotherapy Injections completed Verónica Nix 100 [facility],[place] [address] [place] [address], [address], [place] [facility] 04/22/2025 11:43:53 04/08/20 25 Allergy Immunotherapy Injections completed MICHAEL SANCHEZ [address], [place], [address], [place] [facility] 04/08/2025 11:52:29 04/01/20 25 Allergy Immunotherapy Injections completed MICHAEL ROMO [address],[place] [address], [address], [place] [facility] 04/01/2025 11:46:12 03/25/20 25 Allergy Immunotherapy Injections completed RADHA CASTRO RMLinda [address],[place] [address], [address], [place] [facility] 03/25/2025 11:14:09 03/18/20 25 Allergy Immunotherapy Injections completed MICHAEL ROMO [address],[place] [address], [place], [address], [place] [facility] 03/18/2025 12:09:33 03/09/20 25 Allergy Immunotherapy Injections completed MICHAEL ROMO [address],[place] [address], [place], [address], [place] [facility] 03/09/2025 15:27:04 02/26/20 25 Allergy Immunotherapy Injections completed MICAHEL ROMO [address],[place] [address] [place] [address], [address], [place] [facility] 02/25/2025 12:08:34 01/29/20 25 Allergy Immunotherapy Injections completed KATHY TORREZ RN [address],[place] [address] [place] [address], [address], [place] [facility] 01/28/2025 10:37:12 01/08/20 25 Allergy Immunotherapy Injections completed MICHAEL SANCHEZ [address],[place] [address] [place] [address], [address], [place] [facility] 01/07/2025 11:39:55 01/01/20 25 Allergy Immunotherapy Injections completed KATHY TORREZ RN [address],[place] [address] [place] [address], [address], [place] [facility] 12/31/2024 12:12:52 12/18/19 25 Allergy Immunotherapy Injections completed KATHY TORREZ RN [address],[place] [address] [place] [address], [address], [place] [facility] 12/17/2024 09:51:57 12/04/19 25 Allergy Immunotherapy Injections completed RADHA KORZEC, RMA [address], [place], [address], [place] [facility] 12/03/2024 11:47:21 11/27/19 25 Allergy Immunotherapy Injections completed LOGAN ROMOA [address], [place], [address], [place] [facility] 11/26/2024 11:41:01 11/20/19 25 Allergy Immunotherapy Injections completed RADHA CASTRO, RMA [address], [place], [address], [place] [facility] 11/19/2024 11:28:16 11/06/19 25 Allergy Immunotherapy Injections completed LOGAN ROMOA [address],[place] [address] [place] [address], [address], [place] [facility] 11/05/2024 12:11:25 10/15/19 25 Allergy Immunotherapy Injections completed LOGAN ROMOA [address], [place], [address], [place] [facility] 10/15/2024 12:52:52 10/08/19 25 Allergy Immunotherapy Injections completed RADHA CASTRO RMA [address], [address], [place] [facility] 10/08/2024 12:06:57 10/01/19 25 Allergy Immunotherapy Injections completed LOGAN ROMOA [address], [place], [address], [facility] - [facility] 10/01/2024 11:50:19 09/20/19 25 Allergy Immunotherapy Injections completed KATHY TORREZ RN [address], [place], [address], [place] [facility] 09/20/2024 10:01:22 07/23/20 24 Allergy Testing-Full completed RADHA CASTRO, RMA [address], [place], [address], [place] [facility] 07/23/2024 15:31:38 06/29/20 24 Fiberoptic Laryngoscopy (Comprehensive) completed JOSE MIGUEL SCHMIDT MD 100 [facility] [place],[facility] 100, [place], [address], [facility] 06/29/2024 09:54:45 06/16/20 24 Revise eye muscle completed JOSE MIGUEL SCHMIDT MD [address], [place], [address], [facility] 06/29/2024 09:42:26 Imaging Results None recorded. Procedure [...] 24 hr 06/29 completed Medicati on ID: [id number] Osbaldo rand Name: metoprol ol succinat e Send [...] as directed 06/29 completed Medicati on ID: [id number] Venu luque By Name: Kim Da Silva nd Name: ipratrop ium bromide Send Method: E-Prescr ibed Sub s Allowed: subs OK Medic ationGen ericName : ipratrop ium bromide Not Available Not Available Not Available juanasteri keny 5 mg tablet TAKE 1 TABLET BY [...] DIRECTED BY GASTROEN TEROLOGY DEPARTME NT AT [facility] 02/18 completed Not Available Not Available Not Available Vitals None Recorded Social History Question Answer Notes LastModified by Organizat ion Details LastModified Time Tobacco Smoking Status Never Smoker Jacque escobar [place] - [facility] 03/09/2025 15:17:16 What Type Of Business Intelligence Developer Do You Use? None [email or web address] Information not available 03/09/2025 Do You Have Any Pets? Yes [email or web address] Information not available 03/09/2025 Are You Passively Exposed To Smoke? No [email or web address] Information not available 03/09/2025 Are There Any Smokers In Your House? No [email or web address] Information not available 03/09/2025 Sex: Unknown Functional Status Question Answer Note LastModified by Organizat ion Details LastModified Time How many times per week do you consume alcohol? 1-2 times per week Information not available 03/09/2025 Do you use any illicit or recreational drugs? No [email or web address] Information not available 03/09/2025 Do you or have you ever used any other forms of tobacco or nicotine? No [email or web address] Information not available 03/09/2025 What is your level of alcohol consumption? Occasional [email or web address] Information not available 03/09/2025 What type of noise exposure are you exposed to? Industrial [email or web address] Information not available 03/09/2025 Mental Status None recorded. Family History Nothing Reported. Medical History Condition Response Hyperlipidemia Y Sleep Disorder Y GERD/Reflux Y Hypertension Y Past Encounters Encounter ID Performer Location Encounter Start Date Encounter Closed Date Diagnosis/Indication Diagnosis SNOMED-CT Code Diagnosis ICD10 Code Diagnosis IMO Codes Diagnosis Note [id number] KATHY TORREZ RN Allergy 100 [facility], [place] 100 [facility] [place] [address] 04/29/2025 12:09:18 04/29/2025 12:10:28 Perennial allergic rhinitis 775704703 J30.89 [id number] MICHAEL ROMO Allergy 100 [facility], [place] 100 [facility] [place] [address] 05/13/2025 10:16:00 05/13/2025 10:17:15 Perennial allergic rhinitis 294773009 J30.89 [id number] Verónica Nix Allergy 100 [facility], [place] 100 [facility] [place] [address] 05/27/2025 11:27:58 05/27/2025 12:13:23 Perennial allergic rhinitis 288252941 J30.89 Health Concerns Section Related Observation LastModified by Organization Detai ls LastModified Time None Recorded Concern Status LastModified by Organization Details LastModified Time None Recorded Payers Encounter Date Sequence Insurance Name Policy Number Policy Dacosta Covered Member ID Dacosta Member ID Guarantor Name 05/27/2025 1 [facility] [id number] Regan Lama [id number] Regan Lama
--- OUTSIDE RECORDS SUMMARY | 2025-07-21 12:09 | XMS_ITS | Continuity of Care Document ---
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 Name Role Phone ROSS COBOS Primary Care Provider Assessment Encounter Date Assessment Date Assessment LastModified by Organization Details LastModified Time 06/03/2025 06/03/2025 Visit With: Erica Connell Use of Antihistamine s: No If yes: Vial Test Change in medications: No If yes Increase in asthma symptoms If yes, inhaler use: Reaction to last injections: No If yes: Allergy Symptoms: Other: Missed: Dose Aware of Vial Test Aware: Notes: [email or web address] Not available 06/03/2025 11:49:53 Plan of Treatment [...] Recorded Time Obstructi ve sleep apnea syndrome 04041405 Active 2019 Obstructiv e sleep apnea (adult) (pediatric ); Note: Date Diagnosed: 07/03/2020 11:19 AM (G47.33) JOSE MIGUEL SOTOMAYOR MD 100 [facility] 100, [facility] [place], [address] , [place] [facility] 5 15:57:50 Posterior rhinorrhe a 24837322 Active 2019 Postnasal drip; Note: Date Diagnosed: 07/03/2020 11:19 AM (R09.82) Not Available [facility] 4 02:54:35 Snoring 68590902 Active 2023 JOSE MIGUEL SOTOMAYOR MD [address], [place], [address] , [place] [facility] 4 09:47:17 Chronic rhinitis 60396177 Active 2023 JOSE MIGUEL SOTOMAYOR MD [address], [place], [place], [address] , [place] [facility] 4 09:47:22 Deviated nasal septum 553335771 Active 2023 JOSE MIGUEL SOTOMAYOR MD [address], [place], [address] , [place] [facility] 4 09:47:26 Feeling of lump in throat 377717886 Active 2023 JOSE MIGUEL SOTOMAYOR MD [address], [place], [place], [address] , [place] [facility] 4 09:47:30 Allergic rhinitis 33676701 Active 2023 JOSE MIGUEL SOTOMAYOR MD [address], [place], [address] , [place] [facility] 4 09:56:43 Nasal congestio n 17613797 Active 2024 JOSE MIGUEL SOTOMAYOR MD [address], [place], [address] , [place] [facility] 5 09:10:23 Chronic sinusitis 63945105 Active 2024 JOSE MIGUEL SOTOMAYOR MD [address], [place], [address] , [place] [facility] 5 15:55:02 Perennial allergic rhinitis 049114018 Active 2024 MICHAEL ROMO [address], [place], [address] , [place] [facility] 11:48:04 Seasonal allergic rhinitis 016794368 Active 2024 JOSE MIGUEL SOTOMAYOR MD [address], [facility] [place], [address] , [place] [facility] 15:54:25 Problem Notes None recorded. Procedures Surgical History Date Name Laterality Status Provider Name and Address Organization Details Recorded Time 06/03/20 25 Allergy Immunotherapy Injections completed MICHAEL ROMO [address], [place], [address], [place] [facility] 06/03/2025 11:49:46 05/27/20 25 Allergy Immunotherapy Injections completed Verónica Nix [address], [place], [address], [place] [facility] 05/27/2025 12:12:59 05/13/20 25 Allergy Immunotherapy Injections completed MICHAEL ROMO [address] [facility], [place], [address], [place] [facility] 05/13/2025 10:16:47 04/29/20 25 Allergy Immunotherapy Injections completed MICHAEL ROMO [address], [place], [address], [place] [facility] 04/29/2025 12:10:02 04/22/20 25 Allergy Immunotherapy Injections completed Verónica Nix [address], [place], [address], [place] [facility] 04/22/2025 11:43:53 04/08/20 25 Allergy Immunotherapy Injections completed MICHAEL SANCHEZ [address], [place], [address], [place] [facility] 04/08/2025 11:52:29 04/01/20 25 Allergy Immunotherapy Injections completed ERICA MIKEY, RMA [address], [place], [address], [place] [facility] 04/01/2025 11:46:12 03/25/20 25 Allergy Immunotherapy Injections completed RADHA CASTRO RMA [address],[place] [address], [place], [address], [place] [facility] 03/25/2025 11:14:09 03/18/20 25 Allergy Immunotherapy Injections completed MICHAEL ROMO [address],[place] [address], [place], [address], [place] [facility] 03/18/2025 12:09:33 03/09/20 25 Allergy Immunotherapy Injections completed MICHAEL ROMO [address] [facility], [place], [address], [place] [facility] 03/09/2025 15:27:04 02/26/20 25 Allergy Immunotherapy Injections completed MICHAEL ROMO 100 [facility],[place] [address] [place] [address], [address], [place] [facility] 02/25/2025 12:08:34 01/29/20 25 Allergy Immunotherapy Injections completed KATHY TORREZ RN 100 [facility],[place] [address] [place] [address], [address], [place] [facility] 01/28/2025 10:37:12 01/08/20 25 Allergy Immunotherapy Injections completed RADHA CASTRO A 100 [facility],[place] [address] [place] [address], [address], [place] [facility] 01/07/2025 11:39:55 01/01/20 25 Allergy Immunotherapy Injections completed KATHY TORREZ RN [address],[place] [address] [place] [address], [address], [place] [facility] 12/31/2024 12:12:52 12/18/19 25 Allergy Immunotherapy Injections completed KATHY TORREZ RN [address] [facility],[place] [address] [place] [address], [address], [place] [facility] 12/17/2024 09:51:57 12/04/19 25 Allergy Immunotherapy Injections completed RADHA KORZEC, RMA [address],[place] [address], [place], [address], [place] [facility] 12/03/2024 11:47:21 11/27/19 25 Allergy Immunotherapy Injections completed LOGAN ROMOA [address], [place], [address], [facility] - [facility] 11/26/2024 11:41:01 11/20/19 25 Allergy Immunotherapy Injections completed RADHA CASTRO, RMA [address], [place], [address], [place] [facility] 11/19/2024 11:28:16 11/06/19 25 Allergy Immunotherapy Injections completed LOGAN ROMOA [address],[place] [address], [place], [address], [facility] - [facility] 11/05/2024 12:11:25 10/15/19 25 Allergy Immunotherapy Injections completed LOGAN ROMOA [address] [facility],[place] [address] [place] [address], [address], [facility] - [facility] 10/15/2024 12:52:52 10/08/19 25 Allergy Immunotherapy Injections completed RADHA CASTRO RMA [address],[place] [address], [place], [address], [facility] - [facility] 10/08/2024 12:06:57 10/01/19 25 Allergy Immunotherapy Injections completed MICHAEL ROMO [address],[place] [address] [place] [address], [address], [facility] - [facility] 10/01/2024 11:50:19 09/20/19 25 Allergy Immunotherapy Injections completed KATHY TORREZ RN [address],[place] [address], [place], [address], [facility] - [facility] 09/20/2024 10:01:22 07/23/20 24 Allergy Testing-Full completed RADHA CASTRO, RMA [address], [place], [address], [place] [facility] 07/23/2024 15:31:38 06/29/20 24 Fiberoptic Laryngoscopy (Comprehensive) completed JOSE MIGUEL SCHMIDT MD 100 [facility] 100, [place], [address], [facility] - [facility] 06/29/2024 09:54:45 06/16/20 24 Revise eye muscle completed JOSE MIGUEL SCHMIDT MD 100 [facility] 100, [place], [address], [facility] - [facility] 06/29/2024 09:42:26 Imaging Results None recorded. [...] 24 hr 06/29 completed Medicati on ID: [id number] Osbaldo tirado Name: metoprol ol succinat e [...] as directed 06/29 completed Medicati on ID: [id number] Venu luque By Name: Kim Da Silva [...] DIRECTED BY GASTROEN TEROLOGY DEPARTME NT AT [facility] 02/18 completed Not Available Not Available Not Available Vitals None Recorded Social History Question Answer Notes LastModified by Organizat ion Details LastModified Time Tobacco Smoking Status Never Smoker Jacque escobar [place] - [facility] 03/09/2025 15:17:16 What Type Of Broomcorn Thresher Do You Use? None [email or web address] Information not available 03/09/2025 Do You Have Any Pets? Yes [email or web address] Information not available 03/09/2025 Are You Passively Exposed To Smoke? No [email or web address] Information not available 03/09/2025 Are There Any Smokers In Your House? No [email or web address] Information not available 03/09/2025 Sex: Unknown Functional Status Question Answer Note LastModified by Organizat ion Details LastModified Time How many times per week do you consume alcohol? 1-2 times per week [email or web address] Information not available 03/09/2025 Do you use any illicit or recreational drugs? No [email or web address] Information not available 03/09/2025 Do you or have you ever used any other forms of tobacco or nicotine? No [email or web address] Information not available 03/09/2025 What is your level of alcohol consumption? 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 Industrial [email or web address] Information not available 03/09/2025 Mental Status None recorded. Family History Nothing Reported. Medical History Condition Response Hyperlipidemia Y Hypertension Y Sleep Disorder Y GERD/Reflux Y Past Encounters Encounter ID Performer Location Encounter Start Date Encounter Closed Date Diagnosis/Indication Diagnosis SNOMED-CT Code Diagnosis ICD10 Code Diagnosis IMO Codes Diagnosis Note [id number] MICHAEL ROMO Allergy 100 [facility],[place] 100 [facility] [place] [address] 05/13/2025 10:16:00 05/13/2025 10:17:15 Perennial allergic rhinitis 986228443 J30.89 [id number] Verónica Parkos Allergy 100 [facility],[place] 100 [facility] [place] [address] 05/27/2025 11:27:58 05/27/2025 12:13:23 Perennial allergic rhinitis 925305704 J30.89 [id number] MICHAEL ROMO Allergy 100 [facility],[place] 100 [facility] [place] [address] 06/03/2025 11:24:50 06/03/2025 11:50:11 Perennial allergic rhinitis 520318813 J30.89 Health Concerns Section Related Observation LastModified by Organization Detai ls LastModified Time None Recorded Concern Status LastModified by Organization Details LastModified Time None Recorded Payers Encounter Date Sequence Insurance Name Policy Number Policy Dacosta Covered Member ID Dacosta Member ID Guarantor Name 06/03/2025 1 [facility] [id number] Regan Lama [id number] Regan Lama
--- OUTSIDE RECORDS SUMMARY | 2025-07-21 12:09 | XMS_ITS | Data Portability ---
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 Role Phone ROSS COBOS Primary Care [...] Repeated Aware of Vial Test Aware: Notes: [email or web address] Not available 04/22/2025 11:44:08 04/29/2025 04/29/2025 Visit With: Kathy Torrez RN Use of Antihistamine s: No If yes: Vial Test Change in medications: No If yes Increase in asthma symptoms If yes, inhaler use: Reaction to last injections: No If yes: Allergy Symptoms: Other: Missed: Dose Aware of Vial Test Aware: Notes: [email or web address] Not available 04/29/2025 12:10:15 05/13/2025 05/13/2025 Visit With: MICHAEL Byrnes Use of Antihistamine s: No If yes: Vial Test Change in medications: No If yes Increase in asthma symptoms If yes, inhaler use: Reaction to last injections: No If yes: Allergy Symptoms: Other: Missed: Dose Aware of Vial Test Aware: Notes: [email or web address] Not available 05/13/2025 10:16:58 05/27/2025 05/27/2025 Visit With: Verónica Nix [place] Use of Antihistamine s: No If yes: Vial Test Change in medications: No If yes Increase in asthma symptoms No Asthma Hx If yes, inhaler use: Reaction to last injections: No If yes: Allergy Symptoms: Other: Missed: Dose Aware of Vial Test Aware: Notes: [email or web address] Not available 05/27/2025 12:13:09 06/03/2025 06/03/2025 Visit With: Erica Jensen Use of Antihistamine s: No If yes: Vial Test Change in medications: No If yes Increase in asthma symptoms If yes, inhaler use: Reaction to last injections: No If yes: Allergy Symptoms: Other: Missed: Dose Aware of Vial Test Aware: Notes: Not available 06/03/2025 11:49:53 Plan of Treatment [...] Recorded Time Obstructi ve sleep apnea syndrome 73070544 Active 2019 Obstructiv e sleep apnea (adult) (pediatric ); Note: Date Diagnosed: 07/03/2020 11:19 AM (G47.33) JOSE MIGUEL SOTOMAYOR MD [address] [place] [address],[place] [address], [place], [address] , [facility] 5 15:57:50 Posterior rhinorrhe a 99011524 Active 2019 Postnasal drip; Note: Date Diagnosed: 07/03/2020 11:19 AM (R09.82) Not Available [facility] 4 02:54:35 Snoring 81170109 Active 2023 JOSE MIGUEL SOTOMAYOR MD [address] [facility],[place] [address], [place], [address] , [place] [facility] 4 09:47:17 Chronic rhinitis 66985500 Active 2023 JOSE MIGUEL SOTOMAYOR MD [address], [place], [address] , [facility] [place] 4 09:47:22 Deviated nasal septum 267948281 Active 2023 JOSE MIGUEL SOTOMAYOR MD [address] [facility] [address], [place], [address] , [facility] - [facility] [place] 4 09:47:26 Feeling of lump in throat 655000442 Active 2023 JOSE MIGUEL SOTOMAYOR MD [address] [facility] [place],[address], [place], [place], [address] , [facility] - [facility] [place] 4 09:47:30 Allergic rhinitis 65813436 Active 2023 JOSE MIGUEL SOTOMAYOR MD [address] [facility] [place], [place], [place], [address] , [facility] - [facility] 4 09:56:43 Nasal congestio n 35584779 Active 2024 JOSE MIGUEL SOTOMAYOR MD [address] [facility] [place],[address], [place], [place], [address] , [facility] - [facility] 5 09:10:23 Chronic sinusitis 67188621 Active 2024 JOSE MIGUEL SOTOMAYOR MD [address] [facility] [place], [place], [place], [address] , [facility] - [facility] [place] 5 15:55:02 Perennial allergic rhinitis 184051609 Active 2024 MICHAEL ROMO [address] [facility] [place],[address], [place], [address] , [facility] - [facility] [place] 5 11:48:04 Seasonal allergic rhinitis 588044439 Active 2024 JOSE MGIUEL SOTOMAYOR MD [address] [facility] [place],[address], [place], [address] , [place] - [facility] [place] 15:54:25 Problem Notes None recorded. Procedures Surgical History Date Name Laterality Status Provider Name and Address Organization Details Recorded Time 06/03/20 25 Allergy Immunotherapy Injections completed MICHAEL ROMO [address], [place], [address], [place] [facility] [place] 06/03/2025 11:49:46 05/27/20 25 Allergy Immunotherapy Injections completed Verónica Nix [address], [place], [address], [place] [facility] [place] 05/27/2025 12:12:59 05/13/20 25 Allergy Immunotherapy Injections completed MICHAEL ROMO [address], [place], [address], [place] [facility] 05/13/2025 10:16:47 04/29/20 25 Allergy Immunotherapy Injections completed MICHAEL ROMO [address], [place], [address], [place] [facility] 04/29/2025 12:10:02 04/22/20 25 Allergy Immunotherapy Injections completed Verónica Nix [address], [place], [address], [place] [facility] 04/22/2025 11:43:53 04/08/20 25 Allergy Immunotherapy Injections completed RADHA CASTRO RMA [address], [place], [address], [place] [facility] 04/08/2025 11:52:29 04/01/20 25 Allergy Immunotherapy Injections completed LOGAN ROMOA [address], [place], [address], [place] [facility] 04/01/2025 11:46:12 03/25/20 25 Allergy Immunotherapy Injections completed RADHA CASTRO RMA [address], [place], [address], [place] [facility] 03/25/2025 11:14:09 03/18/20 25 Allergy Immunotherapy Injections completed LOGAN ROMOA [address], [place], [address], [place] [facility] 03/18/2025 12:09:33 03/09/20 25 Allergy Immunotherapy Injections completed MICHAEL ROMO [address], [place], [address], [place] [facility] 03/09/2025 15:27:04 02/26/20 25 Allergy Immunotherapy Injections completed MICHAEL ROMO [address], [place], [address], [place] [facility] 02/25/2025 12:08:34 01/29/20 25 Allergy Immunotherapy Injections completed KATHY TORREZ RN [address] [facility] [place],[address] [place] [address], [address], [place] [facility] 01/28/2025 10:37:12 01/08/20 25 Allergy Immunotherapy Injections completed MICHAEL BYRNES [address] [place] [address], [address], [place] [facility] 01/07/2025 11:39:55 01/01/20 25 Allergy Immunotherapy Injections completed KATHY TORREZ RN [address] [facility] [place],[address], [address], [place] [facility] 12/31/2024 12:12:52 12/18/19 25 Allergy Immunotherapy Injections completed KATHY TORREZ RN [address] [facility] [place],[address] [place] [address], [address], [place] [facility] 12/17/2024 09:51:57 12/04/19 25 Allergy Immunotherapy Injections completed RADHA CASTRO RMLinda [address] [place] [address], [address], [place] [facility] 12/03/2024 11:47:21 11/27/19 25 Allergy Immunotherapy Injections completed MICHAEL ROMO [address], [place], [address], [place] [facility] 11/26/2024 11:41:01 11/20/19 25 Allergy Immunotherapy Injections completed RADHA CASTRO [facility] [address] [facility] [facility] [place],[address] [place] [address], [address], [facility] - [facility] [place] 11/19/2024 11:28:16 11/06/19 25 Allergy Immunotherapy Injections completed MICHAEL ROMO [address] [facility] [place],[address] [place] [address], [address], [facility] - [facility] 11/05/2024 12:11:25 10/15/19 25 Allergy Immunotherapy Injections completed ERICA JENSEN [facility] [address] [facility] [place],[address], [address], [facility] - [facility] 10/15/2024 12:52:52 10/08/19 25 Allergy Immunotherapy Injections completed RADHA CASTRO [facility] [address] [facility] [place],[address], [address], [facility] - [facility] 10/08/2024 12:06:57 10/01/19 25 Allergy Immunotherapy Injections completed ERICA JENSEN [facility] [address] [facility],[address], [address], [facility] - [facility] 10/01/2024 11:50:19 09/20/19 25 Allergy Immunotherapy Injections completed KATHY TORREZ RN [address] [facility],[address], [address], [facility] - [facility] 09/20/2024 10:01:22 07/23/20 24 Allergy Testing-Full completed RADHA CASTRO [facility] [address] [facility] [place],[address], [address], [facility] - [facility] 07/23/2024 15:31:38 06/29/20 24 Fiberoptic Laryngoscopy (Comprehensive) completed JOSE MIGUEL SCHMIDT MD [address] [facility] [place],[address], [address], [facility] - [facility] 06/29/2024 09:54:45 06/16/20 24 Revise eye muscle completed JOSE MIGUEL SCHMIDT MD [address] [facility] [place],[address] [place] [address], [address], [facility] - [facility] 06/29/2024 09:42:26 Imaging Results None recorded. 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 Yes [email or web address] Information not available 03/09/2025 Are You Passively Exposed To Smoke? No [email or web address] Information not available 03/09/2025 Are There Any Smokers In Your House? No [email or web address] Information not available 03/09/2025 Sex: Unknown Functional Status Question Answer Note LastModified by Organizat ion Details LastModified Time How many times per week do you consume alcohol? 1-2 times per week [email or web address] Information not available 03/09/2025 Do you use any illicit or recreational drugs? No [email or web address] Information not available 03/09/2025 Do you or have you ever used any other forms of tobacco or nicotine? No [email or web address] Information not available 03/09/2025 What is your level of alcohol consumption? Occasional [email or web address] Information not available 03/09/2025 What type of noise exposure are you exposed to? Industrial [email or web address] Information not available 03/09/2025 Mental Status None recorded. Family History Nothing Reported. Medical History Condition Response Hyperlipidemia Y Hypertension Y Sleep Disorder Y GERD/Reflux Y Past Encounters Encounter ID Performer Location Encounter Start Date Encounter Closed Date Diagnosis/Indication Diagnosis SNOMED-CT Code Diagnosis ICD10 Code Diagnosis IMO Codes Diagnosis Note [id number] JOSE MIGUEL SOTOMAYOR MD [facility] [address] [facility] [place] [address] 06/29/2024 09:21:20 06/29/2024 10:00:34 Snoring 64826319 R06.83 Chronic rhinitis 8164298 6 J31.0 Deviated nasal septum 12 9637361 J34.2 Feeling of lump in throat 205133938 R09.89 Allergic rhinitis 707659 04 J30.9 [id number] RADHA DEVIN, [facility] Allergy [address] [facility], [address] [place], [place] [address] 07/23/2024 12:39:42 07/23/2024 15:37:35 Allergic rhinitis 21432765 J30.9 [id number] JOSE MIGUEL SOTOMAYOR MD [facility] 100 [place] [address] 09/08/2024 08:35:14 09/08/2024 10:43:33 Allergic rhinitis 53185750 J30.9 We reviewed testing results and medical [...] Epipen use discussed Deviated nasal septum 12 3452190 J34.2 Chronic sinusitis 999876 00 J32.9 There is evidence of diffuse maxillary and ethmoid sinus thickening predominan tly on the right side. Septal deviation to the right and turbinate hypertroph y. Suggest adding fluticason e to his Astelin, a course of doxycyclin e and proceeding with immunother apy [id number] KATHY TORREZ RN Allergy 100 [facility],[place] 100 [place] [address] 09/20/2024 09:20:22 09/20/2024 10:13:08 Perennial allergic rhinitis 129428130 J30.89 [id number] ERICA JENSEN [facility] Allergy [address] [place] [address] it 100 [place] [address] 10/01/2024 11:20:43 10/01/2024 11:50:36 Perennial allergic rhinitis 243169193 J30.[id number] [facility] Allergy [address] [place] [address] [address] 100 [place] [address] 10/08/2024 11:30:58 10/08/2024 12:07:20 Perennial allergic rhinitis 322419707 J30.89 [id number] ERICA JENSEN [facility] Allergy [address] [place] [address] it[address] 100 [place] [address] 10/15/2024 11:31:35 10/15/2024 12:54:02 Perennial allergic rhinitis 685638509 J30.[id number] [facility] Allergy [address] [place] [address] [address] [place] [address] 11/05/2024 11:22:09 11/05/2024 12:12:21 Perennial allergic rhinitis 664052110 J30.89 [id number] [facility], [facility] Allergy [address] [place] [address],[place] [address] [place] [address] 11/19/2024 11:24:02 11/19/2024 11:28:42 Perennial allergic rhinitis 577316801 J30.89 [id number] ERICA JENESN [facility] Allergy [address] [place] [address],[place] [address] [place] [address] 11/26/2024 11:14:13 11/26/2024 11:41:34 Perennial allergic rhinitis 650498233 J30.89 [id number] RADHA CASTRO [facility] Allergy [address] [place] [address], [place] [address] 12/03/2024 11:05:14 12/03/2024 11:47:44 Perennial allergic rhinitis 055390229 J30.89 [id number] ERICA MIKEY [address] [place] [address] 12/17/2024 09:37:24 12/17/2024 09:52:55 Perennial allergic rhinitis 445071646 J30.89 [id number] KATHY TORREZ RN Allergy [address] [place] [address], [place] [address] 12/31/2024 11:14:56 12/31/2024 12:13:39 Perennial allergic rhinitis 707746779 J30.89 [id number] ERICA MIKEY [address] [place] [address] 01/07/2025 11:21:24 01/07/2025 11:40:28 Perennial allergic rhinitis 319728845 J30.89 [id number] RADHA BELTRAN [facility] Allergy [address] [place] [address], [place] [address] 01/28/2025 10:36:04 01/28/2025 10:37:35 Perennial allergic rhinitis 448388648 J30.89 [id number] [facility] [address] [place] [address], [place] [address] 02/25/2025 11:47:16 02/25/2025 12:09:24 Perennial allergic rhinitis 560444006 J30.89 [id number] JOSE MIGUEL SOTOMAYOR MD [facility] [address] [place] [address] 03/09/2025 15:12:54 03/09/2025 16:00:27 Deviated nasal septum 846636484 J34.2 Allergic rhinitis 059234 04 J30.9 Chronic sinusitis 633404 00 J32.8 [id number] Continue irrigation s and nasal sprays with allergy management before surgery Obstructiv e sleep apnea syndrome 53149793 G47.33 [id number] ERICA JENSEN [facility] Allergy [address] [place] [address],[place] [address] [place] [address] 03/09/2025 15:15:06 03/09/2025 15:39:50 Perennial allergic rhinitis 209681545 J30.89 [id number] ERICA JENSEN [facility] Allergy [address] [place] [address],[place] [address] [place] [address] 03/18/2025 12:08:22 03/18/2025 12:10:00 Perennial allergic rhinitis 993041883 J30.89 [id number] ERICA JENSEN [facility] Allergy [address] [place] [address],[place] [address] [place] [address] 03/25/2025 09:21:54 03/25/2025 11:14:59 Perennial allergic rhinitis 424413630 J30.89 [id number] ERICA JENSEN [facility] Allergy [address] [place] [address] [address] [place] [address] 04/01/2025 11:22:59 04/01/2025 11:46:39 Perennial allergic rhinitis 392781925 J30.89 [id number] RADHA CASTRO [facility] Allergy [address] [place] [address],[place] [address] [place] [address] 04/08/2025 11:51:35 04/08/2025 11:52:50 Perennial allergic rhinitis 336368093 J30.89 [id number] ERICA JENSEN [facility] Allergy [address] [place] [address], [address] [place] [address] 04/22/2025 11:34:46 04/22/2025 11:44:43 Perennial allergic rhinitis 747611616 J30.89 [id number] KATHY TORREZ RN Allergy [address] [place] [address],[place] [address] [place] [address] 04/29/2025 12:09:18 04/29/2025 12:10:28 Perennial allergic rhinitis 067535307 J30.89 [id number] ERICA JENSEN [facility] Allergy [address] [place] [address],[place] [address] [facility] [address] 05/13/2025 10:16:00 05/13/2025 10:17:15 Perennial allergic rhinitis 996151295 J30.89 [id number] Verónica Nix Allergy 100 [facility] 100 [place] [address] 05/27/2025 11:27:58 05/27/2025 12:13:23 Perennial allergic rhinitis 551691999 J30.89 [id number] MICHAEL ROMO Allergy 100 [facility] 100 [place] [address] 06/03/2025 11:24:50 06/03/2025 11:50:11 Perennial allergic rhinitis 364697614 J30.89 Health Concerns Section Related Observation LastModified by Organization Detai ls LastModified Time None Recorded Concern Status LastModified by Organization Details LastModified Time None Recorded Advance Directives Directive None Recorded Payers Insurance Date Sequence Insurance Name Policy Number Policy Dacosta Covered Member ID Dacosat Member ID Guarantor Name 06/03/[address] [place] [address] [id number] Regan Lama [id number] Regan Lama
--- OUTSIDE RECORDS SUMMARY | 2025-07-21 12:09 | XMS_ITS | Patient Health Record ---
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 Primary Care Provider Yanet vaCarmelo Mcnair [phone] Reason For Referral No Information Medications Medication SIG (Take, Route, Frequency, Duration) Notes Start Date End Date Status Omeprazole 20 MG Capsule Delayed Release 1 capsule Orally Once a day Active amLODIPine Besylate 2.5 MG Tablet 1 tablet Orally Once a day Active hydroCHLOROthiazide 25 MG Tablet 1 tablet Orally Once a day Active Prazosin HCl 1 MG Capsule 1 capsule Oral ly Twice a day Active Losartan Potassium 100 MG Tablet 1 Orally QD Active Social History Social History Additional Details Category Social Info Options Details Miscellaneous: Marital status: 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 alcohol e xcept pool night -approx 6 beers Nonsmoker; no sig. alcohol e xcept pool night -approx 6 beers twice a week Nonsmoker; no sig. alcohol e xcept pool night -approx 6 beers twice a week Problems Problem Type SNOMED Code ICD Code Onset Dates Problem Status W/U Status Risk Notes Problem Gastroesophageal reflux disease (526991720) Gastroesophageal reflux disease, esophagitis presence not specified (K21.9) Active confirmed Plan Of Treatment Pending Test Test Name Order Date CELIAC PANEL #10 01/11/2015 Future Test Test Name Order Date COLONOSCOPY 05/19/2013 Insurance Providers Payer Name Payer Address Payer Phone Subscriber Number Group Number Insured Name Patient Relationship to Insured Coverage Start Date Coverage End Date [facility] [address] [facility] [id number] MELBA RINCON Self - patient is the insured Medical (General) History Medical History History ICD Code Denies [place],DM,CVA,Lung disease,renal dise ase Diverticulosis IBS HTN Colonoscopy in July was negative other than some mild sigmoid diverticulosis and internal hemorrhoids Surgical History Surgery Date(Month/Year) Carpal tunnel bilaterally
--- OUTSIDE RECORDS SUMMARY | 2025-07-21 12:10 | XMS_ITS | Continuity of Care Document ---
Author Organization [place] [facility], Allergy Address [address] [address] Care Team Providers Care Work Order Sorting Clerk Name Role Phone ROSS COBOS Primary Care Provider [phone] Assessment Encounter Date Assessment Date Assessment LastModified by Organization Details LastModified Time 05/13/2025 05/13/2025 Visit With: MICHAEL Byrnes Use of Antihistamine s: No If yes: Vial Test Change in medications: No If yes Increase in asthma symptoms If yes, inhaler use: Reaction to last injections: No If yes: Allergy Symptoms: Other: Missed: Dose Aware of Vial Test Aware: Notes: [email or web address] Not available 05/13/2025 10:16:58 Plan of Treatment Reminders Order Date Submit [...] Recorded Time Obstructi ve sleep apnea syndrome 83010484 Active 2019 Obstructiv e sleep apnea (adult) (pediatric ); Note: Date Diagnosed: 07/03/2020 11:19 AM (G47.33) JOSE MIGUEL SOTOMAYOR MD 100 [facility] 100, [place], [address] , [place] [facility] 5 15:57:50 Posterior rhinorrhe a 12132304 Active 2019 Postnasal drip; Note: Date Diagnosed: 07/03/2020 11:19 AM (R09.82) Not Available [facility] 4 02:54:35 Snoring 68389310 Active 2023 JOSE MIGUEL SOTOMAYOR MD [address], [place], [address] , [place] [facility] 4 09:47:17 Chronic rhinitis 84814092 Active 2023 JOSE MIGUEL SOTOMAYOR MD [address], [place], [address] , [place] [facility] 4 09:47:22 Deviated nasal septum 013347119 Active 2023 JOSE MIGUEL SOTOMAYOR MD [address], [place], [address] , [place] [facility] 4 09:47:26 Feeling of lump in throat 384068337 Active 2023 JOSE MIGUEL SOTOMAYOR MD [address], [place], [address] , [place] [facility] 4 09:47:30 Allergic rhinitis 86690902 Active 2023 JOSE MIGUEL SOTOMAYOR MD [address] [facility] [place],[address], [place], [address] , [place] [facility] 4 09:56:43 Nasal congestio n 16179023 Active 2024 JOSE MIGUEL SOTOMAYOR MD [address], [place], [address] , [place] [facility] 5 09:10:23 Chronic sinusitis 82136324 Active 2024 JOSE MIGUEL SOTOMAYOR MD [address], [place], [address] , [place] [facility] 15:55:02 Perennial allergic rhinitis 819327766 Active 2024 MICHAEL ROMO [address] [facility] [place],[address], [place], [address] , [place] [facility] 11:48:04 Seasonal allergic rhinitis 626684295 Active 2024 JOSE MIGUEL SOTOMAYOR MD [address] [facility] [place],[address], [place], [address] , [place] [facility] 15:54:25 Problem Notes None recorded. Procedures Surgical History Date Name Laterality Status Provider Name and Address Organization Details Recorded Time 06/03/20 25 Allergy Immunotherapy Injections completed MICHAEL ROMO 100 [facility],[address] [facility], [place], [address], [place] [facility] 06/03/2025 11:49:46 05/27/20 25 Allergy Immunotherapy Injections completed Verónica Nix 100 [facility],[address] [facility], [place], [address], [place] [facility] 05/27/2025 12:12:59 05/13/20 25 Allergy Immunotherapy Injections completed MICHAEL ROMO 100 [facility],[address] [facility], [place], [address], [place] [facility] 05/13/2025 10:16:47 04/29/20 25 Allergy Immunotherapy Injections completed MICHAEL ROMO 100 [facility],[address], [address], [place] [facility] 04/29/2025 12:10:02 04/22/20 25 Allergy Immunotherapy Injections completed Verónica Nix [address] [facility] [place],[address] [facility], [place], [address], [place] [facility] 04/22/2025 11:43:53 04/08/20 25 Allergy Immunotherapy Injections completed MICHAEL BYRNES [address], [place], [address], [place] [facility] 04/08/2025 11:52:29 04/01/20 25 Allergy Immunotherapy Injections completed SALVADOR MIKEY, RMA [address], [place], [address], [place] [facility] 04/01/2025 11:46:12 03/25/20 25 Allergy Immunotherapy Injections completed MICHAEL BYRNES [address], [place], [address], [place] [facility] 03/25/2025 11:14:09 03/18/20 25 Allergy Immunotherapy Injections completed MICHAEL ROMO [address], [place], [address], [place] [facility] 03/18/2025 12:09:33 03/09/20 25 Allergy Immunotherapy Injections completed MICHAEL ROMO [address], [place], [address], [place] [facility] 03/09/2025 15:27:04 02/26/20 25 Allergy Immunotherapy Injections completed MICHAEL ROMO [address],[place] [address] [place] [address], [address], [place] [facility] 02/25/2025 12:08:34 01/29/20 25 Allergy Immunotherapy Injections completed KATHY TORREZ RN [address],[place] [address] [place] [address], [address], [place] [facility] 01/28/2025 10:37:12 01/08/20 25 Allergy Immunotherapy Injections completed MICHAEL BYRNES [address] [address] [place] [address], [address], [place] [facility] 01/07/2025 11:39:55 01/01/20 25 Allergy Immunotherapy Injections completed KATHY TORREZ RN [address],[place] [address] [place] [address], [address], [place] [facility] 12/31/2024 12:12:52 12/18/19 25 Allergy Immunotherapy Injections completed KATHY TORREZ RN [address], [place], [address], [place] [facility] 12/17/2024 09:51:57 12/04/19 25 Allergy Immunotherapy Injections completed RADHA KORZEC, RMA [address], [place], [address], [place] [facility] 12/03/2024 11:47:21 11/27/19 25 Allergy Immunotherapy Injections completed LOGAN ROMOA [address], [place], [address], [place] [facility] 11/26/2024 11:41:01 11/20/19 25 Allergy Immunotherapy Injections completed RADHA CASTRO, RMA [address], [place], [address], [place] [facility] 11/19/2024 11:28:16 11/06/19 25 Allergy Immunotherapy Injections completed LOGAN ROMOA [address], [place], [address], [place] [facility] 11/05/2024 12:11:25 10/15/19 25 Allergy Immunotherapy Injections completed LOGAN ROMOA [address], [place], [address], [place] [facility] 10/15/2024 12:52:52 10/08/19 25 Allergy Immunotherapy Injections completed RADHA CASTRO RMA [address], [place], [address], [place] [facility] 10/08/2024 12:06:57 10/01/19 25 Allergy Immunotherapy Injections completed LOGAN ROMOA [address], [place], [address], [facility] - [facility] 10/01/2024 11:50:19 09/20/19 25 Allergy Immunotherapy Injections completed KATHY TORREZ RN [address], [place], [address], [place] [facility] 09/20/2024 10:01:22 07/23/20 24 Allergy Testing-Full completed RADHA CASTRO, RMA [address], [place], [address], [place] [facility] 07/23/2024 15:31:38 06/29/20 24 Fiberoptic Laryngoscopy (Comprehensive) completed JOSE MIGUEL SCHMIDT MD 100 [facility] 100, [place], [address], [facility] 06/29/2024 09:54:45 06/16/20 24 Revise eye muscle completed JOSE MIGUEL SCHMIDT MD [address], [place], [address], [facility] 06/29/2024 09:42:26 Imaging Results None recorded. [...] 24 hr 06/29 completed Medicati on ID: [id number] Osbaldo tirado Name: metoprol ol succinat e [...] as directed 06/29 completed Medicati on ID: [id number] Venu [place] By Name: Kim Da Silva [...] DIRECTED BY GASTROEN TEROLOGY DEPARTME NT AT [facility] 02/18 completed Not Available Not Available Not Available Vitals None Recorded Social History Question Answer Notes LastModified by Organizat ion Details LastModified Time Tobacco Smoking Status Never Smoker Jacque escobar [place] [facility] 03/09/2025 15:17:16 What Type Of Supervisor Files Do You Use? None [email or web address] Information not available 03/09/2025 Do You Have Any Pets? Yes [email or web address] Information not available 03/09/2025 Are You Passively Exposed To Smoke? No [email or web address] Information not available 03/09/2025 Are There Any Smokers In Your House? No [email or web address] Information not available 03/09/2025 Sex: Unknown Functional Status Question Answer Note LastModified by Organizat ion Details LastModified Time How many times per week do you consume alcohol? 1-2 times per week [email or web address] Information not available 03/09/2025 Do you use any illicit or recreational drugs? No [email or web address] Information not available 03/09/2025 Do you or have you ever used any other forms of tobacco or nicotine? No [email or web address] Information not available 03/09/2025 What is your level of alcohol consumption? 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 Industrial [email or web address] Information not available 03/09/2025 Mental Status None recorded. Family History Nothing Reported. Medical History Condition Response Hyperlipidemia Y Hypertension Y Sleep Disorder Y GERD/Reflux Y Past Encounters Encounter ID Performer Location Encounter Start Date Encounter Closed Date Diagnosis/Indication Diagnosis SNOMED-CT Code Diagnosis ICD10 Code Diagnosis IMO Codes Diagnosis Note [id number] MICHAEL ROMO Allergy 100 [facility] 100 [place] [address] 04/22/2025 11:34:46 04/22/2025 11:44:43 Perennial allergic rhinitis 863700883 J30.89 [id number] KATHY TORREZ RN Allergy 100 [facility], [place] 100 [place] [address] 04/29/2025 12:09:18 04/29/2025 12:10:28 Perennial allergic rhinitis 969753102 J30.89 [id number] SALVADOR JENSEN [facility] Allergy 100 [facility] 100 [place] [address] 05/13/2025 10:16:00 05/13/2025 10:17:15 Perennial allergic rhinitis 579469850 J30.89 Health Concerns Section Related Observation LastModified by Organization Detai ls LastModified Time None Recorded Concern Status LastModified by Organization Details LastModified Time None Recorded Payers Encounter Date Sequence Insurance Name Policy Number Policy Dacosta Covered Member ID Dacosta Member ID Guarantor Name 05/13/2025 1 [facility] [id number] Regan Lama [id number] Regan Lama
--- OUTSIDE RECORDS SUMMARY | 2025-07-21 12:10 | XMS_ITS | Continuity of Care Document ---
Author Organization [place] [facility] Former[facility], Allergy Address [address] [place] [address] Care Team Providers Care Commissary Clerk Name Role Phone ROSS COBOS Primary Care Provider Assessment Encounter Date Assessment Date Assessment LastModified by Organization Details LastModified Time 04/29/2025 04/29/2025 Visit With: Kathy Torrez RN Use of Antihistamine s: No If yes: Vial Test Change in medications: No If yes Increase in asthma symptoms If yes, inhaler use: Reaction to last injections: No If yes: Allergy Symptoms: Other: Missed: Dose Aware of Vial Test Aware: Notes: [email or web address] Not available 04/29/2025 12:10:15 Plan of Treatment Reminders Order Date Submit [...] Recorded Time Obstructi ve sleep apnea syndrome 43661102 Active 2019 Obstructiv e sleep apnea (adult) (pediatric ); Note: Date Diagnosed: 07/03/2020 11:19 AM (G47.33) JOSE MIGUEL SOTOMAYOR MD [address] [facility], [place], [address] , [place] [facility] 5 15:57:50 Posterior rhinorrhe a 10319142 Active 2019 Postnasal drip; Note: Date Diagnosed: 07/03/2020 11:19 AM (R09.82) Not Available [facility] 4 02:54:35 Snoring 68183988 Active 2023 JOSE MIGUEL SOTOMAYOR MD [address], [place], [address] , [place] [facility] 4 09:47:17 Chronic rhinitis 13359540 Active 2023 JOSE MIGUEL SOTOMAYOR MD [address], [place], [address] , [place] [facility] 4 09:47:22 Deviated nasal septum 279044799 Active 2023 JOSE MIGUEL SOTOMAYOR MD [address] [facility], [place], [address] , [place] [facility] [place] [facility] 4 09:47:26 Feeling of lump in throat 504812882 Active 2023 JOSE MIGUEL SOTOMAYOR MD [address], [place], [address] , [place] [facility] 4 09:47:30 Allergic rhinitis 62649299 Active 2023 JOSE MIGUEL SOTOMAYOR MD [address] [facility] [address], [place], [address] , [place] [facility] 4 09:56:43 Nasal congestio n 28426956 Active 2024 JOSE MIGUEL SOTOMAYOR MD [address], [place], [address] , [place] [facility] 5 09:10:23 Chronic sinusitis 24740615 Active 2024 JOSE MIGUEL SOTOMAYOR MD [address], [place], [address] , [place] [facility] 15:55:02 Perennial allergic rhinitis 600535552 Active 2024 MICHAEL ROMO [address] [facility] [address], [place], [address] , [place] [facility] 11:48:04 Seasonal allergic rhinitis 855803803 Active 2024 JOSE MIGUEL SOTOMAYOR MD [address] [facility] [address], [place], [address] , [place] [facility] 15:54:25 Problem Notes None recorded. Procedures Surgical History Date Name Laterality Status Provider Name and Address Organization Details Recorded Time 06/03/20 25 Allergy Immunotherapy Injections completed MICHAEL ROMO [address] [facility],[address] [facility], [place], [address], [place] [facility] 06/03/2025 11:49:46 05/27/20 25 Allergy Immunotherapy Injections completed Verónica Nix [address] [facility],[address] [facility], [place], [address], [place] [facility] 05/27/2025 12:12:59 05/13/20 25 Allergy Immunotherapy Injections completed MICHAEL ROMO [address] [facility],[address] [facility], [place], [address], [place] [facility] 05/13/2025 10:16:47 04/29/20 25 Allergy Immunotherapy Injections completed MICHAEL ROMO [address] [facility],[address], [address], [place] [facility] 04/29/2025 12:10:02 04/22/20 25 Allergy Immunotherapy Injections completed Verónica Nix 100 [facility] [place],[address] [facility], [place], [address], [place] [facility] 04/22/2025 11:43:53 04/08/20 25 Allergy Immunotherapy Injections completed MICHAEL SANCHEZ [address] [facility] [address], [place], [address], [place] [facility] 04/08/2025 11:52:29 04/01/20 25 Allergy Immunotherapy Injections completed SALVADOR MIKEY, RMA [address], [place], [address], [place] [facility] 04/01/2025 11:46:12 03/25/20 25 Allergy Immunotherapy Injections completed MICHAEL SANCHEZ [address], [place], [address], [place] [facility] 03/25/2025 11:14:09 03/18/20 25 Allergy Immunotherapy Injections completed MICHAEL ROMO [address], [place], [address], [place] [facility] 03/18/2025 12:09:33 03/09/20 25 Allergy Immunotherapy Injections completed MICHAEL ROMO [address], [place], [address], [place] [facility] 03/09/2025 15:27:04 02/26/20 25 Allergy Immunotherapy Injections completed MICHAEL ROMO [address] [facility] [place] [address], [address], [place] [facility] 02/25/2025 12:08:34 01/29/20 25 Allergy Immunotherapy Injections completed KATHY TORREZ RN [address] [facility] [address] [place] [address], [address], [place] [facility] 01/28/2025 10:37:12 01/08/20 25 Allergy Immunotherapy Injections completed MICHAEL SANCHEZ [address] [place] [address], [address], [place] [facility] 01/07/2025 11:39:55 01/01/20 25 Allergy Immunotherapy Injections completed KATHY TORREZ RN [address] [facility] [place] [address], [address], [place] [facility] 12/31/2024 12:12:52 12/18/19 25 Allergy Immunotherapy Injections completed KATHY TORREZ RN [address] [facility] [address], [place], [address], [place] [facility] 12/17/2024 09:51:57 12/04/19 25 Allergy Immunotherapy Injections completed RADHA KORZEC, RMA [address], [place], [address], [place] [facility] 12/03/2024 11:47:21 11/27/19 25 Allergy Immunotherapy Injections completed LOGAN ROMOA [address], [place], [address], [place] [facility] 11/26/2024 11:41:01 11/20/19 25 Allergy Immunotherapy Injections completed RADHA CASTRO, RMA [address], [place], [address], [place] [facility] 11/19/2024 11:28:16 11/06/19 25 Allergy Immunotherapy Injections completed LOGAN ROMOA [address], [place], [address], [place] [facility] 11/05/2024 12:11:25 10/15/19 25 Allergy Immunotherapy Injections completed LOGAN ROMOA [address], [place], [address], [place] [facility] 10/15/2024 12:52:52 10/08/19 25 Allergy Immunotherapy Injections completed RADHA CASTRO RMA [address], [place], [address], [place] [facility] 10/08/2024 12:06:57 10/01/19 25 Allergy Immunotherapy Injections completed LOGAN ROMOA [address], [place], [address], [facility] - [facility] 10/01/2024 11:50:19 09/20/19 25 Allergy Immunotherapy Injections completed KATHY TORREZ RN [address], [place], [address], [place] [facility] 09/20/2024 10:01:22 07/23/20 24 Allergy Testing-Full completed RADHA CASTRO, RMA [address], [place], [address], [place] [facility] 07/23/2024 15:31:38 06/29/20 24 Fiberoptic Laryngoscopy (Comprehensive) completed JOSE MIGUEL SCHMIDT MD [address] [facility], [place], [address], [facility] - [facility] 06/29/2024 09:54:45 06/16/20 24 Revise eye muscle completed JOSE MIGUEL SCHMIDT MD [address] [facility], [place], [address], [facility] 06/29/2024 09:42:26 Imaging Results None recorded. [...] 24 hr 06/29 completed Medicati on ID: [id number] Osbaldo tirado Name: metoprol ol succinat e [...] as directed 06/29 completed Medicati on ID: [id number] Venu [place]que By Name: Kim Da Silva [...] DIRECTED BY GASTROEN TEROLOGY DEPARTME NT AT [facility] 02/18 completed Not Available Not Available Not Available Vitals None Recorded Social History Question Answer Notes LastModified by Organizat ion Details LastModified Time Tobacco Smoking Status Never Smoker Jacque escobar [place] - [facility] 03/09/2025 15:17:16 What Type Of Director Of Public Works Do You Use? None Information not available 03/09/2025 Do You Have Any Pets? Yes [email or web address] Information not available 03/09/2025 Are You Passively Exposed To Smoke? No [email or web address] Information not available 03/09/2025 Are There Any Smokers In Your House? No [email or web address] Information not available 03/09/2025 Sex: Unknown Functional Status Question Answer Note LastModified by Organizat ion Details LastModified Time How many times per week do you consume alcohol? 1-2 times per week [email or web address] Information not available 03/09/2025 Do you use any illicit or recreational drugs? No [email or web address] Information not available 03/09/2025 Do you or have you ever used any other forms of tobacco or nicotine? No [email or web address] Information not available 03/09/2025 What is your level of alcohol consumption? Occasional [email or web address] Information not available 03/09/2025 What type of noise exposure are you exposed to? Industrial [email or web address] Information not available 03/09/2025 Mental Status None recorded. Family History Nothing Reported. Medical History Condition Response Hyperlipidemia Y Hypertension Y Sleep Disorder Y GERD/Reflux Y Past Encounters Encounter ID Performer Location Encounter Start Date Encounter Closed Date Diagnosis/Indication Diagnosis SNOMED-CT Code Diagnosis ICD10 Code Diagnosis IMO Codes Diagnosis Note [id number] SALVADOR JENSEN [facility] Allergy [address] [facility],[address] [place] [address] 04/01/2025 11:22:59 04/01/2025 11:46:39 Perennial allergic rhinitis 443689169 J30.89 [id number] RADHA BELTRAN, [facility] Allergy [address] [facility],[address] [place] [address] 04/08/2025 11:51:35 04/08/2025 11:52:50 Perennial allergic rhinitis 504663231 J30.89 [id number] SALVADOR JENSEN [facility] Allergy [address] [facility],[address] [place] [address] 04/22/2025 11:34:46 04/22/2025 11:44:43 Perennial allergic rhinitis 423665805 J30.89 [id number] KATHY TORREZ RN Allergy 100 [facility],[address] [place] [address] 04/29/2025 12:09:18 04/29/2025 12:10:28 Perennial allergic rhinitis 920282911 J30.89 Health Concerns Section Related Observation LastModified by Organization Detai ls LastModified Time None Recorded Concern Status LastModified by Organization Details LastModified Time None Recorded Payers Encounter Date Sequence Insurance Name Policy Number Policy Dacosta Covered Member ID Dacosta Member ID Guarantor Name 04/29/2025 1 [facility] [id number] Regan Lama [id number] Regan Lama
[2025-07-21 13:36] LABS: Appearance Urine Clear; Glucose Urine UA Negative (Negative); PH 6.5 (5.0-9.0); Specific Gravity - Urine 1.025 (1.005-1.025)
== END 2025-07-21 09:22 | disposition home or self-care (01) ==
LOC: HO.HMGCLDS 09:21
PROVIDERS: PCP Nurse Practitioner Family; Visit Provider Nurse Practitioner Family
DX: I10 Essential (primary) hypertension (principal)
CPT/HCPCS: 36415; 80053; 80061; 81003; 84443; 85025

== ENCOUNTER 2025-07-25 07:59 | Outpatient (REF) | payer OTHER, SELFPAY ==
[2025-07-25 09:46] LABS: Hematocrit 45.5 % (42.0-52.0); Hemoglobin 15.1 g/dl (14.0-18.0); Mean Corpuscular HGB Conc 33.2 g/dl (31.0-36.0); Mean Corpuscular Hemoglobin 30.1 pg (27.0-33.0); Mean Corpuscular Volume 90.8 fL (80.0-98.0); NRBC Abs Auto 0.000 X10*3/uL (0.0-0.012); NRBC Pct Auto 0.0 /100WBC (0.0-0.2); Platelet Count 278 X10*3/uL (160-400); Red Blood Count 5.01 X10*6/uL (4.60-5.80); White Blood Count 5.2 X10*3/uL (4.8-10.8)
[2025-07-25 10:17] LABS: Alanine Aminotransferase 18 U/L (0-40); Albumin Level 4.6 g/dL (3.5-5.0); Alkaline Phosphatase 66 U/L (39-117); Anion Gap 11 (12-20); Aspartate Amino Transferase 31 U/L (5-37); Blood Urea Nitrogen 18 mg/dL (9-16); Calcium 9.4 mg/dL (8.4-10.2); Carbon Dioxide 27 mmol/L (22-29); Chloride 107 mmol/L (96-108); Estimated Glomerular Filt Rate > 60; Iron 73 mcg/dL (45-160); Percent Iron Saturation 26 % (15-50); Potassium 3.7 mmol/L (3.3-5.1); Sodium 141 mmol/L (135-145); Total Iron Binding Capacity 284 mcg/dL (228-428); Total Protein 7.7 g/dL (6.5-8.0); Unsaturated Iron Binding 211 ug/dL
[2025-07-25 10:33] LABS: Ferritin 426 ng/mL (20-250)
[2025-07-25 10:43] LABS: Folate 9.4 ng/mL (> or = 4.0); Vitamin B12 301 pg/mL (200-900)
== END 2025-07-25 08:00 | disposition home or self-care (01) ==
LOC: HO.HMGCLDS 07:59
PROVIDERS: Absent Provider Physician Assistant Medical; PCP Nurse Practitioner Family; Visit Provider Nurse Practitioner Family
DX: Z00.00 Encounter for general adult medical examination without abnormal findings (principal); R53.82 Chronic fatigue, unspecified; G47.19 Other hypersomnia; E66.9 Obesity, unspecified; R01.1 Cardiac murmur, unspecified; I77.810 Thoracic aortic ectasia; K21.9 Gastro-esophageal reflux disease without esophagitis; I10 Essential (primary) hypertension; Z83.49 Family history of other endocrine, nutritional and metabolic diseases; Z13.1 Encounter for screening for diabetes mellitus; Z13.0 Encounter for screening for diseases of the blood and blood-forming organs and certain disorders involving the immune mechanism
CPT/HCPCS: 36415; 80053; 81256; 82306; 82607; 82728; 82746; 83036; 83090; 83540; 83921; 84207; 84443; 85027; 96127

== ENCOUNTER 2025-07-25 07:59 | Outpatient (AMB) | payer OTHER, SELFPAY ==
[2025-07-25 08:02] VITALS: BP 130/76; PULSE 85; RESP 16; O2SAT 97; BMI 36.4
--- NOTE | 2025-07-25 08:02 | A.OFFPC_ITS ---
Vital Signs 07/25/25 08:02 Height 5 ft 10 in Weight 254 lb BMI 36.4 BP 130/76 Blood Pressure Location Lt brachial Position Sitting Respiration 16 Pulse 85 Pulse Source Pulse Oximeter Pulse Oximetry (%) 97 Oxygen Delivery Method Room Air Intake Visit Reasons: PE - see comments Injection Molding Technician Required: No Accompanied by: Self / Same As Patient Allergies lisinopril Allergy (Unknown, Verified 07/25/25 08:04) Cough Tobacco use date assessed: 07/25/25 Dental Screening Dental Screen Date: 07/25/25 Did you have a dental visit in the last 12 months?: Yes Did you have a dental problem in the last 6 months where you did not have access to dental care?: No Was dental information given to patient?: Patient has dentist HPI PE - see comments HPI Details History of Present Illness The patient is a 55 year old individual presenting for a physical examination. The patient reports a family history of hemochromatosis. Colon cancer screening is up to date. Health Maintenance - The patient's colon cancer screening i s up to date. - An iron and hemochromatosis panel will be ordered due to a family history of hemochromatosis. -sees sleep med and urology(PSA) -echo for follow up of ascending aorta d ilatation + murmur Social History Review of Systems - Cardiovascular: Denies chest pain. - Respiratory: Denies shortness of breat h. - Gastrointestinal: Denies abdominal antione n, hematochezia, constipation, and diarrhea. - Psychiatric: Denies suicidal or homici ezekiel ideation. Physical Exam General: Cooperative, healthy appearing, comfortable, no acute distress and well developed Orientation: Patient oriented x3 Limitations: No limitations Head: Normal to inspection Ears: Hearing grossly normal bilaterally Nose: Normal external nose present Face and sinus: Normal facial exam Eyes: Appearance normal, both eyes and all related structures Neck: Normal visual inspection and Yes full ROM Respiratory: Normal respiratory effort and able to speak in complete sentences. Clear to auscultation bilaterally Cardiovascular: Faint systolic murmur noted GI: Normal to inspection. Soft to palpation and nontender : testicles without masses/lesions and no hernias appreciated Skin: No rashes or lesions noted Neuro: Patient oriented x3 Extremities: Normal to inspection Results - Laboratory studies were completed prio r to the visit; results were not discussed. Plan 1. Encounter For General Adult Medical E xamination The patient presented for a physical examination. Vital signs are stable and colon cancer screening is up to date. 2. Screening For Hemochromatosis Due to a family history of hemochromatosis, an iron and hemochromatosis panel will be ordered for screening. 3. Obesity The patient was noted to be obese on physical examination. Encouraged weight loss through diet and exercise 4. Systolic Heart Murmur A faint systolic murmur was noted on physical examination. Discussion Notes I informed the patient that given the family history of hemochromatosis, I will order an iron and hemochromatosis panel for evaluation. Patient Instructions - We will order blood work to check your iron levels and screen for a condition called hemochromatosis, as it runs in your family. [facility] Medical History Sleep apnea Ascending aorta dilatation HTN (hypertension) GERD (gastroesophageal reflux disease) Back pain GERD with apnea Surgical History History of esophagogastroduodenoscopy (EGD) History of prostate surgery Hx of eye surgery (06/16/24) H/O colonoscopy Hx of lithotripsy Carpal tunnel syndrome, bilateral Family History Father HTN (hypertension) Mother No problems noted. Brother No problems noted. Brother No problems noted. Social History Housing: House Patient Tobacco Use Status: Never used Tobacco e-Cigarette/Vaping Use: Never Used Second Hand Smoke Exposure: No service: No Current occupational status: employed Cognitive needs: No Hearing needs: No Vision needs: No Questionnaire PHQ-9 Over the last 2 weeks, how often have you been bothered by any of the following problems? 1. Little interest or pleasure in doing things: not at all 2. Feeling down, depressed, or hopeless: not at all 3. Trouble falling or staying asleep, or sleeping too much: not at all 4. Feeling tired or having little energy: several days 5. Poor appetite or overeating: not at all 6. Feeling bad about yourself - or that you are a failure or have let yourself or your family down: not at all 7. Trouble concentrating on things, such as reading the newspaper or watching television: not at all 8. Moving or speaking so slowly that other people could have noticed. Or the opposite - being so fidgety or restless that you have been moving around a lot more than usual: not at all 9. Thoughts that you would be better off or of hurting yourself in some way: not at all Total score: 1 Depression Screening Interpretation: Negative Depression Screening Done: Yes 29576 - PHQ-9 Billing: Yes Source: Developed by Drs. Fletcher Bang, Katarina Hubbard, Pedrito Roy and colleagues, with an educational juan pablo from [email or web address]. Thrive Questionnaire Date Thrive assessed: 06/28/25 I am a: Patient What is your living situation today?: I have a steady place to live Within the past 12 months, did the food you bought not last and you didn't have the money to get more?: Never true Within the past 12 months, did you worry whether your food would run out before you got money to buy more?: Never true Do you have trouble paying for medicines?: No Do you have trouble getting transportation to medical appointments?: No Do you have trouble paying your heating and electricity bill?: No Do you have trouble taking care of your child, family member or friend?: No Do you have trouble with day-to-day activities such as bathing, preparing meals, shopping, managing finances, etc.?: No Are you currently unemployed and looking for a job?: No Are you interested in more education?: No Please select the resources that you would like help with: None Currently or been in a relationship where the following occur: No concerns reported THRIVE Score: 0 AUDIT C Alcohol Use Questionnaire (AUDIT-C) 1. How often do you have a drink containing alcohol?: 4 or more times a week Total Score: 4 KARLA-7 AMB Questionnaire KARLA-7 Date KARLA - 7 assessed: 07/25/25 Feeling nervous, anxious, or on edge: 0 = Not at all Not being able to stop or control worryin = Not at all Worrying too much about different things: 0 = Not at all Trouble relaxin = Not at all Being so restless that it is hard to sit still: 0 = Not at all Becoming easily annoyed or irritable: 0 = Not at all Feeling afraid as if something awful might happen: 0 = Not at all Total KARLA-7 score (0-4 normal; 5-9 mild; 10-14 moderate; 15-21 severe): 0 Source: Developed by Drs. Fletcher Bang, Katarina Hubbard, Pedrito Roy and colleagues, with an educational juan pablo from [email or web address]. KARLA-7 Assessment Billing KARLA-7 Assessment Tool: KARLA-7 Assessment 05034 Physical exam (Primary Care) Vital Signs: Last Vital Signs Pulse 85 07/25/25 08:02 Resp 16 07/25/25 08:02 BP 130/76 07/25/25 08:02 Pulse Ox 97 07/25/25 08:02 Oxygen Delivery Method Room Air 07/25/25 08:02 BMI result Body Mass Index 36.4 Tobacco/Smoking Status: Tobacco use Status Tobacco use date assessed 07/25/25 07/25/25 08:07 Patient Tobacco Use Status Never used Tobacco 07/25/25 08:07 e-Cigarette/Vaping Use Never Used 07/25/25 08:07 PHQ-9: PHQ-9 Score PHQ-9: Total score 1 07/25/25 08:07 Depression Screening Interpretation: Negative Thrive Assessment: Date of Thrive Assessment Date Thrive assessed 06/28/25 07/25/25 08:07 Currently or been in a relationship where the following occur: No concerns reported Coding Level of Care Code Est Pt Prev Care 40-64y(25742) Diagnoses Family history of hemochromatosis Z83.49 Ascending aorta dilatation I77.810 Cardiac murmur R01.1 Additional Codes KARLA-7 Assessment Billing - KARLA-7 Assessment Tool: KARLA-7 Assessment 50245 ([id number]) PHQ-9 - 45102 - PHQ-9 Billing: Yes ([id number]) Assessment & Plan Assessment & Plan (1) Family history of hemochromatosis: Code(s): Z83.49 - Family history of other endocrine, nutritional and metabolic diseases Category: Medical (2) Ascending aorta dilatation: Code(s): I77.810 - Thoracic aortic ectasia Category: Medical (3) Cardiac murmur: Code(s): R01.1 - Cardiac murmur, unspecified Category: Medical Plan . Orders: Orders DNA Analysis Hemochromatosis Today Z83.49 - Family history of other endocrine, nutritional and metabolic diseases IRON PROFILE Today Z83.49 - Family history of other endocrine, nutritional and metabolic diseases Ferritin Today Z83.49 - Family history of other endocrine, nutritional and metabolic diseases CA echo transthoracic complete Today I77.810 - Thoracic aortic ectasia, R01.1 - Cardiac murmur, unspecified
--- OUTSIDE RECORDS SUMMARY | 2025-07-25 08:02 | XMS_ITS | Patient Health Record ---
Author Organization [facility] [place] Address [address] [facility] [place] [address] Care Team Providers Care Metal Ceiling Builder Name Role Phone Robert WHITING, [phone] [facility] Primary [facility] Pro vider Unavailable Black, Lori Unavailable [phone] Reason For Referral No Information Medications Medication [...] Status W/U Status Risk Notes Problem Bursitis (10750933) Bursitis (727.3) Active confirmed Problem Achilles bursitis (377480123) Achilles Tendonitis Bursitis (726.71) Active confirmed Problem Myositis (88822773) Myositis (729.1) Active confirmed Problem Pain in limb (02225554) Pain in Limb (729.5) Active confirmed Problem Plantar fasciitis (112997227) Plantar Fasciitis (728.71) Active confirmed Problem Calcaneal spur (60194006) Calcaneal spur (726.73) Active confirmed Plan Of Treatment No Information Insurance Providers Payer Name Payer Address Payer Phone Subscriber Number Group Number Insured Name Patient Relationship to Insured Coverage Start Date Coverage End Date Blue Benefits [address] [address] [place] [id number] Rosa Pino Spouse - patient is the spouse of the insured Medical (General) History Medical History History ICD Code High blood pressure Surgical History Surgery Date(Month/Year) kidney stones 08/03/2014
--- OUTSIDE RECORDS SUMMARY | 2025-07-25 08:02 | XMS_ITS | Continuity of Care Document ---
Author Organization [place] - 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 5 15:57:50 Posterior rhinorrhe a [id number] Active 2019 Postnasal drip; Note: Date Diagnosed: 07/03/2020 11:19 AM (R09.82) Not Available [facility] 4 02:54:35 Snoring 63697340 Active 2023 JOSE MIGUEL SOTOMAYOR MD [address], [place], [address] , [place] [facility] 4 09:47:17 Chronic rhinitis 31222642 Active 2023 JOSE MIGUEL SOTOMAYOR MD [address], [place], [place], [address] , [place] [facility] 4 09:47:22 Deviated nasal septum 082990049 Active 2023 JOSE MIGUEL SOTOMAYOR MD [address], [place], [address] , [place] [facility] 4 09:47:26 Feeling of lump in throat 595844034 Active 2023 JOSE MIGUEL SOTOMAYOR MD [address], [place], [place], [address] , [place] [facility] 4 09:47:30 Allergic rhinitis 07787796 Active 2023 JOSE MIGUEL SOTOMAYOR MD [address], [place], [address] , [place] [facility] 4 09:56:43 Nasal congestio n 70755281 Active 2024 JOSE MIGUEL SOTOMAYOR MD [address], [place], [address] , [place] [facility] 5 09:10:23 Chronic sinusitis 36465496 Active 2024 JOSE MIGUEL SOTOMAYOR MD [address], [place], [address] , [place] [facility] 5 15:55:02 Perennial allergic rhinitis 603933309 Active 2024 MICHAEL ROMO [address], [place], [address] , [place] [facility] 11:48:04 Seasonal allergic rhinitis 120750314 Active 2024 JOSE MIGUEL SOTOMAYOR MD [address], [place], [address] , [place] [facility] 15:54:25 Problem Notes None recorded. Procedures Surgical History Date Name Laterality Status Provider Name and Address Organization Details Recorded Time 06/03/20 25 Allergy Immunotherapy Injections completed MICHAEL ROMO [address], [place], [address], [place] [facility] 06/03/2025 11:49:46 05/27/20 25 Allergy Immunotherapy Injections completed Verónica Nix [address], [place], [address], [place] [facility] 05/27/2025 12:12:59 05/13/20 25 Allergy Immunotherapy Injections completed MICHAEL ROMO [address] [facility], [place], [address], [place] [facility] 05/13/2025 10:16:47 04/29/20 25 Allergy Immunotherapy Injections completed MICHAEL ROMO [address], [place], [address], [place] [facility] 04/29/2025 12:10:02 04/22/20 25 Allergy Immunotherapy Injections completed Verónica Nix [address], [place], [address], [place] [facility] 04/22/2025 11:43:53 04/08/20 25 Allergy Immunotherapy Injections completed MICHAEL SANCHEZ [address], [place], [address], [place] [facility] 04/08/2025 11:52:29 04/01/20 25 Allergy Immunotherapy Injections completed ERICA MIKEY, RMA [address], [address], [place] [facility] 04/01/2025 11:46:12 03/25/20 25 Allergy Immunotherapy Injections completed RADHA CASTRO RMA [address], [address], [place] [facility] 03/25/2025 11:14:09 03/18/20 25 Allergy Immunotherapy Injections completed MICHAEL ROMO [address], [address], [place] [facility] 03/18/2025 12:09:33 03/09/20 25 Allergy Immunotherapy Injections completed MICHAEL ROMO [address], [address], [place] [facility] 03/09/2025 15:27:04 02/26/20 25 Allergy Immunotherapy Injections completed MICHAEL ROMO [address] [facility] [place] [address], [address], [place] [facility] 02/25/2025 12:08:34 01/29/20 25 Allergy Immunotherapy Injections completed KATHY TORREZ RN [address] [facility] [place],[address] [place] [address], [address], [place] [facility] 01/28/2025 10:37:12 01/08/20 25 Allergy Immunotherapy Injections completed RADHA CASTRO A [address] [facility] [place],[address] [place] [address], [address], [place] [facility] 01/07/2025 11:39:55 01/01/20 25 Allergy Immunotherapy Injections completed KATHY TORREZ RN [address] [place] [address], [address], [place] [facility] 12/31/2024 12:12:52 12/18/19 25 Allergy Immunotherapy Injections completed KATHY TORREZ RN [address] [place] [address], [address], [place] [facility] 12/17/2024 09:51:57 12/04/19 25 Allergy Immunotherapy Injections completed RADHA KORZEC, RMA [address], [address], [place] [facility] 12/03/2024 11:47:21 11/27/19 25 Allergy Immunotherapy Injections completed LOGAN ROMOA [address], [place], [address], [facility] - [facility] 11/26/2024 11:41:01 11/20/19 25 Allergy Immunotherapy Injections completed RADHA CASTRO, RMA [address], [place], [address], [place] [facility] 11/19/2024 11:28:16 11/06/19 25 Allergy Immunotherapy Injections completed LOGAN ROMOA [address], [address], [facility] - [facility] 11/05/2024 12:11:25 10/15/19 25 Allergy Immunotherapy Injections completed LOGAN ROMOA [address] [place] [address], [address], [facility] - [facility] 10/15/2024 12:52:52 10/08/19 25 Allergy Immunotherapy Injections completed RADHA CASTRO RMA [address], [address], [facility] - [facility] 10/08/2024 12:06:57 10/01/19 25 Allergy Immunotherapy Injections completed MICHAEL ROMO [address] [place] [address], [address], [facility] - [facility] 10/01/2024 11:50:19 09/20/19 25 Allergy Immunotherapy Injections completed KATHY TORREZ RN [address], [address], [facility] - [facility] 09/20/2024 10:01:22 07/23/20 24 Allergy Testing-Full completed RADHA CASTRO, RMA [address], [place], [address], [place] [facility] 07/23/2024 15:31:38 06/29/20 24 Fiberoptic Laryngoscopy (Comprehensive) completed JOSE MIGUEL SCHMIDT MD [address] [facility] 100, [place], [address], [facility] - [facility] 06/29/2024 09:54:45 06/16/20 24 Revise eye muscle completed JOSE MIGUEL SCHMIDT MD [address] [facility] 100, [place], [address], [facility] - [facility] 06/29/2024 09:42:26 Imaging Results None recorded. [...] 24 hr 06/29 completed Medicati on ID: [id number] Osbaldo tirado Name: metoprol ol succinat e [...] as directed 06/29 completed Medicati on ID: [id number] Venu [place] By Name: Kim Da Silva [...] DIRECTED BY GASTROEN TEROLOGY DEPARTME NT AT [facility] 02/18 completed Not Available Not Available Not Available Vitals None Recorded Social History Question Answer Notes LastModified by Organizat ion Details LastModified Time Tobacco Smoking Status Never Smoker Jacque escobar [place] - [facility] 03/09/2025 15:17:16 What Type Of Manager Basketball Do You Use? None [email or web address] Information not available 03/09/2025 Do You Have Any Pets? Yes [email or web address] Information not available 03/09/2025 Are You Passively Exposed To Smoke? No [email or web address] Information not available 03/09/2025 Are There Any Smokers In Your House? No [email or web address] Information not available 03/09/2025 Sex: Unknown Functional Status Question Answer Note LastModified by Organizat ion Details LastModified Time How many times per week do you consume alcohol? 1-2 times per week [email or web address] Information not available 03/09/2025 Do you use any illicit or recreational drugs? No [email or web address] Information not available 03/09/2025 Do you or have you ever used any other forms of tobacco or nicotine? No [email or web address] Information not available 03/09/2025 What is your level of alcohol consumption? Occasional [email or web address] Information not available 03/09/2025 What type of noise exposure are you exposed to? Industrial [email or web address] Information not available 03/09/2025 Mental Status None recorded. Family History Nothing Reported. Medical History Condition Response Hyperlipidemia Y Hypertension Y Sleep Disorder Y GERD/Reflux Y Past Encounters Encounter ID Performer Location Encounter Start Date Encounter Closed Date Diagnosis/Indication Diagnosis SNOMED-CT Code Diagnosis ICD10 Code Diagnosis IMO Codes Diagnosis Note [id number] MICHAEL ROMO Allergy [address] [facility],[place] [address] [place] [address] 05/13/2025 10:16:00 05/13/2025 10:17:15 Perennial allergic rhinitis 500231241 J30.89 [id number] Verónica Parkos Allergy [address] [facility],[place] [address] [place] [address] 05/27/2025 11:27:58 05/27/2025 12:13:23 Perennial allergic rhinitis 785100215 J30.89 [id number] MICHAEL ROMO Allergy [address] [facility],[place] [address] [place] [address] 06/03/2025 11:24:50 06/03/2025 11:50:11 Perennial allergic rhinitis 104686978 J30.89 Health Concerns Section Related Observation LastModified by Organization Detai ls LastModified Time None Recorded Concern Status LastModified by Organization Details LastModified Time None Recorded Payers Encounter Date Sequence Insurance Name Policy Number Policy Dacosta Covered Member ID Dacosta Member ID Guarantor Name 06/03/2025 1 [facility] [id number] Regan Lama [id number] Regan Lama
--- OUTSIDE RECORDS SUMMARY | 2025-07-25 08:02 | XMS_ITS | Data Portability ---
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 Role Phone ROSS COBOS Primary [...] Repeated Aware of Vial Test Aware: Notes: [email or web address] Not available 04/22/2025 11:44:08 04/29/2025 04/29/2025 Visit With: Kathy Torrez RN Use of Antihistamine s: No If yes: Vial Test Change in medications: No If yes Increase in asthma symptoms If yes, inhaler use: Reaction to last injections: No If yes: Allergy Symptoms: Other: Missed: Dose Aware of Vial Test Aware: Notes: [email or web address] Not available 04/29/2025 12:10:15 05/13/2025 05/13/2025 Visit With: MICHAEL Byrnes Use of Antihistamine s: No If yes: Vial Test Change in medications: No If yes Increase in asthma symptoms If yes, inhaler use: Reaction to last injections: No If yes: Allergy Symptoms: Other: Missed: Dose Aware of Vial Test Aware: Notes: [email or web address] Not available 05/13/2025 10:16:58 05/27/2025 05/27/2025 Visit With: Verónica Nix [place] Use of Antihistamine s: No If yes: Vial Test Change in medications: No If yes Increase in asthma symptoms No Asthma Hx If yes, inhaler use: Reaction to last injections: No If yes: Allergy Symptoms: Other: Missed: Dose Aware of Vial Test Aware: Notes: [email or web address] Not available 05/27/2025 12:13:09 06/03/2025 06/03/2025 Visit [...] Recorded Time Obstructi ve sleep apnea syndrome 46876888 Active 2019 Obstructiv e sleep apnea (adult) (pediatric ); Note: Date Diagnosed: 07/03/2020 11:19 AM (G47.33) JOSE MIGUEL SOTOMAYOR MD [address] [place] [address],[place] [address], [place], [address] , [facility] 5 15:57:50 Posterior rhinorrhe a 58231120 Active 2019 Postnasal drip; Note: Date Diagnosed: 07/03/2020 11:19 AM (R09.82) Not Available Critical access hospital 4 02:54:35 Snoring 55393324 Active 2023 JOSE MIGUEL SOTOMAYOR MD 100 [facility],[place] [address], [place], [address] , [place] [facility] 4 09:47:17 Chronic rhinitis 13581414 Active 2023 JOSE MIGUEL SOTOMAYOR MD [address], [place], [address] , [facility] [place] 4 09:47:22 Deviated nasal septum 795442869 Active 2023 JOSE MIGUEL SOTOMAYOR MD [address] [facility], [place], [address] , [facility] - [facility] [place] 4 09:47:26 Feeling of lump in throat 404240849 Active 2023 JOSE MIGUEL SOTOMAYOR MD [address] [facility], [place], [place], [address] , [facility] - [facility] [place] 4 09:47:30 Allergic rhinitis 62200484 Active 2023 JOSE MIGUEL SOTOMAYOR MD [address] [facility] [address], [place], [place], [address] , [facility] - [facility] 4 09:56:43 Nasal congestio n 16597128 Active 2024 JOSE MIGUEL SOTOMAYOR MD [address] [facility] [address], [place], [place], [address] , [facility] - [facility] 5 09:10:23 Chronic sinusitis 25919117 Active 2024 JOSE MIGUEL SOTOMAYOR MD [address] [facility] [address], [place], [place], [address] , [facility] - [facility] [place] 5 15:55:02 Perennial allergic rhinitis 650185863 Active 2024 MICHAEL ROMO [address] [facility] [address], [place], [address] , [facility] - [facility] [place] 5 11:48:04 Seasonal allergic rhinitis 798768036 Active 2024 JOSE MIGUEL SOTOMAYOR MD [address] [facility] [address], [place], [address] , [place] [facility] [place] 15:54:25 Problem Notes None recorded. Procedures Surgical History Date Name Laterality Status Provider Name and Address Organization Details Recorded Time 06/03/20 25 Allergy Immunotherapy Injections completed MICHAEL ROMO [address], [place], [address], [place] [facility] [place] 06/03/2025 11:49:46 05/27/20 25 Allergy Immunotherapy Injections completed Verónica Nix [address], [place], [address], [place] [facility] [place] 05/27/2025 12:12:59 05/13/20 25 Allergy Immunotherapy Injections completed MICHAEL ROMO [address], [place], [address], [place] [facility] [place] 05/13/2025 10:16:47 04/29/20 25 Allergy Immunotherapy Injections completed MICHAEL ROMO [address], [place], [address], [place] [facility] [place] 04/29/2025 12:10:02 04/22/20 25 Allergy Immunotherapy Injections completed Verónica Nix [address], [place], [address], [place] [facility] [place] 04/22/2025 11:43:53 04/08/20 25 Allergy Immunotherapy Injections completed RADHA CASTRO RMA [address], [address], [place] [facility] [place] 04/08/2025 11:52:29 04/01/20 25 Allergy Immunotherapy Injections completed LOGAN ROMOA [address], [place], [address], [place] [facility] [place] 04/01/2025 11:46:12 03/25/20 25 Allergy Immunotherapy Injections completed RADHA CASTRO RMA [address], [place], [address], [place] [facility] [place] 03/25/2025 11:14:09 03/18/20 25 Allergy Immunotherapy Injections completed LOGAN ROMOA [address], [place], [address], [place] [facility] [place] 03/18/2025 12:09:33 03/09/20 25 Allergy Immunotherapy Injections completed MICHAEL ROMO [address], [address], [place] [facility] [place] 03/09/2025 15:27:04 02/26/20 25 Allergy Immunotherapy Injections completed MICHAEL ROMO [address], [address], [place] [facility] [place] 02/25/2025 12:08:34 01/29/20 25 Allergy Immunotherapy Injections completed KATHY TORREZ RN [address] [facility],[address] [place] [address], [address], [place] [facility] [place] 01/28/2025 10:37:12 01/08/20 25 Allergy Immunotherapy Injections completed MICHAEL BYRNES [address] [place] [address], [address], [place] [facility] [place] 01/07/2025 11:39:55 01/01/20 25 Allergy Immunotherapy Injections completed KATHY TORREZ RN [address] [facility] [place],[address], [address], [place] [facility] [place] 12/31/2024 12:12:52 12/18/19 25 Allergy Immunotherapy Injections completed KATHY TORREZ RN [address] [facility],[address] [place] [address], [address], [place] [facility] [place] 12/17/2024 09:51:57 12/04/19 25 Allergy Immunotherapy Injections completed RADHA CASTRO RMLinda [address] [place] [address], [address], [place] [facility] [place] 12/03/2024 11:47:21 11/27/19 25 Allergy Immunotherapy Injections completed MICHAEL ROMO [address], [place], [address], [place] [facility] [place] 11/26/2024 11:41:01 11/20/19 25 Allergy Immunotherapy Injections completed RADHA CASTRO [facility] [address] [facility],[address] [place] [address], [address], [facility] - [facility] [place] 11/19/2024 11:28:16 11/06/19 25 Allergy Immunotherapy Injections completed MICHAEL ROMO [address] [facility],[address] [place] [address], [address], [facility] - [facility] 11/05/2024 12:11:25 10/15/19 25 Allergy Immunotherapy Injections completed ERICA JENSEN [facility] [address] [facility],[address], [address], [facility] - [facility] 10/15/2024 12:52:52 10/08/19 25 Allergy Immunotherapy Injections completed RADHA CASTRO [facility] [address] [facility],[address], [address], [facility] - [facility] 10/08/2024 12:06:57 10/01/19 25 Allergy Immunotherapy Injections completed ERICA JENSEN [facility] 100 [facility],[address], [address], [facility] - [facility] 10/01/2024 11:50:19 09/20/19 25 Allergy Immunotherapy Injections completed KATHY TORREZ RN 100 [facility],[address], [address], [facility] - [facility] 09/20/2024 10:01:22 07/23/20 24 Allergy Testing-Full completed RADHA CASTRO [facility] [address] [facility],[address], [address], [facility] - [facility] 07/23/2024 15:31:38 06/29/20 24 Fiberoptic Laryngoscopy (Comprehensive) completed JOSE MIGUEL SCHMIDT MD [address] [facility],[address], [address], [facility] - [facility] 06/29/2024 09:54:45 06/16/20 24 Revise eye muscle completed JOSE MIGUEL SCHMIDT MD [address] [facility],[address] [place] [address], [address], [facility] - [facility] 06/29/2024 09:42:26 Imaging Results None recorded. 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 Yes [email or web address] Information not available 03/09/2025 Are You Passively Exposed To Smoke? No [email or web address] Information not available 03/09/2025 Are There Any Smokers In Your House? No [email or web address] Information not available 03/09/2025 Sex: Unknown Functional Status Question Answer Note LastModified by Organizat ion Details LastModified Time How many times per week do you consume alcohol? 1-2 times per week [email or web address] Information not available 03/09/2025 Do you use any illicit or recreational drugs? No Information not available 03/09/2025 Do you or have you ever used any other forms of tobacco or nicotine? No [email or web address] Information not available 03/09/2025 What is your level of alcohol consumption? 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 Industrial [email or web address] Information not available 03/09/2025 Mental Status None recorded. Family History Nothing Reported. Medical History Condition Response Hyperlipidemia Y Hypertension Y Sleep Disorder Y GERD/Reflux Y Past Encounters Encounter ID Performer Location Encounter Start Date Encounter Closed Date Diagnosis/Indication Diagnosis SNOMED-CT Code Diagnosis ICD10 Code Diagnosis IMO Codes Diagnosis Note [id number] JOSE MIGUEL SOTOMAYOR MD [facility] [place] [address] 06/29/2024 09:21:20 06/29/2024 10:00:34 Snoring 26049665 R06.83 Chronic rhinitis 3749592 6 J31.0 Deviated nasal septum 12 1167713 J34.2 Feeling of lump in throat 220892602 R09.89 Allergic rhinitis 386645 04 J30.9 [id number] RADHA DEVIN, [facility] Allergy 100 [facility], [address] [place], [place] [address] 07/23/2024 12:39:42 07/23/2024 15:37:35 Allergic rhinitis 88889584 J30.9 [id number] JOSE MIGUEL SOTOMAYOR MD [facility] 100 [place] [address] 09/08/2024 08:35:14 09/08/2024 10:43:33 Allergic rhinitis 94039961 J30.9 We reviewed testing results and medical [...] Epipen use discussed Deviated nasal septum 12 3785856 J34.2 Chronic sinusitis 717656 00 J32.9 There is evidence of diffuse maxillary and ethmoid sinus thickening predominan tly on the right side. Septal deviation to the right and turbinate hypertroph y. Suggest adding fluticason e to his Astelin, a course of doxycyclin e and proceeding with immunother apy [id number] KATHY TORREZ RN Allergy 100 [facility],[place] 100 [facility] [address] 09/20/2024 09:20:22 09/20/2024 10:13:08 Perennial allergic rhinitis 555121849 J30.89 [id number] ERICA JENSEN [facility] Allergy [address] [place] [address] it 100 [place] [address] 10/01/2024 11:20:43 10/01/2024 11:50:36 Perennial allergic rhinitis 200484229 J30.89 [id number] [facility] Allergy [address] [place] [address] it[address] 100 [place] [address] 10/08/2024 11:30:58 10/08/2024 12:07:20 Perennial allergic rhinitis 418042514 J30.89 [id number] ERICA JENSEN [facility] Allergy [address] [place] [address] it[address] 100 [place] [address] 10/15/2024 11:31:35 10/15/2024 12:54:02 Perennial allergic rhinitis 426997812 J30.89 [id number] [facility] Allergy [address] [place] [address] [address] [place] [address] 11/05/2024 11:22:09 11/05/2024 12:12:21 Perennial allergic rhinitis 982345054 J30.89 [id number] [facility], [facility] Allergy [address] [place] [address],[place] [address] [place] [address] 11/19/2024 11:24:02 11/19/2024 11:28:42 Perennial allergic rhinitis 449870383 J30.89 [id number] ERICA JENSEN [facility] Allergy [address] [place] [address],[place] [address] [place] [address] 11/26/2024 11:14:13 11/26/2024 11:41:34 Perennial allergic rhinitis 542379040 J30.89 [id number] RADHA CASTRO [facility] Allergy [address] [place] [address], [place] [address] 12/03/2024 11:05:14 12/03/2024 11:47:44 Perennial allergic rhinitis 926685569 J30.89 [id number] ERICA MIKEY [address] [place] [address] 12/17/2024 09:37:24 12/17/2024 09:52:55 Perennial allergic rhinitis 917418414 J30.89 [id number] KATHY TORREZ RN Allergy [address] [place] [address], [place] [address] 12/31/2024 11:14:56 12/31/2024 12:13:39 Perennial allergic rhinitis 940238619 J30.89 [id number] ERICA MIKEY [address] [place] [address] 01/07/2025 11:21:24 01/07/2025 11:40:28 Perennial allergic rhinitis 612723780 J30.89 [id number] RADHA BELTRAN [facility] Allergy [address] [place] [address], [place] [address] 01/28/2025 10:36:04 01/28/2025 10:37:35 Perennial allergic rhinitis 911021211 J30.89 [id number] [facility] All[facility] [address] [place] [address], [place] [address] 02/25/2025 11:47:16 02/25/2025 12:09:24 Perennial allergic rhinitis 085911642 J30.89 [id number] JOSE MIGUEL SOTOMAYOR MD [facility] [address] [place] [address] 03/09/2025 15:12:54 03/09/2025 16:00:27 Deviated nasal septum 783058366 J34.2 Allergic rhinitis 273517 04 J30.9 Chronic sinusitis 426852 00 J32.8 24078 Continue irrigation s and nasal sprays with allergy management before surgery Obstructiv e sleep apnea syndrome 23421042 G47.33 [id number] ERICA JENSEN [facility] Allergy [address] [place] [address],[place] [address] [place] [address] 03/09/2025 15:15:06 03/09/2025 15:39:50 Perennial allergic rhinitis 502545874 J30.89 [id number] ERICA JENSEN [facility] Allergy [address] [place] [address],[place] [address] [place] [address] 03/18/2025 12:08:22 03/18/2025 12:10:00 Perennial allergic rhinitis 101488948 J30.89 [id number] ERICA JENSEN [facility] Allergy [address] [place] [address],[place] [address] [place] [address] 03/25/2025 09:21:54 03/25/2025 11:14:59 Perennial allergic rhinitis 538745484 J30.89 [id number] ERICA JENSEN [facility] Allergy [address] [place] [address] [address] [place] [address] 04/01/2025 11:22:59 04/01/2025 11:46:39 Perennial allergic rhinitis 241316032 J30.89 [id number] RADHA CASTRO [facility] Allergy [address] [place] [address],[place] [address] [place] [address] 04/08/2025 11:51:35 04/08/2025 11:52:50 Perennial allergic rhinitis 783275820 J30.89 [id number] ERICA JENSEN [facility] Allergy [address] [place] [address], [address] [place] [address] 04/22/2025 11:34:46 04/22/2025 11:44:43 Perennial allergic rhinitis 676701007 J30.89 [id number] KATHY TORREZ RN Allergy [address] [place] [address],[place] [address] [place] [address] 04/29/2025 12:09:18 04/29/2025 12:10:28 Perennial allergic rhinitis 602745896 J30.89 [id number] ERICA JENSEN [facility] Allergy [address] [place] [address],[place] [address] [place] [address] 05/13/2025 10:16:00 05/13/2025 10:17:15 Perennial allergic rhinitis 805722908 J30.89 [id number] Verónica Nix Allergy 100 [facility] 100 [place] [address] 05/27/2025 11:27:58 05/27/2025 12:13:23 Perennial allergic rhinitis 992882021 J30.89 [id number] MICHAEL ROMO Allergy 100 [facility] 100 [place] [address] 06/03/2025 11:24:50 06/03/2025 11:50:11 Perennial allergic rhinitis 018528106 J30.89 Health Concerns Section Related Observation LastModified by Organization Detai ls LastModified Time None Recorded Concern Status LastModified by Organization Details LastModified Time None Recorded Advance Directives Directive None Recorded Payers Insurance Date Sequence Insurance Name Policy Number Policy Dacosta Covered Member ID Dacosta Member ID Guarantor Name 06/03/[address] [place] [address] [id number] eRgan Lama [id number] Regan Lama
--- OUTSIDE RECORDS SUMMARY | 2025-07-25 08:02 | XMS_ITS | Patient Health Record ---
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 and also [...] Status Risk Notes Problem Gastroesophageal reflux disease (956516567) Gastroesophageal reflux disease, esophagitis presence not specified (K21.9) Active confirmed Plan Of Treatment Pending Test Test Name Order Date CELIAC PANEL #10 01/11/2015 Future Test Test Name Order Date COLONOSCOPY 05/19/2013 Insurance Providers Payer Name Payer Address Payer Phone Subscriber Number Group Number Insured Name Patient Relationship to Insured Coverage Start Date Coverage End Date [facility] [address] [facility] [id number] MELBA RINCON Self - patient is the insured Medical (General) History Medical History History ICD Code Denies OR,DM,CVA,Lung disease,renal dise ase Diverticulosis IBS HTN Colonoscopy in July was negative other than some mild sigmoid diverticulosis and internal hemorrhoids Surgical History Surgery Date(Month/Year) Carpal tunnel bilaterally
--- OUTSIDE RECORDS SUMMARY | 2025-07-25 08:02 | XMS_ITS | Continuity of Care Document ---
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 100, [place], [address] , [place] [facility] 5 15:57:50 Posterior rhinorrhe a 29313762 Active 2019 Postnasal drip; Note: Date Diagnosed: 07/03/2020 11:19 AM (R09.82) Not Available [facility] 4 02:54:35 Snoring 20350886 Active 2023 JOSE MIGUEL SOTOMAYOR MD [address],[place] [address], [place], [address] , [place] [facility] [place] 4 09:47:17 Chronic rhinitis 32642552 Active 2023 JOSE MIGUEL SOTOMAYOR MD [address],[place] [address], [place], [address] , [place] [facility] 4 09:47:22 Deviated nasal septum 847955509 Active 2023 JOSE MIGUEL SOTOMAYOR MD [address] [facility] [address], [place], [address] , [place] [facility] 4 09:47:26 Feeling of lump in throat 426461248 Active 2023 JOSE MIGUEL SOTOMAYOR MD [address] [facility] [address], [place], [address] , [place] [facility] 4 09:47:30 Allergic rhinitis 68551998 Active 2023 JOSE MIGUEL SOTOMAYOR MD 100 [facility] [place] [address], [place], [address] , [place] [facility] 4 09:56:43 Nasal congestio n 05313589 Active 2024 JOSE MIGUEL SOTOMAYOR MD [address] [address], [place], [address] , [place] [facility] 5 09:10:23 Chronic sinusitis 70405451 Active 2024 JOSE MIGUEL SOTOMAYOR MD [address] [facility] [address], [place], [address] , [place] [facility] 15:55:02 Perennial allergic rhinitis 108565902 Active 2024 MICHAEL ROMO 100 [facility] [place] [facility], [place], [address] , [place] [facility] [place] 11:48:04 Seasonal allergic rhinitis 802239575 Active 2024 JOSE MIGUEL SOTOMAYOR MD 100 [facility] [place] [facility], [place], [address] , [place] [facility] [place] 15:54:25 Problem Notes None recorded. Procedures Surgical History Date Name Laterality Status Provider Name and Address Organization Details Recorded Time 06/03/20 25 Allergy Immunotherapy Injections completed MICHAEL ROMO 100 [facility],[place] [facility], [place], [address], [facility] - [facility] [place] 06/03/2025 11:49:46 05/27/20 25 Allergy Immunotherapy Injections completed Verónica Nix 100 [facility],[address], [address], [facility] - [facility] [place] 05/27/2025 12:12:59 05/13/20 25 Allergy Immunotherapy Injections completed MICHAEL ROMO 100 [facility],[place] [facility], [place], [address], [facility] - [facility] [place] 05/13/2025 10:16:47 04/29/20 25 Allergy Immunotherapy Injections completed MICHAEL ROMO [address] [facility],[address], [address], [place] [facility] [place] 04/29/2025 12:10:02 04/22/20 25 Allergy Immunotherapy Injections completed Verónica Nix 100 [facility],[place] [address] [place] [address], [address], [place] [facility] 04/22/2025 11:43:53 04/08/20 25 Allergy Immunotherapy Injections completed MICHAEL SANCHEZ [address],[place] [address], [place], [address], [place] [facility] 04/08/2025 11:52:29 04/01/20 25 Allergy Immunotherapy Injections completed MICHAEL ROMO [address],[place] [address], [place], [address], [place] [facility] 04/01/2025 11:46:12 03/25/20 25 Allergy Immunotherapy Injections completed RADHA CASTRO RMLinda [address],[place] [address], [place], [address], [place] [facility] 03/25/2025 11:14:09 03/18/20 25 Allergy Immunotherapy Injections completed MICHAEL ROMO [address],[place] [address], [place], [address], [place] [facility] 03/18/2025 12:09:33 03/09/20 25 Allergy Immunotherapy Injections completed MICHAEL ROMO [address],[place] [address], [place], [address], [place] [facility] 03/09/2025 15:27:04 02/26/20 25 Allergy Immunotherapy Injections completed MICHAEL ROMO [address] [facility],[place] [address] [place] [address], [address], [place] [facility] 02/25/2025 12:08:34 01/29/20 25 Allergy Immunotherapy Injections completed KATHY TORREZ RN [address] [facility] [address],[place] [address] [place] [address], [address], [place] [facility] 01/28/2025 10:37:12 01/08/20 25 Allergy Immunotherapy Injections completed MICHAEL SANCHEZ [address],[place] [address] [place] [address], [address], [place] [facility] 01/07/2025 11:39:55 01/01/20 25 Allergy Immunotherapy Injections completed KATHY TORREZ RN [address] [facility] [address],[place] [address] [place] [address], [address], [place] [facility] 12/31/2024 12:12:52 12/18/19 25 Allergy Immunotherapy Injections completed KATHY TORREZ RN [address] [facility] [address],[place] [address] [place] [address], [address], [place] [facility] 12/17/2024 09:51:57 12/04/19 25 Allergy Immunotherapy Injections completed RADHA KORZEC, RMA [address] 100, [place], [address], [place] [facility] 12/03/2024 11:47:21 11/27/19 25 Allergy Immunotherapy Injections completed LOGAN ROMOA [address] 100, [place], [address], [place] [facility] 11/26/2024 11:41:01 11/20/19 25 Allergy Immunotherapy Injections completed RADHA CASTRO, RMA [address],[place] 100, [place], [address], [place] [facility] 11/19/2024 11:28:16 11/06/19 25 Allergy Immunotherapy Injections completed LOGAN ROMOA [address],[place] [address] [place] [address], [address], [place] [facility] 11/05/2024 12:11:25 10/15/19 25 Allergy Immunotherapy Injections completed LOGAN ROMOA [address] 100, [place], [address], [place] [facility] 10/15/2024 12:52:52 10/08/19 25 Allergy Immunotherapy Injections completed RADHA CASTRO RMA [address],[place] [address], [place], [address], [place] [facility] 10/08/2024 12:06:57 10/01/19 25 Allergy Immunotherapy Injections completed LOGAN ROMOA [address],[place] [address], [place], [address], [facility] - [facility] [place] 10/01/2024 11:50:19 09/20/19 25 Allergy Immunotherapy Injections completed KATHY TORREZ RN [address] 100, [place], [address], [place] [facility] 09/20/2024 10:01:22 07/23/20 24 Allergy Testing-Full completed RADHA CASTRO, RMA [address], [place], [address], [place] [facility] 07/23/2024 15:31:38 06/29/20 24 Fiberoptic Laryngoscopy (Comprehensive) completed JOSE MIGUEL SCHMIDT MD 100 [facility] [place],[facility] 100, [place], [address], [facility] 06/29/2024 09:54:45 06/16/20 24 Revise eye muscle completed JOSE MIGUEL SCHMIDT MD [address] [facility] [address], [place], [address], [facility] 06/29/2024 09:42:26 Imaging Results None recorded. Procedure [...] 24 hr 06/29 completed Medicati on ID: [id number] Osbaldo rand Name: metoprol ol succinat e [...] as directed 06/29 completed Medicati on ID: [id number] Venu luque By Name: Kim Da Silva [...] DIRECTED BY GASTROEN TEROLOGY DEPARTME NT AT [facility] 02/18 completed Not Available Not Available Not Available Vitals None Recorded Social History Question Answer Notes LastModified by Organizat ion Details LastModified Time Tobacco Smoking Status Never Smoker Jacque escobar [place] - [facility] 03/09/2025 15:17:16 What Type Of Group Segment Consultant Do You Use? None [email or web address] Information not available 03/09/2025 Do You Have Any Pets? Yes [email or web address] Information not available 03/09/2025 Are You Passively Exposed To Smoke? No [email or web address] Information not available 03/09/2025 Are There Any Smokers In Your House? No [email or web address] Information not available 03/09/2025 Sex: Unknown Functional Status Question Answer Note LastModified by Organizat ion Details LastModified Time How many times per week do you consume alcohol? 1-2 times per week [email or web address] Information not available 03/09/2025 Do you use any illicit or recreational drugs? No [email or web address] Information not available 03/09/2025 Do you or have you ever used any other forms of tobacco or nicotine? No [email or web address] Information not available 03/09/2025 What is your level of alcohol consumption? Occasional [email or web address] Information not available 03/09/2025 What type of noise exposure are you exposed to? Industrial [email or web address] Information not available 03/09/2025 Mental Status None recorded. Family History Nothing Reported. Medical History Condition Response Hyperlipidemia Y Hypertension Y Sleep Disorder Y GERD/Reflux Y Past Encounters Encounter ID Performer Location Encounter Start Date Encounter Closed Date Diagnosis/Indication Diagnosis SNOMED-CT Code Diagnosis ICD10 Code Diagnosis IMO Codes Diagnosis Note [id number] KATYH TORREZ RN Allergy 100 [facility], [place] 100 [facility] [place] [address] 04/29/2025 12:09:18 04/29/2025 12:10:28 Perennial allergic rhinitis 885109194 J30.89 [id number] MICHAEL ROMO Allergy 100 [facility], [place] 100 [facility] [place] [address] 05/13/2025 10:16:00 05/13/2025 10:17:15 Perennial allergic rhinitis 085776617 J30.89 [id number] Verónica Nix Allergy 100 [facility], [place] 100 [facility] [place] [address] 05/27/2025 11:27:58 05/27/2025 12:13:23 Perennial allergic rhinitis 587294540 J30.89 Health Concerns Section Related Observation LastModified by Organization Detai ls LastModified Time None Recorded Concern Status LastModified by Organization Details LastModified Time None Recorded Payers Encounter Date Sequence Insurance Name Policy Number Policy Dacosta Covered Member ID Dacosta Member ID Guarantor Name 05/27/2025 1 [facility] [id number] Regan Lama [id number] Regan Lama
--- OUTSIDE RECORDS SUMMARY | 2025-07-25 08:03 | XMS_ITS | Continuity of Care Document ---
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 Name Role Phone ROSS COBOS Primary Care Provider [phone] Assessment Encounter Date Assessment Date Assessment LastModified by Organization Details LastModified Time 05/13/2025 05/13/2025 Visit With: MICHAEL Byrnes Use of Antihistamine s: No If yes: Vial Test Change in medications: No If yes Increase in asthma symptoms If yes, inhaler use: Reaction to last injections: No If yes: Allergy Symptoms: Other: Missed: Dose Aware of Vial Test Aware: Notes: [email or web address] Not available 05/13/2025 10:16:58 Plan of Treatment [...] Recorded Time Obstructi ve sleep apnea syndrome 43401191 Active 2019 Obstructiv e sleep apnea (adult) (pediatric ); Note: Date Diagnosed: 07/03/2020 11:19 AM (G47.33) JOSE MIGUEL SOTOMAYOR MD 100 [facility] 100, [place], [address] , [place] [facility] 5 15:57:50 Posterior rhinorrhe a 92124916 Active 2019 Postnasal drip; Note: Date Diagnosed: 07/03/2020 11:19 AM (R09.82) Not Available [facility] 4 02:54:35 Snoring 19296562 Active 2023 JOSE MIGUEL SOTOMAYOR MD [address],[place] [address], [place], [address] , [place] [facility] [place] 4 09:47:17 Chronic rhinitis 73989999 Active 2023 JOSE MIGUEL SOTOMAYOR MD [address],[place], [place], [address] , [place] [facility] [place] 4 09:47:22 Deviated nasal septum 575753173 Active 2023 JOSE MIGUEL SOTOMAYOR MD 100 [facility],[address], [place], [address] , [place] [facility] [place] 4 09:47:26 Feeling of lump in throat 902775695 Active 2023 JOSE MIGUEL SOTOMAYOR MD [address], [place], [address] , [place] [facility] [place] 4 09:47:30 Allergic rhinitis 08889585 Active 2023 JOSE MIGUEL SOTOMAYOR MD 100 [facility] [place] [address], [place], [address] , [place] [facility] [place] 4 09:56:43 Nasal congestio n 29418787 Active 2024 JOSE MIGUEL SOTOMAYOR MD [address], [place], [address] , [place] [facility] [place] 5 09:10:23 Chronic sinusitis 24784323 Active 2024 JOSE MIGUEL SOTOMAYOR MD [address], [place], [address] , [place] [facility] [place] 15:55:02 Perennial allergic rhinitis 124294821 Active 2024 MICHAEL ROMO 100 [facility] [place] 100, [place], [address] , [place] [facility] [place] 11:48:04 Seasonal allergic rhinitis 089171022 Active 2024 JOSE MIGUEL SOTOMAYOR MD 100 [facility] [address], [place], [address] , [place] [facility] [place] 15:54:25 Problem Notes None recorded. Procedures Surgical History Date Name Laterality Status Provider Name and Address Organization Details Recorded Time 06/03/20 25 Allergy Immunotherapy Injections completed MICHAEL ROMO 100 [facility],[place] [facility], [place], [address], [place] [facility] 06/03/2025 11:49:46 05/27/20 25 Allergy Immunotherapy Injections completed Verónica Nix 100 [facility],[place] [facility], [place], [address], [place] [facility] [place] 05/27/2025 12:12:59 05/13/20 25 Allergy Immunotherapy Injections completed MICHAEL ROMO 100 [facility],[place] [facility], [place], [address], [place] [facility] [place] 05/13/2025 10:16:47 04/29/20 25 Allergy Immunotherapy Injections completed MICHAEL ROMO 100 [facility],[address], [address], [place] [facility] [place] 04/29/2025 12:10:02 04/22/20 25 Allergy Immunotherapy Injections completed Verónica Nix 100 [facility] [place] [facility], [place], [address], [place] [facility] [place] 04/22/2025 11:43:53 04/08/20 25 Allergy Immunotherapy Injections completed MICHAEL BYRNES 100 [facility],[place] [address], [place], [address], [place] [facility] [place] 04/08/2025 11:52:29 04/01/20 25 Allergy Immunotherapy Injections completed SALVADOR MIKEY, RMA [address],[place] [address], [place], [address], [place] [facility] [place] 04/01/2025 11:46:12 03/25/20 25 Allergy Immunotherapy Injections completed MICHAEL BYRNES [address],[place] [address], [place], [address], [place] [facility] [place] 03/25/2025 11:14:09 03/18/20 25 Allergy Immunotherapy Injections completed MICHAEL ROMO [address],[place] 100[place], [place], [address], [place] [facility] [place] 03/18/2025 12:09:33 03/09/20 25 Allergy Immunotherapy Injections completed MICHAEL ROMO [address],[place] [address], [place], [address], [place] [facility] [place] 03/09/2025 15:27:04 02/26/20 25 Allergy Immunotherapy Injections completed MICHAEL ROMO 100 [facility],[place] [address] [place] [address], [address], [place] [facility] [place] 02/25/2025 12:08:34 01/29/20 25 Allergy Immunotherapy Injections completed KATHY TORREZ RN 100 [facility],[place] [address] [place] [address], [address], [place] [facility] 01/28/2025 10:37:12 01/08/20 25 Allergy Immunotherapy Injections completed MICHAEL BYRNES [address],[place] [address] [place] [address], [address], [place] [facility] 01/07/2025 11:39:55 01/01/20 25 Allergy Immunotherapy Injections completed KATHY TORREZ RN 100 [facility],[place] [address] [place] [address], [address], [place] [facility] [place] 12/31/2024 12:12:52 12/18/19 25 Allergy Immunotherapy Injections completed KATHY TORREZ RN 100 [facility],[place] [address], [place], [address], [place] [facility] [place] 12/17/2024 09:51:57 12/04/19 25 Allergy Immunotherapy Injections completed RADHA KORZEC, RMA [address],[place] 100, [place], [address], [place] [facility] [place] 12/03/2024 11:47:21 11/27/19 25 Allergy Immunotherapy Injections completed LOGAN ROMOA [address] 100, [place], [address], [place] [facility] [place] 11/26/2024 11:41:01 11/20/19 25 Allergy Immunotherapy Injections completed RADHA CASTRO, RMA [address],[place] 100, [place], [address], [place] [facility] [place] 11/19/2024 11:28:16 11/06/19 25 Allergy Immunotherapy Injections completed LOGAN ROMOA [address],[place] [address], [place], [address], [place] [facility] [place] 11/05/2024 12:11:25 10/15/19 25 Allergy Immunotherapy Injections completed LOGAN ROMOA [address] 100, [place], [address], [place] [facility] 10/15/2024 12:52:52 10/08/19 25 Allergy Immunotherapy Injections completed RADHA CASTRO RMA [address],[place] [address], [place], [address], [place] [facility] [place] 10/08/2024 12:06:57 10/01/19 25 Allergy Immunotherapy Injections completed LOGAN ROMOA [address],[place] [address], [place], [address], [facility] - [facility] [place] 10/01/2024 11:50:19 09/20/19 25 Allergy Immunotherapy Injections completed KATHY TORREZ RN [address],[place] 100, [place], [address], [place] [facility] 09/20/2024 10:01:22 07/23/20 24 Allergy Testing-Full completed RADHA CASTRO, RMA [address],[place] 100, [place], [address], [place] [facility] [place] 07/23/2024 15:31:38 06/29/20 24 Fiberoptic Laryngoscopy (Comprehensive) completed JOSE MIGUEL SCHMIDT MD 100 [facility] 100, [place], [address], [facility] - [facility] 06/29/2024 09:54:45 06/16/20 24 Revise eye muscle completed JOSE MIGUEL SCHMIDT MD 100 [facility],[place] [address], [place], [address], [facility] 06/29/2024 09:42:26 Imaging Results None [...] 24 hr 06/29 completed Medicati on ID: [id number] Osbaldo tirado Name: metoprol ol succinat e [...] as directed 06/29 completed Medicati on ID: [id number] Venu luque By Name: Kim Da Silva [...] DIRECTED BY GASTROEN TEROLOGY DEPARTME NT AT [facility] 02/18 completed Not Available Not Available Not Available Vitals None Recorded Social History Question Answer Notes LastModified by Organizat ion Details LastModified Time Tobacco Smoking Status Never Smoker Jacque escobar [place] - [facility] 03/09/2025 15:17:16 What Type Of Screen Tender Helper Do You Use? None [email or web address] Information not available 03/09/2025 Do You Have Any Pets? Yes [email or web address] Information not available 03/09/2025 Are You Passively Exposed To Smoke? No [email or web address] Information not available 03/09/2025 Are There Any Smokers In Your House? No [email or web address] Information not available 03/09/2025 Sex: Unknown Functional Status Question Answer Note LastModified by Organizat ion Details LastModified Time How many times per week do you consume alcohol? 1-2 times per week [email or web address] Information not available 03/09/2025 Do you use any illicit or recreational drugs? No [email or web address] Information not available 03/09/2025 Do you or have you ever used any other forms of tobacco or nicotine? No [email or web address] Information not available 03/09/2025 What is your level of alcohol consumption? Occasional [email or web address] Information not available 03/09/2025 What type of noise exposure are you exposed to? Industrial [email or web address] Information not available 03/09/2025 Mental Status None recorded. Family History Nothing Reported. Medical History Condition Response Hyperlipidemia Y Hypertension Y Sleep Disorder Y GERD/Reflux Y Past Encounters Encounter ID Performer Location Encounter Start Date Encounter Closed Date Diagnosis/Indication Diagnosis SNOMED-CT Code Diagnosis ICD10 Code Diagnosis IMO Codes Diagnosis Note [id number] MICHAEL ROMO Allergy 100 [facility] 100 [place] [address] 04/22/2025 11:34:46 04/22/2025 11:44:43 Perennial allergic rhinitis 150582505 J30.89 [id number] KATHY TORREZ RN Allergy 100 [facility], [place] 100 [place] [address] 04/29/2025 12:09:18 04/29/2025 12:10:28 Perennial allergic rhinitis 614645446 J30.89 [id number] SALVADOR JENSEN [facility] Allergy 100 [facility] 100 [place] [address] 05/13/2025 10:16:00 05/13/2025 10:17:15 Perennial allergic rhinitis 776973108 J30.89 Health Concerns Section Related Observation LastModified by Organization Detai ls LastModified Time None Recorded Concern Status LastModified by Organization Details LastModified Time None Recorded Payers Encounter Date Sequence Insurance Name Policy Number Policy Dacosta Covered Member ID Dacosta Member ID Guarantor Name 05/13/2025 1 [facility] [id number] Regan Lama [id number] Regan Lama
--- OUTSIDE RECORDS SUMMARY | 2025-07-25 08:03 | XMS_ITS | Continuity of Care Document ---
Author Organization [place] - [facility], Allergy Address [address] [place] [address] Care Team Providers Care School Office Assistant Name Role Phone ROSS COBOS Primary Care [...] Dose Aware of Vial Test Aware: Notes: [email or web address] Not available 04/29/2025 12:10:15 Plan of Treatment [...] Recorded Time Obstructi ve sleep apnea syndrome [id number] Active 2019 Obstructiv e sleep apnea (adult) (pediatric ); Note: Date Diagnosed: 07/03/2020 11:19 AM (G47.33) JOSE MIGUEL SOOTMAYOR MD [address] [facility], [place], [address] , [place] [facility] 5 15:57:50 Posterior rhinorrhe a 09426254 Active 2019 Postnasal drip; Note: Date Diagnosed: 07/03/2020 11:19 AM (R09.82) Not Available [facility] 4 02:54:35 Snoring 71840840 Active 2023 JOSE MIGUEL SOTOMAYOR MD [address], [place], [address] , [place] [facility] 4 09:47:17 Chronic rhinitis 03713904 Active 2023 JOSE MIGUEL SOTOMAYOR MD [address], [place], [address] , [place] [facility] 4 09:47:22 Deviated nasal septum 447844686 Active 2023 JOSE MIGUEL SOTOMAYOR MD [address], [place], [address] , [place] [facility] 4 09:47:26 Feeling of lump in throat 015158101 Active 2023 JOSE MIGUEL SOTOMAYOR MD [address], [place], [address] , [place] [facility] 4 09:47:30 Allergic rhinitis 78753701 Active 2023 JOSE MIGUEL SOTOMAYOR MD [address], [place], [address] , [place] [facility] 4 09:56:43 Nasal congestio n 48833150 Active 2024 JOSE MIGUEL SOTOMAYOR MD [address], [place], [address] , [place] [facility] 5 09:10:23 Chronic sinusitis 16819137 Active 2024 JOSE MIGUEL SOTOMAYOR MD [address], [place], [address] , [place] [facility] 15:55:02 Perennial allergic rhinitis 775597107 Active 2024 MICHAEL ROMO [address], [place], [address] , [place] [facility] 11:48:04 Seasonal allergic rhinitis 702469748 Active 2024 JOSE MIGUEL SOTOMAYOR MD [address], [place], [address] , [place] [facility] 15:54:25 Problem Notes None recorded. Procedures Surgical History Date Name Laterality Status Provider Name and Address Organization Details Recorded Time 06/03/20 25 Allergy Immunotherapy Injections completed MICHAEL ROMO [address] [facility],[address] [facility], [place], [address], [place] [facility] 06/03/2025 11:49:46 05/27/20 25 Allergy Immunotherapy Injections completed Verónica Nix [address] [facility],[place] [facility], [place], [address], [place] [facility] 05/27/2025 12:12:59 05/13/20 25 Allergy Immunotherapy Injections completed MICHAEL ROMO [address] [facility],[place] [facility], [place], [address], [place] [facility] 05/13/2025 10:16:47 04/29/20 25 Allergy Immunotherapy Injections completed MICHAEL ROMO [address] [facility],[address], [address], [place] [facility] 04/29/2025 12:10:02 04/22/20 25 Allergy Immunotherapy Injections completed Verónica Nix [address],[place] [facility], [place], [address], [place] [facility] 04/22/2025 11:43:53 04/08/20 25 Allergy Immunotherapy Injections completed MICHAEL SANCHEZ [address], [place], [address], [place] [facility] 04/08/2025 11:52:29 04/01/20 25 Allergy Immunotherapy Injections completed SALVADOR MIKEY, RMA [address], [address], [place] [facility] 04/01/2025 11:46:12 03/25/20 25 Allergy Immunotherapy Injections completed MICHAEL SANCHEZ [address], [address], [place] [facility] 03/25/2025 11:14:09 03/18/20 25 Allergy Immunotherapy Injections completed MICHAEL ROMO [address], [address], [place] [facility] 03/18/2025 12:09:33 03/09/20 25 Allergy Immunotherapy Injections completed MICHAEL ROMO [address], [address], [place] [facility] 03/09/2025 15:27:04 02/26/20 25 Allergy Immunotherapy Injections completed MICHAEL ROMO [address],[place] [address] [place] [address], [address], [place] [facility] 02/25/2025 12:08:34 01/29/20 25 Allergy Immunotherapy Injections completed KATHY TORREZ RN [address] [address] [place] [address], [address], [place] [facility] 01/28/2025 10:37:12 01/08/20 25 Allergy Immunotherapy Injections completed MICHAEL SANCHEZ [address] [address] [place] [address], [address], [place] [facility] 01/07/2025 11:39:55 01/01/20 25 Allergy Immunotherapy Injections completed KATHY TORREZ RN [address],[place] [address] [place] [address], [address], [place] [facility] 12/31/2024 12:12:52 12/18/19 25 Allergy Immunotherapy Injections completed KATHY TORREZ RN [address], [address], [place] [facility] 12/17/2024 09:51:57 12/04/19 25 Allergy Immunotherapy Injections completed RADHA KORZEC, RMA [address], [place], [address], [place] [facility] 12/03/2024 11:47:21 11/27/19 25 Allergy Immunotherapy Injections completed LOGAN ROMOA [address], [place], [address], [place] [facility] 11/26/2024 11:41:01 11/20/19 25 Allergy Immunotherapy Injections completed RADHA CASTRO, RMA [address], [place], [address], [place] [facility] 11/19/2024 11:28:16 11/06/19 25 Allergy Immunotherapy Injections completed LOGAN ROMOA [address], [address], [place] [facility] 11/05/2024 12:11:25 10/15/19 25 Allergy Immunotherapy Injections completed LOGAN ROMOA [address], [place], [address], [place] [facility] 10/15/2024 12:52:52 10/08/19 25 Allergy Immunotherapy Injections completed RADHA CASTRO RMA [address], [address], [place] [facility] 10/08/2024 12:06:57 10/01/19 25 Allergy Immunotherapy Injections completed LOGAN ROMOA [address], [address], [facility] - [facility] 10/01/2024 11:50:19 09/20/19 25 Allergy Immunotherapy Injections completed KATHY TORREZ RN [address], [place], [address], [place] [facility] 09/20/2024 10:01:22 07/23/20 24 Allergy Testing-Full completed RADHA CASTRO, RMA [address], [place], [address], [place] [facility] 07/23/2024 15:31:38 06/29/20 24 Fiberoptic Laryngoscopy (Comprehensive) completed JOSE MIGUEL SCHMIDT MD [address] [facility], [place], [address], [facility] - [facility] 06/29/2024 09:54:45 06/16/20 24 Revise eye muscle completed JOSE MIGUEL SCHMIDT MD [address], [place], [address], [facility] 06/29/2024 09:42:26 Imaging Results None [...] 24 hr 06/29 completed Medicati on ID: [id number] Osbaldo tirado Name: metoprol ol succinat e [...] as directed 06/29 completed Medicati on ID: [id number] [place] By Name: Kim Da Silva [...] DIRECTED BY GASTROEN TEROLOGY DEPARTME NT AT [facility] 02/18 completed Not Available Not Available Not Available Vitals None Recorded Social History Question Answer Notes LastModified by Organizat ion Details LastModified Time Tobacco Smoking Status Never Smoker Jacque escobar [place] - [facility] 03/09/2025 15:17:16 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 None [email or web address] Information not available 03/09/2025 Do You Have Any Pets? Yes Information not available 03/09/2025 Are You Passively Exposed To Smoke? No [email or web address] Information not available 03/09/2025 Are There Any Smokers In Your House? No [email or web address] Information not available 03/09/2025 Sex: Unknown Functional Status Question Answer Note LastModified by Organizat ion Details LastModified Time How many times per week do you consume alcohol? 1-2 times per week Information not available 03/09/2025 Do you use any illicit or recreational drugs? No [email or web address] Information not available 03/09/2025 Do you or have you ever used any other forms of tobacco or nicotine? No [email or web address] Information not available 03/09/2025 What is your level of alcohol consumption? Occasional [email or web address] Information not available 03/09/2025 What type of noise exposure are you exposed to? Industrial Information not available 03/09/2025 Mental Status None recorded. Family History Nothing Reported. Medical History Condition Response Hyperlipidemia Y Hypertension Y Sleep Disorder Y GERD/Reflux Y Past Encounters Encounter ID Performer Location Encounter Start Date Encounter Closed Date Diagnosis/Indication Diagnosis SNOMED-CT Code Diagnosis ICD10 Code Diagnosis IMO Codes Diagnosis Note [id number] SALVADOR JENSEN [facility] Allergy [address] [facility],[address] [place] [address] 04/01/2025 11:22:59 04/01/2025 11:46:39 Perennial allergic rhinitis 153593711 J30.89 [id number] RADHA BELTRAN, [facility] Allergy [address] [facility],[address] [place] [address] 04/08/2025 11:51:35 04/08/2025 11:52:50 Perennial allergic rhinitis 052695259 J30.89 [id number] SALVADOR JENSEN [facility] Allergy [address] [facility],[address] [place] [address] 04/22/2025 11:34:46 04/22/2025 11:44:43 Perennial allergic rhinitis 279841701 J30.89 [id number] KATHY TORREZ RN Allergy [address] [facility],[address] [place] [address] 04/29/2025 12:09:18 04/29/2025 12:10:28 Perennial allergic rhinitis 557785595 J30.89 Health Concerns Section Related Observation LastModified by Organization Detai ls LastModified Time None Recorded Concern Status LastModified by Organization Details LastModified Time None Recorded Payers Encounter Date Sequence Insurance Name Policy Number Policy Dacosta Covered Member ID Dacosta Member ID Guarantor Name 04/29/2025 1 [facility] [id number] Regan Lama [id number] Regan Lama
== END 2025-07-25 08:25 | disposition home or self-care (01) ==
LOC: HO.HMCC 08:00
PROVIDERS: Visit Provider Nurse Practitioner Family
DX: Z00.00 Encounter for general adult medical examination without abnormal findings (principal); Z83.49 Family history of other endocrine, nutritional and metabolic diseases; I77.810 Thoracic aortic ectasia; R01.1 Cardiac murmur, unspecified

== ENCOUNTER → 2025-08-01 20:30 | Outpatient (REF) | payer OTHER, SELFPAY ==
--- OUTSIDE RECORDS SUMMARY | 2025-08-01 20:57 | XMS_ITS | Continuity of Care Document ---
Author Organization [place] - [facility], Allergy Address [address] [place] [address] Care Team Providers Care Provider Enrollment Specialist Name Role Phone ROSS COBOS Primary [...] Dose Aware of Vial Test Aware: Notes: [email or web address] Not available 06/03/2025 11:49:53 Plan of Treatment [...] Recorded Time Obstructi ve sleep apnea syndrome 68073219 Active 2019 Obstructiv e sleep apnea (adult) (pediatric ); Note: Date Diagnosed: 07/03/2020 11:19 AM (G47.33) JOSE MIGUEL SOTOMAYOR MD 100 [facility] 100, [facility] [place], [address] , [place] [facility] 5 15:57:50 Posterior rhinorrhe a 56406635 Active 2019 Postnasal drip; Note: Date Diagnosed: 07/03/2020 11:19 AM (R09.82) Not Available [facility] 4 02:54:35 Snoring 59055394 Active 2023 JOSE MIGUEL SOTOMAYOR MD [address], [place], [address] , [place] [facility] 4 09:47:17 Chronic rhinitis 70872561 Active 2023 JOSE MIGUEL SOTOMAYOR MD [address], [place], [place], [address] , [place] [facility] 4 09:47:22 Deviated nasal septum 859372181 Active 2023 JOSE MIGUEL SOTOMAYOR MD [address], [place], [address] , [place] [facility] 4 09:47:26 Feeling of lump in throat 578819339 Active 2023 JOSE MIGUEL SOTOMAYOR MD [address], [place], [place], [address] , [place] [facility] 4 09:47:30 Allergic rhinitis 67488435 Active 2023 JOSE MIGUEL SOTOMAYOR MD [address], [place], [address] , [place] [facility] 4 09:56:43 Nasal congestio n 70757294 Active 2024 JOSE MIGUEL SOTOMAYOR MD [address], [place], [address] , [place] [facility] 5 09:10:23 Chronic sinusitis 42176147 Active 2024 JOSE MIGUEL SOTOMAYOR MD [address], [place], [address] , [place] [facility] 5 15:55:02 Perennial allergic rhinitis 573901254 Active 2024 MICHAEL ROMO [address], [place], [address] , [place] [facility] 11:48:04 Seasonal allergic rhinitis 962558166 Active 2024 JOSE MIGUEL SOTOMAYOR MD [address], [place], [address] , [place] [facility] 15:54:25 Problem Notes None recorded. Procedures Surgical History Date Name Laterality Status Provider Name and Address Organization Details Recorded Time 06/03/20 25 Allergy Immunotherapy Injections completed MICHAEL ROMO [address], [place], [address], [place] [facility] 06/03/2025 11:49:46 05/27/20 25 Allergy Immunotherapy Injections completed Verónica Nix [address], [place], [address], [place] [facility] 05/27/2025 12:12:59 05/13/20 25 Allergy Immunotherapy Injections completed MICHAEL ROMO 100 [facility] [address] [facility], [place], [address], [place] [facility] 05/13/2025 10:16:47 04/29/20 25 Allergy Immunotherapy Injections completed MICHAEL ROMO 100 [facility] [address], [place], [address], [place] [facility] 04/29/2025 12:10:02 04/22/20 25 Allergy Immunotherapy Injections completed Verónica Nix [address], [place], [address], [place] [facility] 04/22/2025 11:43:53 04/08/20 25 Allergy Immunotherapy Injections completed MICHAEL SANCHEZ [address], [place], [address], [place] [facility] 04/08/2025 11:52:29 04/01/20 25 Allergy Immunotherapy Injections completed ERICA MIKEY, RMA [address], [address], [place] [facility] 04/01/2025 11:46:12 03/25/20 25 Allergy Immunotherapy Injections completed RADHA CASTRO RMA [address], [address], [place] [facility] 03/25/2025 11:14:09 03/18/20 25 Allergy Immunotherapy Injections completed MICHAEL ROMO [address], [address], [place] [facility] 03/18/2025 12:09:33 03/09/20 25 Allergy Immunotherapy Injections completed MICHAEL ROMO 100 [facility] [address], [address], [place] [facility] 03/09/2025 15:27:04 02/26/20 25 Allergy Immunotherapy Injections completed MICHAEL ROMO 100 [facility] [address] [place] [address], [address], [place] [facility] 02/25/2025 12:08:34 01/29/20 25 Allergy Immunotherapy Injections completed KATHY TORREZ RN 100 [facility] [address],[address] [address] [place] [address], [address], [place] [facility] 01/28/2025 10:37:12 01/08/20 25 Allergy Immunotherapy Injections completed RADHA CASTRO A 100 [facility] [place] [place],[address] [address] [place] [address], [address], [place] [facility] 01/07/2025 11:39:55 01/01/20 25 Allergy Immunotherapy Injections completed KATHY TORREZ RN 100 [facility] [address] [place] [address], [address], [place] [facility] 12/31/2024 12:12:52 12/18/19 25 Allergy Immunotherapy Injections completed KATHY TORREZ RN 100 [facility] [address] [place] [address], [address], [place] [facility] 12/17/2024 09:51:57 12/04/19 25 Allergy Immunotherapy Injections completed RADHA KORZEC, RMA [address], [address], [place] [facility] 12/03/2024 11:47:21 11/27/19 25 Allergy Immunotherapy Injections completed LOGAN ROMOA [address], [place], [address], [facility] - [facility] 11/26/2024 11:41:01 11/20/19 25 Allergy Immunotherapy Injections completed RADHA CASTRO, RMA [address], [place], [address], [place] [facility] 11/19/2024 11:28:16 11/06/19 25 Allergy Immunotherapy Injections completed LOGAN ROMOA [address], [address], [facility] - [facility] 11/05/2024 12:11:25 10/15/19 25 Allergy Immunotherapy Injections completed LOGAN ROMOA 100 [facility] [address] [place] [address], [address], [facility] - [facility] 10/15/2024 12:52:52 10/08/19 25 Allergy Immunotherapy Injections completed RADHA CASTRO RMA [address], [address], [facility] - [facility] 10/08/2024 12:06:57 10/01/19 25 Allergy Immunotherapy Injections completed MICHAEL ROMO [address] [place] [address], [address], [facility] - [facility] 10/01/2024 11:50:19 09/20/19 25 Allergy Immunotherapy Injections completed KATHY TORREZ RN [address], [address], [facility] - [facility] 09/20/2024 10:01:22 07/23/20 24 Allergy Testing-Full completed RADHA CASTRO, RMA [address], [place], [address], [place] [facility] 07/23/2024 15:31:38 06/29/20 24 Fiberoptic Laryngoscopy (Comprehensive) completed JOSE MIGUEL SCHMIDT MD [address] [facility] 100, [place], [address], [facility] - [facility] 06/29/2024 09:54:45 06/16/20 24 Revise eye muscle completed JOSE MIGUEL SCHMIDT MD [address] [facility], [place], [address], [facility] - [facility] 06/29/2024 09:42:26 Imaging Results None recorded. 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 None [email or web address] Information not available 03/09/2025 Do You Have Any Pets? Yes [email or web address] Information not available 03/09/2025 Are You Passively Exposed To Smoke? No [email or web address] Information not available 03/09/2025 Are There Any Smokers In Your House? No Information not available 03/09/2025 Sex: Unknown Functional Status Question Answer Note LastModified by Organizat ion Details LastModified Time How many times per week do you consume alcohol? 1-2 times per week [email or web address] Information not available 03/09/2025 Do you use any illicit or recreational drugs? No [email or web address] Information not available 03/09/2025 Do you or have you ever used any other forms of tobacco or nicotine? No [email or web address] Information not available 03/09/2025 What is your level of alcohol consumption? Occasional [email or web address] Information not available 03/09/2025 What type of noise exposure are you exposed to? Industrial [email or web address] Information not available 03/09/2025 Mental Status None recorded. Family History Nothing Reported. Medical History Condition Response Hyperlipidemia Y Hypertension Y Sleep Disorder Y GERD/Reflux Y Past Encounters Encounter ID Performer Location Encounter Start Date Encounter Closed Date Diagnosis/Indication Diagnosis SNOMED-CT Code Diagnosis ICD10 Code Diagnosis IMO Codes Diagnosis Note [id number] MICHAEL ROMO Allergy [address] [facility],[address] [place] [address] 05/13/2025 10:16:00 05/13/2025 10:17:15 Perennial allergic rhinitis 209792383 J30.89 [id number] Verónica Parkos Allergy [address] [facility],[address] [place] [address] 05/27/2025 11:27:58 05/27/2025 12:13:23 Perennial allergic rhinitis 714756584 J30.89 [id number] MICHAEL ROMO Allergy [address] [facility],[address] [place] [address] 06/03/2025 11:24:50 06/03/2025 11:50:11 Perennial allergic rhinitis 069084244 J30.89 Health Concerns Section Related Observation LastModified by Organization Detai ls LastModified Time None Recorded Concern Status LastModified by Organization Details LastModified Time None Recorded Payers Encounter Date Sequence Insurance Name Policy Number Policy Dacosta Covered Member ID Dacosta Member ID Guarantor Name 06/03/2025 1 [facility] [id number] Regan Lama [id number] Regan Lama
--- OUTSIDE RECORDS SUMMARY | 2025-08-01 20:57 | XMS_ITS | Data Portability ---
Author Organization [place] - [facility], Allergy Address [address] [place] [address] Care Team Providers Care Senior It Auditor Name Role Phone ROSS COBOS Primary Care [...] Repeated Aware of Vial Test Aware: Notes: [email or web address] Not available 04/22/2025 11:44:08 04/29/2025 04/29/2025 Visit With: Kathy Torrez RN Use of Antihistamine s: No If yes: Vial Test Change in medications: No If yes Increase in asthma symptoms If yes, inhaler use: Reaction to last injections: No If yes: Allergy Symptoms: Other: Missed: Dose Aware of Vial Test Aware: Notes: Not available 04/29/2025 12:10:15 05/13/2025 05/13/2025 Visit With: MICHAEL Byrnes Use of Antihistamine s: No If yes: Vial Test Change in medications: No If yes Increase in asthma symptoms If yes, inhaler use: Reaction to last injections: No If yes: Allergy Symptoms: Other: Missed: Dose Aware of Vial Test Aware: Notes: [email or web address] Not available 05/13/2025 10:16:58 05/27/2025 05/27/2025 Visit With: Verónica Nix [place] Use of Antihistamine s: No If yes: Vial Test Change in medications: No If yes Increase in asthma symptoms No Asthma Hx If yes, inhaler use: Reaction to last injections: No If yes: Allergy Symptoms: Other: Missed: Dose Aware of Vial Test Aware: Notes: [email or web address] Not available 05/27/2025 12:13:09 06/03/2025 06/03/2025 Visit [...] Recorded Time Obstructi ve sleep apnea syndrome 84636080 Active 2019 Obstructiv e sleep apnea (adult) (pediatric ); Note: Date Diagnosed: 07/03/2020 11:19 AM (G47.33) JOSE MIGUEL SOTOMAYOR MD [address] [place] [address],[place] [address], [place], [address] , [facility] 5 15:57:50 Posterior rhinorrhe a 71804018 Active 2019 Postnasal drip; Note: Date Diagnosed: 07/03/2020 11:19 AM (R09.82) Not Available [facility] 4 02:54:35 Snoring 77971608 Active 2023 JOSE MIGUEL SOTOMAYOR MD [address],[place] [address], [place], [address] , [place] [facility] 4 09:47:17 Chronic rhinitis 35727118 Active 2023 JOSE MIGUEL SOTOMAYOR MD [address], [place], [address] , [facility] 4 09:47:22 Deviated nasal septum 756028791 Active 2023 JOSE MIGUEL SOTOMAYOR MD [address], [place], [address] , [facility] - [facility] 4 09:47:26 Feeling of lump in throat 000846880 Active 2023 JOSE MIGUEL SOTOMAYOR MD [address] [place],[address], [place], [place], [address] , [facility] - [facility] 4 09:47:30 Allergic rhinitis 71428044 Active 2023 JOSE MIGUEL SOTOMAYOR MD [address] [place],[address], [place], [place], [address] , [facility] - [facility] 4 09:56:43 Nasal congestio n 55544019 Active 2024 JOSE MIGUEL SOTOMAYOR MD [address] [place],[address], [place], [place], [address] , [facility] - [facility] 5 09:10:23 Chronic sinusitis 60779452 Active 2024 JOSE MIGUEL SOTOMAYOR MD [address] [place],[address], [place], [place], [address] , [facility] - [facility] 5 15:55:02 Perennial allergic rhinitis 551244974 Active 2024 MICHAEL ROMO [address] [place],[address], [place], [address] , [facility] - [facility] 5 11:48:04 Seasonal allergic rhinitis 297329767 Active 2024 JOSE MIGUEL SOTOMAYOR MD [address] [place],[address], [place], [address] , [place] [facility] 15:54:25 Problem Notes None recorded. Procedures Surgical History Date Name Laterality Status Provider Name and Address Organization Details Recorded Time 06/03/20 25 Allergy Immunotherapy Injections completed MICHAEL ROMO [address], [place], [address], [place] [facility] 06/03/2025 11:49:46 05/27/20 25 Allergy Immunotherapy Injections completed Verónica Nix [address], [place], [address], [place] [facility] 05/27/2025 12:12:59 05/13/20 25 Allergy Immunotherapy Injections completed MICHAEL ROMO [address], [place], [address], [place] [facility] 05/13/2025 10:16:47 04/29/20 25 Allergy Immunotherapy Injections completed MICHAEL ROMO [address], [place], [address], [place] [facility] 04/29/2025 12:10:02 04/22/20 25 Allergy Immunotherapy Injections completed Verónica Nix [address], [place], [address], [place] [facility] 04/22/2025 11:43:53 04/08/20 25 Allergy Immunotherapy Injections completed RADHA CASTRO RMA [address], [place], [address], [place] [facility] 04/08/2025 11:52:29 04/01/20 25 Allergy Immunotherapy Injections completed LOGAN ROMOA [address], [place], [address], [place] [facility] 04/01/2025 11:46:12 03/25/20 25 Allergy Immunotherapy Injections completed RADHA CASTRO RMA [address], [place], [address], [place] [facility] 03/25/2025 11:14:09 03/18/20 25 Allergy Immunotherapy Injections completed LOGAN ROMOA [address], [place], [address], [place] [facility] 03/18/2025 12:09:33 03/09/20 25 Allergy Immunotherapy Injections completed MICHAEL ROMO [address], [place], [address], [place] [facility] 03/09/2025 15:27:04 02/26/20 25 Allergy Immunotherapy Injections completed MICHAEL ROMO [address], [place], [address], [place] [facility] 02/25/2025 12:08:34 01/29/20 25 Allergy Immunotherapy Injections completed KATHY TORREZ RN [address] [place],[address] [place] [address], [address], [place] [facility] 01/28/2025 10:37:12 01/08/20 25 Allergy Immunotherapy Injections completed MICHAEL BYRNES [address] [place] [address], [address], [place] [facility] 01/07/2025 11:39:55 01/01/20 25 Allergy Immunotherapy Injections completed KATHY TORREZ RN [address] [place],[address], [address], [place] [facility] 12/31/2024 12:12:52 12/18/19 25 Allergy Immunotherapy Injections completed KATHY TORREZ RN [address] [place],[address] [place] [address], [address], [place] [facility] 12/17/2024 09:51:57 12/04/19 25 Allergy Immunotherapy Injections completed RADHA CASTRO RMLinda [address] [place] [address], [address], [place] [facility] 12/03/2024 11:47:21 11/27/19 25 Allergy Immunotherapy Injections completed MICHAEL ROMO [address], [place], [address], [place] [facility] 11/26/2024 11:41:01 11/20/19 25 Allergy Immunotherapy Injections completed RADHA CASTRO [facility] [address] [place],[address] [place] [address], [address], [facility] - [facility] 11/19/2024 11:28:16 11/06/19 25 Allergy Immunotherapy Injections completed MICHAEL ROMO [address] [place],[address] [place] [address], [address], [facility] - [facility] 11/05/2024 12:11:25 10/15/19 25 Allergy Immunotherapy Injections completed ERICA JENSEN [facility] [address] [place],[address], [address], [facility] - [facility] 10/15/2024 12:52:52 10/08/19 25 Allergy Immunotherapy Injections completed RADHA CASTRO [facility] [address] [place],[address], [address], [facility] - [facility] 10/08/2024 12:06:57 10/01/19 25 Allergy Immunotherapy Injections completed ERICA JENSEN [facility] [address], [address], [facility] - [facility] 10/01/2024 11:50:19 09/20/19 25 Allergy Immunotherapy Injections completed KATHY TORREZ RN [address], [address], [facility] - [facility] 09/20/2024 10:01:22 07/23/20 24 Allergy Testing-Full completed RADHA CASTRO [facility] [address] [place],[address], [address], [facility] - [facility] 07/23/2024 15:31:38 06/29/20 24 Fiberoptic Laryngoscopy (Comprehensive) completed JOSE MIGUEL SCHMIDT MD [address] [place],[address], [address], [facility] - [facility] 06/29/2024 09:54:45 06/16/20 24 Revise eye muscle completed JOSE MIGUEL SCHMIDT MD [address] [place],[address] [place] [address], [address], [facility] [...] 24 hr 06/29 completed Medicati on ID: [id number] B rand Name: metoprol ol succinat e [...] as directed 06/29 completed Medicati on ID: [id number] [place] By Name: Kim Da Silva [...] DIRECTED BY GASTROEN TEROLOGY DEPARTME NT AT [facility] 02/18 completed Not Available Not Available Not Available Vitals None Recorded Social History Question Answer Notes LastModified by Organizat ion Details LastModified Time Tobacco Smoking Status Never Smoker Jacque escobar [place] - [facility] 03/09/2025 15:17:16 What Type Of Marriage And Family Counselor Do You Use? None [email or web address] Information not available 03/09/2025 Do You Have Any Pets? Yes [email or web address] Information not available 03/09/2025 Are You Passively Exposed To Smoke? No [email or web address] Information not available 03/09/2025 Are There Any Smokers In Your House? No [email or web address] Information not available 03/09/2025 Sex: Unknown Functional Status Question Answer Note LastModified by Organizat ion Details LastModified Time How many times per week do you consume alcohol? 1-2 times per week [email or web address] Information not available 03/09/2025 Do you use any illicit or recreational drugs? No [email or web address] Information not available 03/09/2025 Do you or have you ever used any other forms of tobacco or nicotine? No [email or web address] Information not available 03/09/2025 What is your level of alcohol consumption? Occasional [email or web address] Information not available 03/09/2025 What type of noise exposure are you exposed to? Industrial [email or web address] Information not available 03/09/2025 Mental Status None recorded. Family History Nothing Reported. Medical History Condition Response Hyperlipidemia Y Hypertension Y Sleep Disorder Y GERD/Reflux Y Past Encounters Encounter ID Performer Location Encounter Start Date Encounter Closed Date Diagnosis/Indication Diagnosis SNOMED-CT Code Diagnosis ICD10 Code Diagnosis IMO Codes Diagnosis Note [id number] JOSE MIGUEL SOTOMAYOR MD [facility] [address] [facility] [place] [address] 06/29/2024 09:21:20 06/29/2024 10:00:34 Snoring 46994361 R06.83 Chronic rhinitis 7168473 6 J31.0 Deviated nasal septum 12 7064123 J34.2 Feeling of lump in throat 404404778 R09.89 Allergic rhinitis 668672 04 J30.9 [id number] RADHA DEVIN, [facility] Allergy [address], [address] [place], [place] [address] 07/23/2024 12:39:42 07/23/2024 15:37:35 Allergic rhinitis 15957337 J30.9 [id number] JOSE MIGUEL SOTOMAYOR MD [facility] 100 [place] [address] 09/08/2024 08:35:14 09/08/2024 10:43:33 Allergic rhinitis 50081333 J30.9 We reviewed testing results and medical [...] Epipen use discussed Deviated nasal septum 12 1537393 J34.2 Chronic sinusitis 795181 00 J32.9 There is evidence of diffuse maxillary and ethmoid sinus thickening predominan tly on the right side. Septal deviation to the right and turbinate hypertroph y. Suggest adding fluticason e to his Astelin, a course of doxycyclin e and [place] immun[place]y [id number] KATHY TORREZ RN Allergy [address],[place] [address] [facility] [address] 09/20/2024 09:20:22 09/20/2024 10:13:08 Perennial allergic rhinitis 305606487 J30.89 [id number] ERICA JENSEN [facility] Allergy [address] [place] [address] it 100 [place] [address] 10/01/2024 11:20:43 10/01/2024 11:50:36 Perennial allergic rhinitis 434657057 J30.89 [id number] [facility] Allergy [address] [place] [address] it[address] [place] [address] 10/08/2024 11:30:58 10/08/2024 12:07:20 Perennial allergic rhinitis 490528010 J30.89 [id number] ERICA JENSEN [facility] Allergy [address] [place] [address] it[address] 100 [place] [address] 10/15/2024 11:31:35 10/15/2024 12:54:02 Perennial allergic rhinitis 367783852 J30.89 [id number] [facility] Allergy [address] [place] [address] [address] [place] [address] 11/05/2024 11:22:09 11/05/2024 12:12:21 Perennial allergic rhinitis 458753618 J30.89 [id number] [facility], [facility] Allergy [address] [place] [address],[place] [address] [place] [address] 11/19/2024 11:24:02 11/19/2024 11:28:42 Perennial allergic rhinitis 074346795 J30.89 [id number] ERICA JENSEN [facility] Allergy [address] [place] [address],[place] [address] [place] [address] 11/26/2024 11:14:13 11/26/2024 11:41:34 Perennial allergic rhinitis 135673329 J30.89 [id number] RADHA CASTRO [facility] Allergy [address] [place] [address], [place] [address] 12/03/2024 11:05:14 12/03/2024 11:47:44 Perennial allergic rhinitis 602458903 J30.89 [id number] ERICA MIKEY [address] [place] [address] 12/17/2024 09:37:24 12/17/2024 09:52:55 Perennial allergic rhinitis 128189420 J30.89 [id number] KATHY TORREZ RN Allergy [address] [place] [address], [place] [address] 12/31/2024 11:14:56 12/31/2024 12:13:39 Perennial allergic rhinitis 213757092 J30.89 [id number] ERICA MIKEY [address] [place] [address] 01/07/2025 11:21:24 01/07/2025 11:40:28 Perennial allergic rhinitis 604994664 J30.89 [id number] RADHA BELTRAN [facility] Allergy [address] [place] [address], [place] [address] 01/28/2025 10:36:04 01/28/2025 10:37:35 Perennial allergic rhinitis 009672523 J30.89 [id number] [facility] [address] [place] [address], [place] [address] 02/25/2025 11:47:16 02/25/2025 12:09:24 Perennial allergic rhinitis 809612951 J30.89 [id number] JOSE MIGUEL SOTOMAYOR MD [facility] [address] [place] [address] 03/09/2025 15:12:54 03/09/2025 16:00:27 Deviated nasal septum 200771479 J34.2 Allergic rhinitis 434683 04 J30.9 Chronic sinusitis 914047 00 J32.8 [id number] Continue irrigation s and nasal sprays with allergy management before surgery Obstructiv e sleep apnea syndrome 03884105 G47.33 [id number] ERICA JENSEN [facility] Allergy [address] [place] [address],[place] [address] [place] [address] 03/09/2025 15:15:06 03/09/2025 15:39:50 Perennial allergic rhinitis 521979429 J30.89 [id number] ERICA JENSEN [facility] Allergy [address] [place] [address],[place] [address] [place] [address] 03/18/2025 12:08:22 03/18/2025 12:10:00 Perennial allergic rhinitis 802672926 J30.89 [id number] ERICA JENSEN [facility] Allergy [address] [place] [address],[place] [address] [place] [address] 03/25/2025 09:21:54 03/25/2025 11:14:59 Perennial allergic rhinitis 615223318 J30.89 [id number] ERICA JENSEN [facility] Allergy [address] [place] [address] it[address] [place] [address] 04/01/2025 11:22:59 04/01/2025 11:46:39 Perennial allergic rhinitis 964829396 J30.89 [id number] RADHA CASTRO [facility] Allergy [address] [place] [address],[place] [address] [place] [address] 04/08/2025 11:51:35 04/08/2025 11:52:50 Perennial allergic rhinitis 028904388 J30.89 [id number] ERICA JENSEN [facility] Allergy [address] [place] [address], [address] [place] [address] 04/22/2025 11:34:46 04/22/2025 11:44:43 Perennial allergic rhinitis 668206739 J30.89 [id number] KATHY TORREZ RN Allergy [address] [place] [address],[place] [address] [place] [address] 04/29/2025 12:09:18 04/29/2025 12:10:28 Perennial allergic rhinitis 555148750 J30.89 [id number] ERICA JENSEN [facility] Allergy [address] [place] [address],[place] [address] 100 [facility] [address] 05/13/2025 10:16:00 05/13/2025 10:17:15 Perennial allergic rhinitis 208480330 J30.89 [id number] Verónica Nix Allergy 100 [facility] 100 [place] [address] 05/27/2025 11:27:58 05/27/2025 12:13:23 Perennial allergic rhinitis 382689168 J30.89 [id number] MICHAEL ROMO Allergy [address] [facility] 100 [place] [address] 06/03/2025 11:24:50 06/03/2025 11:50:11 Perennial allergic rhinitis 389036943 J30.89 Health Concerns Section Related Observation LastModified by Organization Detai ls LastModified Time None Recorded Concern Status LastModified by Organization Details LastModified Time None Recorded Advance Directives Directive None Recorded Payers Insurance Date Sequence Insurance Name Policy Number Policy Dacosta Covered Member ID Dacosta Member ID Guarantor Name 06/03/[address] [place] [address] [id number] Regan Lama [id number] Regan Lama
--- OUTSIDE RECORDS SUMMARY | 2025-08-01 20:57 | XMS_ITS | Continuity of Care Document ---
Author Organization [place] - [facility], Allergy Address [address] [address] Care Team Providers Care Barrel Lapper Name Role Phone ROSS COBOS Primary Care [...] Dose Aware of Vial Test Aware: Notes: [email or web address] Not available 05/13/2025 10:16:58 Plan of Treatment [...] Recorded Time Obstructi ve sleep apnea syndrome [id number] Active 2019 Obstructiv e sleep apnea (adult) (pediatric ); Note: Date Diagnosed: 07/03/2020 11:19 AM (G47.33) JOSE MIGUEL SOTOMAYOR MD 100 [facility] 100, [place], [address] , [place] [facility] 5 15:57:50 Posterior rhinorrhe a 21333074 Active 2019 Postnasal drip; Note: Date Diagnosed: 07/03/2020 11:19 AM (R09.82) Not Available [facility] 4 02:54:35 Snoring 37157716 Active 2023 JOSE MIGUEL SOTOMAYOR MD [address],[place] [address], [place], [address] , [place] [facility] 4 09:47:17 Chronic rhinitis 65843363 Active 2023 JOSE MIGUEL SOTOMAYOR MD [address],[place] [address], [place], [address] , [place] [facility] 4 09:47:22 Deviated nasal septum 793880486 Active 2023 JOSE MIGUEL SOTOMAYOR MD [address], [place], [address] , [place] [facility] 4 09:47:26 Feeling of lump in throat 189867638 Active 2023 JOSE MIGUEL SOTOMAYOR MD [address],[place] [address], [place], [address] , [place] [facility] 4 09:47:30 Allergic rhinitis 54182928 Active 2023 JOSE MIGUEL SOTOMAYOR MD 100 [facility] [address], [place], [address] , [place] [facility] 4 09:56:43 Nasal congestio n 70692652 Active 2024 JOSE MIGUEL SOTOMAYOR MD [address], [place], [address] , [place] [facility] 5 09:10:23 Chronic sinusitis 52871798 Active 2024 JOSE MIGUEL SOTOMAYOR MD [address], [place], [address] , [place] [facility] 15:55:02 Perennial allergic rhinitis 983800797 Active 2024 MICHAEL ROMO 100 [facility] [address], [place], [address] , [place] [facility] 11:48:04 Seasonal allergic rhinitis 550664256 Active 2024 JOSE MIGUEL SOTOMAYOR MD 100 [facility] [address], [place], [address] , [place] [facility] 15:54:25 Problem Notes None recorded. Procedures Surgical History Date Name Laterality Status Provider Name and Address Organization Details Recorded Time 06/03/20 25 Allergy Immunotherapy Injections completed MICHAEL ROMO 100 [facility],[place] [facility], [place], [address], [place] [facility] 06/03/2025 11:49:46 05/27/20 25 Allergy Immunotherapy Injections completed Verónica Nix 100 [facility],[place] [facility], [place], [address], [place] [facility] 05/27/2025 12:12:59 05/13/20 25 Allergy Immunotherapy Injections completed MICHAEL ROMO 100 [facility],[place] [facility], [place], [address], [place] [facility] 05/13/2025 10:16:47 04/29/20 25 Allergy Immunotherapy Injections completed MICHAEL ROMO 100 [facility],[address], [address], [place] [facility] 04/29/2025 12:10:02 04/22/20 25 Allergy Immunotherapy Injections completed Verónica Nix 100 [facility],[place] [facility], [place], [address], [place] [facility] 04/22/2025 11:43:53 04/08/20 25 Allergy Immunotherapy Injections completed MICHAEL BYRNES [address], [place], [address], [place] [facility] 04/08/2025 11:52:29 04/01/20 25 Allergy Immunotherapy Injections completed SALVADOR MIKEY, RMA [address],[place] [address], [place], [address], [place] [facility] 04/01/2025 11:46:12 03/25/20 25 Allergy Immunotherapy Injections completed MICHAEL BYRNES [address],[place] [address], [place], [address], [place] [facility] 03/25/2025 11:14:09 03/18/20 25 Allergy Immunotherapy Injections completed MICHAEL ROMO [address],[place] [address], [place], [address], [place] [facility] 03/18/2025 12:09:33 03/09/20 25 Allergy Immunotherapy Injections completed MICHAEL ROMO [address],[place] [address], [place], [address], [place] [facility] 03/09/2025 15:27:04 02/26/20 25 Allergy Immunotherapy Injections completed MICHAEL ROMO [address],[place] [address] [place] [address], [address], [place] [facility] 02/25/2025 12:08:34 01/29/20 25 Allergy Immunotherapy Injections completed KATHY TORREZ RN [address],[place] [address] [place] [address], [address], [place] [facility] 01/28/2025 10:37:12 01/08/20 25 Allergy Immunotherapy Injections completed MICHAEL BYRNES [address],[place] [address] [place] [address], [address], [place] [facility] 01/07/2025 11:39:55 01/01/20 25 Allergy Immunotherapy Injections completed KATHY TORREZ RN [address],[place] [address] [place] [address], [address], [place] [facility] 12/31/2024 12:12:52 12/18/19 25 Allergy Immunotherapy Injections completed KATHY TORREZ RN [address],[place] [address], [place], [address], [place] [facility] 12/17/2024 09:51:57 12/04/19 25 Allergy Immunotherapy Injections completed RADHA KORZEC, RMA [address], [place], [address], [place] [facility] 12/03/2024 11:47:21 11/27/19 25 Allergy Immunotherapy Injections completed LOGAN ROMOA [address], [place], [address], [place] [facility] 11/26/2024 11:41:01 11/20/19 25 Allergy Immunotherapy Injections completed RADHA CASTRO, RMA [address], [place], [address], [place] [facility] 11/19/2024 11:28:16 11/06/19 25 Allergy Immunotherapy Injections completed LOGAN ROMOA [address],[place] [address], [place], [address], [place] [facility] 11/05/2024 12:11:25 10/15/19 25 Allergy Immunotherapy Injections completed LOGAN ROMOA [address], [place], [address], [place] [facility] 10/15/2024 12:52:52 10/08/19 25 Allergy Immunotherapy Injections completed RADHA CASTRO RMA [address],[place] [address], [place], [address], [place] [facility] 10/08/2024 12:06:57 10/01/19 25 Allergy Immunotherapy Injections completed LOGAN ROMOA [address],[place] [address], [place], [address], [facility] - [facility] 10/01/2024 11:50:19 09/20/19 25 Allergy Immunotherapy Injections completed KATHY TORREZ RN [address], [place], [address], [place] [facility] 09/20/2024 10:01:22 07/23/20 24 Allergy Testing-Full completed RADHA CASTRO, RMA [address], [place], [address], [place] [facility] 07/23/2024 15:31:38 06/29/20 24 Fiberoptic Laryngoscopy (Comprehensive) completed JOSE MIGUEL SCHMIDT MD 100 [facility] 100, [place], [address], [facility] - [facility] 06/29/2024 09:54:45 06/16/20 24 Revise eye muscle completed JOSE MIGUEL SCHMIDT MD [address] [facility], [place], [address], [facility] 06/29/2024 09:42:26 Imaging Results None [...] 24 hr 06/29 completed Medicati on ID: [id number] Osbaldo tirado Name: metoprol ol succinat e [...] as directed 06/29 completed Medicati on ID: [id number] [place] By Name: Kim Da Silva [...] DIRECTED BY GASTROEN TEROLOGY DEPARTME NT AT [facility] 02/18 completed Not Available Not Available Not Available Vitals None Recorded Social History Question Answer Notes LastModified by Organizat ion Details LastModified Time Tobacco Smoking Status Never Smoker Jacque escobar [place] - [facility] 03/09/2025 15:17:16 What Type Of Dialysis Biomed Technician Do You Use? None [email or web address] Information not available 03/09/2025 Do You Have Any Pets? Yes [email or web address] Information not available 03/09/2025 Are You Passively Exposed To Smoke? No [email or web address] Information not available 03/09/2025 Are There Any Smokers In Your House? No [email or web address] Information not available 03/09/2025 Sex: Unknown Functional Status Question Answer Note LastModified by Organizat ion Details LastModified Time How many times per week do you consume alcohol? 1-2 times per week [email or web address] Information not available 03/09/2025 Do you use any illicit or recreational drugs? No [email or web address] Information not available 03/09/2025 Do you or have you ever used any other forms of tobacco or nicotine? No [email or web address] Information not available 03/09/2025 What is your level of alcohol consumption? Occasional [email or web address] Information not available 03/09/2025 What type of noise exposure are you exposed to? Industrial [email or web address] Information not available 03/09/2025 Mental Status None recorded. Family History Nothing Reported. Medical History Condition Response Hyperlipidemia Y Hypertension Y Sleep Disorder Y GERD/Reflux Y Past Encounters Encounter ID Performer Location Encounter Start Date Encounter Closed Date Diagnosis/Indication Diagnosis SNOMED-CT Code Diagnosis ICD10 Code Diagnosis IMO Codes Diagnosis Note [id number] MICHAEL ROMO Allergy 100 [facility] 100 [place] [address] 04/22/2025 11:34:46 04/22/2025 11:44:43 Perennial allergic rhinitis 910989979 J30.89 [id number] KATHY TORREZ RN Allergy 100 [facility], [place] 100 [place] [address] 04/29/2025 12:09:18 04/29/2025 12:10:28 Perennial allergic rhinitis [id number] J30.89 [id number] SALVADOR JENSEN [facility] Allergy 100 [facility] 100 [place] [address] 05/13/2025 10:16:00 05/13/2025 10:17:15 Perennial allergic rhinitis 072809746 J30.89 Health Concerns Section Related Observation LastModified by Organization Detai ls LastModified Time None Recorded Concern Status LastModified by Organization Details LastModified Time None Recorded Payers Encounter Date Sequence Insurance Name Policy Number Policy Dacosta Covered Member ID Dacosta Member ID Guarantor Name 05/13/2025 1 [facility] [id number] Regan Lama [id number] Regan Lama
--- OUTSIDE RECORDS SUMMARY | 2025-08-01 20:57 | XMS_ITS | Continuity of Care Document ---
Author Organization [place] - [facility], Allergy Address [address] [address] Care Team Providers Care Bridge Expert Name Role Phone ROSS COBOS Primary Care Provider [phone] Assessment Encounter Date Assessment Date Assessment LastModified by Organization Details LastModified Time 05/27/2025 05/27/2025 Visit With: Verónica Nix [place] Use of Antihistamine s: No If yes: Vial Test Change in medications: No If yes Increase in asthma symptoms No Asthma Hx If yes, inhaler use: Reaction to last injections: No If yes: Allergy Symptoms: Other: Missed: Dose Aware of Vial Test Aware: Notes: [email or web address] Not available 05/27/2025 12:13:09 Plan of Treatment [...] Recorded Time Obstructi ve sleep apnea syndrome 11398397 Active 2019 Obstructiv e sleep apnea (adult) (pediatric ); Note: Date Diagnosed: 07/03/2020 11:19 AM (G47.33) JOSE MIGUEL SOTOMAYOR MD 100 [facility] 100, [facility] [place] [place], [address] , [place] [facility] 5 15:57:50 Posterior rhinorrhe a 17316096 Active 2019 Postnasal drip; Note: Date Diagnosed: 07/03/2020 11:19 AM (R09.82) Not Available [facility], [facility] 4 02:54:35 Snoring 84226739 Active 2023 JOSE MIGUEL SOTOMAYOR MD [address], [place], [address] , [place] [facility] [place] 4 09:47:17 Chronic rhinitis 14944835 Active 2023 JOSE MIGUEL SOTOMAYOR MD [address], [place], [address] , [place] [facility] 4 09:47:22 Deviated nasal septum 457802369 Active 2023 JOSE MIGUEL SOTOMAYOR MD [address], [place], [address] , [place] [facility] [place] 4 09:47:26 Feeling of lump in throat 082766848 Active 2023 JOSE MIGUEL SOTOMAYOR MD [address], [place], [address] , [place] [facility] 4 09:47:30 Allergic rhinitis 12521038 Active 2023 JOSE MIGUEL SOTOMAYOR MD [address] [facility],[address], [place], [address] , [place] [facility] [place] 4 09:56:43 Nasal congestio n 99892641 Active 2024 JOSE MIGUEL SOTOAMYOR MD [address], [place], [address] , [place] [facility] 5 09:10:23 Chronic sinusitis 22953001 Active 2024 JOSE MIGUEL SOTOMAYOR MD [address], [place], [address] , [place] [facility] 15:55:02 Perennial allergic rhinitis 918385625 Active 2024 MICHAEL ROMO [address] [facility] [address] [facility], [place], [address] , [place] [facility] [place] 11:48:04 Seasonal allergic rhinitis 882217609 Active 2024 JOSE MIGUEL SOTOMAYOR MD [address] [facility],[place] [facility], [place], [address] , [place] [facility] 15:54:25 Problem Notes None recorded. Procedures Surgical History Date Name Laterality Status Provider Name and Address Organization Details Recorded Time 06/03/20 25 Allergy Immunotherapy Injections completed MICHAEL ROMO 100 [facility],[place] [facility], [place], [address], [facility] - [facility] 06/03/2025 11:49:46 05/27/20 25 Allergy Immunotherapy Injections completed Verónica Nix 100 [facility],[address], [address], [facility] - [facility] [place] 05/27/2025 12:12:59 05/13/20 25 Allergy Immunotherapy Injections completed MICHAEL ROMO 100 [facility],[place] [facility], [place], [address], [facility] - [facility] 05/13/2025 10:16:47 04/29/20 25 Allergy Immunotherapy Injections completed MICHAEL ROMO 100 [facility],[address], [address], [place] [facility] 04/29/2025 12:10:02 04/22/20 25 Allergy Immunotherapy Injections completed Verónica Nix 100 [facility],[place] [address] [place] [address], [address], [place] [facility] 04/22/2025 11:43:53 04/08/20 25 Allergy Immunotherapy Injections completed MICHAEL SANCHEZ [address],[place], [place], [address], [place] [facility] 04/08/2025 11:52:29 04/01/20 25 Allergy Immunotherapy Injections completed MICHAEL ROMO [address],[place] [address], [place], [address], [place] [facility] 04/01/2025 11:46:12 03/25/20 25 Allergy Immunotherapy Injections completed RADHA CASTRO RMLinda [address],[place] [address], [place], [address], [place] [facility] 03/25/2025 11:14:09 03/18/20 25 Allergy Immunotherapy Injections completed MICHAEL ROMO [address],[place] [address], [place], [address], [place] [facility] 03/18/2025 12:09:33 03/09/20 25 Allergy Immunotherapy Injections completed MICHAEL ROMO [address],[place] [address], [place], [address], [place] [facility] 03/09/2025 15:27:04 02/26/20 25 Allergy Immunotherapy Injections completed MICHAEL ROMO [address],[place] [address] [place] [address], [address], [place] [facility] 02/25/2025 12:08:34 01/29/20 25 Allergy Immunotherapy Injections completed KATHY TORREZ RN [address],[place] [address] [place] [address], [address], [place] [facility] 01/28/2025 10:37:12 01/08/20 25 Allergy Immunotherapy Injections completed MICHAEL SANCHEZ [address],[place] [address] [place] [address], [address], [place] [facility] 01/07/2025 11:39:55 01/01/20 25 Allergy Immunotherapy Injections completed KATHY TORREZ RN [address],[place] [address] [place] [address], [address], [place] [facility] 12/31/2024 12:12:52 12/18/19 25 Allergy Immunotherapy Injections completed KATHY TORREZ RN [address],[place] [address] [place] [address], [address], [place] [facility] 12/17/2024 09:51:57 12/04/19 25 Allergy Immunotherapy Injections completed RADHA KORZEC, RMA [address], [place], [address], [place] [facility] 12/03/2024 11:47:21 11/27/19 25 Allergy Immunotherapy Injections completed LOGAN ROMOA [address], [place], [address], [place] [facility] 11/26/2024 11:41:01 11/20/19 25 Allergy Immunotherapy Injections completed RADHA CASTRO, RMA [address], [place], [address], [place] [facility] 11/19/2024 11:28:16 11/06/19 25 Allergy Immunotherapy Injections completed LOGAN ROMOA [address],[place] [address] [place] [address], [address], [place] [facility] 11/05/2024 12:11:25 10/15/19 25 Allergy Immunotherapy Injections completed LOGAN ROMOA [address], [place], [address], [place] [facility] 10/15/2024 12:52:52 10/08/19 25 Allergy Immunotherapy Injections completed RADHA CASTRO RMA [address],[place] [address], [place], [address], [place] [facility] 10/08/2024 12:06:57 10/01/19 25 Allergy Immunotherapy Injections completed LOGAN ROMOA [address],[place] [address], [place], [address], [facility] - [facility] 10/01/2024 11:50:19 09/20/19 25 Allergy Immunotherapy Injections completed KATHY TORREZ RN [address], [place], [address], [place] [facility] 09/20/2024 10:01:22 07/23/20 24 Allergy Testing-Full completed RADHA CASTRO, RMA [address], [place], [address], [place] [facility] 07/23/2024 15:31:38 06/29/20 24 Fiberoptic Laryngoscopy (Comprehensive) completed JOSE MIGUEL SCHMIDT MD 100 [facility] 100, [place], [address], [facility] 06/29/2024 09:54:45 06/16/20 24 Revise eye muscle completed JOSE MIGUEL SCHMIDT MD [address], [place], [address], [facility] 06/29/2024 09:42:26 Imaging Results None recorded. Procedure [...] 24 hr 06/29 completed Medicati on ID: [id number] Osbaldo rand Name: metoprol ol succinat e [...] as directed 06/29 completed Medicati on ID: [id number] Venu luque By Name: Kim Da Silva [...] DIRECTED BY GASTROEN TEROLOGY DEPARTME NT AT [facility] 02/18 completed Not Available Not Available Not Available Vitals None Recorded Social History Question Answer Notes LastModified by Organizat ion Details LastModified Time Tobacco Smoking Status Never Smoker Jacque escobar [place] - [facility] 03/09/2025 15:17:16 What Type Of Vice President Of Advertising Do You Use? None [email or web address] Information not available 03/09/2025 Do You Have Any Pets? Yes [email or web address] Information not available 03/09/2025 Are You Passively Exposed To Smoke? No [email or web address] Information not available 03/09/2025 Are There Any Smokers In Your House? No [email or web address] Information not available 03/09/2025 Sex: Unknown Functional Status Question Answer Note LastModified by Organizat ion Details LastModified Time How many times per week do you consume alcohol? 1-2 times per week Information not available 03/09/2025 Do you use any illicit or recreational drugs? No [email or web address] Information not available 03/09/2025 Do you or have you ever used any other forms of tobacco or nicotine? No [email or web address] Information not available 03/09/2025 What is your level of alcohol consumption? 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 Industrial [email or web address] Information not available 03/09/2025 Mental Status None recorded. Family History Nothing Reported. Medical History Condition Response Hyperlipidemia Y Hypertension Y Sleep Disorder Y GERD/Reflux Y Past Encounters Encounter ID Performer Location Encounter Start Date Encounter Closed Date Diagnosis/Indication Diagnosis SNOMED-CT Code Diagnosis ICD10 Code Diagnosis IMO Codes Diagnosis Note [id number] KATHY TORREZ RN Allergy 100 [facility], [place] 100 [place] [address] 04/29/2025 12:09:18 04/29/2025 12:10:28 Perennial allergic rhinitis 917071407 J30.89 [id number] MICHAEL ROMO Allergy 100 [facility], [place] [address] [place] [address] 05/13/2025 10:16:00 05/13/2025 10:17:15 Perennial allergic rhinitis [id number] J30.89 [id number] Verónica Nix Allergy 100 [facility], [place] [address] [place] [address] 05/27/2025 11:27:58 05/27/2025 12:13:23 Perennial allergic rhinitis 407277839 J30.89 Health Concerns Section Related Observation LastModified by Organization Detai ls LastModified Time None Recorded Concern Status LastModified by Organization Details LastModified Time None Recorded Payers Encounter Date Sequence Insurance Name Policy Number Policy Dacosta Covered Member ID Dacosta Member ID Guarantor Name 05/27/2025 1 [facility] [id number] Regan Lama [id number] Regan Lama
== END ==
LOC: HO.SL 20:30
PROVIDERS: PCP Nurse Practitioner Family; Visit Provider Physician Assistant Medical
DX: G47.33 Obstructive sleep apnea (adult) (pediatric) (principal); G47.34 Idiopathic sleep related nonobstructive alveolar hypoventilation
CPT/HCPCS: 95811

== ENCOUNTER → 2025-08-01 20:47 | Outpatient (BNV) | payer OTHER, SELFPAY | PROVIDERS: PCP Nurse Practitioner Family; Visit Provider Psychiatry & Neurology Neurology | DX: G47.33 Obstructive sleep apnea (adult) (pediatric) (principal) | CPT/HCPCS: 95811 ==